=== PATIENT | female | born 1965 | race African-American/Black ===

== ENCOUNTER 2017-02-02 13:38 | Inpatient (IN) | payer OTHER ==
[2017-02-02 13:43] VITALS: BMI 39.1
--- NOTE | 2017-02-02 14:03 | PDOC ---
History of Present Illness - General History Source: Patient <Ralf Berriosica - Last Filed: 02/02/17 14:02> - General History Source: Patient Exam Limitations: No Limitations <Christian Knox - Last Filed: 02/02/17 14:25> <Irasema Garza - Last Filed: 02/02/17 14:33> - General Chief Complaint: Pain Stated Complaint: ADMIT (PCP SENT) Time Seen by Provider: 02/02/17 14:02 Past History - Past Medical History COPD: No DVT: No Diabetes: Yes GI Disorders: Yes (GALLSTONES) - Suicide/Smoking/Psychosocial Hx Smoking History: Current some day smoker Number of Cigarettes Smoked Daily: 2 Information on smoking cessation initiated: Yes 'Breaking Loose' booklet given: 02/02/17 Hx Alcohol Use: Yes (SOCIAL) Drug/Substance Use Hx: No <YashKelle - Last Filed: 02/02/17 14:02> <Christian Knox - Last Filed: 02/02/17 14:25> <Irasema Garza - Last Filed: 02/02/17 14:33> - Past Medical History Allergies/Adverse Reactions: Allergies Allergy/AdvReac Type Severity Reaction Status Date / Time No Known Allergies Allergy Verified 02/02/17 13:43 Home Medications: Ambulatory Orders Metformin HCl [Glucophage -] 500 mg PO TID 02/14/16 *Physical Exam - Vital Signs Last Vital Signs Temp Pulse Resp BP Pulse Ox 98.1 F 95 H 20 145/75 97 02/02/17 13:39 02/02/17 13:39 02/02/17 13:39 02/02/17 13:39 02/02/17 13:39 <Kelle Berrios - Last Filed: 02/02/17 14:02> - Vital Signs Last Vital Signs Temp Pulse Resp BP Pulse Ox 98.1 F 95 H 20 145/75 97 02/02/17 13:39 02/02/17 13:39 02/02/17 13:39 02/02/17 13:39 02/02/17 13:39 <Christian Knox - Last Filed: 02/02/17 14:25> - Vital Signs Last Vital Signs Temp Pulse Resp BP Pulse Ox 98.1 F 95 H 20 145/75 97 02/02/17 13:39 02/02/17 13:39 02/02/17 13:39 02/02/17 13:39 02/02/17 13:39 <Irasema Garza - Last Filed: 02/02/17 14:33> Medical Decision Making - Medical Decision Making 02/02/17 14:26 A portion of this note was documented by scribe services under my direction. I have reviewed the details of the note, within reason, and agree with the documentation with the following case summary and management plan written by me. Patient treated in the ED. Nursing notes are reviewed and incorporated into the medical decision-making. Vital signs reviewed. Peripheral IV access obtained by the nurse, laboratory studies are drawn and sent, reviewed and interpreted by myself. Vital Signs Temp Pulse Resp BP Pulse Ox 98.1 F 95 H 20 145/75 97 02/02/17 13:39 02/02/17 13:39 02/02/17 13:39 02/02/17 13:39 02/02/17 13:39 51-year-old female with past medical history of appendectomy, diabetes, hyperlipidemia returns back the ED for persistent right upper quadrant pain. Patient reports feeling nauseous and reported severe pain when eating. Continues a right upper quadrant pain. Patient called her primary care physician within sent the patient back to the ED for admission. I discussed the case with Dr. Elizabet Linton, which is the patient to medical surgical admission and request surgeon Dr. Jenaro Mccurdy. Ultrasound from several hours ago demonstrated cholelithiasis with diarrhea, bile duct. Patient will likely need MRCP for further evaluation. This is concerning for choledocholithiasis. Case discussed in detail with admitting physician including history, physical exam and ancillary studies. Admitting physician has assumed care for the patient, will follow all pending diagnostics and will complete the evaluation and treatment. <Christian nKox - Last Filed: 02/02/17 14:25> - Medical Decision Making 02/02/17 14:15 Dr. Elizabet Linton was paged and notified via phone service. <Irasema Garza - Last Filed: 02/02/17 14:33> *DC/Admit/Observation/Transfer <Kelle Berrios - Last Filed: 02/02/17 14:02> - Discharge Dispostion Admit: Yes <Christian Knox - Last Filed: 02/02/17 14:25> <Irasema Garza - Last Filed: 02/02/17 14:33> Diagnosis at time of Disposition: Biliary colic symptom - Discharge Dispostion Condition at time of disposition: Stable - Referrals Referrals: Elizabet Linton [Primary Care Provider] - - Patient Instructions - Post Discharge Activity
[2017-02-02] MEDS ORDERED: morphine CARPU-JECT 4 MG/1 ML DISP.SYRIN IVPUSH ONE (14:23)
[2017-02-02] MEDS ORDERED: ONDANSETRON 4 MG/2 ML VIAL IVPB ONE (14:23)
--- NOTE | 2017-02-02 14:34 | PDOC ---
History of Present Illness - General History Source: Patient Exam Limitations: No Limitations - History of Present Illness Initial Comments: 02/02/17 16:28 The patient is a 51-year-old female, with significant past medical history of appendectomy, diabetes, hyperlipidemia, who presents to theED for persistent right upper quadrant pain. On exam, pt states that she is experiencing nausea and pain when eating. Patient called her PCP regarding her persistent pain and she was advised to come into the ED for admission. The patient denies any fever, chills, vomiting, or diarrhea. She denies having any other symptoms. PCP: Dr. Elizabet Linton <Irasema Garza - Last Filed: 02/02/17 16:28> - General History Source: Patient Exam Limitations: No Limitations <Christian Knox - Last Filed: 02/04/17 16:05> - General Chief Complaint: Pain Stated Complaint: ADMIT (PCP SENT) Time Seen by Provider: 02/02/17 14:02 Past History <Irasema Garza - Last Filed: 02/02/17 16:28> - Past Medical History COPD: No DVT: No Diabetes: Yes GI Disorders: Yes (GALLSTONES) - Suicide/Smoking/Psychosocial Hx Smoking History: Current some day smoker Number of Cigarettes Smoked Daily: 2 Information on smoking cessation initiated: Yes 'Breaking Loose' booklet given: 02/02/17 Hx Alcohol Use: Yes (SOCIAL) Drug/Substance Use Hx: No <Christian Knox - Last Filed: 02/04/17 16:05> - Past Medical History Allergies/Adverse Reactions: Allergies Allergy/AdvReac Type Severity Reaction Status Date / Time No Known Allergies Allergy Verified 02/02/17 13:43 Home Medications: Ambulatory Orders Metformin HCl [Glucophage -] 500 mg PO BID 02/14/16 Review of Systems - Review of Systems Able to Perform ROS?: Yes Comments:: 02/02/17 16:31 GENERAL/CONSTITUTIONAL: No fever or chills. No weakness. HEAD, EYES, EARS, NOSE AND THROAT: No change in vision. No ear pain or discharge. No sore throat. CARDIOVASCULAR: No chest pain or shortness of breath. RESPIRATORY: No cough, wheezing, or hemoptysis. GASTROINTESTINAL: (+)abdominal pain, nausea. No vomiting, diarrhea or constipation. GENITOURINARY: No dysuria, frequency, or change in urination. MUSCULOSKELETAL: No joint or muscle swelling or pain. No neck or back pain. SKIN: No rash NEUROLOGIC: No headache, vertigo, loss of consciousness, or change in strength/ sensation. ENDOCRINE: No increased thirst. No abnormal weight change. HEMATOLOGIC/LYMPHATIC: No anemia, easy bleeding, or history of blood clots. ALLERGIC/IMMUNOLOGIC: No hives or skin allergy. <GregIrasema - Last Filed: 02/02/17 16:28> *Physical Exam - Vital Signs Last Vital Signs Temp Pulse Resp BP Pulse Ox 98.1 F 95 H 20 145/75 97 02/02/17 13:39 02/02/17 13:39 02/02/17 13:39 02/02/17 13:39 02/02/17 13:39 - Physical Exam Comments: 02/02/17 16:32 GENERAL: Awake, alert, and fully oriented. (+)Uncomfortable appearing. HEAD: No signs of trauma EYES: PERRLA, EOMI, sclera anicteric, conjunctiva clear ENT: Auricles normal inspection, hearing grossly normal, nares patent, oropharynx clear without exudates. Moist mucosa NECK: Normal ROM, supple, no lymphadenopathy, JVD, or masses LUNGS: Breath sounds equal, clear to auscultation bilaterally. No wheezes, and no crackles HEART: Regular rate and rhythm, normal S1 and S2, no murmurs, rubs or gallops ABDOMEN: (+)Right upper quadrant tenderness, Gomez's sign positive. Soft, normoactive bowel sounds. No guarding, no rebound. No masses EXTREMITIES: Normal range of motion, no edema. No clubbing or cyanosis. No cords, erythema, or tenderness. NEUROLOGICAL: Cranial nerves II through XII grossly intact. Normal speech, normal gait SKIN: Warm, Dry, normal turgor, no rashes or lesions noted <GregIrasema - Last Filed: 02/02/17 16:28> - Vital Signs Last Vital Signs Temp Pulse Resp BP Pulse Ox 98.1 F 95 H 20 145/75 97 02/02/17 13:39 02/02/17 13:39 02/02/17 13:39 02/02/17 13:39 02/02/17 13:39 <Christian Knox - Last Filed: 02/04/17 16:05> Heart Score/ECG Review #1 ECG reviewed & interpreted by me at: 16:00 02/02/17 16:06 NSR 64, no std/bernard, QTC 435 msec, normal axis, normal intervals, TWI III, T wave flat V4, QTC 435 msec <Christian Knox - Last Filed: 02/04/17 16:05> ED Treatment Course - LABORATORY CBC & Chemistry Diagram: 02/02/17 14:44 02/02/17 14:44 <Irasema Garza - Last Filed: 02/02/17 16:28> - LABORATORY CBC & Chemistry Diagram: 02/02/17 14:44 02/02/17 14:44 <Christian Knox - Last Filed: 02/04/17 16:05> Medical Decision Making - Medical Decision Making 02/02/17 14:[address] Jenaro Mccurdy and he will be admitting the patient. <Irasema Garza - Last Filed: 02/02/17 16:28> - Medical Decision Making 02/02/17 14:34 A portion of this note was documented by scribe services under my direction. I have reviewed the details of the note, within reason, and agree with the documentation with the following case summary and management plan written by me. Patient treated in the ED. Nursing notes are reviewed and incorporated into the medical decision-making. Vital signs reviewed. Peripheral IV access obtained by the nurse, laboratory studies are drawn and sent, reviewed and interpreted by myself. Vital Signs Temp Pulse Resp BP Pulse Ox 98.1 F 95 H 20 145/75 97 02/02/17 13:39 02/02/17 13:39 02/02/17 13:39 02/02/17 13:39 02/02/17 13:39 51-year-old female with past medical history of appendectomy, diabetes, hyperlipidemia returns back the ED for persistent right upper quadrant pain. Patient reports feeling nauseous and reported severe pain when eating. Continues a right upper quadrant pain. Patient called her primary care physician within sent the patient back to the ED for admission. I discussed the case with Dr. Elizabet Linton, which is the patient to medical surgical admission and request surgeon Dr. Jenaro Mccurdy. Ultrasound from several hours ago demonstrated cholelithiasis with diarrhea, bile duct. Patient will likely need MRCP for further evaluation. This is concerning for choledocholithiasis. Case discussed in detail with admitting physician including history, physical exam and ancillary studies. Admitting physician has assumed care for the patient, will follow all pending diagnostics and will complete the evaluation and treatment. 02/04/17 16:04 CORRECTION: Case was discussed with DR. Hampton, not with DR. Jenaro Mccurdy (as Dr. Hampton was control operator flow coat) <Christian Konx - Last Filed: 02/04/17 16:05> *DC/Admit/Observation/Transfer - Attestations Scribe Attestion: 02/02/17 16:36 Documentation prepared by Irasema Garza, acting as medical technologist for Christian Konx MD. <Irasema Garza - Last Filed: 02/02/17 16:28> - Discharge Dispostion Admit: Yes Decision to Admit order Date/Time: Decision to Admit Order Category Date Time Status Decision to Admit to Hospital Routine Admission 02/02/17 14:32 Ordered <Christian Knox - Last Filed: 02/04/17 16:05> Diagnosis at time of Disposition: Biliary colic symptom - Discharge Dispostion Condition at time of disposition: Stable
[2017-02-02] MEDS ORDERED: morphine SULFATE 4 MG/ML VIAL ONE (14:37)
[2017-02-02] MEDS: SODIUM CHLORIDE 1,000 ML IV SCH (14:48)
[2017-02-02 15:10] LABS: BASOPHIL 0.7 % (0-2.0); EOSINOPHIL 3.7 % (0-4.5); MCH 27.6 pg (25.7-33.7); MCHC 32.9 g/dl (32.0-36.0); MEAN CELL VOLUME 83.8 fl (80-96); NEUTROPHILS 52.4 % (42.8-82.8); PLATELET COUNT 186 K/MM3 (134-434); RDW 14.3 % (11.6-15.6); WHITE BLOOD COUNT 5.8 K/mm3 (4.0-10.0)
[2017-02-02 15:30] LABS: ALBUMIN 3.3 g/dl (3.4-5.0); ANION GAP 8 (8-16); BILIRUBIN,TOTAL 0.2 mg/dL (0.2-1.0); CO2 25 mmol/L (21-32); CREATININE 0.7 mg/dL (0.55-1.02); GLUCOSE,RANDOM 176 mg/dL (74-106); SGOT/AST 12 U/L (15-37); SGPT/ALT 24 U/L (12-78); TOT PROT 6.5 g/dl (6.4-8.2)
[2017-02-02 15:31] LABS: ALK PHOS 92 U/L (45-117)
[2017-02-02 15:58] LABS: INR 0.96 (0.82-1.09); PROTHROMBIN TIME (PATIENT) 10.8 SEC (9.98-11.88)
[2017-02-02 16:01] LABS: ACTIVATED PTT 31.2 SECONDS (26.9-34.4)
[2017-02-02 16:27] LABS: URINE APPEARANCE CLOUDY; URINE BILIRUBIN NEGATIVE (NEGATIVE); URINE BLOOD NEGATIVE (NEGATIVE); URINE COLOR DK YELLOW; URINE GLUCOSE (UA) 2+ (NEGATIVE); URINE KETONE NEGATIVE (NEGATIVE); URINE NITRITE POSITIVE (NEGATIVE); URINE PROTEIN NEGATIVE (NEGATIVE); URINE UROBILINOGEN NEGATIVE mg/dL (0.2-1.0)
[2017-02-02 16:30] LABS: URINE BACTERIA RARE /hpf (NONE SEEN); URINE HYALINE CAST 38 /lpf; URINE MUCUS MANY; URINE RBC 5; URINE WBC 4
[2017-02-02 20:14] LABS: URINE LEUK ESTERASE Negative (NEGATIVE)
[2017-02-02] MEDS: HEPARIN NA (PORCINE) 5,000 UNITS/ML 1ML VIAL SQ SCH (22:00)
[2017-02-03] MEDS ORDERED: ACETAMINOPHEN 325 MG TABLET (FP) PO PRN (01:49)
[2017-02-03] MEDS: SODIUM CHLORIDE 1,000 ML IV SCH ×2 (03:17→07:46)
[2017-02-03] MEDS: metFORMIN HCL 500 MG TABLET (FP) PO SCH ×2 (06:38→16:47)
--- NOTE | 2017-02-03 07:02 | HP ---
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 On exam, pt states that she is experiencing nausea and pain when eating. Patient called me this am regarding her persistent pain and I advised her to come into the ED for admission. No CP/ SOB/NEFF. Pt was in ER last night but was sent home by ER with f/u in office then pt returned today and more abdominal pain with eating. The patient denies any fever, chills, vomiting, or diarrhea. Has chronic intermittent back pain. She denies having any other symptoms. History Source: Patient Limitations to Obtaining History: No Limitations - Past Medical History Musculoskeletal: Yes: Osteoarthritis Endocrine: Yes: Diabetes Mellitus - Smoking History Smoking history: Current every day smoker Aproximately how many cigarettes per day: 8 - Alcohol/Substance Use Hx Alcohol Use: Yes (SOCIAL) History of Substance Use: reports: None - Social History Usual Living Arrangement: Yes: Alone ADL: Independent History of Recent Travel: No Home Medications - Allergies Allergies/Adverse Reactions: Allergies Allergy/AdvReac Type Severity Reaction Status Date / Time No Known Allergies Allergy Verified 02/02/17 13:43 - Home Medications Home Medications: Ambulatory Orders Metformin HCl [Glucophage -] 500 mg PO BID 02/14/16 Family Disease History - Family Disease History Family History: Unremarkable Review of Systems - Review of Systems Constitutional: reports: Loss of Appetite. denies: Chills, Fever Eyes: denies: Blind Spots, Blurred Vision, Double Vision HENT: denies: Difficult Swallowing, Ear Pain Neck: denies: Stiffness, Tenderness Cardiovascular: denies: Chest Pain, Palpitations, Shortness of Breath Respiratory: denies: Cough, Orthopnea, SOB, SOB on Exertion Gastrointestinal: reports: Abdominal Pain, Bloating, Nausea. denies: Constipation, Diarrhea, Dysphagia, Melena, Rectal Bleeding, Vomiting, Vomiting Blood Genitourinary: denies: Dysuria, Flank Pain Musculoskeletal: reports: Back Pain. denies: Joint Swelling Integumentary: denies: Eczema, Rash, Wound Neurological: denies: Change in LOC, Change in Speech, Confusion, Dizziness, Seizure, Syncope, Unsteady Gait Hematology/Lymphatic: denies: Easily Bruised, Excessive Bleeding Psychiatric: denies: Altered Sleep Pattern, Anxiety, Depression, Suicidal Physical Examination Vital Signs: Vital Signs Temperature 98.3 F 02/03/17 06:42 Pulse Rate 80 02/03/17 06:42 Respiratory Rate 16 02/03/17 06:42 Blood Pressure 125/70 02/03/17 06:42 O2 Sat by Pulse Oximetry (%) 98 02/02/17 21:00 Constitutional: Yes: No Distress, Calm Eyes: Yes: Conjunctiva Clear HENT: Yes: Atraumatic Neck: Yes: Supple Cardiovascular: Yes: Regular Rate and Rhythm Respiratory: Yes: CTA Bilaterally Gastrointestinal: Yes: Soft, Tenderness (RUQ). No: Distention Renal/: No: CVA Tenderness - Left, CVA Tenderness - Right Musculoskeletal: No: Joint Stiffness, Joint Swelling Extremities: No: Cold, Cool, Cyanosis Integumentary: No: Rash, Venous Stasis Changes Neurological: Yes: WNL, Alert, Oriented ...Motor Strength: WNL Psychiatric: Yes: WNL, Alert, Oriented. No: Agitated, Suicidal Ideation Labs: CBC, BMP 02/02/17 14:44 02/02/17 14:44 Imaging - Results Chest X-ray: Report Reviewed Other: Report Reviewed Assessment/Plan The patient is a 51-year-old female, with significant past medical history of appendectomy, diabetes, hyperlipidemia, who presents to theED for persistent right upper quadrant pain. US c/w large gallstones and dilated CBD; labs NL LFT admit clear fluids, IVF pain meds ands zofran prn GI and surgery eval also will ask NS eval dfor chronic LBP see spine MRI; and CR[facility]HE[facility] HAND for ovarian mass eval d/w pt and staff pt agreed with plan
--- NOTE | 2017-02-03 07:09 | CON.OBG ---
Consult Consult Specialty:: gynecology Reason for Consultation:: ovarian mass - History of Present Illness History of Present Illness: 51 yo female with known history of L ovarian mass admitted for RUQ pain, colelithiasis, suspect choledocholithasis. Patient reports hx/o hysterectomy 2013 for menorrhagia and fibroid uterus. She underwent an ultrasound 12/31/16 which showed bilateral complex adnexal masses suspcicous for hemorrhagic ovarian cysts, R side measuring 3.5 x 2.9 x 2.7 cm, L side measuring 4.5 x 3.9 x 4.3 cm. She reports planned evaluation as an outpatient by her tumbling barrel painter, Dr. Kelly at [facility]. She reports occasional mild pelvic pressure. Denies any severe lower pelvic pain. Endorses RUQ pain, diarrhea, pain worsening with eating. POBHx: CD x 4 x 1 eTOP x 1 PGYNHx: last pap [address] Kelly, hx/o fibroids, menorrhagia as above. Denies hx/o STI - History Source Limitations to Obtaining History: No Limitations - Past Medical History Hepatobiliary: Yes: Cholelithiasis Endocrine: Yes: Diabetes Mellitus - Past Surgical History Additional Surgical History: CD x 4. Appendectomy - Alcohol/Substance Use Hx Alcohol Use: Yes (SOCIAL) - Smoking History Smoking history: Current every day smoker Aproximately how many cigarettes per day: 8 Home Medications - Allergies Allergies/Adverse Reactions: Allergies Allergy/AdvReac Type Severity Reaction Status Date / Time No Known Allergies Allergy Verified 02/02/17 13:43 - Home Medications Home Medications: Ambulatory Orders Metformin HCl [Glucophage -] 500 mg PO BID 02/14/16 Review of Systems - Review of Systems Constitutional: reports: No Symptoms Cardiovascular: reports: No Symptoms Respiratory: reports: No Symptoms Gastrointestinal: reports: Abdominal Pain, Diarrhea Genitourinary: reports: No Symptoms Neurological: reports: No Symptoms Endocrine: reports: No Symptoms Psychiatric: reports: No Symptoms 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 Vital Signs: Vital Signs Temperature 98.3 F 02/03/17 06:42 Pulse Rate 80 02/03/17 06:42 Respiratory Rate 16 02/03/17 06:42 Blood Pressure 125/70 02/03/17 06:42 O2 Sat by Pulse Oximetry (%) 98 02/02/17 21:00 Constitutional: Yes: Well Nourished, No Distress, Calm Neck: Yes: WNL Cardiovascular: Yes: WNL Respiratory: Yes: WNL Gastrointestinal: Yes: Soft, Tenderness (RUQ pain, no lower pelvic pain) Musculoskeletal: Yes: WNL Extremities: Yes: WNL Integumentary: Yes: WNL ...Motor Strength: WNL Psychiatric: Yes: Alert, Oriented Labs: CBC, BMP 02/02/17 14:44 02/02/17 14:44 Assessment/Plan 50 yo known hx/o bilateral ovarian cysts, abdominal pain. Abdominal pain at this point in time is likely secondary to GI etiology. 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 Patient reports had tried to see Dr. Christensen in the past, however we do not take her insurance ([facility]) . Patient reports has follow up with outpatient tumbling barrel painter. Would recommend repeat ultrasound imaging to evaluate bilateral cysts as an outpatient. Patient expressed understanding and agrees with plan.
--- NOTE | 2017-02-03 08:19 | PN ---
Progress Note (short form) - Note Progress Note: NEUROSURGERY CONSULT DICTATED H/o DM, hyperlipidemia, appendectomy who presents to the ED for persistent right upper quadrant pain and mid back pain. C/o nausea and pain when eating for years but worse last few weeks; occ leg "pressure" last couple weeks. PE: AF, VSS General- R UQ tenderness to palpation Neuro- CN intact; Motor 5/5 b LE; Sensation- intact LT/vibration; DTR- hyporeflexia B WBC 5.8; Neeraj 0.2 UA- 4 WBC, 5 RBC; leuk esterase negative Abd US- dilated CBD CT chest (prelim and relevant to spine)- multilevel thoracic spondylosis CT abd (prelim and relevant to spine)- CBD enhancement vs calcification; L3-4 spondylosis; face arthrosis LS MRI ()- mild L3-4 spondylolisthesis, mild central and lateral recess stenosis, DDD, facet hypertrophy; no sign of infection Symptoms most consistent with GI sources given location of symptoms and CBD dilatation and other imaging findings If persistent symptoms despite GI/general surgical intervention, consider T spine MRI
--- NOTE | 2017-02-03 08:38 | PN ---
Progress Note (short form) - Note Progress Note: surgery pt seen and examined. full consult to follow. 51f with gallstones and dilated cbd. needs evaluation of cbd. cholecystectomy to follow.
[2017-02-03] MEDS: HEPARIN NA (PORCINE) 5,000 UNITS/ML 1ML VIAL SQ SCH ×2 (10:19→21:43)
[2017-02-03] MEDS: HYDROmorphone HCL CARPU-JECT 1 MG/1 ML DISP.SYRIN IVPB PRN ×2 (10:20→17:21)
--- NOTE | 2017-02-03 11:08 | CON.GI ---
Consult Consult Specialty:: Dr. Cartagena covering for Dr. Ibrahim who resumes coverage 02/04 Referred by:: Dr. Elizabet Linton Reason for Consultation:: Abdominal pain - History of Present Illness Chief Complaint: Abdominal pain History of Present Illness: 51F admitted to [facility] for evaluation of abdominal pain. Ms. Hu describes the pain as follows: Chronic in nature over the last 3 months, intermiitent, located in the epigastrium / RUQ and flank and feeling like "rocks being scraped against her". The pain became more severe and constant this past saturday prompting her ER visit. The pain seems to occur 30 mins to 1 hour after meals and she describes associated nausea as well without vomiting. She does have a history of diabetes and says that for the most part her blood glucose is around 150. She describes chronic constipation and having a bowel movement does not alleviate the pain. She believes that she had a colonoscopy 2-3 years ago at [place] and thinks that polyps may have been found. She does not recall ever having had an upper endoscopy. Work-up has included blood work revealing normal CBC, Normal liver chemistries, glucose 178. She had an abdominal US revealing cholelithiasis and a dilated CBD on 1cm. They described the CBD dilation being seen on previous imaging. She had a CT scan of the abdomen and pelvis on this current admission that has not been read as of yet. Her maternal aunt had colon cancer diagnosed at age 60. - History Source History Provided By: Patient, Medical Record Limitations to Obtaining History: No Limitations - Past Medical History Cardio/Vascular: Yes: Hyperlipdemia Hepatobiliary: Yes: Cholelithiasis Endocrine: Yes: Diabetes Mellitus (DM II) - Past Surgical History Past Surgical History: Yes: Appendectomy, Hernia Repair (umbilical), Hysterectomy (partial) Additional Surgical History: CD x 4. 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 Place of : [facility] History of Recent Travel: No Home Medications - Allergies Allergies/Adverse Reactions: Allergies Allergy/AdvReac Type Severity Reaction Status Date / Time No Known Allergies Allergy Verified 02/02/17 13:43 - Home Medications Home Medications: Ambulatory Orders Metformin HCl [Glucophage -] 500 mg PO BID 02/14/16 Family Disease History - Family Disease History Family Disease History: Other: Father (alive: 80: DM II), Mother (: 60: diabetes complications), Brother (2, 1 w/ DM II), Sister (1, healthy), Son (2, healthy) Other Family History: maternal aunt with colon cancer age 60 Review of Systems - Review of Systems Constitutional: denies: Chills Cardiovascular: denies: Chest Pain Respiratory: denies: Cough, SOB Gastrointestinal: reports: Abdominal Pain, Bloating, Constipation, Indigestion, Nausea. denies: Diarrhea, Dysphagia, Melena, Rectal Bleeding, Vomiting, Vomiting Blood Genitourinary: denies: Burning, Discharge Physical Exam-GI Vital Signs: Vital Signs Temperature 97.5 F L 02/03/17 10:00 Pulse Rate 77 02/03/17 10:00 Respiratory Rate 20 02/03/17 10:00 Blood Pressure 134/75 02/03/17 10:00 O2 Sat by Pulse Oximetry (%) 97 02/03/17 09:00 Constitutional: Yes: Calm Eyes: No: Sclera Icterus Cardiovascular: Yes: Regular Rate and Rhythm. No: Murmur Respiratory: Yes: CTA Bilaterally ...Auscultate: Yes: Normoactive Bowel Sounds ...Palpate: Yes: Tenderness (TTP RUQ > epigastrium. + brooks's). No: Hepatomegaly, Splenomegaly ...Percussion: No: Tympanitic ...Rectal Exam: Yes: Other (No external lesions, no masses, light brown formed stool in rectal vault guaiac negative) Edema: No (No LE edema) Neurological: Yes: Alert, Oriented Labs: CBC, BMP 02/02/17 14:44 02/02/17 14:44 INR, PTT INR 0.96 (0.82-1.09) 02/02/17 14:44 Hepatic Panel Total Bilirubin 0.2 mg/dL (0.2-1.0) D 02/02/17 14:44 AST 12 U/L (15-37) L 02/02/17 14:44 ALT 24 U/L (12-78) 02/02/17 14:44 Alkaline Phosphatase 92 U/L (45-117) 02/02/17 14:44 Albumin 3.3 g/dl (3.4-5.0) L 02/02/17 14:44 Problem List - Problems (1) Upper abdominal pain Assessment/Plan: With RUQ pain and dilated CBD noted on previousn imaging studies. Normal liver chemistries not suggestive of biliary obstruiction. + RUQ tenderness on exam along with brooks's sign ? biliary colic / cholecystitis ? alternate pathology Plan: Clear liquids Surgical evaluation IV Abx for now MRCP to be performed today Discussed possible upper endoscopy as well pending MRCP results and surgical eval. Discussed potential risks of the procedure like but not limited to bleeding, perforation infection, sedation medication effects all of which could be potentially life threatening. She has agreed to the procedure. Code(s): R10.10 - UPPER ABDOMINAL PAIN, UNSPECIFIED
[2017-02-03] MEDS ORDERED: LEVOFLOXACIN 500 MG IVPB 500 MG/100 ML BAG IVPB SCH (11:30)
[2017-02-03] MEDS: LEVOFLOXACIN 500 MG IVPB 500 MG/100 ML BAG IVPB SCH (16:47)
[2017-02-03] MEDS: ONDANSETRON 4 MG/2 ML VIAL IVPB PRN (21:43)
--- NOTE | 2017-02-03 23:33 | CONS ---
DATE OF CONSULTATION: 02/03/2017 CHIEF COMPLAINT: Right upper quadrant pain, right-sided back pain. HISTORY OF PRESENT ILLNESS: The patient is a 51-year-old right-handed female with a history of diabetes, hypercholesterolemia, and appendectomy when she was 16, who was sent to the emergency room for increasing right upper quadrant pain. She also complained of associated nausea, but no diarrhea. The symptoms have been going on for years, but have been worse in the last few weeks. The patient has recently complained of some right bilateral leg "pressure." That has not been too bothersome. Most significant complaint is the right-sided abdominal pain. Patient denies any fevers or chills. PAST MEDICAL HISTORY: Significant for obesity, hypercholesterolemia, diabetes. CURRENT MEDICATIONS: Include Zofran, Tylenol, subcutaneous heparin, Glucophage , and Dilaudid p.r.n. ALLERGIES: No known drug allergies. FAMILY HISTORY: Noncontributory. SOCIAL HISTORY: She does not smoke or drink. She lives at home. She does not work. REVIEW OF SYSTEMS: Otherwise negative for other major constitutional, head and neck, cardiovascular, pulmonary, gastrointestinal, genitourinary, endocrinologic, neurologic, or psychological problems, except for the above. PHYSICAL EXAMINATION: Vital signs: Temperature is 98.3, blood pressure is 125/70, pulse rate 80, O2 saturations are 98% on room air. HEENT: Examination shows head to be normocephalic, atraumatic, anicteric. Neck: Supple with no carotid bruits. Core: Regular rhythm. Lungs: Clear bilaterally. Abdomen: Benign. Extremities: Shows no signs of DVT. Distal pulses are 1+. Neurologic: She is awake, alert, and oriented x4. Cranial nerve examination is intact, II-XII. Motor examination shows 5/5 strength in the bilateral upper and lower extremities. Sensory examination is intact to light touch and vibratory sensation. Deep tendon reflexes are 1+ throughout. There is no pathological neurologic sign. Gait is not tested for safety reasons. Back: Examination of the back shows slight tenderness in the mid and upper lumbar spine on the right side. However, she is mostly tender in the abdominal region to palpation in the right upper quadrant. She has no rebound. LABORATORY EXAMINATION: White blood cell count of 5.8, hemoglobin 12.4, platelet count 186,000, INR is 0.96, PTT is 31.2. BUN is 13 and creatinine is 0.7. Total bilirubin is 0.2. LFTs are normal. Lipase is 96. CT scan of the chest and lumbar spine were reviewed relevant to the thoracic and lumbar spine. There appears to be extensive spondylosis of the thoracic spine with multilevel endplate signal changes, which is sclerotic and chronic in nature from up the midlumbar thoracic spine. There is also L3-L4 degenerative spondylolisthesis and spondylosis with facet hypertrophy. Of note is also the common bile duct appears to be enhancing, not calcified, and is dilated. IMPRESSION: 1. Choledocholithiasis with common bile duct dilatation. 2. Multilevel thoracic degenerative disc disease with endplate sclerosis and spondylosis. 3. L3-L4 degenerative spondylolisthesis with mild stenosis. 4. Obesity. 5. Diabetes. RECOMMENDATIONS: The patient presents with chronic abdominal pain, which has been worse over the past couple of weeks. She also has the complaint of nausea. Ultrasound demonstrated dilated common bile duct and choledocholithiasis. This is confirmed by the CT scan, the final reading of which is still pending. The CT scan of the abdomen did demonstrate degenerative spondylolisthesis at L3-L4 with facet hypertrophy and mild lateral recess stenosis and central stenosis. There is also thoracic spondylosis and degenerative disc disease with endplate sclerosis, which appears to be chronic and degenerative in nature. Her symptoms appear to be mostly from her GI system and not her spine at this time. If her symptoms persist despite resolution of the GI issues, thoracic spine MRI could be considered to better delineate the thoracic spine pathology, which could sometimes cause abdominal region pain because of the radicular pattern of pain. Her lumbar spine findings are relatively benign and she did have an MRI about 2 months ago, which showed only degenerative changes without marked stenosis. She does have occasional mild bilateral leg symptoms which could be related to the L3-4 pathology.(which is non- surgical given the mild and intermittent nature of symptoms) The above was discussed with the patient at bedside. All questions were answered. JR JOSEPH M.D. DAIANA/[id number] MTDD
[2017-02-04] MEDS: SODIUM CHLORIDE 1,000 ML IV SCH ×2 (03:12→14:59)
[2017-02-04] MEDS: metFORMIN HCL 500 MG TABLET (FP) PO SCH ×2 (06:12→17:18)
--- NOTE | 2017-02-04 07:12 | PN ---
Progress Note, Physician Chief Complaint: in bed with on/off RUQ pain and nausea consults and tests reviewed and d/w pt MRI pending - Current Medication List Current Medications: Active Medications Acetaminophen (Tylenol -) 650 mg PO Q6H PRN PRN Reason: FEVER OR PAIN Heparin Sodium (Porcine) (Heparin -) 5,000 unit SQ BID [facility] Last Admin: 02/03/17 21:43 Dose: 5,000 unit Hydromorphone HCl (Dilaudid Injection -) 1 mg IVPB Q6H PRN PRN Reason: PAIN Last Admin: 02/03/17 17:21 Dose: 1 mg Sodium Chloride (Normal Saline -) 1,000 mls @ 100 mls/hr IV ASDIR [facility] Last Admin: 02/04/17 03:12 Dose: 100 mls/hr Levofloxacin (Levaquin 500 Mg Premixed Ivpb -) 500 mg in 100 mls @ 100 mls/hr IVPB DAILY [facility] Last Admin: 02/03/17 16:47 Dose: 100 mls/hr Metformin HCl (Glucophage -) 500 mg PO BID@0700,1630 [facility] Last Admin: 02/04/17 06:12 Dose: 500 mg Ondansetron HCl (Zofran Injection) 8 mg IVPB Q8H PRN PRN Reason: NAUSEA Last Admin: 02/03/17 21:43 Dose: 8 mg - Objective Vital Signs: Vital Signs Temperature 97.8 F 02/04/17 06:00 Pulse Rate 63 02/04/17 06:00 Respiratory Rate 18 02/04/17 06:00 Blood Pressure 119/67 02/04/17 06:00 O2 Sat by Pulse Oximetry (%) 100 02/03/17 21:00 Constitutional: Yes: No Distress, Calm Eyes: Yes: Conjunctiva Clear HENT: Yes: Atraumatic Neck: Yes: Supple Cardiovascular: Yes: Regular Rate and Rhythm Respiratory: Yes: CTA Bilaterally Gastrointestinal: Yes: Soft. No: Distention Genitourinary: No: CVA Tenderness - Left, CVA Tenderness - Right, Hematuria Musculoskeletal: No: Joint Stiffness, Joint Swelling Extremities: No: Cold, Cool, Cyanosis Edema: No Integumentary: No: Rash, Venous Stasis Changes Neurological: Yes: WNL, Alert, Oriented ...Motor Strength: WNL Psychiatric: Yes: WNL, Alert, Oriented. No: Agitated, Suicidal Ideation Labs: CBC, BMP 02/02/17 14:44 02/02/17 14:44 INR, PTT INR 0.96 (0.82-1.09) 02/02/17 14:44 - ....Imaging Other: Report Reviewed Assessment/Plan The patient is a 51-year-old female, with significant past medical history of appendectomy, diabetes, hyperlipidemia, who presents to theED for persistent right upper quadrant pain. US c/w large gallstones and dilated CBD; labs NL LFT clear fluids, IVF pain meds ands zofran prn GI and surgery eval; MRCP; f/u with NS eval for chronic LBP see spine MRI; and MUD BOSS for ovarian mass eval d/w pt and staff pt agreed with plan
--- NOTE | 2017-02-04 08:29 | PN ---
Progress Note (short form) - Note Progress Note: NEUROSURGERY R UQ pain and nausea PE: AF, VSS General- R UQ tenderness to palpation Neuro- CN intact; Motor 5/5 b LE; Sensation- intact LT/vibration; DTR- hyporeflexia B WBC 5.8; Neeraj 0.2 UA- 4 WBC, 5 RBC; leuk esterase negative Abd US- dilated CBD CT chest (relevant to spine)- multilevel thoracic spondylosis CT abd (relevant to spine)- CBD enhancement vs calcification; L3-4 spondylosis; face arthrosis LS MRI ()- mild L3-4 spondylolisthesis, mild central and lateral recess stenosis, DDD, facet hypertrophy; no sign of infection Symptoms most consistent with GI sources given location of symptoms and CBD dilatation and other imaging findings MRCP pending per GI LE symptoms of leg "tightness" are mild though could be realted to the L3-4 degenerative spondylolisthesis/mild stenosis If persistent symptoms despite GI/general surgical intervention, consider T spine MRI to r/o thoracic radiculopathy Pt understands the above
[2017-02-04] MEDS: HYDROmorphone HCL CARPU-JECT 1 MG/1 ML DISP.SYRIN IVPB PRN ×2 (09:35→20:25)
[2017-02-04] MEDS: LEVOFLOXACIN 500 MG IVPB 500 MG/100 ML BAG IVPB SCH (09:35)
[2017-02-04] MEDS: HEPARIN NA (PORCINE) 5,000 UNITS/ML 1ML VIAL SQ SCH (09:36)
--- NOTE | 2017-02-04 09:54 | EKG ---
Test Reason : Blood Pressure : / mmHG Vent. Rate : 064 BPM Atrial Rate : 064 BPM P-R Int : 166 ms QRS Dur : 082 ms QT Int : 422 ms P-R-T Axes : 058 -12 004 degrees QTc Int : 435 ms NORMAL SINUS RHYTHM LOW VOLTAGE QRS BORDERLINE ECG NO PREVIOUS ECGS AVAILABLE Confirmed by SATHISH YU, AMAN ([id number]) on 02/04/2017 9:53:58 AM Referred By: Confirmed By:AMAN BOWER MD
[2017-02-04] MEDS ORDERED: LEVOFLOXACIN 500 MG IVPB 500 MG/100 ML BAG IVPB ONE (10:00)
--- NOTE | 2017-02-04 11:13 | CONS ---
DATE OF CONSULTATION: 02/03/2017 REASON FOR CONSULTATION: Acute cholecystitis, cholelithiasis, abnormal common bile duct. BRIEF HISTORY: This was an emergency room consultation. The patient was subsequently seen and examined inpatient. This is a 51-year-old female with presentation of right upper quadrant abdominal pain without nausea or vomiting. While in the emergency room, she was noted to have cholelithiasis, as well as a dilated, 1-cm, common bile duct. She was admitted to the hospital for a presumed acute cholecystitis and started on a clear liquid diet. She denies nausea, denies vomiting, denies blood in her stool, denies recent weight loss. Her past medical history is significant for diabetes and hyperlipidemia. Her past surgical history includes an appendectomy through an open incision. SOCIAL HISTORY: Positive for tobacco. She had been encouraged to quit. Her home medication includes metformin. She has no known drug allergies. On review of systems, for general, denies fatigue or malaise. For cardiac, denies chest pain or palpitations. For respiratory, denies shortness of breath or wheeze. For GI, as in HPI. Denies diarrhea. Denies blood in her stool. Denies recent weight loss. For , denies dysuria. MUSCULOSKELETAL: Denies joint pain, joint swelling. For psychiatric, denies anxiety, depression, or hearing voices. On physical exam, this is a morbidly obese, 51-year-old female in no distress. She is afebrile. Her vital signs are stable. Her head is normocephalic. Her sclerae are anicteric. Her neck is supple. Her chest clear. Her abdomen is soft. She has moderate right upper quadrant tenderness. She has a well-healed, Gaurang-Edwardo incision. She has no obvious hernias. Extremities have no edema. On review of her laboratory, her white blood cell count was 5.8 on February 02. Her chemistries were unremarkable on February 02. On review of her imaging, she has an ultrasound of her gallbladder from February 01 which shows a 1-cm common bile duct with numerous gallbladder stones seen. There was no ultrasound evidence of acute cholecystitis. There was a previous study mentioned on December 31, 2016, which it states is unchanged. She had a CAT scan of her abdomen and pelvis also on February 02 which mentions gallstones with a 1-cm common bile duct noted on CAT scan. Also, an ovarian cyst is noted. ASSESSMENT: This is a 51-year-old female who presents with right upper quadrant abdominal pain. Noted to have gallstones and a dilated common bile duct. At this point, the patient needs further evaluation of her common bile duct. The patient states that an MRI has been ordered. Agree with that, as well as GI evaluation. Once the common bile duct has shown to be unremarkable for pathology, would consider cholecystectomy. The patient is currently nontoxic. I will follow the patient with you and follow GI input. DO CONRAD LARA/[id number]
--- NOTE | 2017-02-04 12:33 | PN ---
GI Progress Note Subjective: GI NOte: RUQ pain persists. MRCP reveals no CBD stones. No repeat LFTs - Objective Vital Signs: Vital Signs Temperature 98.0 F 02/04/17 09:35 Pulse Rate 72 02/04/17 09:35 Respiratory Rate 18 02/04/17 09:35 Blood Pressure 136/67 02/04/17 09:35 O2 Sat by Pulse Oximetry (%) 100 02/03/17 21:00 Current Medications Generic Name Dose Route Start Last Admin Trade Name Freq PRN Reason Stop Dose Admin Acetaminophen 650 mg 02/03/17 01:49 Tylenol - PO Q6H PRN FEVER OR PAIN Heparin Sodium (Porcine) 5,000 unit 02/02/17 22:00 02/04/17 09:36 Heparin - SQ 5,000 unit BID ANDREAS Administration Hydromorphone HCl 1 mg 02/03/17 07:01 02/04/17 09:35 Dilaudid Injection - IVPB 1 mg Q6H PRN Administration PAIN Sodium Chloride 1,000 mls @ 100 mls/hr 02/03/17 07:00 02/04/17 03:12 Normal Saline - IV 100 mls/hr ASDIR ANDREAS Administration Levofloxacin 500 mg in 100 mls @ 100 mls/hr 02/03/17 16:45 02/04/17 09:35 Levaquin 500 Mg Premixed Ivpb - IVPB 100 mls/hr DAILY ANDREAS Administration Metformin HCl 500 mg 02/03/17 07:00 02/04/17 06:12 Glucophage - PO 500 mg BID@0700,1630 ANDREAS Administration Ondansetron HCl 8 mg 02/03/17 07:00 02/03/17 21:43 Zofran Injection IVPB 8 mg Q8H PRN Administration NAUSEA CBC,CMP WBC 5.8 K/mm3 (4.0-10.0) D 02/02/17 14:44 RBC 4.51 M/mm3 (3.60-5.2) 02/02/17 14:44 Hgb 12.4 GM/dL (10.7-15.3) 02/02/17 14:44 Hct 37.8 % (32.4-45.2) 02/02/17 14:44 MCV 83.8 fl (80-96) 02/02/17 14:44 MCH 27.6 pg (25.7-33.7) 02/02/17 14:44 MCHC 32.9 g/dl (32.0-36.0) 02/02/17 14:44 RDW 14.3 % (11.6-15.6) 02/02/17 14:44 Plt Count 186 K/MM3 (134-434) 02/02/17 14:44 MPV 9.0 fl (7.5-11.1) 02/02/17 14:44 Neutrophils % 52.4 % (42.8-82.8) 02/02/17 14:44 Lymphocytes % 36.7 % (8-40) 02/02/17 14:44 Monocytes % 6.5 % (3.8-10.2) 02/02/17 14:44 Eosinophils % 3.7 % (0-4.5) D 02/02/17 14:44 Basophils % 0.7 % (0-2.0) 02/02/17 14:44 Sodium 141 mmol/L (136-145) 02/02/17 14:44 Potassium 4.4 mmol/L (3.5-5.1) 02/02/17 14:44 Chloride 108 mmol/L (98-107) H 02/02/17 14:44 Carbon Dioxide 25 mmol/L (21-32) 02/02/17 14:44 Anion Gap 8 (8-16) 02/02/17 14:44 BUN 13 mg/dL (7-18) D 02/02/17 14:44 Creatinine 0.7 mg/dL (0.55-1.02) 02/02/17 14:44 Creat Clearance w eGFR > 60 (>60) 02/02/17 14:44 Random Glucose 176 mg/dL (74-106) H D 02/02/17 14:44 Calcium 8.0 mg/dL (8.5-10.1) L 02/02/17 14:44 Total Bilirubin 0.2 mg/dL (0.2-1.0) D 02/02/17 14:44 AST 12 U/L (15-37) L 02/02/17 14:44 ALT 24 U/L (12-78) 02/02/17 14:44 Alkaline Phosphatase 92 U/L (45-117) 02/02/17 14:44 Total Protein 6.5 g/dl (6.4-8.2) 02/02/17 14:44 Albumin 3.3 g/dl (3.4-5.0) L 02/02/17 14:44 Lipase 96 U/L (73-393) 02/02/17 14:44 Constitutional: No Distress ...Auscultate: Yes: Normoactive Bowel Sounds ...Palpate: Yes: Soft, Other (nontender) Labs: CBC, BMP 02/02/17 14:44 02/02/17 14:44 INR, PTT INR 0.96 (0.82-1.09) 02/02/17 14:44 Assessment/Plan Picture is consistent with biliary colic. The patient believes that she is having surgery tomorrow. No indications for ERCP at this point so agree with proceeding with jorge cross.
--- NOTE | 2017-02-04 16:03 | PN ---
Progress Note (short form) - Note Progress Note: surgery spoke with patient. she remains well. mrcp read as normal cbd. Gi has reviewed case and has no concern for choledocholithiasis or neoplasm of cbd and recommend cholecystectomy. surgery tentatively scheduled for tomorrow.
[2017-02-05] MEDS: SODIUM CHLORIDE 1,000 ML IV SCH ×2 (01:42→06:28)
[2017-02-05] MEDS: metFORMIN HCL 500 MG TABLET (FP) PO SCH ×2 (06:28→18:00)
[2017-02-05 07:24] LABS: BASOPHIL 0.8 % (0-2.0); MCH 27.6 pg (25.7-33.7); MCHC 32.7 g/dl (32.0-36.0); MEAN CELL VOLUME 84.5 fl (80-96); MEAN PLT VOLUME 8.9 fl (7.5-11.1); NEUTROPHILS 52.9 % (42.8-82.8); PLATELET COUNT 187 K/MM3 (134-434); RDW 14.4 % (11.6-15.6); WHITE BLOOD COUNT 5.9 K/mm3 (4.0-10.0)
[2017-02-05 07:43] LABS: ALBUMIN 2.8 g/dl (3.4-5.0); ALK PHOS 83 U/L (45-117); AMYLASE 28 U/L (25-115); ANION GAP 7 (8-16); BILIRUBIN,TOTAL 0.2 mg/dL (0.2-1.0); CALCIUM 8.1 mg/dL (8.5-10.1); CO2 25 mmol/L (21-32); CREATININE 0.7 mg/dL (0.55-1.02); GLUCOSE,RANDOM 106 mg/dL (74-106); SGOT/AST 15 U/L (15-37); SGPT/ALT 23 U/L (12-78); TOT PROT 5.9 g/dl (6.4-8.2)
--- NOTE | 2017-02-05 08:21 | PN ---
Progress Note (short form) - Note Progress Note: NEUROSURGERY R UQ pain and nausea PE: Tmax 98.2, AF, VSS General- R UQ tenderness to palpation Neuro- CN intact; Motor 5/5 b LE; Sensation- intact LT/vibration; DTR- hyporeflexia B MRCP reportedly did not show CBD stones Symptoms most consistent with GI sources given location of symptoms and CBD dilatation and other imaging findings Mld intermittent LE symptoms of leg "tightness" could be related to the L3-4 degenerative spondylolisthesis/mild stenosis but condition is not surgical at this time If persistent RUQ symptoms despite GI/general surgical intervention, consider T spine MRI to r/o thoracic radiculopathy For lap raymundo today by report
[2017-02-05 09:47] LABS: C-REACTIVE PROTEIN 0.6 MG/DL (0.00-0.3)
[2017-02-05] MEDS: HYDROmorphone HCL CARPU-JECT 1 MG/1 ML DISP.SYRIN IVPB PRN (10:34)
--- NOTE | 2017-02-05 10:53 | PN ---
Progress Note, Physician Chief Complaint: for cholecystectomy for gallbladder gallstone - Current Medication List Current Medications: Active Medications Acetaminophen (Tylenol -) 650 mg PO Q6H PRN PRN Reason: FEVER OR PAIN Heparin Sodium (Porcine) (Heparin -) 5,000 unit SQ BID [facility] Last Admin: 02/04/17 09:36 Dose: 5,000 unit Hydromorphone HCl (Dilaudid Injection -) 1 mg IVPB Q6H PRN PRN Reason: PAIN Last Admin: 02/05/17 10:34 Dose: 1 mg Sodium Chloride (Normal Saline -) 1,000 mls @ 100 mls/hr IV ASDIR [facility] Last Admin: 02/05/17 06:28 Dose: Not Given Levofloxacin (Levaquin 500 Mg Premixed Ivpb -) 500 mg in 100 mls @ 100 mls/hr IVPB DAILY [facility] Last Admin: 02/04/17 09:35 Dose: 100 mls/hr Metformin HCl (Glucophage -) 500 mg PO BID@0700,1630 [facility] Last Admin: 02/05/17 06:28 Dose: Not Given Ondansetron HCl (Zofran Injection) 8 mg IVPB Q8H PRN PRN Reason: NAUSEA Last Admin: 02/03/17 21:43 Dose: 8 mg - Objective Vital Signs: Vital Signs Temperature 98.5 F 02/05/17 10:00 Pulse Rate 58 L 02/05/17 10:00 Respiratory Rate 20 02/05/17 10:00 Blood Pressure 126/77 02/05/17 10:00 O2 Sat by Pulse Oximetry (%) 100 02/04/17 21:00 Constitutional: Yes: No Distress, Calm Eyes: Yes: Conjunctiva Clear HENT: Yes: Atraumatic Neck: Yes: Supple Cardiovascular: Yes: Regular Rate and Rhythm Respiratory: Yes: CTA Bilaterally Gastrointestinal: Yes: Soft. No: Distention, Tenderness Genitourinary: No: CVA Tenderness - Left, CVA Tenderness - Right, Hematuria Musculoskeletal: No: Joint Stiffness, Joint Swelling Extremities: No: Cold, Cool Edema: No Integumentary: No: Rash Neurological: Yes: WNL, Alert, Oriented ...Motor Strength: WNL Psychiatric: Yes: WNL, Alert, Oriented. No: Agitated, Suicidal Ideation Labs: CBC, BMP 02/05/17 06:30 02/05/17 06:30 INR, PTT INR 0.96 (0.82-1.09) 02/02/17 14:44 - ....Imaging Other: Report Reviewed Assessment/Plan The patient is a 51-year-old female, with significant past medical history of appendectomy, diabetes, hyperlipidemia, who presents to theED for persistent right upper quadrant pain. US c/w large gallstones and dilated CBD; labs NL LFT clear fluids, IVF pain meds ands zofran prn GI and surgery f/u for cholecyetsctomy, no absolute CI for the proposed surgery MRCP negative for CBD stones f/u with NS eval for chronic LBP see spine MRI; [employer] f/u ovarian mass eval d/w pt and staff pt agreed with plan
[2017-02-05] MEDS: ONDANSETRON 4 MG/2 ML VIAL IVPB PRN (11:28)
[2017-02-05] MEDS: LEVOFLOXACIN 500 MG IVPB 500 MG/100 ML BAG IVPB SCH (12:44)
[2017-02-05] MEDS ORDERED: MIDAZOLAM HCL 2 MG/2 ML SINGLE DOSE VIAL ONE (13:37)
[2017-02-05] MEDS ORDERED: fentaNYL CITRATE 250 MCG/5 ML VIAL ONE (13:38)
[2017-02-05] MEDS ORDERED: PROPOFOL 20 ML ONE ×2 (13:38→14:26)
[2017-02-05] MEDS ORDERED: ePHEDrine SULFATE 50 MG/1 ML AMPULE ONE (13:41)
[2017-02-05] MEDS ORDERED: ROCURONIUM BROMIDE 50 MG/5 ML VIAL ONE (13:41)
[2017-02-05] MEDS ORDERED: DESFLURANE GAS 240 ML BOTTLE IH ONE (13:44)
--- NOTE | 2017-02-05 13:48 | OP ---
Operative Note - Note: Operative Date: 02/05/17 Pre-Operative Diagnosis: acute cholecystitis, cholelithiasis Operation: laparoscopic cholecystectomy Findings: pale, edematous gb with large stone Surgeon: Gael Hampton Anesthesiologist/[employer]: Keshav Soto Anesthesia: General Specimens Removed: gb Estimated Blood Loss (mls): 10 Operative Report Dictated: Yes
[2017-02-05] MEDS ORDERED: morphine SULFATE 4 MG/ML VIAL IVPB PRN (13:52)
[2017-02-05] MEDS ORDERED: HYDROmorphone HCL/PF 1 MG/ML VIAL (FOR PYXIS CHARGING ONLY) ONE ×2 (14:27→14:37)
[2017-02-05] MEDS ORDERED: NEOSTIGMINE METHYLSULFATE 0.5 MG/ML - 10 ML MDV ONE (14:55)
[2017-02-05] MEDS ORDERED: HYDROmorphone HCL CARPU-JECT 2 MG/1 ML DISP.SYRIN ONE (15:57)
[2017-02-05] MEDS: HYDROmorphone HCL CARPU-JECT 1 MG/1 ML DISP.SYRIN IVPUSH PRN ×2 (16:00→16:30)
[2017-02-05] MEDS ORDERED: SODIUM CHLORIDE 1,000 ML IV SCH (16:57)
[2017-02-05] MEDS ORDERED: ONDANSETRON 4 MG/2 ML VIAL IVPB PRN (16:57)
[2017-02-05] MEDS ORDERED: ACETAMINOPHEN 325 MG TABLET (FP) PO PRN (16:57)
--- NOTE | 2017-02-05 17:14 | OP ---
DATE OF OPERATION: 02/05/2017 PREOPERATIVE DIAGNOSES: Acute cholecystitis, cholelithiasis. POSTOPERATIVE DIAGNOSES: Acute cholecystitis, cholelithiasis. PROCEDURE: Laparoscopic cholecystectomy and lavage. SURGEON: Gael Hampton DO TAILINGS MAN: None. ANESTHESIOLOGIST: Keshav Soto MD SPECIMEN: Gallbladder. BLOOD LOSS: Minimal. DRAINS: None. DISPOSITION: Recovery room in stable condition. BRIEF HISTORY: This is a 51-year-old female admitted to [facility] for acute cholecystitis. She also had an abnormal finding of a dilated common bile duct on ultrasound, but on MRCP, the bile duct was noted to be normal. I reviewed the films with Dr. Franklin Wiggins who felt the ultrasound was an error and the wrong portion of the common bile duct was being measured. At this point, GI felt the patient had no indication for further workup of her biliary tree, and she presents now for cholecystectomy for acute cholecystitis. She was already on Levaquin and Flagyl antibiotic. DESCRIPTION OF PROCEDURE: The patient was placed in supine position. After general anesthesia was initiated, the abdomen was prepped and draped in sterile fashion. A transverse incision was made supraumbilical in order to avoid a previous midline scar. Scalpel was used to go through skin and subcutaneous tissue. The fascia was then lifted with Lucero clamp. Veress needle was inserted. Pneumoperitoneum was created. The patient appeared to have a synthetic mesh just inferior to the point of entry. Next, an 11-mm trocar was placed, followed by insertion of a 10-mm 0- degree laparoscope. There were noted to be some omental adhesions in this area. An additional 11-mm trocar was placed subxiphoid and two 5-mm trocars were placed in the right upper quadrant. The camera was switched to the subxiphoid port and looked back. Some adhesions were taken down of omentum in order to better free the trocar, and there was no bowel involvement anywhere near where the trocar was inserted. At this point, the camera was switched back. The gallbladder was identified. It was pale and light blue in color with some edema. There was a large stone in the infundibulum. This was milked up. The fundus was lifted cephalad. The infundibulum retracted laterally. The peritoneal peel was dissected down. There was a small cystic duct. It was divided with an Endo KIM multi-fire vascular load stapler. The staple line was inspected. It was intact. There was no bleeding, no breaks. Next, attention was turned toward the cystic artery which was clipped and divided. The gallbladder was then liberated from the liver bed using electrocautery and hemostasis was maintained using electrocautery. The gallbladder was then placed in a specimen bag, removed through the infraumbilical trocar site. The fascia had to be significantly lengthened at the incision site in order to deliver such a large gallbladder with large stone. Next, a vigorous lavage was done, and all return was clear. Trocars were then removed under direct visualization. No bleeding was noted. Pneumoperitoneum was then released. Next, the fascia of the infraumbilical trocar site was then closed with multiple interrupted 0 Vicryl sutures. The four skin incisions were closed with Biosyn, and Dermabond dressing was placed. DO CONRAD LARA/[id number] MTDD
--- NOTE | 2017-02-06 06:36 | PN ---
Progress Note, Physician Chief Complaint: s/p cholecystectomy, c/o pain and nausea, did not sleep well on IVF and zofran, dilaudid prn - Current Medication List Current Medications: Active Medications Acetaminophen (Tylenol -) 650 mg PO Q6H PRN PRN Reason: FEVER OR PAIN Enoxaparin Sodium (Lovenox -) 40 mg SQ DAILY [facility] Hydromorphone HCl (Dilaudid Injection -) 0.5 mg IVPUSH [id number] PRN PRN Reason: PAIN Last Admin: 02/05/17 16:30 Dose: 0.5 mg Levofloxacin (Levaquin 500 Mg Premixed Ivpb -) 500 mg in 100 mls @ 100 mls/hr IVPB DAILY [facility] Sodium Chloride (Normal Saline -) 1,000 mls @ 100 mls/hr IV ASDIR ANDREAS Last Admin: 02/05/17 15:35 Dose: Not Given Metformin HCl (Glucophage -) 500 mg PO BID@0700,1630 [facility] Morphine Sulfate (Morphine Sulfate) 4 mg IVPB Q3H PRN PRN Reason: MODERATE PAIN Last Admin: 02/06/17 01:17 Dose: 4 mg Ondansetron HCl (Zofran Injection) 8 mg IVPB Q8H PRN PRN Reason: NAUSEA Last Admin: 02/05/17 20:06 Dose: 8 mg Oxycodone HCl (Roxicodone -) 7.5 mg PO Q4H PRN PRN Reason: PAIN Pantoprazole Sodium (Protonix Iv) 40 mg IVPUSH DAILY [facility] - Objective Vital Signs: Vital Signs Temperature 98.4 F 02/06/17 02:00 Pulse Rate 65 02/06/17 02:00 Respiratory Rate 17 02/06/17 02:00 Blood Pressure 135/75 02/06/17 02:00 O2 Sat by Pulse Oximetry (%) 98 02/05/17 21:00 Constitutional: Yes: No Distress, Calm Eyes: Yes: Conjunctiva Clear HENT: Yes: Atraumatic Neck: Yes: Supple Cardiovascular: Yes: Regular Rate and Rhythm Respiratory: Yes: CTA Bilaterally Gastrointestinal: Yes: Soft, Tenderness (surgical site) Genitourinary: No: CVA Tenderness - Left, CVA Tenderness - Right Musculoskeletal: No: Joint Stiffness, Joint Swelling Extremities: No: Cold, Cool, Cyanosis Edema: No Integumentary: No: Rash, Skin Tear, Venous Stasis Changes Neurological: Yes: WNL, Alert, Oriented ...Motor Strength: WNL Psychiatric: Yes: WNL, Alert, Oriented. No: Agitated, Suicidal Ideation Labs: CBC, BMP 02/05/17 06:30 02/05/17 06:30 INR, PTT INR 0.96 (0.82-1.09) 02/02/17 14:44 - ....Imaging Other: Report Reviewed Assessment/Plan The patient is a 51-year-old female, with significant past medical history of appendectomy, diabetes, hyperlipidemia, who presents to theED for persistent right upper quadrant pain. US c/w large gallstones and dilated CBD; labs NL LFT clear fluids, IVF pain meds ands zofran prn GI and surgery f/u s/p cholecyetsctomy, advance diet as tolerated DVT falls PFX d/w pt and staff
[2017-02-06] MEDS: metFORMIN HCL 500 MG TABLET (FP) PO SCH ×2 (06:49→17:48)
[2017-02-06 08:29] LABS: BASOPHIL 0.5 % (0-2.0); EOSINOPHIL 0.1 % (0-4.5); MCH 27.6 pg (25.7-33.7); MCHC 32.5 g/dl (32.0-36.0); MEAN PLT VOLUME 8.8 fl (7.5-11.1); NEUTROPHILS 72.6 % (42.8-82.8); PLATELET COUNT 200 K/MM3 (134-434); RDW 14.1 % (11.6-15.6); WHITE BLOOD COUNT 9.7 K/mm3 (4.0-10.0)
[2017-02-06 08:45] LABS: ALBUMIN 3.2 g/dl (3.4-5.0); ANION GAP 5 (8-16); CALCIUM 8.5 mg/dL (8.5-10.1); CO2 28 mmol/L (21-32); GLUCOSE,RANDOM 126 mg/dL (74-106); SGOT/AST 49 U/L (15-37)
[2017-02-06 08:47] LABS: ALK PHOS 92 U/L (45-117); BILIRUBIN,TOTAL 0.2 mg/dL (0.2-1.0); CREATININE 0.7 mg/dL (0.55-1.02); SGPT/ALT 53 U/L (12-78); TOT PROT 6.4 g/dl (6.4-8.2)
--- NOTE | 2017-02-06 08:57 | PN ---
Progress Note (short form) - Note Progress Note: NEUROSURGERY S/p Lap raymundo Some headaches Residual nausea PE: Tmax 98.6, AF, VSS General- discomfort/incisional pain Neuro- CN intact; Motor 5/5 B LE; Sensation- intact LT/vibration; DTR- hyporeflexia B OOB/mobilize General surgery post-op care F/u for T and LS spine PRN
[2017-02-06] MEDS: LEVOFLOXACIN 500 MG IVPB 500 MG/100 ML BAG IVPB SCH (11:03)
[2017-02-06] MEDS: ENOXAPARIN NA (PORCINE) 40 MG/0.4 ML DISP.SYRIN SQ SCH (11:03)
[2017-02-06] MEDS: PANTOPRAZOLE SODIUM 40 MG VIAL IVPUSH SCH (11:04)
[2017-02-06] MEDS: oxyCODONE HCL 5 MG TABLET PO PRN ×2 (11:10→20:30)
--- NOTE | 2017-02-06 12:03 | PN ---
Progress Note (short form) - Note Progress Note: surgery s/p cholecystectomy. surgery uneventful. surgically stable for d/c if tolerating liquids, ambulating and voiding. no need for abx or narcotics. f/u in about 2 weeks. ok to shower. no lifting. 2 weeks off work. [phone]
[2017-02-07] MEDS ORDERED: PT OWN MED DRAWER 7, Y5N ONE ×2 (00:45→10:52)
[2017-02-07] MEDS: oxyCODONE HCL 5 MG TABLET PO PRN ×3 (00:48→21:08)
[2017-02-07] MEDS: metFORMIN HCL 500 MG TABLET (FP) PO SCH ×2 (06:03→17:09)
[2017-02-07 07:24] LABS: ANION GAP 6 (8-16); CO2 29 mmol/L (21-32); CREATININE 0.8 mg/dL (0.55-1.02); GLUCOSE,RANDOM 116 mg/dL (74-106); SGOT/AST 42 U/L (15-37)
[2017-02-07 07:58] LABS: ALK PHOS 77 U/L (45-117); BILIRUBIN,TOTAL 0.3 mg/dL (0.2-1.0); SGPT/ALT 58 U/L (12-78); TOT PROT 5.9 g/dl (6.4-8.2)
[2017-02-07 08:12] LABS: BASOPHIL 1.7 % (0-2.0); EOSINOPHIL 1.6 % (0-4.5); MCH 28.1 pg (25.7-33.7); MCHC 33.1 g/dl (32.0-36.0); MEAN CELL VOLUME 84.9 fl (80-96); MEAN PLT VOLUME 9.3 fl (7.5-11.1); NEUTROPHILS 47.5 % (42.8-82.8); PLATELET COUNT 192 K/MM3 (134-434); RDW 14.5 % (11.6-15.6); WHITE BLOOD COUNT 6.5 K/mm3 (4.0-10.0)
--- NOTE | 2017-02-07 09:46 | PN ---
Progress Note (short form) - Note Progress Note: NEUROSURGERY S/p Lap raymundo Some headaches Incisional pain Residual nausea PE: Tmax 99.9, AF, VSS General- discomfort/incisional pain Neuro- CN intact; Motor 5/5 B LE; Sensation- intact LT/vibration; DTR- hyporeflexia B OOB/mobilize Bowel regimen General surgery post-op care F/u for T and LS spine outpatient PRN
--- NOTE | 2017-02-07 10:24 | PN ---
Progress Note, Physician Chief Complaint: in bed intermittent R sided abdominal pain, no BM but passed gas; occasional nausea but no vomiting; did not sleep well b/o pain last night said her family is away for Thanksgiving and no one can help her at home today said she did not eat much, poor apetite - Current Medication List Current Medications: Active Medications Acetaminophen (Tylenol -) 650 mg PO Q6H PRN PRN Reason: FEVER OR PAIN Enoxaparin Sodium (Lovenox -) 40 mg SQ DAILY [facility] Last Admin: 02/06/17 11:03 Dose: 40 mg Hydromorphone HCl (Dilaudid Injection -) 0.5 mg IVPUSH [id number] PRN PRN Reason: PAIN Last Admin: 02/05/17 16:30 Dose: 0.5 mg Levofloxacin (Levaquin 500 Mg Premixed Ivpb -) 500 mg in 100 mls @ 100 mls/hr IVPB DAILY [facility] Last Admin: 02/06/17 11:03 Dose: 100 mls/hr Metformin HCl (Glucophage -) 500 mg PO BID@0700,1630 [facility] Last Admin: 02/07/17 06:03 Dose: 500 mg Morphine Sulfate (Morphine Sulfate) 4 mg IVPB Q3H PRN PRN Reason: MODERATE PAIN Last Admin: 02/06/17 01:17 Dose: 4 mg Ondansetron HCl (Zofran Injection) 8 mg IVPB Q8H PRN PRN Reason: NAUSEA Last Admin: 02/05/17 20:06 Dose: 8 mg Oxycodone HCl (Roxicodone -) 7.5 mg PO Q4H PRN PRN Reason: PAIN Last Admin: 02/07/17 06:03 Dose: 7.5 mg Pantoprazole Sodium (Protonix Iv) 40 mg IVPUSH DAILY [facility] Last Admin: 02/06/17 11:04 Dose: 40 mg - Objective Vital Signs: Vital Signs Temperature 98.3 F 02/07/17 05:59 Pulse Rate 64 02/07/17 05:59 Respiratory Rate 18 02/07/17 05:59 Blood Pressure 127/68 02/07/17 05:59 O2 Sat by Pulse Oximetry (%) 97 02/06/17 21:00 Constitutional: Yes: No Distress, Calm Eyes: Yes: Conjunctiva Clear HENT: Yes: Atraumatic Neck: Yes: Supple Cardiovascular: Yes: Regular Rate and Rhythm Respiratory: Yes: CTA Bilaterally Gastrointestinal: Yes: Soft, Tenderness (mild R sided after pain). No: Distention Genitourinary: No: CVA Tenderness - Left, CVA Tenderness - Right Musculoskeletal: No: Joint Stiffness, Joint Swelling Extremities: No: Cold, Cool, Cyanosis Edema: No Integumentary: No: Rash, Venous Stasis Changes Neurological: Yes: WNL, Alert, Oriented ...Motor Strength: WNL Psychiatric: Yes: WNL, Alert, Oriented. No: Agitated, Suicidal Ideation Labs: CBC, BMP 02/07/17 06:10 02/07/17 06:10 INR, PTT INR 0.96 (0.82-1.09) 02/02/17 14:44 - ....Imaging Other: Report Reviewed Assessment/Plan 51-year-old female, with significant past medical history of appendectomy, diabetes, hyperlipidemia, admitted with biliary colic and large gallstones and dilated CBD; labs NL LFT; s/p cholecystectomy pain meds ands zofran prn GI and surgery f/u s/p cholecystectomy, advance diet as tolerated DVT falls PFX d/w pt and staff DC planning if tolerates regular food
[2017-02-07] MEDS: ENOXAPARIN NA (PORCINE) 40 MG/0.4 ML DISP.SYRIN SQ SCH (10:55)
[2017-02-07] MEDS: LEVOFLOXACIN 500 MG IVPB 500 MG/100 ML BAG IVPB SCH (10:55)
[2017-02-07] MEDS: PANTOPRAZOLE SODIUM 40 MG VIAL IVPUSH SCH (10:55)
[2017-02-08] MEDS: metFORMIN HCL 500 MG TABLET (FP) PO SCH (06:06)
--- NOTE | 2017-02-08 06:50 | DS ---
Physical Examination Vital Signs: Vital Signs Temperature 98.1 F 02/07/17 21:00 Pulse Rate 74 02/07/17 21:00 Respiratory Rate 18 02/07/17 21:00 Blood Pressure 100/74 02/07/17 21:00 O2 Sat by Pulse Oximetry (%) 98 02/07/17 20:23 Findings/Remarks: OOB to chair feels better ate well no N/V? less pain, passed gas no BM yet; will go home today advised f/u with surgery in 1-2 weeks, also to see PCP GI NS and SHIFT MGR within 1 month after DC, she said she will scripts done; CANDI checked; percocet prn max 3 tabs/day (1 q6-8h);l d/w pt possible risks and SE with opiates falls tolerance dependence constipation; to drink plenty of fluids and eat fibers d/w pt meds and f/u needed she understood and will follow instructions t time 40 min Constitutional: Yes: No Distress, Calm Eyes: Yes: Conjunctiva Clear HENT: Yes: Atraumatic Neck: Yes: Supple Cardiovascular: Yes: Regular Rate and Rhythm Respiratory: Yes: CTA Bilaterally Gastrointestinal: Yes: Soft, Other (s/p lap cholectomy wounds clean). No: Distention, Tenderness Renal/: No: CVA Tenderness - Left, CVA Tenderness - Right, Hematuria Musculoskeletal: No: Joint Stiffness, Joint Swelling Extremities: No: Cold, Cool, Cyanosis Edema: No Integumentary: No: Pressure Ulcer, Rash, Skin Tear, Venous Stasis Changes Neurological: Yes: WNL, Alert, Oriented ...Motor Strength: WNL Psychiatric: Yes: WNL, Alert, Oriented. No: Agitated, Suicidal Ideation Labs: CBC, BMP 02/07/17 06:10 02/07/17 06:10 Discharge Summary Reason For Visit: BILIARY COLIC Current Active Problems Biliary colic symptom (Acute) Upper abdominal pain (Acute) Procedures: Principal: admitted with RUQ pain biliary colic; large gallstones; Other Procedures: also has chronic LBP and OA DJD spinal stenosis, complex ovarian mass;. seen by NS; SHIFT MGR - advised f/u as outpt Hospital Course: seen by GI and surgery; had cholecystectomy; did well postop; DC home and f/u as advised; scripts as ordered. Condition: Stable - Instructions Diet, Activity, Other Instructions: f/u with surgery in 1-2 weeks f/u with PCP, GI, neurosurgery and SHIFT MGR in 2-4 weeks diet as tolerated RTER if recurrent or worse c/o Referrals: Elizabet Linton [Primary Care Provider] - Wali Ibrahim MD [Staff Physician] - Gael Hampton MD [Staff Physician] - José Miguel Callahan MD [Staff Physician] - Duglas Christensen MD [Staff Physician] - Disposition: VNS/HOME HEALTH CARE - Home Medications Comprehensive Discharge Medication List: Ambulatory Orders Metformin HCl [Glucophage -] 500 mg PO BID 02/14/16 Acetaminophen [Tylenol .Regular Strength -] 650 mg PO Q6H PRN tablet 02/08/17 Ondansetron [Zofran -] 8 mg PO TID PRN #21 tablet 02/08/17 Oxycodone HCl/Acetaminophen [Percocet 5-325 mg Tablet] 1 tab PO Q6H PRN #20 tablet MDD 3 02/08/17 Pantoprazole Sodium [Protonix -] 40 mg PO DAILY #30 tablet.ec 02/08/17
--- NOTE | 2017-02-08 09:29 | PN ---
Progress Note (short form) - Note Progress Note: NEUROSURGERY Minimal headaches Incisional pain Residual nausea PE: Tmax 98.8, AF, VSS General- non-focal Neuro- CN intact; Motor 5/5 B LE; Sensation- intact LT/vibration; DTR- hyporeflexia B OOB/mobilize Bowel regimen General surgery post-op care F/u with neurosurgery prn worsening spinal conditions
[2017-02-08] MEDS ORDERED: PT OWN MED DRAWER 7, Y5N ONE ×2 (09:42→11:00)
[2017-02-08] MEDS: ENOXAPARIN NA (PORCINE) 40 MG/0.4 ML DISP.SYRIN SQ SCH (11:03)
[2017-02-08] MEDS: LEVOFLOXACIN 500 MG IVPB 500 MG/100 ML BAG IVPB SCH (11:03)
[2017-02-08] MEDS: PANTOPRAZOLE SODIUM 40 MG VIAL IVPUSH SCH (11:04)
[2017-02-08 11:08] VITALS: PULSE 73
[2017-02-08 11:25] VITALS: BP 140/70; TEMP 98
--- NOTE | 2017-02-08 15:56 | PATH ---
Surgical Pathology Report Patient Name: ANITHA FLORES [facility]. Rec. #: [id number] /Age/Gender: 1965 (Age: 51) / F Account: [id number] Location: [address] [place] [address]/[facility] Taken: 02/05/2017 Received: 02/06/2017 Reported: 02/08/2017 Physicians: Gael Hampton M.D. Specimen(s) Received GALLBLADDER AND STONES Clinical History Biliary colic, acute cholecystitis Final Diagnosis GALLBLADDER, CHOLECYSTECTOMY: CHRONIC CHOLECYSTITIS AND CHOLELITHIASIS. Electronically Signed Roderick Oseguera M.D. Gross Description Received in formalin, labeled "gallbladder," is a 7.7 x 2.7 x 2.4 cm. gallbladder with a 0.2 cm. in length portion of cystic duct attached. The outer surface is hairston-pink and varies from smooth to shaggy. The lumen contains green-brown, tenacious bile as well as 2 brown, irregular choleliths averaging 2.5 cm in greatest dimension. The mucosa is brown and focally eroded. The wall of the gallbladder averages 0.1 cm. in thickness. Receiving Room Clerk sections are submitted in one cassette. /02/06/2017 saudi02/06/2017
== END 2017-02-08 13:03 | disposition home health service (06) | DRG 419 ==
LOC: JER 13:38 → JERBED 14:32 → J5S 16:50
PROVIDERS: ADMIT Internal Medicine; ATTEND Internal Medicine
PROC: 0DNU4ZZ Release Omentum, Percutaneous Endoscopic Approach (ICD-10-PCS; 2017-02-05)
PROC: 0FT44ZZ Resection of Gallbladder, Percutaneous Endoscopic Approach (ICD-10-PCS; principal; 2017-02-05 12:00)
DX: K80.12 Calculus of gallbladder with acute and chronic cholecystitis without obstruction (principal); E11.9 Type 2 diabetes mellitus without complications; E78.5 Hyperlipidemia, unspecified; F17.210 Nicotine dependence, cigarettes, uncomplicated; M48.061 Spinal stenosis, lumbar region without neurogenic claudication; N83.202 Unspecified ovarian cyst, left side; N83.201 Unspecified ovarian cyst, right side
CPT/HCPCS: 36415; 71250-TC; 74176-TC; 74181-TC; 80053; 81003; 81015; 82150; 83690; 85025; 85610; 85730; 86140; 88304-TC; 93005; 93010; 94760; 99284-25; J1644

== ENCOUNTER 2017-04-02 14:20 | Emergency (ER) | payer OTHER ==
--- NOTE | 2017-04-02 15:23 | PDOC ---
Rapid Medical Evaluation Chief Complaint: Pain, Acute Time Seen by Provider: 04/02/17 15:22 Medical Evaluation: Allergies Allergy/AdvReac Type Severity Reaction Status Date / Time No Known Allergies Allergy Verified 04/02/17 15:20 04/02/17 15:22 I have performed a brief in-person evaluation of this patient. The patient presents with a chief complaint of abdominal pain since Saturday with nausea. Denies vomiting constipation or diarrrhea. states recent cholecystectomy Pertinent physical exam findings: NAD lungs clear bilaterally heart s1s2 abdomen obese, + bowel sounds +tenderness in luq I have ordered the following: labs The patient will proceed to the Ed for further evaluation.
[2017-04-02 15:24] VITALS: BP 135/85; PULSE 75; TEMP 98.6; BMI 38.6
[2017-04-02 16:30] LABS: BASO % 0.5 % (0-2.0); EOS % 1.9 % (0-4.5); HEMATOCRIT 39.8 % (32.4-45.2); HEMOGLOBIN 13.1 GM/dL (10.7-15.3); LYMPH % 37.8 % (8-40); MCH 27.9 pg (25.7-33.7); MCHC 32.9 g/dl (32.0-36.0); MEAN CELL VOLUME 84.9 fl (80-96); MEAN PLT VOLUME 9.2 fl (7.5-11.1); MONO % 8.6 % (3.8-10.2); NEUT % 51.2 % (42.8-82.8); PLATELET COUNT 203 K/MM3 (134-434); RBC 4.69 M/mm3 (3.60-5.2); WHITE BLOOD COUNT 4.8 K/mm3 (4.0-10.0)
[2017-04-02 17:03] LABS: ALBUMIN 3.2 g/dl (3.4-5.0); ANION GAP 7 (8-16); BLOOD UREA NITROGEN 8 mg/dL (7-18); CALCIUM 7.8 mg/dL (8.5-10.1); CHLORIDE 107 mmol/L (98-107); CO2 26 mmol/L (21-32); CREATININE 0.6 mg/dL (0.55-1.02); GLUCOSE,RANDOM 123 mg/dL (74-106); LIPASE 87 U/L (73-393); SGPT/ALT 45 U/L (12-78); SODIUM 140 mmol/L (136-145)
[2017-04-02 17:08] LABS: ALK PHOS 114 U/L (45-117); BILIRUBIN,TOTAL 0.2 mg/dL (0.2-1.0); TOT PROT 6.8 g/dl (6.4-8.2)
[2017-04-02 18:24] LABS: POTASSIUM 4.4 mmol/L (3.5-5.1); SGOT/AST 39 U/L (15-37)
[2017-04-02] MEDS ORDERED: ONDANSETRON 4 MG/2 ML VIAL ONE ×2 (18:39→19:50)
[2017-04-02] MEDS ORDERED: PANTOPRAZOLE SODIUM 40 MG VIAL ONE (18:40)
[2017-04-02] MEDS ORDERED: ONDANSETRON 4 MG/2 ML VIAL IVPUSH ONE (19:13)
[2017-04-02] MEDS ORDERED: PANTOPRAZOLE SODIUM 40 MG VIAL IVPUSH ONE (19:14)
[2017-04-02] MEDS ORDERED: SODIUM CHLORIDE 0.9% 1000 ML INFUS.BAG IV ONE (19:14)
[2017-04-02] MEDS ORDERED: SODIUM CHLORIDE 1,000 ML IV STA (19:37)
--- NOTE | 2017-04-02 19:37 | PDOC ---
History of Present Illness - General History Source: Patient Exam Limitations: No Limitations - History of Present Illness Initial Comments: 04/02/17 20:36 The patient is a 51-year-old female, with significant past medical history of diabetes, hyperlipidemia, who presents to the ED for diffuse abdominal for 3 days. She reports her pain as colic-like in nature, diffuse but most prominent in her lower abdomen. She reports her abdominal pain is exacerbated with eating and drinking. She reports nausea, but denies vomiting. She denies use of OTC medication. She denies sick contacts or recent travels. She is reportedly compliant with daily medications. She reports her last normal BM was 2 days ago. She states she usually goes once a day, however, has experienced constipation in the past and feels her current symptoms are unlike the symptoms associated with her prior constipation. She denies chest pain, shortness of breath, headache and dizziness. She denies fever, chills, vomit, diarrhea and constipation. She denies dysuria, frequency, urgency and hematuria. Allergies: NKDA Past surgical history: cholecystectomy, appendectomy PCP: Dr. Elizabet Linton <Dedra Feliciano - Last Filed: 04/02/17 20:36> - General History Source: Patient <YaCal mathur - Last Filed: 04/02/17 21:35> - General Chief Complaint: Pain, Acute Stated Complaint: NAUSEAU Time Seen by Provider: 04/02/17 15:22 Past History <Dedra Feliciano - Last Filed: 04/02/17 20:36> - Past Medical History COPD: No DVT: No Diabetes: Yes GI Disorders: Yes (GALLSTONES) - Immunization History Immunization Up to Date: Yes - Suicide/Smoking/Psychosocial Hx Smoking History: Never smoked Number of Cigarettes Smoked Daily: 8 Information on smoking cessation initiated: No 'Breaking Loose' booklet given: 02/02/17 Hx Alcohol Use: No Drug/Substance Use Hx: No Substance Use Type: None Hx Substance Use Treatment: No <Cal Pendleton - Last Filed: 04/02/17 21:35> - Past Medical History Allergies/Adverse Reactions: Allergies Allergy/AdvReac Type Severity Reaction Status Date / Time No Known Allergies Allergy Verified 04/02/17 15:20 Home Medications: Ambulatory Orders Metformin HCl [Glucophage -] 500 mg PO BID 02/14/16 Levofloxacin [Levaquin -] 500 mg PO DAILY #7 tablet 04/02/17 Review of Systems - Review of Systems Able to Perform ROS?: Yes Comments:: 04/02/17 20:36 CONSTITUTIONAL: Absent: fever, chills, diaphoresis, generalized weakness, malaise, loss of appetite HEENT: Absent: rhinorrhea, nasal congestion, throat pain, throat swelling, difficulty swallowing, mouth swelling, ear pain, eye pain, visual Changes CARDIOVASCULAR: Absent: chest pain, syncope, palpitations, irregular heart rate, lightheadedness , peripheral edema RESPIRATORY: Absent: cough, shortness of breath, dyspnea with exertion, orthopnea, wheezing, stridor, hemoptysis GASTROINTESTINAL: (+) diffuse abdominal pain, nausea Absent: abdominal distension, vomiting, diarrhea, constipation, melena, hematochezia GENITOURINARY: Absent: dysuria, frequency, urgency, hesitancy, hematuria, flank pain, genital pain MUSCULOSKELETAL: Absent: myalgia, arthralgia, joint swelling SKIN: Absent: rash, itching, pallor HEMATOLOGIC/IMMUNOLOGIC: Absent: easy bleeding, easy bruising, lymphadenopathy, frequent infections ENDOCRINE: Absent: unexplained weight gain, unexplained weight loss, heat intolerance, cold intolerance NEUROLOGIC: Absent: headache, focal weakness or paresthesias, dizziness, unsteady gait, seizure, mental status changes, bladder or bowel incontinence PSYCHIATRIC: Absent: anxiety, depression, suicidal or homicidal ideation, hallucinations. <Dedra Feliciano - Last Filed: 04/02/17 20:36> *Physical Exam - Vital Signs Last Vital Signs Temp Pulse Resp BP Pulse Ox 98.6 F 75 16 135/85 99 04/02/17 15:20 04/02/17 15:20 04/02/17 15:20 04/02/17 15:20 04/02/17 15:20 - Physical Exam Comments: 04/02/17 20:38 GENERAL: Well developed, well nourished. Awake and alert. No acute distress. HEENT: Normocephalic, atraumatic. PERRLA, EOMI. No conjunctival pallor. Sclera are non- icteric. Moist mucous membranes. Oropharynx is clear. NECK: Supple. Full ROM. No JVD. Carotid pulses 2+ and symmetric, without bruits. No thyromegaly. No lymphadenopathy. CARDIOVASCULAR: Regular rate and rhythm. No murmurs, rubs, or gallops. Distal pulses are 2+ and symmetric. PULMONARY: No evidence of respiratory distress. Lungs clear to auscultation bilaterally. No wheezing, rales or rhonchi. ABDOMINAL: Soft. Non-tender. Non-distended. No rebound or guarding. No organomegaly. Normoactive bowel sounds. MUSCULOSKELETAL Normal range of motion at all joints. No bony deformities or tenderness. No CVA tenderness. EXTREMITIES: No cyanosis. No clubbing. No edema. No calf tenderness. SKIN: Warm and dry. Normal capillary refill. No rashes. No jaundice. NEUROLOGICAL: Alert, awake, appropriate. Cranial nerves 2-12 intact. Normoreflexic in the upper and lower extremities. Normal speech. Toes are down-going bilaterally. Gait is normal without ataxia. PSYCHIATRIC: Cooperative. Good eye contact. Appropriate mood and affect. <Dedra Feliciano - Last Filed: 04/02/17 20:36> - Vital Signs Last Vital Signs Temp Pulse Resp BP Pulse Ox 98.6 F 75 16 135/85 99 04/02/17 15:20 04/02/17 15:20 04/02/17 15:20 04/02/17 15:20 04/02/17 15:20 <Cal Pendleton - Last Filed: 04/02/17 21:35> ED Treatment Course - LABORATORY CBC & Chemistry Diagram: 04/02/17 16:02 04/02/17 16:02 - ADDITIONAL ORDERS Additional order review: Laboratory Results 04/02/17 16:02 Sodium 140 Potassium 4.4 Chloride 107 Carbon Dioxide 26 Anion Gap 7 L BUN 8 Creatinine 0.6 Creat Clearance w eGFR > 60 Random Glucose 123 H Calcium 7.8 L Total Bilirubin 0.2 D AST 39 H ALT 45 D Alkaline Phosphatase 114 Total Protein 6.8 Albumin 3.2 L Lipase 87 04/02/17 16:02 RBC 4.69 MCV 84.9 MCHC 32.9 RDW 15.0 MPV 9.2 Neutrophils % 51.2 Lymphocytes % 37.8 Monocytes % 8.6 Eosinophils % 1.9 Basophils % 0.5 - Medications Given in the ED: ED Medications Discontinued Medications Generic Name Dose Route Start Last Admin Trade Name Freq PRN Reason Stop Dose Admin Sodium Chloride 1,000 mls @ 1,000 mls/hr 04/02/17 19:37 04/02/17 20:09 Normal Saline - IV 04/02/17 20:36 1,000 mls/hr ASDIR STA Administration Famotidine/Sodium Chloride 20 50 mls @ 100 mls/hr 04/02/17 19:38 04/02/17 20: 10 mg/ Miscellaneous IVPB 04/02/17 20:07 Not Given ONCE ONE Ketorolac Tromethamine 30 mg 04/02/17 19:38 04/02/17 20:09 Toradol Injection - IVPUSH 04/02/17 19:39 30 mg ONCE ONE Administration Ondansetron HCl 4 mg 04/02/17 19:13 04/02/17 19:13 Zofran Injection IVPUSH 04/02/17 19:14 4 mg NOW ONE Administration Ondansetron HCl 4 mg 04/02/17 19:38 04/02/17 20:09 Zofran Injection IVPUSH 04/02/17 19:39 4 mg ONCE STA Administration Pantoprazole Sodium 40 mg 04/02/17 19:14 04/02/17 19:14 Protonix Iv IVPUSH 04/02/17 19:15 40 mg NOW ONE Administration Sodium Chloride 500 ml 04/02/17 19:14 04/02/17 19:14 Normal Saline - IV 04/02/17 19:15 500 ml NOW ONE Administration <Dedra Feliciano - Last Filed: 04/02/17 20:36> - LABORATORY CBC & Chemistry Diagram: 04/02/17 16:02 04/02/17 16:02 - ADDITIONAL ORDERS Additional order review: Laboratory Results 04/02/17 16:02 Sodium 140 Potassium 4.4 Chloride 107 Carbon Dioxide 26 Anion Gap 7 L BUN 8 Creatinine 0.6 Creat Clearance w eGFR > 60 Random Glucose 123 H Calcium 7.8 L Total Bilirubin 0.2 D AST 39 H ALT 45 D Alkaline Phosphatase 114 Total Protein 6.8 Albumin 3.2 L Lipase 87 04/02/17 16:02 RBC 4.69 MCV 84.9 MCHC 32.9 RDW 15.0 MPV 9.2 Neutrophils % 51.2 Lymphocytes % 37.8 Monocytes % 8.6 Eosinophils % 1.9 Basophils % 0.5 - Medications Given in the ED: ED Medications Discontinued Medications Generic Name Dose Route Start Last Admin Trade Name Julia PRN Reason Stop Dose Admin Ondansetron HCl 4 mg 04/02/17 19:13 04/02/17 19:13 Zofran Injection IVPUSH 04/02/17 19:14 4 mg NOW ONE Administration Pantoprazole Sodium 40 mg 04/02/17 19:14 04/02/17 19:14 Protonix Iv IVPUSH 04/02/17 19:15 40 mg NOW ONE Administration Sodium Chloride 500 ml 04/02/17 19:14 04/02/17 19:14 Normal Saline - IV 04/02/17 19:15 500 ml NOW ONE Administration <Cal Pendleton - Last Filed: 04/02/17 21:35> Medical Decision Making - Medical Decision Making 04/02/17 21:33 Dr. Pendleton: The scribe's documentation has been prepared under my direction and personally reviewed by me in its entirery. I confirm that the note above accurately reflects all work, treatment, procedures, and medical decision making performed by me. patient found to have a UTI. Pt advised to follow up with her pcp, for re- evaluation particularly if symptoms don't improve. Given Abx and prescription sent to pharmacy. <Cal Pendleton - Last Filed: 04/02/17 21:35> *DC/Admit/Observation/Transfer - Attestations Scribe Attestion: 04/02/17 20:38 Documentation prepared by Dedra Feliciano, acting as director medical surgical for Cal Pendleton DO <Dedra Feliciano - Last Filed: 04/02/17 20:36> - Discharge Dispostion Admit: No <Cal Pendleton - Last Filed: 04/02/17 21:35> Diagnosis at time of Disposition: UTI (urinary tract infection) Qualifiers: Urinary tract infection type: site unspecified Hematuria presence: without hematuria Qualified Code(s): N39.0 - Urinary tract infection, site not specified - Discharge Dispostion Disposition: HOME Condition at time of disposition: Stable - Prescriptions Prescriptions: Levofloxacin [Levaquin -] 500 mg PO DAILY #7 tablet - Referrals Referrals: Elizabet Linton [Primary Care Provider] - - Patient Instructions Printed Discharge Instructions: DI for Urinary Tract Infection (UTI) Additional Instructions: Please follow up with your doctor for re-evaluation. Take medication as directed. Drink plenty of fluids. Return if any problems. - Post Discharge Activity
[2017-04-02] MEDS ORDERED: FAMOTIDINE 20 MG/50 ML IVPB 20 MG in PREMIX 50 IVPB ONE (19:38)
[2017-04-02] MEDS ORDERED: ONDANSETRON 4 MG/2 ML VIAL IVPUSH STA (19:38)
[2017-04-02] MEDS ORDERED: KETOROLAC TROMETHAMINE 30 MG/1 ML VIAL IVPUSH ONE (19:38)
[2017-04-02] MEDS ORDERED: KETOROLAC TROMETHAMINE 30 MG/1 ML VIAL ONE (19:50)
[2017-04-02 20:46] LABS: URINE APPEARANCE CLOUDY; URINE BILIRUBIN NEGATIVE (NEGATIVE); URINE BLOOD NEGATIVE (NEGATIVE); URINE COLOR AMBER; URINE GLUCOSE (UA) NEGATIVE (NEGATIVE); URINE KETONE TRACE (NEGATIVE); URINE LEUK ESTERASE TRACE (NEGATIVE); URINE NITRITE POSITIVE (NEGATIVE); URINE UROBILINOGEN 4.0 E.U/dl mg/dL (0.2-1.0)
[2017-04-02 20:56] LABS: URINE PROTEIN 1+ (NEGATIVE)
[2017-04-02] MEDS ORDERED: LEVOFLOXACIN 500 MG TABLET (FP) PO ONE (21:30)
[2017-04-02] MEDS ORDERED: LEVOFLOXACIN 500 MG TABLET (FP) ONE (21:39)
[2017-04-02 21:44] LABS: EPI CELLS MANY /HPF (FEW); URINE BACTERIA RARE /hpf (NONE SEEN); URINE MUCUS MODERATE
== END 2017-04-02 21:46 | disposition home or self-care (01) ==
LOC: JER 14:20
PROC: 3E0333Z Introduction of Anti-inflammatory into Peripheral Vein, Percutaneous Approach (ICD-10-PCS; principal; 2017-04-02)
PROC: 3E033GC Introduction of Other Therapeutic Substance into Peripheral Vein, Percutaneous Approach (ICD-10-PCS; 2017-04-02)
PROC: 3E0337Z Introduction of Electrolytic and Water Balance Substance into Peripheral Vein, Percutaneous Approach (ICD-10-PCS; 2017-04-02)
DX: N39.0 Urinary tract infection, site not specified (principal); E11.9 Type 2 diabetes mellitus without complications; E78.5 Hyperlipidemia, unspecified; Z87.891 Personal history of nicotine dependence
CPT/HCPCS: 36415; 80053; 81003; 81015; 83690; 85025; 96361; 96374; 96375; 96376; 99281-25

== ENCOUNTER 2018-01-19 17:17 | Emergency (ER) | payer OTHER ==
[2018-01-19 17:23] VITALS: BP 140/73; PULSE 80; TEMP 98.2; BMI 35.2
[2018-01-19] MEDS ORDERED: KETOROLAC TROMETHAMINE 60 MG/2 ML VIAL IM ONE (17:43)
[2018-01-19] MEDS ORDERED: traMADol HCL 50 MG TABLET PO ONE (17:44)
[2018-01-19] MEDS ORDERED: KETOROLAC TROMETHAMINE 60 MG/2 ML VIAL ONE (17:45)
[2018-01-19] MEDS ORDERED: traMADol HCL 50 MG TABLET ONE (17:45)
--- NOTE | 2018-01-19 17:49 | PDOC ---
History of Present Illness - General Chief Complaint: Pain Stated Complaint: LT ARM PAIN Time Seen by Provider: 01/19/18 17:25 History Source: Patient - History of Present Illness Occurred: reports: last week Upper Extremity Pain Location: left: shoulder Past History - Past Medical History Allergies/Adverse Reactions: Allergies Allergy/AdvReac Type Severity Reaction Status Date / Time No Known Allergies Allergy Verified 01/19/18 17:23 Home Medications: Ambulatory Orders metFORMIN HCL [Glucophage -] 500 mg PO BID 02/14/16 Budesonide/Formeterol Fumarate [SYMBICORT 80/4.5mcg -] 1 inh PO DAILY 10/14/17 Meloxicam [Mobic] 7.5 mg PO DAILY 10/14/17 Pantoprazole Sodium [Protonix -] 20 mg PO DAILY 10/14/17 Multivitamin with Iron [Multivitamins with Iron] 1 tab PO DAILY 10/22/17 Ibuprofen [Motrin -] 800 mg PO Q6H #30 tablet 01/19/18 Tramadol HCl 50 mg PO Q6H #15 tablet MDD 200 mg 01/19/18 COPD: No DVT: No Diabetes: Yes GI Disorders: Yes (GALLSTONES) Hypercholesterolemia: Yes Other medical history: spinal arthritis recieves epidurals - Surgical History Appendectomy: Yes Cholecystectomy: Yes Orthopedic Surgery: Yes (ROTATOR CUFF REPAIR) - Immunization History Immunization Up to Date: Yes - Suicide/Smoking/Psychosocial Hx Smoking History: Never smoked Have you smoked in the past 12 months: Yes Number of Cigarettes Smoked Daily: 8 Information on smoking cessation initiated: No 'Breaking Loose' booklet given: 02/02/17 Hx Alcohol Use: No Drug/Substance Use Hx: No Substance Use Type: None Hx Substance Use Treatment: No Review of Systems - Review of Systems Constitutional: No: Chills, Fever Musculoskeletal: Yes: Joint Pain. No: Joint Swelling Neurological: No: Numbness, Tingling, Weakness *Physical Exam - Vital Signs Last Vital Signs Temp Pulse Resp BP Pulse Ox 98.2 F 80 18 140/73 99 01/19/18 17:20 01/19/18 17:20 01/19/18 17:20 01/19/18 17:20 01/19/18 17:20 - Physical Exam General Appearance: Yes: Appropriately Dressed, Severe Distress HEENT: positive: Normal Voice Neck: positive: Supple. negative: Tender Respiratory/Chest: positive: Lungs Clear, Normal Breath Sounds. negative: Respiratory Distress Cardiovascular: positive: Regular Rate, S1, S2 Musculoskeletal: positive: Normal Inspection Extremity: positive: Normal Inspection, Tender (to L scapula and GH joint diffusely, LROM 2/2 pain, LUE strength 3/5 compared to RUE). 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 Tc located mostly over her left scapula and radiates to her left elbow. States she has not been able to sleep for 1 week because of pain. Has been seen by her orthopedic doctor and prescribed muscle relaxant with no relief per patient. No acute sensory changes or upper extremity weakness See exam Acute on chronic L shoulder pain No recent injury S/p L shoulder rotator cuff surgery> 5 months ago Currently undergoing PT No new sensory changes but does have some weakness and LROM to LUE compared to RT, most likely due to pain -pain control/reassess 01/19/18 18:58 Patient reports some improvement in pain. Dc with pain control and orthopedic follow-up *DC/Admit/Observation/Transfer Diagnosis at time of Disposition: Shoulder pain Qualifiers: Chronicity: chronic Laterality: left Qualified Code(s): M25.512 - Pain in left shoulder - Discharge Dispostion Disposition: HOME Condition at time of disposition: Improved - Prescriptions Prescriptions: Ibuprofen [Motrin -] 800 mg PO Q6H #30 tablet Tramadol HCl 50 mg PO Q6H #15 tablet MDD 200 mg - Referrals - Patient Instructions Additional Instructions: Take medication as prescribed and call your orthopedic doctor in the a.m. to make an appointment to be seen this week - Post Discharge Activity
== END 2018-01-19 19:02 | disposition home or self-care (01) ==
LOC: JERFT 17:17
PROC: 3E0233Z Introduction of Anti-inflammatory into Muscle, Percutaneous Approach (ICD-10-PCS; principal; 2018-01-19)
DX: M25.512 Pain in left shoulder (principal); Z98.890 Other specified postprocedural states; I10 Essential (primary) hypertension; Z79.84 Long term (current) use of oral hypoglycemic drugs; M47.899 Other spondylosis, site unspecified
CPT/HCPCS: 96372; 99281-25

== ENCOUNTER 2018-01-20 00:19 | Emergency (ER) | payer OTHER ==
[2018-01-20 01:11] VITALS: BP 132/91; PULSE 94; TEMP 98.6; BMI 37.7
[2018-01-20] MEDS ORDERED: morphine CARPU-JECT 2 MG/1 ML DISP.SYRIN IM ONE (02:40)
[2018-01-20] MEDS ORDERED: diazePAM 5 MG TABLET PO ONE (02:40)
[2018-01-20] MEDS ORDERED: diazePAM 5 MG TABLET ONE (03:46)
[2018-01-20] MEDS ORDERED: morphine SULFATE 4 MG/ML VIAL ONE (03:46)
--- NOTE | 2018-01-20 03:59 | PDOC ---
History of Present Illness - General Chief Complaint: Pain, Acute Stated Complaint: PAIN Time Seen by Provider: 01/20/18 02:15 History Source: Patient Exam Limitations: No Limitations - History of Present Illness Initial Comments: 01/20/18 03:54 Patient is a 52-year-old female with history of, arthritis of the spine, pancreatic cyst, left shoulder rotator cuff repair, partial hysterectomy, cholecystectomy complaining of pain to the left extremity 1 week. Patient states the pain started in her left forearm and hand and radiated up to her axilla. Pain has worsened over the weekend by taking pain relievers. (+) left neck pain. She was seen in the emergency room earlier yesterday and was given treatment, however, she continued to be in pain and so returns to the emergency room. States that her pain is a 10 OF 10 sharp burning pain especially in the axilla with associated numbness to the second and third fingers. She took Aleve prior to presentation 2 hours ago without relief. Denies any fever, PMD: Dr. Linton PMHX: as above PSocHX: Negative drugs, occasional EtOH ALL: NKDA GENERAL/CONSTITUTIONAL: [No fever or chills. No weakness. No weight change.] HEAD, EYES, EARS, NOSE AND THROAT: [No change in vision. No ear pain or discharge. No sore throat.] CARDIOVASCULAR: [No chest pain or shortness of breath.] RESPIRATORY: [No cough, wheezing, or hemoptysis.] GASTROINTESTINAL: [No nausea, vomiting, diarrhea or constipation. No rectal bleeding.] GENITOURINARY: [No dysuria, frequency, or change in urination.] MUSCULOSKELETAL: [No joint or muscle swelling or pain. No neck or back pain.] SKIN AND BREASTS: [No rash or easy bruising.] NEUROLOGIC: [No headache, vertigo, loss of consciousness, or loss of sensation.] PSYCHIATRIC: [No depression or anxiety.] ENDOCRINE: [No increased thirst. No abnormal weight change.] HEMATOLOGIC/LYMPHATIC: [No anemia, easy bleeding, or history of blood clots.] ALLERGIC/IMMUNOLOGIC: [No hives or skin allergy. No latex allergy.] GENERAL: [The patient is awake, alert, and fully oriented, in no acute distress. ] HEAD: [Normal with no signs of trauma.] EYES: [Pupils equal, round and reactive to light, extraocular movements intact, sclera anicteric, conjunctiva clear.] ENT: [Ears normal, nares patent, oropharynx clear without exudates. Moist mucous membranes.] NECK: [Normal range of motion, supple without lymphadenopathy, JVD, or masses.] LUNGS: [Breath sounds equal, clear to auscultation bilaterally. No wheezes, and no crackles.] HEART: [Regular rate and rhythm, normal S1 and S2 without murmur, rub.] ABDOMEN: [Soft, nontender, normoactive bowel sounds. No guarding, no rebound. No masses.] EXTREMITIES: [Normal range of motion, no edema. No clubbing or cyanosis. No cords, erythema, or tenderness.] NEUROLOGICAL: [Cranial nerves II through XII grossly intact. Normal speech, normal gait.] PSYCH: [Normal mood, normal affect.] SKIN: [Warm, Dry, normal turgor, no rashes or lesions noted.] Past History - Past Medical History Allergies/Adverse Reactions: Allergies Allergy/AdvReac Type Severity Reaction Status Date / Time No Known Allergies Allergy Verified 01/19/18 17:23 Home Medications: Ambulatory Orders metFORMIN HCL [Glucophage -] 500 mg PO BID 02/14/16 Budesonide/Formeterol Fumarate [SYMBICORT 80/4.5mcg -] 1 inh PO DAILY 10/14/17 Meloxicam [Mobic] 7.5 mg PO DAILY 10/14/17 Pantoprazole Sodium [Protonix -] 20 mg PO DAILY 10/14/17 Multivitamin with Iron [Multivitamins with Iron] 1 tab PO DAILY 10/22/17 Ibuprofen [Motrin -] 800 mg PO Q6H #30 tablet 01/19/18 Tramadol HCl 50 mg PO Q6H #15 tablet MDD 200 mg 01/19/18 COPD: No DVT: No Diabetes: Yes GI Disorders: Yes (GALLSTONES) Hypercholesterolemia: Yes - Surgical History Appendectomy: Yes Cholecystectomy: Yes Orthopedic Surgery: Yes (ROTATOR CUFF REPAIR) - Immunization History Immunization Up to Date: Yes - Suicide/Smoking/Psychosocial Hx Smoking History: Never smoked Have you smoked in the past 12 months: No Number of Cigarettes Smoked Daily: 8 Information on smoking cessation initiated: No 'Breaking Loose' booklet given: 02/02/17 Hx Alcohol Use: No Drug/Substance Use Hx: No Substance Use Type: None Hx Substance Use Treatment: No *Physical Exam - Vital Signs Last Vital Signs Temp Pulse Resp BP Pulse Ox 98.6 F 94 H 20 132/91 100 01/20/18 00:37 01/20/18 00:37 01/20/18 00:37 01/20/18 00:37 01/20/18 00:37 ED Treatment Course - Medications Given in the ED: ED Medications Discontinued Medications Generic Name Dose Route Start Last Admin Trade Name Julia PRN Reason Stop Dose Admin Diazepam 5 mg 01/20/18 02:40 01/20/18 03:52 Valium - PO 01/20/18 02:41 5 mg ONCE ONE Administration Morphine Sulfate 4 mg 01/20/18 02:40 01/20/18 03:50 Morphine Injection - IM 01/20/18 02:41 4 mg ONCE ONE Administration Medical Decision Making - Medical Decision Making 01/20/18 03:54 Patient is a 52-year-old female with history of, arthritis of the spine, pancreatic cyst, left shoulder rotator cuff repair, partial hysterectomy, cholecystectomy complaining of pain to the left extremity 1 week. Consistent with cervical radiculopathy We'll give morphine 4 mg IM and Valium 5 mg by mouth. Reassess Patient in pain 09/24 will give gabbapentin 200mg po and Tylenol 975mg po 01/20/18 06:01 still uncomfortable will given prednisone 60mg po sling I discussed the physical exam findings, ancillary test results and final diagnoses with the patient. I answered all of the patient's questions. The patient was satisfied with the care received and felt comfortable with the discharge plan and treatment plan. The Patient agrees to follow up with the primary care physician within 24-72 hours. *DC/Admit/Observation/Transfer Diagnosis at time of Disposition: Cervical radicular pain - Discharge Dispostion Disposition: HOME Condition at time of disposition: Stable - Referrals Referrals: Elizabet Linton [Primary Care Provider] - - Patient Instructions Printed Discharge Instructions: DI for Cervical Radiculopathy Additional Instructions: Your Discharge Instructions: You must call primary care physician within 24 hours to arrange follow-up. Return to the Emergency Department with any new, persistent or worsening symptoms, for fever, chills, SOB, dizziness or any other concerning changes that may occur. - Post Discharge Activity Forms/Work/School Notes: Back to Work
[2018-01-20] MEDS ORDERED: GABAPENTIN 100 MG CAPSULE (FP) PO ONE (05:02)
[2018-01-20] MEDS ORDERED: ACETAMINOPHEN 500 MG TABLET (FP) PO ONE (05:03)
[2018-01-20] MEDS ORDERED: ACETAMINOPHEN 325 MG TABLET (FP) ONE (05:19)
[2018-01-20] MEDS ORDERED: GABAPENTIN 100 MG CAPSULE (FP) ONE (05:19)
[2018-01-20] MEDS ORDERED: predniSONE 20 MG TABLET (UD) PO ONE (06:03)
[2018-01-20] MEDS ORDERED: predniSONE 20 MG TABLET (UD) ONE (06:50)
--- NOTE | 2018-01-20 11:57 | EKG ---
Test Reason : Blood Pressure : / mmHG Vent. Rate : 064 BPM Atrial Rate : 064 BPM P-R Int : 162 ms QRS Dur : 090 ms QT Int : 412 ms P-R-T Axes : 062 -09 017 degrees QTc Int : 425 ms NORMAL SINUS RHYTHM NORMAL ECG WHEN COMPARED WITH ECG OF 02-SEP-2017 12:04, NO SIGNIFICANT CHANGE WAS FOUND Confirmed by ANNETTE FISH MD ([id number]) on 01/20/2018 11:57:26 AM Referred By: Confirmed By:ANNETTE FISH MD
== END 2018-01-20 09:52 | disposition home or self-care (01) ==
LOC: JER 00:19
DX: M54.12 Radiculopathy, cervical region (principal); E11.9 Type 2 diabetes mellitus without complications; Z79.84 Long term (current) use of oral hypoglycemic drugs; E78.00 Pure hypercholesterolemia, unspecified
CPT/HCPCS: 93005; 93010; 99281-25

== ENCOUNTER 2018-01-23 15:00 | Inpatient (IN) | payer OTHER ==
--- NOTE | 2018-01-23 15:34 | PDOC ---
Rapid Medical Evaluation Chief Complaint: Chest Pain Time Seen by Provider: 01/23/18 15:24 Medical Evaluation: Allergies Allergy/AdvReac Type Severity Reaction Status Date / Time No Known Allergies Allergy Verified 01/19/18 17:23 01/23/18 15:25 I have performed a brief in-person evaluation of this patient. The patient presents with a chief complaint of: sent from [facility] office for eval of left arm pain, CP, multiple complaints, states had dizziness a week ago , worse with walking. ALSO- c/o vaginal bleeding/ clots- had partial hysterectomy 5 years. Pertinent physical exam findings: Has multiple complaints; no obvious distress I have ordered the following: EKG, The patient will proceed to the ED for further evaluation. 01/23/18 15:28 Discharge Disposition - Referrals Referrals: Elizabet Linton [Primary Care Provider] - - Patient Instructions - Post Discharge Activity
--- NOTE | 2018-01-23 15:57 | PDOC ---
History of Present Illness - General Chief Complaint: Chest Pain Stated Complaint: CHEST PAIN ABD PAIN Time Seen by Provider: 01/23/18 15:24 History Source: Patient Exam Limitations: No Limitations (poor historian, gives very vague answers to questions, multiple complaints) - History of Present Illness Initial Comments: Pt is a 52 yo F, with PMH of NIDDM (on metformin), HLD, arthritis (rotator cuff surgery of L shoulder), who is presenting with complaints of L-sided "shooting" chest pain x1.5 week, which is intermittent and lasts for a few seconds, with numbness in her L arm. She has also been experiencing some nausea, but no vomiting. The pain is not associated with exertion, and there are no exacerbating or alleviating factors. Pt also admits to vaginal spotting x3 days , which she states has been happening "every month or so" over the past year, though she has not had a "real period" x4 years since her partial hysterectomy. She saw her PCP (Dr. Elizabet Linton) today, who sent her to the ER for further evaluation of chest pain. Pt denies any fevers/chills, headache, vision changes , SOB, nausea/vomiting, abdominal pain, diarrhea/constipation, back pain, or leg swelling. Pt states she has not been "taking her cholesterol medication for some time". Pt denies any cigarette, alcohol, or drug use. Pt denies any recent travel or sick contacts. 01/23/18 16:46 Past History - Travel Traveled outside of the country in the last 30 days: No Close contact w/someone who was outside of country & ill: No - Past Medical History Allergies/Adverse Reactions: Allergies Allergy/AdvReac Type Severity Reaction Status Date / Time No Known Allergies Allergy Verified 01/23/18 15:27 Home Medications: Ambulatory Orders metFORMIN HCL [Glucophage -] 500 mg PO BID 02/14/16 Budesonide/Formeterol Fumarate [SYMBICORT 80/4.5mcg -] 1 inh PO DAILY 10/14/17 Meloxicam [Mobic] 7.5 mg PO DAILY 10/14/17 Pantoprazole Sodium [Protonix -] 20 mg PO DAILY 10/14/17 Multivitamin with Iron [Multivitamins with Iron] 1 tab PO DAILY 10/22/17 Ibuprofen [Motrin -] 800 mg PO Q6H #30 tablet 01/19/18 Ibuprofen [Motrin -] 600 mg PO QID #28 tablet 01/20/18 Tramadol HCl [Ultram] 50 mg PO QID #20 tablet MDD 6 01/20/18 predniSONE [Deltasone -] 40 mg PO DAILY #14 tablet 01/20/18 COPD: No DVT: No Diabetes: Yes GI Disorders: Yes (GALLSTONES) Hypercholesterolemia: Yes - Surgical History Appendectomy: Yes Cholecystectomy: Yes Orthopedic Surgery: Yes (ROTATOR CUFF REPAIR) - Immunization History Immunization Up to Date: Yes - Suicide/Smoking/Psychosocial Hx Smoking History: Never smoked Have you smoked in the past 12 months: Yes Number of Cigarettes Smoked Daily: 8 'Breaking Loose' booklet given: 02/02/17 Hx Alcohol Use: No Drug/Substance Use Hx: No Substance Use Type: None Hx Substance Use Treatment: No Review of Systems - Review of Systems Able to Perform ROS?: Yes Is the patient limited Malawian proficient: No Constitutional: Yes: Weight Stable. No: Chills, Diaphoresis, Fever, Loss of Appetite, Weakness HEENTM: No: Blurred Vision, Recent change in vision, Nose Congestion, Throat Pain, Difficulty Swallowing Respiratory: No: Cough, Orthopnea, Shortness of Breath, Wheezing, Productive cough, Hemoptysis Cardiac (ROS): Yes: Chest Pain, Chest Tightness. No: Edema, Irregular Heart Rate, Lightheadedness, Palpitations, Syncope ABD/GI: Yes: Nausea. No: Abdominal Distended, Blood Streaked Bowels, Constipated, Diarrhea, Poor Appetite, Poor Fluid Intake, Vomiting, Abdominal cramping : Yes: Other (vaginal spotting x3 days). No: Burning, Dysuria, Frequency, Incontinence, Pain Musculoskeletal: Yes: Muscle Weakness (weakness/numbness in L hand). No: Back Pain, Joint Pain, Joint Swelling, Neck Pain Integumentary: No: Bruising, Rash Neurological: Yes: Numbness (numbness in L hand), Pre-Existing Deficit (chart review shows pt has had weakness/numbness complaints since rotator cuff surgery x1 year ago), Weakness (weakness of L hand). No: Headache, Tingling, Tremors, Unsteady Gait, Ataxia, Dizziness Psychiatric: No: Sleep Pattern Change, Change in Appetite Endocrine: No: Increased Urine, Change in Weight Hematologic/Lymphatic: No: Anemia, Blood Clots, Easy Bleeding, Easy Bruising All Other Systems: Reviewed and Negative *Physical Exam - Vital Signs Last Vital Signs Temp Pulse Resp BP Pulse Ox 99.1 F 72 18 151/57 L 99 01/23/18 15:23 01/23/18 15:23 01/23/18 15:23 01/23/18 15:23 01/23/18 15:23 - Physical Exam General Appearance: Yes: Nourished, Appropriately Dressed, Obese. No: Apparent Distress HEENT: positive: EOMI, MARICRUZ, Normal ENT Inspection, Normal Voice, Symmetrical, Pharynx Normal, Hearing Grossly Normal. negative: Scleral Icterus (R), Scleral Icterus (L), Pharyngeal Erythema, Tonsillar Exudate, Tonsillar Erythema, Nasal Congestion, Rhinorrhea Neck: positive: Trachea midline, Normal Thyroid, Supple. negative: Tender, Rigid, Lymphadenopathy (R), Lymphadenopathy (L), Tender lateral, Tender midline Respiratory/Chest: positive: Lungs Clear, Normal Breath Sounds. negative: Chest Tender (no focal chest wall tenderness palpated), Respiratory Distress, Accessory Muscle Use, Decreased Breath Sounds, Crackles, Wheezing, Other (no vesicular lesions or rash on chest wall.) Cardiovascular: positive: Regular Rhythm, Regular Rate, S1, S2. negative: Edema , JVD, Murmur Vascular Pulses: Carotid (R): 4+, Carotid (L): 4+ Female Pelvic Exam: positive: normal external exam (no active bleeding, no vesicular lesions). negative: discharge, lesions, vaginal bleeding Gastrointestinal/Abdominal: positive: Normal Bowel Sounds, Soft, Protuberent. negative: Tender, Flat, Organomegaly, Pulsatile Mass, Distended, Guarding, Rebound Rectal Exam: positive: deferred Lymphatic: negative: Adenopathy, Tenderness Musculoskeletal: positive: Normal Inspection. negative: CVA Tenderness Extremity: positive: Normal Capillary Refill, Normal Inspection, Normal Range of Motion, Pelvis Stable. negative: Tender, Cyanosis, Pedal Edema Integumentary: positive: Normal Color, Dry, Warm. negative: Jaundice, Clammy, Diaphoresis, Rash Neurologic: positive: news videographer II-XII NML intact, Fully Oriented, Alert, Normal Mood/ Affect, Normal Response, Numbness (numbness over L axillary region and L ulnar region of LUE). negative: Motor Strength 5/5 (decreased strength b/l UE, full ROM of RUE and LUE.), EOM Palsy, Facial Droop, Finger to Nose, Confused, Disoriented ED Treatment Course - LABORATORY CBC & Chemistry Diagram: 01/23/18 17:09 01/23/18 17:09 Medical Decision Making - Medical Decision Making Pt was seen at bedside, also will be seen by attending Dr. Cadena. Pt presenting with complaints of L-sided "shooting" chest pain x1.5 week, which is intermittent and lasts for a few seconds, with numbness in her L arm. She has also been experiencing some nausea, but no vomiting. The pain is not associated with exertion, and there are no exacerbating or alleviating factors. Pt also admits to vaginal spotting x3 days, which she states has been happening "every month or so" over the past year, though she has not had a "real period" x4 years since her partial hysterectomy. She saw her PCP (Dr. Elizabet Linton) today, who sent her to the ER for further evaluation of chest pain. Pt denies any fevers/chills, headache, vision changes, SOB, nausea/vomiting, abdominal pain, diarrhea/constipation, back pain, or leg swelling. PE showed HTN (151/57), afebrile, O2 99%. Pt appears in NAD. Heart and lung sounds clear, no focal chest tenderness, no lesions on chest wall. Neuro exam showed no facial droop, RUE and LUE showed symmetric decreased strength, decreased sensation over L arm axillary and ulnar region. No other focal deficits noted. External vaginal exam showed no active bleeding, no lesions. Considering ACS versus atypical chest pain versus herpes zoster. Low suspicion of stroke, and symptoms have been occurring x1.5 weeks. Vaginal spotting likely pre/menopausal, as pt states this is starting to happen every month or so. Ordered work-up including CBC, CMP, cardiac profile, coags, UA, beta-hcg, urine culture, chest x-ray PA/lateral. Provided 975 mg PO tylenol for improvement of chest pain. Will continue to reassess pt and monitor for symptomatic improvement. 01/23/18 16:12 ECG showed NSR, HR 68, intervals WNL. No ST segment changes. 01/23/18 16:38 Bloodwork sent to lab, pending results. UA showed 3+ glucose, trace ketones, negative for blood. 01/23/18 17:18 CBC WNL. Pending CMP, coags, and cardiac profile. 01/23/18 17:49 Spoke with PCP, Dr. Linton, who stated she noticed more weakness in pt LUE compared to RUE, which is new since her last exam in November 2017. Will send pt for CT head non-contrast and CT C-spine to r/o bleed, stroke, or compression. Pt has no other neuro deficits (no facial droop, EOM palsy). 01/23/18 17:58 Called lab again for lab results, as results pending for 2 hours. CMP showed glucose 230, otherwise WNL. Trop <.02. Coags WNL Pt placed in transport book for CT scans. Pt comfortable, able to ambulate, no current complaints. 01/23/18 18:32 Pt waiting to go for CT scan, transporter aware. 01/23/18 19:24 Providing home dose of metformin (500 mg PO) for glucose control before pt eats. Awaiting CT scan. 01/23/18 19:42 Transport team taking pt to CT scan. 01/23/18 20:18 [id number] CT/HEAD CT WITHOUT CONTRAST Cranial CT without contrast Clinical information: left hand weakness No intracranial hemorrhage is seen. There is no discrete infarct within the limitations of CT. No extra-axial fluid collection is noted. There is no obvious mass lesion on noncontrast imaging. The ventricles and cisterns appear unremarkable. No definite abnormal attenuation is seen. The calvarium appears in intact. Impression: No CT evidence of acute intracranial pathology. 01/23/18 21:01 [id number] CT/CERVICAL SPINE CT W/O CONTR Cervical spine CT without contrast Clinical information: left hand weakness, evaluate for compression Multiplanar imaging was performed. No intrathecal or intravenous contrast was administered. No prior imaging studies are available at this facility for direct comparison. There is straightening of the cervical lordosis which could be positional in nature. Marked C5- C6 and mild C6-C7 degenerative disc space narrowing is noted. Vertebral endplate sclerosis is seen at the C5-C6 level with associated spondylosis. There is minimal to mild multilevel right-sided degenerative facet hypertrophy. No gross disc herniation is identified within the limitations of noncontrast CT. No definite central canal stenosis is visualized. Mild multilevel bilateral foraminal narrowing is noted secondary to uncovertebral joint hypertrophy. No fracture or subluxation is seen. The perivertebral soft tissues demonstrate no obvious abnormality. Impression: Degenerative disc changes are seen as discussed above. No gross disc herniation is visualized within the limitations of noncontrast CT. If there is ongoing symptomatology MRI evaluation is suggested, nonemergent unless otherwise clinically indicated. 01/23/18 21:[address] Linton's team to determine need for admission, considering benign work-up. Pt is stable, denying any pain medication at this time. Pt provided her metformin dose and provided food. 01/23/18 21:23 Wood Cutter sent second page to Dr. Linton's team. 01/23/18 21:[address] Linton who would like to admit pt to observation so that she and Neurology consult can see the pt in the AM. Will place admission and consult order. Pt resting comfortably and eating dinner. 01/23/18 21:48 *DC/Admit/Observation/Transfer Diagnosis at time of Disposition: Left arm weakness Chest pain Qualifiers: Chest pain type: unspecified Qualified Code(s): R07.9 - Chest pain, unspecified - Discharge Dispostion Condition at time of disposition: Stable Decision to Admit order: Yes - Referrals Referrals: Elizabet Linton [Primary Care Provider] - - Patient Instructions - Post Discharge Activity
--- NOTE | 2018-01-23 16:17 | PDOC ---
Attending Attestation - Resident Resident Name: Fe Pinedo - ED Attending Attestation I have performed the following: I have examined & evaluated the patient, The case was reviewed & discussed with the resident, I agree w/resident's findings & plan, Exceptions are as noted - HPI HPI: 01/23/18 16:50 52y F hx dm (metformin) HL, arhtritis, presents with L sided chest pain and L sided arm pain for the past week. She was snt by dr. Linton for evaluation. Patient states the pain started in the evening one week ago and has been persistent. The pain is sharp/cramping/pressure like in nature, non radiating. The patient endorses feeling some shortness of breath, and associated with nausea. Th epain does not seem to worsen with exertion. No associated back pain , nubmness/tingling/weakness, abdominal pain, diarrhea, dysuria. Mother had cardiac disease in 40s pt denoe recreational drug use GENERAL: The patient is awake, alert, and fully oriented, Nontoxic - in no acute distress. HEAD: Normocephalic, atraumatic. EYES: extraocular movements intact, sclera anicteric, conjunctiva clear. ENT: Normal voice, Moist mucous membranes. NECK: Normal range of motion, supple LUNGS: Breath sounds equal, clear to auscultation bilaterally. No wheezes, no rhonchi, no rales. HEART: Regular rate and rhythm, normal S1 and S2 without murmur, rub or gallop. ABDOMEN: Soft, nontender, normoactive bowel sounds. No guarding, no rebound. . No CVA tenderness EXTREMITIES: Normal range of motion, no edema. No clubbing or cyanosis. No cords, erythema, or tenderness. NEUROLOGICAL: No facial assymetry, Normal speech, PSYCH: Normal mood, normal affect. SKIN: Warm, Dry, normal turgor, no rashes appreciated on her torso Differential for the patient's symptoms includes possible muscular secondary to chronic shoulder problems, consider possible ACS. The patient's symptoms are not reproducible to palpation will send trops ekg unremarkable - Physicial Exam PE: 01/24/18 01:41 see above - Medical Decision Making 01/24/18 01:41 see above Heart Score/ECG Review - ECG Impressions Comment:: 01/23/18 17:10 Twelve-lead EKG was performed and reviewed by me. There is normal sinus rhythm with a normal rate. Rate of 65 The axis is normal. The intervals are normal. There is normal R wave progression There are no ST or T wave abnormalities. Impression: Normal twelve-lead EKG
[2018-01-23] MEDS ORDERED: ACETAMINOPHEN 1000 MG/100 ML VIAL (NON FORMULARY) IVPB ONE (16:18)
[2018-01-23 17:03] LABS: URINE APPEARANCE CLEAR; URINE BILIRUBIN NEGATIVE (<2.0 mg/dL); URINE COLOR LTYELLOW; URINE GLUCOSE (UA) 3+ (NEGATIVE); URINE KETONE TRACE (NEGATIVE); URINE LEUK ESTERASE TRACE (NEGATIVE); URINE NITRITE NEGATIVE (NEGATIVE); URINE PROTEIN NEGATIVE (NEGATIVE); URINE UROBILINOGEN NEGATIVE mg/dL (0.2-1.0)
[2018-01-23 17:14] LABS: EPI CELLS RARE /HPF (FEW); URINE BACTERIA RARE /hpf (NONE SEEN); URINE HYALINE CAST 3 /lpf; URINE MUCUS RARE
[2018-01-23] MEDS ORDERED: ACETAMINOPHEN 325 MG TABLET (FP) PO ONE (17:18)
[2018-01-23 17:37] LABS: BASO % 0.6 % (0-2.0); EOS % 0.1 % (0-4.5); HEMATOCRIT 36.8 % (32.4-45.2); HEMOGLOBIN 12.1 GM/dL (10.7-15.3); LYMPH % 20.1 % (8-40); MCH 28.3 pg (25.7-33.7); MCHC 32.8 g/dl (32.0-36.0); MEAN CELL VOLUME 86.3 fl (80-96); MEAN PLT VOLUME 8.7 fl (7.5-11.1); MONO % 4.2 % (3.8-10.2); PLATELET COUNT 280 K/MM3 (134-434); RBC 4.27 M/mm3 (3.60-5.2); RDW 14.9 % (11.6-15.6); WHITE BLOOD COUNT 9.2 K/mm3 (4.0-10.0)
[2018-01-23] MEDS ORDERED: ACETAMINOPHEN 325 MG TABLET (FP) ONE (17:41)
[2018-01-23 18:09] LABS: INR 0.91 (0.83-1.09); PROTHROMBIN TIME (PATIENT) 10.7 SEC (9.7-13.0)
[2018-01-23 18:11] LABS: ACTIVATED PTT 27.6 SECONDS (25.2-36.5)
[2018-01-23 18:24] LABS: ALBUMIN 3.4 g/dl (3.4-5.0); ALK PHOS 96 U/L (45-117); ANION GAP 10 MMOL/L (8-16); BILIRUBIN,TOTAL < 0.1 mg/dL (0.2-1); BLOOD UREA NITROGEN 13 mg/dL (7-18); CALCIUM 8.7 mg/dL (8.5-10.1); CHLORIDE 104 mmol/L (98-107); CO2 24 mmol/L (21-32); CREATININE 0.7 mg/dL (0.55-1.3); GLUCOSE,RANDOM 230 mg/dL (74-106); LIPASE 97 U/L (73-393); POTASSIUM 4.5 mmol/L (3.5-5.1); SGOT/AST 14 U/L (15-37); SGPT/ALT 39 U/L (13-61); SODIUM 139 mmol/L (136-145)
[2018-01-23 18:25] LABS: HCG,QUALITATIVE URINE NEGATIVE
[2018-01-23] MEDS ORDERED: metFORMIN HCL 500 MG TABLET (FP) PO ONE (19:42)
[2018-01-23] MEDS ORDERED: metFORMIN HCL 500 MG TABLET (FP) ONE (21:23)
[2018-01-23] MEDS ORDERED: IBUPROFEN 400 MG TABLET (FP) PO ONE (21:57)
--- NOTE | 2018-01-23 22:17 | HP ---
Admitting History and Physical - Primary Care Physician PCP: Elizabet Linton S - Admission Chief Complaint: CP, intractable neck and LUE, L shoulder pain History of Present Illness: Pt is a 52 yo F, with PMH of NIDDM (on metformin), HLD, arthritis (rotator cuff surgery of L shoulder), who is presenting with complaints of L-sided "shooting" chest pain x 2 weeks, also L shoulder, LUE and neck pain unable to sleep; which is intermittent and lasts for a few seconds, with numbness in her L arm. She has also been experiencing some nausea, but no vomiting. The pain is not associated with exertion, and there are no exacerbating or alleviating factors. Pt is s/p L shoulder rotator cuff surgery in August 2017 but saw ortho and was told OK, and she felt good until about 2 weeks ago when her neck LUE and L CP started to hurt without any obvious reason, no falls or trauma no cough no fever /chills no SOB. Pt also admits to vaginal spotting x3 days, which she states has been happening "every month or so" over the past year, though she has not had a "real period" x4 years since her partial hysterectomy. She saw me in office today, and I sent her to the ER for further evaluation of chest pain and intractable LUE pain. Pt denies any fevers/chills, headache, vision changes, SOB, nausea/vomiting, abdominal pain, diarrhea/constipation, back pain, or leg swelling. History Source: Patient, Medical Record Limitations to Obtaining History: No Limitations - Past Medical History Cardiovascular: Yes: Hyperlipdemia Hepatobiliary: Yes: Cholelithiasis Heme/Onc: Yes: Anemia Musculoskeletal: Yes: Osteoarthritis Endocrine: Yes: Diabetes Mellitus - Past Surgical History Past Surgical History: Yes: Appendectomy, Hernia Repair (umbilical), Hysterectomy (partial) - Smoking History Smoking history: Never smoked Have you smoked in the past 12 months: Yes Aproximately how many cigarettes per day: 8 - Alcohol/Substance Use Hx Alcohol Use: No History of Substance Use: reports: None - Social History Usual Living Arrangement: Yes: Alone ADL: Independent 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 History of Recent Travel: No Home Medications - Allergies Allergies/Adverse Reactions: Allergies Allergy/AdvReac Type Severity Reaction Status Date / Time No Known Allergies Allergy Verified 01/23/18 15:27 - Home Medications Home Medications: Ambulatory Orders metFORMIN HCL [Glucophage -] 500 mg PO BID 02/14/16 Budesonide/Formeterol Fumarate [SYMBICORT 80/4.5mcg -] 1 inh PO DAILY 10/14/17 Meloxicam [Mobic] 7.5 mg PO DAILY 10/14/17 Pantoprazole Sodium [Protonix -] 20 mg PO DAILY PRN 10/14/17 Multivitamin with Iron [Multivitamins with Iron] 1 tab PO DAILY 10/22/17 Tramadol HCl [Ultram] 50 mg PO QID #20 tablet MDD 6 01/20/18 Aspirin [ASA -] 81 mg PO DAILY 01/24/18 Family Disease History - Family Disease History Family Disease History: Other: Father (alive: 80: DM II), Mother (: 60: diabetes complications), Brother (2, 1 w/ DM II), Sister (1, healthy), Son (2, healthy) Review of Systems - Review of Systems Constitutional: denies: Chills, Fever Eyes: denies: Blind Spots, Double Vision HENT: denies: Ear Pain, Epistaxis Neck: reports: Tenderness (neck lower part). denies: Stiffness, Swollen Glands Cardiovascular: reports: Chest Pain. denies: Edema, Palpitations, Shortness of Breath Respiratory: denies: Cough, Exercise Intolerance, Hemoptysis, SOB, SOB on Exertion, Wheezing Gastrointestinal: denies: Abdominal Pain, Constipation, Diarrhea, Melena, Rectal Bleeding, Vomiting Genitourinary: reports: Vaginal Bleeding (occasional; s/p hysterectomy; advised FISH GRADER and GI eval as outpt). denies: Dysuria, Flank Pain Musculoskeletal: reports: Back Pain (occasional lopwer back), Extremity Pain ( LUE), Joint Pain (L shoulder) Integumentary: denies: Rash, Wound Neurological: denies: Change in LOC, Change in Speech, Confusion, Dizziness, Headache, Pre-Existing Deficit, Seizure, Syncope, Tremors, Unsteady Gait Endocrine: denies: Excessive Sweating, Increased Thirst, Intolerance to Cold, Intolerance to Heat Hematology/Lymphatic: denies: Easily Bruised, Excessive Bleeding Psychiatric: denies: Altered Sleep Pattern, Anxiety, Depression, Suicidal Physical Examination Vital Signs: Vital Signs Temperature 99.1 F 01/23/18 15:23 Pulse Rate 72 01/23/18 15:23 Respiratory Rate 18 01/23/18 15:23 Blood Pressure 151/57 L 01/23/18 15:23 O2 Sat by Pulse Oximetry (%) 99 01/23/18 15:23 Constitutional: Yes: Anxious, Mild Distress (b/o pain) Eyes: Yes: Conjunctiva Clear HENT: Yes: Atraumatic Neck: Yes: Supple Cardiovascular: Yes: Regular Rate and Rhythm Respiratory: Yes: CTA Bilaterally Gastrointestinal: Yes: Soft. No: Distention Renal/: No: CVA Tenderness - Left, CVA Tenderness - Right, Hematuria Musculoskeletal: No: Joint Stiffness, Joint Swelling Extremities: Yes: Other (unable to lift LUE above shoulder level b/o shoulder and neck pain; unable to lye flat b/o pain) Edema: No Integumentary: No: Rash, Skin Tear, Venous Stasis Changes Neurological: Yes: WNL, Alert, Oriented. No: Seizure, Tremors, Unsteady Gait, Weakness ...Motor Strength: WNL Psychiatric: Yes: WNL, Alert, Oriented. No: Agitated, Suicidal Ideation Labs: CBC, BMP 01/23/18 17:09 01/23/18 17:09 Imaging - Results Chest X-ray: Report Reviewed Other: Report Reviewed Assessment/Plan Pt is a 52 yo F, with PMH of NIDDM (on metformin), HLD, arthritis (rotator cuff surgery of L shoulder), who is presenting with complaints of L-sided "shooting" chest pain lower neck and LUE L shoulder pain place in OBS, pain meds prn cardiology ortho and neurology eval CE, EKG, CXR; neck and chest CT; might need MRI also vaginal spotting occasional abdominal discomfort - will need FISH GRADER and GI eval as outpt if abdomen and pelvic US here unremarkable d./w pt and staff; pt agreed with plan
[2018-01-24] MEDS ORDERED: traMADol HCL 50 MG TABLET PO ONE (00:04)
[2018-01-24] MEDS ORDERED: traMADol HCL 50 MG TABLET ONE (00:12)
[2018-01-24] MEDS ORDERED: IBUPROFEN 400 MG TABLET (FP) PO ONE (00:13)
[2018-01-24 04:34] VITALS: BMI 37.2
[2018-01-24] MEDS: ACETAMINOPHEN 325 MG TABLET (FP) PO PRN (05:37)
[2018-01-24] MEDS: metFORMIN HCL 500 MG TABLET (FP) PO SCH ×2 (06:14→17:12)
[2018-01-24] MEDS: traMADol HCL 50 MG TABLET PO PRN ×2 (07:00→15:36)
[2018-01-24] MEDS ORDERED: NITROGLYCERIN SUBLINGUAL 1/150 0.4 MG TAB SL ONE (07:00)
--- NOTE | 2018-01-24 07:43 | EKG ---
Test Reason : Blood Pressure : / mmHG Vent. Rate : 065 BPM Atrial Rate : 065 BPM P-R Int : 152 ms QRS Dur : 088 ms QT Int : 394 ms P-R-T Axes : 065 -13 022 degrees QTc Int : 409 ms NORMAL SINUS RHYTHM NONSPECIFIC T WAVE ABNORMALITY WHEN COMPARED WITH ECG OF 20-JAN-2018 01:56, NO SIGNIFICANT CHANGE WAS FOUND Confirmed by AUGUST GARCIA MD ([id number]) on 01/24/2018 7:43:16 AM Referred By: Confirmed By:AUGUST GARCIA MD
--- NOTE | 2018-01-24 09:29 | PN ---
Progress Note, Physician Chief Complaint: still in a lot of pain; on tylenol motrin and ultram CT neck c/w C5-6 ds; needs MRI seen by neurology and cardio - Current Medication List Current Medications: Active Medications Acetaminophen (Tylenol -) 650 mg PO Q6H PRN PRN Reason: PAIN Last Admin: 01/24/18 05:37 Dose: 650 mg Budesonide/Formoterol Fumarate (Symbicort 80/4.5mcg -) 1 puff IH DAILY ANDREAS Ibuprofen (Motrin -) 400 mg PO Q6H PRN PRN Reason: FEVER Metformin HCl (Glucophage -) 500 mg PO BIDAC ANDREAS Last Admin: 01/24/18 06:14 Dose: 500 mg Multivitamins/Minerals/Vitamin C (Tab-A-Vit -) 1 tab PO DAILY ANDREAS Pantoprazole Sodium (Protonix -) 20 mg PO DAILY ANDREAS Tramadol HCl (Ultram -) 50 mg PO Q12H PRN PRN Reason: PAIN LEVEL 6-10 Last Admin: 01/24/18 07:00 Dose: 50 mg - Objective Vital Signs: Vital Signs Temperature 97.8 F 01/24/18 04:28 Pulse Rate 62 01/24/18 04:58 Respiratory Rate 20 01/24/18 04:58 Blood Pressure 139/66 01/24/18 04:58 O2 Sat by Pulse Oximetry (%) 99 01/24/18 04:58 Constitutional: Yes: No Distress, Calm Eyes: Yes: Conjunctiva Clear HENT: Yes: Atraumatic Neck: Yes: Supple Cardiovascular: Yes: Regular Rate and Rhythm Respiratory: Yes: CTA Bilaterally Gastrointestinal: Yes: Soft. No: Distention Genitourinary: No: CVA Tenderness - Left, CVA Tenderness - Right Musculoskeletal: No: Joint Stiffness, Joint Swelling Extremities: Yes: Other (L shoulder pain and lower neck pain with moving). No: Calf Tenderness, Cold, Cool, Cyanosis Edema: No Integumentary: No: Rash, Venous Stasis Changes Neurological: Yes: WNL, Alert, Oriented ...Motor Strength: WNL Psychiatric: Yes: WNL, Alert, Oriented. No: Agitated, Suicidal Ideation Labs: CBC, BMP 01/23/18 17:09 01/23/18 17:09 INR, PTT INR 0.91 (0.83-1.09) 01/23/18 17:09 - ....Imaging Other: Report Reviewed Assessment/Plan Pt is a 52 yo F, with PMH of NIDDM (on metformin), HLD, arthritis (rotator cuff surgery of L shoulder), who is presenting with complaints of L-sided "shooting" chest pain lower neck and LUE L shoulder pain place in OBS, pain meds prn cardiology ortho and neurology f/u CE, EKG, CXR; neck and chest CT noted Cspine MRI ordered; premedicate per neuro also vaginal spotting occasional abdominal discomfort - will need SEAL [employer]INNER and GI eval as outpt; abdomen and pelvic US here unremarkable d./w pt and staff; pt agreed with plan
--- NOTE | 2018-01-24 09:44 | CON.NEURO ---
Consult - History of Present Illness History of Present Illness: 52 yo F, with PMH of NIDDM (on metformin), HLD, arthritis (rotator cuff surgery of L shoulder), who is presenting with complaints of L-sided "shooting" chest pain x1.5 week, which is intermittent and lasts for a few seconds, with numbness in her L arm. She has also been experiencing some nausea, but no vomiting. The pain is not associated with exertion, and there are no exacerbating or alleviating factors. Pt also admits to vaginal spotting x3 days , which she states has been happening "every month or so" over the past year, though she has not had a "real period" x4 years since her partial hysterectomy. She saw her PCP (Dr. Elizabet Linton) today, who sent her to the ER for further evaluation of chest pain. Pt denies any fevers/chills, headache, vision changes , SOB, nausea/vomiting, abdominal pain, diarrhea/constipation, back pain, or leg swelling. Pt states she has not been "taking her cholesterol medication for some time". sig neck pain and left numbness of hand D2-D4. worse over the last week. pain radiates to chest . - Past Medical History Cardio/Vascular: Yes: Hyperlipdemia Hepatobiliary: Yes: Cholelithiasis ...: No Musculoskeletal: Yes: Osteoarthritis Endocrine: Yes: Diabetes Mellitus - Past Surgical History Past Surgical History: Yes: Appendectomy, Hernia Repair (umbilical), Hysterectomy (partial) - Alcohol/Substance Use Hx Alcohol Use: Yes (socially) History of Substance Use: reports: None - Smoking History Smoking history: Former smoker Have you smoked in the past 12 months: Yes Aproximately how many cigarettes per day: 8 - Social History Usual Living Arrangement: Alone (single never ) ADL: Independent 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 History of Recent Travel: No Home Medications - Allergies Allergies/Adverse Reactions: Allergies Allergy/AdvReac Type Severity Reaction Status Date / Time No Known Allergies Allergy Verified 01/23/18 15:27 - Home Medications Home Medications: Ambulatory Orders metFORMIN HCL [Glucophage -] 500 mg PO BID 02/14/16 Budesonide/Formeterol Fumarate [SYMBICORT 80/4.5mcg -] 1 inh PO DAILY 10/14/17 Meloxicam [Mobic] 7.5 mg PO DAILY 10/14/17 Pantoprazole Sodium [Protonix -] 20 mg PO DAILY PRN 10/14/17 Multivitamin with Iron [Multivitamins with Iron] 1 tab PO DAILY 10/22/17 Tramadol HCl [Ultram] 50 mg PO QID #20 tablet MDD 6 01/20/18 Aspirin [ASA -] 81 mg PO DAILY 01/24/18 Family Disease History - Family Disease History Family Disease History: Other: Father (alive: 80: DM II), Mother (: 60: diabetes complications), Brother (2, 1 w/ DM II), Sister (1, healthy), Son (2, healthy) Physical Exam-Neuro Vital Signs: Vital Signs Temperature 97.8 F 01/24/18 04:28 Pulse Rate 62 01/24/18 04:58 Respiratory Rate 20 01/24/18 04:58 Blood Pressure 139/66 01/24/18 04:58 O2 Sat by Pulse Oximetry (%) 99 01/24/18 04:58 Labs: CBC, BMP 01/23/18 17:09 01/23/18 17:09 INR, PTT INR 0.91 (0.83-1.09) 01/23/18 17:09 - Neuro Exam Level Of Consciousness: Yes: Alert (awake, alert, ? mild left facial , left sided UE weakness limited by pain-gives limited efforty , ? weakness delotid and BI , TR with best effort 5/5, interossei poor effort , reflexes 2+ TR , BI and BR 1+, plantars down ) Problem List - Problems (1) Chest pain Code(s): R07.9 - CHEST PAIN, UNSPECIFIED Qualifiers: Chest pain type: unspecified Qualified Code(s): R07.9 - Chest pain, unspecified (2) Left arm weakness Code(s): R29.898 - OTH SYMPTOMS AND SIGNS INVOLVING THE MUSCULOSKELETAL SYSTEM (3) Cervical radicular pain Code(s): M54.12 - RADICULOPATHY, CERVICAL REGION Assessment/Plan 52 yo F, with PMH of NIDDM (on metformin), HLD, arthritis (rotator cuff surgery of L shoulder), who is presenting with complaints of L-sided "shooting" chest pain x1.5 week, which is intermittent and lasts for a few seconds, with numbness in her L arm. She has also been experiencing some nausea, but no vomiting. The pain is not associated with exertion, and there are no exacerbating or alleviating factors. Pt also admits to vaginal spotting x3 days , which she states has been happening "every month or so" over the past year, though she has not had a "real period" x4 years since her partial hysterectomy. She saw her PCP (Dr. Elizabet Linton) today, who sent her to the ER for further evaluation of chest pain. Pt denies any fevers/chills, headache, vision changes , SOB, nausea/vomiting, abdominal pain, diarrhea/constipation, back pain, or leg swelling. Pt states she has not been "taking her cholesterol medication for some time". sig neck pain and left numbness of hand D2-D4. worse over the last week. pain radiates to chest . AP : r/o cardiac pathology +/- cervical radiculopathy component CARDIAC SOUSA check MRI C SPINE can use tramadol for pain start PT DR GUTIERREZ
[2018-01-24] MEDS: MULTIVITAMINS (DAILY MVI) TABLET (FP) PO SCH (10:39)
[2018-01-24] MEDS: PANTOPRAZOLE 20 MG TABLET (FP) PO SCH (10:39)
--- NOTE | 2018-01-24 14:11 | CONSULT ---
Consult - text type - Consultation Consultation Note: FULL CONSULT DICTATED IMP: CERVICAL RADICULITIS PLAN: MRI CERVICAL SPINE, NSAIDS IF MEDICALLY OK, CONSULT SPINE SURGEON
--- NOTE | 2018-01-24 14:22 | CON.CARD ---
Consult Consult Specialty:: Cardiology Referred by:: Elizabet Linton MD Reason for Consultation:: Left chest pain - History of Present Illness Chief Complaint: Left chest pain History of Present Illness: 52 yo F, with PMH of NIDDM (on metformin), HLD, arthritis (rotator cuff surgery of L shoulder), presented with complaints of posterior neck and non-exertional left-sided radiating "shooting" chest pain x1.5 week, which is intermittent and lasts for a few seconds, with numbness, tingling and weakness in her L arm. - History Source History Provided By: Patient Limitations to Obtaining History: No Limitations - Past Medical History Cardio/Vascular: Yes: Hyperlipdemia Hepatobiliary: Yes: Cholelithiasis ...: No Musculoskeletal: Yes: Osteoarthritis Endocrine: Yes: Diabetes Mellitus - Past Surgical History Past Surgical History: Yes: Appendectomy, Hernia Repair (umbilical), Hysterectomy (partial) - Alcohol/Substance Use Hx Alcohol Use: Yes (socially) History of Substance Use: reports: None - Smoking History Smoking history: Former smoker Have you smoked in the past 12 months: Yes Aproximately how many cigarettes per day: 8 - Social History Usual Living Arrangement: Alone (single never ) ADL: Independent 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 History of Recent Travel: No Home Medications - Allergies Allergies/Adverse Reactions: Allergies Allergy/AdvReac Type Severity Reaction Status Date / Time No Known Allergies Allergy Verified 01/23/18 15:27 - Home Medications Home Medications: Ambulatory Orders metFORMIN HCL [Glucophage -] 500 mg PO BID 02/14/16 Budesonide/Formeterol Fumarate [SYMBICORT 80/4.5mcg -] 1 inh PO DAILY 10/14/17 Meloxicam [Mobic] 7.5 mg PO DAILY 10/14/17 Pantoprazole Sodium [Protonix -] 20 mg PO DAILY PRN 10/14/17 Multivitamin with Iron [Multivitamins with Iron] 1 tab PO DAILY 10/22/17 Tramadol HCl [Ultram] 50 mg PO QID #20 tablet MDD 6 01/20/18 Aspirin [ASA -] 81 mg PO DAILY 01/24/18 Family Disease History - Family Disease History Family Disease History: Other: Father (alive: 80: DM II), Mother (: 60: diabetes complications), Brother (2, 1 w/ DM II), Sister (1, healthy), Son (2, healthy) Review of Systems - Review of Systems Cardiovascular: reports: Chest Pain Neurological: reports: Numbness, Parasthesia, Weakness Vital Signs: Vital Signs Temperature 98.2 F 01/24/18 08:00 Pulse Rate 68 01/24/18 08:00 Respiratory Rate 18 01/24/18 08:00 Blood Pressure 138/74 01/24/18 08:00 O2 Sat by Pulse Oximetry (%) 99 01/24/18 04:58 Constitutional: Yes: Anxious, Mild Distress Neck: Yes: Supple Respiratory: Yes: Regular, CTA Bilaterally Gastrointestinal: Yes: Normal Bowel Sounds, Soft, Abdomen, Obese Cardiovascular: Yes: Regular Rate and Rhythm JVD: No Carotid Bruit: No Heart Sounds: Yes: S1, S2 Edema: No Neurological: Yes: Numbness, Paresthesia, Weakness - Other Data Labs, Other Data: CBC, BMP 01/23/18 17:09 01/23/18 17:09 INR, PTT INR 0.91 (0.83-1.09) 01/23/18 17:09 Troponin, BNP 01/23/18 01/24/18 17:09 06:30 Troponin I < 0.02 < 0.02 Troponin, BNP 01/23/18 01/24/18 17:09 06:30 Troponin I < 0.02 < 0.02 Imaging - Results Chest X-ray: Report Reviewed (NAD) Cat Scan: Report Reviewed (c-spine arthopathy) Ultrasound: Report Reviewed (s/p cholecystectomy) Problem List - Problems (1) Type 2 diabetes mellitus Code(s): E11.9 - TYPE 2 DIABETES MELLITUS WITHOUT COMPLICATIONS Qualifiers: Diabetes mellitus termite inspector insulin use: without nursing home use (2) Hyperlipidemia Code(s): E78.5 - HYPERLIPIDEMIA, UNSPECIFIED Qualifiers: Hyperlipidemia type: pure hypercholesterolemia Qualified Code(s): E78.00 - Pure hypercholesterolemia, unspecified; E78.0 - Pure hypercholesterolemia (3) Cervical radicular pain Code(s): M54.12 - RADICULOPATHY, CERVICAL REGION Assessment/Plan 1. Atypical chest pain, neck pain and left numbness/parastheias of hand D2-D4 radiating from posterior neck and left shoulder c/w cervical radiculopathy 2. Type 2 DM P:1. F/u c-spine MRI, analgesia as needed, PT as tolerated 2. Ruled out for GA, no specific cardiac therapy waranted 3. Thank you for consultative opportunity
--- NOTE | 2018-01-24 14:48 | CONS ---
DATE OF CONSULTATION: 01/24/2018 ORTHOPEDIC CONSULTATION/[facility] Patient is a 52-year-old female complaining of 3-day history of increasing left-sided neck and arm pain, also some chest pain. Patient was admitted through the ER for a cardiac evaluation, and once in the hospital, evaluation of her neck and arm by orthopedist was indicated as well. Patient is in the process of having a cardiology workup as well. Neurology came to assess the patient and found that the patient has some significant weakness and radiating pain down the arm consistent with cervical radiculitis/radiculopathy. Patient denies any recent fall or trauma. No bowel or bladder complaints. No fever or chills. No radiating pain down the legs. PHYSICAL EXAMINATION: She has a poor effort for range of motion of her cervical spine, with pain in all planes. Some paraspinal tenderness, especially on the left-hand side down into the trapezius. Cranial nerves II through XII are grossly intact. She has full active range of motion of shoulder, elbow, wrists, and fingers. Does have very poor effort to wrist extension. Elbow flexion and extension are intact. Thumb extension, pinch, and finger adduction are intact with good generation technologist strength. Sensation appears to be intact, as do reflexes as well. X-rays show significant C5-C6 degenerative disk disease. IMPRESSION: Significant cervical and upper extremity pain as well as chest pain. PLAN: First and foremost, cardiology workup to ensure that there is no cardiac component to this condition. Second, my impression is that this is all cervical radiculitis. Patient should be treated with antiinflammatories, warm soaks, MRI of the cervical spine to further evaluate, especially at the C5-C6 level, analgesics, and then post MRI, refer to a cervical spine or orthopedist/neurosurgeon for further evaluation. PAULETTE SOLIS M.D. [id number]
[2018-01-24] MEDS: LORazepam 2 MG/ML SDV VIAL IVPUSH SCH ×2 (14:56→18:20)
[2018-01-24] MEDS: BUDESONIDE/FORMETEROL FUMARATE 80/4.5 mcg INHALER IH SCH (15:15)
[2018-01-24] MEDS ORDERED: PT OWN MED DRAWER 7, Y5N ONE (15:19)
[2018-01-24] MEDS: IBUPROFEN 400 MG TABLET (FP) PO PRN (15:37)
[2018-01-25] MEDS: traMADol HCL 50 MG TABLET PO PRN ×3 (04:45→20:21)
[2018-01-25] MEDS: metFORMIN HCL 500 MG TABLET (FP) PO SCH ×2 (07:44→16:14)
[2018-01-25] MEDS ORDERED: PT OWN MED DRAWER 7, Y5N ONE (08:54)
[2018-01-25] MEDS: PANTOPRAZOLE 20 MG TABLET (FP) PO SCH (09:09)
[2018-01-25] MEDS: BUDESONIDE/FORMETEROL FUMARATE 80/4.5 mcg INHALER IH SCH (09:10)
[2018-01-25] MEDS: MULTIVITAMINS (DAILY MVI) TABLET (FP) PO SCH (09:10)
--- NOTE | 2018-01-25 09:40 | PN ---
Progress Note, Physician Chief Complaint: Events noted Weakness History of Present Illness: Patient was seen and examined. Awake and alert. Chart was reviewed Denies chest pain, SOB or palpitations - Current Medication List Current Medications: Active Medications Acetaminophen (Tylenol -) 650 mg PO Q6H PRN PRN Reason: PAIN Last Admin: 01/24/18 05:37 Dose: 650 mg Budesonide/Formoterol Fumarate (Symbicort 80/4.5mcg -) 1 puff IH DAILY [facility] Last Admin: 01/25/18 09:10 Dose: 2 inh Ibuprofen (Motrin -) 400 mg PO Q6H PRN PRN Reason: FEVER Last Admin: 01/24/18 15:37 Dose: 400 mg Metformin HCl (Glucophage -) 500 mg PO BIDAC [facility] Last Admin: 01/25/18 07:44 Dose: 500 mg Multivitamins/Minerals/Vitamin C (Tab-A-Vit -) 1 tab PO DAILY [facility] Last Admin: 01/25/18 09:10 Dose: 1 tab Pantoprazole Sodium (Protonix -) 20 mg PO DAILY [facility] Last Admin: 01/25/18 09:09 Dose: 20 mg Tramadol HCl (Ultram -) 50 mg PO Q6H PRN PRN Reason: PAIN LEVEL 6-10 Last Admin: 01/25/18 04:45 Dose: 50 mg - Objective Vital Signs: Vital Signs Temperature 97.9 F 01/25/18 06:00 Pulse Rate 67 01/25/18 06:00 Respiratory Rate 18 01/25/18 07:00 Blood Pressure 154/89 01/25/18 06:00 O2 Sat by Pulse Oximetry (%) 98 01/25/18 07:00 Eyes: Yes: PERRL HENT: Yes: Atraumatic Neck: Yes: Supple Cardiovascular: Yes: Regular Rate and Rhythm, S1, S2 Respiratory: Yes: CTA Bilaterally Gastrointestinal: Yes: Normal Bowel Sounds, Soft. No: Tenderness Edema: No Labs: Problem List - Problems (1) Chest pain Code(s): R07.9 - CHEST PAIN, UNSPECIFIED Qualifiers: Chest pain type: unspecified Qualified Code(s): R07.9 - Chest pain, unspecified (2) Hyperlipidemia Code(s): E78.5 - HYPERLIPIDEMIA, UNSPECIFIED Qualifiers: Hyperlipidemia type: pure hypercholesterolemia Qualified Code(s): E78.00 - Pure hypercholesterolemia, unspecified; E78.0 - Pure hypercholesterolemia (3) Left arm weakness Code(s): R29.898 - OTH SYMPTOMS AND SIGNS INVOLVING THE MUSCULOSKELETAL SYSTEM (4) Type 2 diabetes mellitus Code(s): E11.9 - TYPE 2 DIABETES MELLITUS WITHOUT COMPLICATIONS Qualifiers: Diabetes mellitus assisted insulin use: without terminal gauger supervisor use (5) Cervical radicular pain Code(s): M54.12 - RADICULOPATHY, CERVICAL REGION Assessment/Plan 1. Atypical chest pain, neck pain and left numbness/parasthesia of hand D2-D4 radiating from posterior neck and left shoulder c/w cervical radiculopathy 2. Type 2 DM PLAN: 1. No further cardiac therapy warranted at this time 2. Neuro follow up 3. PT Juan Escudero MD
[2018-01-25] MEDS: IBUPROFEN 400 MG TABLET (FP) PO PRN (11:38)
--- NOTE | 2018-01-25 13:35 | PN ---
Progress Note, Physician Chief Complaint: went down for MRI but could not lye down to finish it b/o pain; had ativan premedication, will give iv morphine before MRI and try again today start also neurontin tid - Current Medication List Current Medications: Active Medications Acetaminophen (Tylenol -) 650 mg PO Q6H PRN PRN Reason: PAIN Last Admin: 01/24/18 05:37 Dose: 650 mg Aspirin (Asa -) 81 mg PO DAILY [facility] Budesonide/Formoterol Fumarate (Symbicort 80/4.5mcg -) 1 puff IH DAILY [facility] Last Admin: 01/25/18 09:10 Dose: 2 inh Ibuprofen (Motrin -) 400 mg PO Q6H PRN PRN Reason: FEVER Last Admin: 01/25/18 11:38 Dose: 400 mg Metformin HCl (Glucophage -) 500 mg PO BIDAC [facility] Last Admin: 01/25/18 07:44 Dose: 500 mg Multivitamins/Minerals/Vitamin C (Tab-A-Vit -) 1 tab PO DAILY [facility] Last Admin: 01/25/18 09:10 Dose: 1 tab Pantoprazole Sodium (Protonix -) 20 mg PO DAILY [facility] Last Admin: 01/25/18 09:09 Dose: 20 mg Tramadol HCl (Ultram -) 50 mg PO Q6H PRN PRN Reason: PAIN LEVEL 6-10 Last Admin: 01/25/18 11:37 Dose: 50 mg - Objective Vital Signs: Vital Signs Temperature 98 F 01/25/18 10:00 Pulse Rate 68 01/25/18 10:00 Respiratory Rate 18 01/25/18 10:00 Blood Pressure 138/76 01/25/18 10:00 O2 Sat by Pulse Oximetry (%) 98 01/25/18 07:00 Constitutional: Yes: No Distress, Anxious Eyes: Yes: Conjunctiva Clear HENT: Yes: Atraumatic Neck: Yes: Supple Cardiovascular: Yes: Regular Rate and Rhythm Respiratory: Yes: CTA Bilaterally Gastrointestinal: Yes: Soft. No: Distention Genitourinary: No: CVA Tenderness - Left, CVA Tenderness - Right Musculoskeletal: No: Joint Swelling Extremities: Yes: Other (unable to lift LUE above head b/o pain). No: Cold, Cool, Cyanosis Edema: No Integumentary: No: Rash, Venous Stasis Changes Neurological: Yes: WNL, Alert, Oriented ...Motor Strength: WNL Psychiatric: Yes: WNL, Alert, Oriented. No: Agitated, Suicidal Ideation Labs: CBC, BMP 01/23/18 17:09 01/23/18 17:09 INR, PTT INR 0.91 (0.83-1.09) 01/23/18 17:09 Assessment/Plan Pt is a 52 yo F, with PMH of NIDDM (on metformin), HLD, arthritis (rotator cuff surgery of L shoulder), who is presenting with complaints of L-sided "shooting" chest pain lower neck and LUE L shoulder pain in OBS, pain meds prn cardiology ortho and neurology f/u Cspine MRI ordered; premedicate with morphine before MRI d/w pt and staff; d/w pt's son at bedside
[2018-01-25] MEDS ORDERED: morphine CARPU-JECT 2 MG/1 ML DISP.SYRIN IVPUSH ONE (15:06)
[2018-01-25] MEDS: GABAPENTIN 300 MG CAPSULE (FP) PO SCH ×2 (16:14→22:02)
[2018-01-25] MEDS ORDERED: MORPHINE SULFATE 2 MG/ML VIAL IVPUSH ONE (17:00)
--- NOTE | 2018-01-25 19:56 | PN ---
Progress Note (short form) - Note Progress Note: PATIENTS CONDITION UNCHANGED UNABLE TO DO MRI PATIENT WAS TO UNCOMFORTABLE TO GO INTO SCANNER PLAN: REPEAT ATTEMPT FOR MRI. PREMEDICATE THE PATIENT SO STUDY CAN BE DONE. CONSIDER STEROIDS
[2018-01-26] MEDS: IBUPROFEN 400 MG TABLET (FP) PO PRN ×3 (00:17→21:45)
[2018-01-26] MEDS: traMADol HCL 50 MG TABLET PO PRN (04:54)
[2018-01-26] MEDS: metFORMIN HCL 500 MG TABLET (FP) PO SCH ×2 (06:27→17:24)
[2018-01-26] MEDS: GABAPENTIN 300 MG CAPSULE (FP) PO SCH ×3 (06:27→21:45)
[2018-01-26 07:09] LABS: BASO % 0.5 % (0-2.0); EOS % 1.9 % (0-4.5); HEMATOCRIT 35.7 % (32.4-45.2); HEMOGLOBIN 11.5 GM/dL (10.7-15.3); LYMPH % 41.7 % (8-40); MCH 27.8 pg (25.7-33.7); MCHC 32.2 g/dl (32.0-36.0); MEAN CELL VOLUME 86.3 fl (80-96); MEAN PLT VOLUME 8.3 fl (7.5-11.1); MONO % 5.9 % (3.8-10.2); PLATELET COUNT 229 K/MM3 (134-434); RBC 4.14 M/mm3 (3.60-5.2); WHITE BLOOD COUNT 6.5 K/mm3 (4.0-10.0)
[2018-01-26 07:56] LABS: ALBUMIN 2.9 g/dl (3.4-5.0); ALK PHOS 79 U/L (45-117); ANION GAP 8 MMOL/L (8-16); BILIRUBIN,TOTAL 0.2 mg/dL (0.2-1); BLOOD UREA NITROGEN 13 mg/dL (7-18); CHLORIDE 106 mmol/L (98-107); CO2 25 mmol/L (21-32); CREATININE 0.6 mg/dL (0.55-1.3); GLUCOSE,RANDOM 121 mg/dL (74-106); POTASSIUM 3.8 mmol/L (3.5-5.1); SGOT/AST 16 U/L (15-37); SGPT/ALT 29 U/L (13-61); SODIUM 139 mmol/L (136-145); TOT PROT 5.9 g/dl (6.4-8.2)
--- NOTE | 2018-01-26 08:53 | PN ---
Progress Note, Physician Chief Complaint: still unable to do MRI after IV morphine, however she was able to do CT neck initially - pain and anxiety? d/w neuro will order dilaudid x1 before MRI will also order chest CT will change from OBS to INPT - Current Medication List Current Medications: Active Medications Acetaminophen (Tylenol -) 650 mg PO Q6H PRN PRN Reason: PAIN Last Admin: 01/24/18 05:37 Dose: 650 mg Aspirin (Asa -) 81 mg PO DAILY [facility] Budesonide/Formoterol Fumarate (Symbicort 80/4.5mcg -) 1 puff IH DAILY [facility] Last Admin: 01/25/18 09:10 Dose: 2 inh Gabapentin (Neurontin -) 300 mg PO TID [facility] Last Admin: 01/26/18 06:27 Dose: 300 mg Ibuprofen (Motrin -) 400 mg PO Q6H PRN PRN Reason: FEVER Last Admin: 01/26/18 06:30 Dose: 400 mg Metformin HCl (Glucophage -) 500 mg PO BIDAC [facility] Last Admin: 01/26/18 06:27 Dose: 500 mg Multivitamins/Minerals/Vitamin C (Tab-A-Vit -) 1 tab PO DAILY [facility] Last Admin: 01/25/18 09:10 Dose: 1 tab Pantoprazole Sodium (Protonix -) 20 mg PO DAILY [facility] Last Admin: 01/25/18 09:09 Dose: 20 mg Tramadol HCl (Ultram -) 50 mg PO Q6H PRN PRN Reason: PAIN LEVEL 6-10 Last Admin: 01/26/18 04:54 Dose: 50 mg - Objective Vital Signs: Vital Signs Temperature 97.6 F 01/26/18 07:18 Pulse Rate 74 01/26/18 07:18 Respiratory Rate 20 01/26/18 07:18 Blood Pressure 159/95 01/26/18 07:18 O2 Sat by Pulse Oximetry (%) 97 01/25/18 20:32 Constitutional: Yes: No Distress, Anxious Eyes: Yes: Conjunctiva Clear HENT: Yes: Atraumatic Neck: Yes: Supple Cardiovascular: Yes: Regular Rate and Rhythm Respiratory: Yes: CTA Bilaterally Gastrointestinal: Yes: Soft. No: Distention Genitourinary: No: CVA Tenderness - Left, CVA Tenderness - Right, Hematuria Musculoskeletal: No: Joint Stiffness, Joint Swelling Extremities: Yes: Other (LUE ROM limited). No: Cold, Cool, Cyanosis Edema: No Integumentary: No: Rash, Venous Stasis Changes Neurological: Yes: WNL, Alert, Oriented ...Motor Strength: WNL Psychiatric: Yes: WNL, Alert, Oriented. No: Agitated, Suicidal Ideation Labs: CBC, BMP 01/26/18 06:00 01/26/18 06:00 INR, PTT INR 0.91 (0.83-1.09) 01/23/18 17:09 - ....Imaging Other: Report Reviewed Assessment/Plan Pt is a 52 yo F, with PMH of NIDDM (on metformin), HLD, arthritis (rotator cuff surgery of L shoulder), who is presenting with complaints of L-sided "shooting" chest pain lower neck and LUE L shoulder pain pain meds prn cardiology ortho and neurology f/u Cspine MRI ordered; premedicate with dilaudid before MRI chest CT no ivc d/w pt and staff;
[2018-01-26 09:39] LABS: ERYTHROCYTE SEDIMENTATION RATE 10 mm/hr (0-30)
[2018-01-26] MEDS ORDERED: HYDROmorphone HCl 2 MG/ML VIAL IVPUSH PRN (09:45)
--- NOTE | 2018-01-26 09:49 | PN ---
Progress Note (short form) - Note Progress Note: 52 yo F, with PMH of NIDDM (on metformin), HLD, arthritis (rotator cuff surgery of L shoulder), who is presenting with complaints of L-sided "shooting" chest pain x1.5 week, which is intermittent and lasts for a few seconds, with numbness in her L arm. She has also been experiencing some nausea, but no vomiting. The pain is not associated with exertion, and there are no exacerbating or alleviating factors. Pt also admits to vaginal spotting x3 days , which she states has been happening "every month or so" over the past year, though she has not had a "real period" x4 years since her partial hysterectomy. She saw her PCP (Dr. Elizabet Linton) today, who sent her to the ER for further evaluation of chest pain. Pt denies any fevers/chills, headache, vision changes , SOB, nausea/vomiting, abdominal pain, diarrhea/constipation, back pain, or leg swelling. Pt states she has not been "taking her cholesterol medication for some time". sig neck pain and left numbness of hand D2-D4. worse over the last week. pain radiates to chest . FU : pain continues attempted MRI x 2 -though she was unable bc of pain - Past Medical History Cardio/Vascular: Yes: Hyperlipdemia Hepatobiliary: Yes: Cholelithiasis ...: No Musculoskeletal: Yes: Osteoarthritis Endocrine: Yes: Diabetes Mellitus - Past Surgical History Past Surgical History: Yes: Appendectomy, Hernia Repair (umbilical), Hysterectomy (partial) - Alcohol/Substance Use Hx Alcohol Use: Yes (socially) History of Substance Use: reports: None - Smoking History Smoking history: Former smoker Have you smoked in the past 12 months: Yes Aproximately how many cigarettes per day: 8 - Social History Usual Living Arrangement: Alone (single never ) ADL: Independent 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 History of Recent Travel: No Home Medications - Allergies Allergies/Adverse Reactions: Allergies Allergy/AdvReac Type Severity Reaction Status Date / Time No Known Allergies Allergy Verified 01/23/18 15:27 - Home Medications Home Medications: Ambulatory Orders metFORMIN HCL [Glucophage -] 500 mg PO BID 02/14/16 Budesonide/Formeterol Fumarate [SYMBICORT 80/4.5mcg -] 1 inh PO DAILY 10/14/17 Meloxicam [Mobic] 7.5 mg PO DAILY 10/14/17 Pantoprazole Sodium [Protonix -] 20 mg PO DAILY PRN 10/14/17 Multivitamin with Iron [Multivitamins with Iron] 1 tab PO DAILY 10/22/17 Tramadol HCl [Ultram] 50 mg PO QID #20 tablet MDD 6 01/20/18 Aspirin [ASA -] 81 mg PO DAILY 01/24/18 Family Disease History - Family Disease History Family Disease History: Other: Father (alive: 80: DM II), Mother (: 60: diabetes complications), Brother (2, 1 w/ DM II), Sister (1, healthy), Son (2, healthy) Physical Exam-Neuro Vital Signs: Vital Signs Temperature 97.6 F 01/26/18 07:18 Pulse Rate 74 01/26/18 07:18 Respiratory Rate 20 01/26/18 07:18 Blood Pressure 159/95 01/26/18 07:18 O2 Sat by Pulse Oximetry (%) 97 01/25/18 20:32 Labs: CBC, BMP 01/23/18 17:09 01/23/18 17:09 INR, PTT INR 0.91 (0.83-1.09) 01/23/18 17:09 - Neuro Exam Level Of Consciousness: Yes: Alert (awake, alert, ? mild left facial , left sided UE weakness limited by pain-gives limited efforty , ? weakness delotid and BI , TR with best effort 5/5, interossei poor effort , reflexes 2+ TR , BI and BR 1+, plantars down ) Problem List - Problems (1) Chest pain Code(s): R07.9 - CHEST PAIN, UNSPECIFIED Qualifiers: Chest pain type: unspecified Qualified Code(s): R07.9 - Chest pain, unspecified (2) Left arm weakness Code(s): R29.898 - OTH SYMPTOMS AND SIGNS INVOLVING THE MUSCULOSKELETAL SYSTEM (3) Cervical radicular pain Code(s): M54.12 - RADICULOPATHY, CERVICAL REGION Assessment/Plan 52 yo F, with PMH of NIDDM (on metformin), HLD, arthritis (rotator cuff surgery of L shoulder), who is presenting with complaints of L-sided "shooting" chest pain x1.5 week, which is intermittent and lasts for a few seconds, with numbness in her L arm. She has also been experiencing some nausea, but no vomiting. The pain is not associated with exertion, and there are no exacerbating or alleviating factors. Pt also admits to vaginal spotting x3 days , which she states has been happening "every month or so" over the past year, though she has not had a "real period" x4 years since her partial hysterectomy. She saw her PCP (Dr. Elizabet Linton) today, who sent her to the ER for further evaluation of chest pain. Pt denies any fevers/chills, headache, vision changes , SOB, nausea/vomiting, abdominal pain, diarrhea/constipation, back pain, or leg swelling. Pt states she has not been "taking her cholesterol medication for some time". sig neck pain and left numbness of hand D2-D4. worse over the last week. pain radiates to chest . AP : cervical radiculopathy acute - C5/C6/C7 CARDIAC SOUSA (-) will try for MRI C SPINE one more time, premedicate with dilaudid add o percocet PRN may consider PM -epidural at C6 empirically as well may require formal NS eval- though await MRI first DR GUTIERREZ Problem List - Problems (1) Chest pain Code(s): R07.9 - CHEST PAIN, UNSPECIFIED Qualifiers: Chest pain type: unspecified Qualified Code(s): R07.9 - Chest pain, unspecified (2) Left arm weakness Code(s): R29.898 - OTH SYMPTOMS AND SIGNS INVOLVING THE MUSCULOSKELETAL SYSTEM (3) Cervical radicular pain Code(s): M54.12 - RADICULOPATHY, CERVICAL REGION
[2018-01-26] MEDS: ASPIRIN 81 MG CHEWABLE TABLETS PO SCH (10:21)
[2018-01-26] MEDS: PANTOPRAZOLE 20 MG TABLET (FP) PO SCH (10:22)
[2018-01-26] MEDS: MULTIVITAMINS (DAILY MVI) TABLET (FP) PO SCH (10:22)
[2018-01-26] MEDS ORDERED: PT OWN MED DRAWER 7, Y5N ONE (10:33)
[2018-01-26] MEDS: BUDESONIDE/FORMETEROL FUMARATE 80/4.5 mcg INHALER IH SCH (10:43)
[2018-01-26] MEDS: oxyCODONE HCL 5 MG TABLET PO PRN ×2 (13:40→22:28)
[2018-01-26] MEDS: ACETAMINOPHEN 325 MG TABLET (FP) PO PRN (13:41)
[2018-01-27] MEDS: traMADol HCL 50 MG TABLET PO PRN (01:03)
[2018-01-27] MEDS: IBUPROFEN 400 MG TABLET (FP) PO PRN (05:48)
[2018-01-27] MEDS: GABAPENTIN 300 MG CAPSULE (FP) PO SCH ×3 (05:48→22:09)
[2018-01-27] MEDS: metFORMIN HCL 500 MG TABLET (FP) PO SCH ×2 (05:59→17:32)
[2018-01-27] MEDS ORDERED: PT OWN MED DRAWER 7, Y5N ONE (09:10)
[2018-01-27] MEDS: MULTIVITAMINS (DAILY MVI) TABLET (FP) PO SCH (09:22)
[2018-01-27] MEDS: BUDESONIDE/FORMETEROL FUMARATE 80/4.5 mcg INHALER IH SCH (09:22)
[2018-01-27] MEDS: ASPIRIN 81 MG CHEWABLE TABLETS PO SCH (09:22)
[2018-01-27] MEDS: PANTOPRAZOLE 20 MG TABLET (FP) PO SCH (09:22)
--- NOTE | 2018-01-27 09:59 | PN ---
Progress Note, Physician Chief Complaint: still with left arm pain, neck pain, some numbness L 3 fingers L hand; mild wekaness L hand? pt said she can not squeeze too hard b/o pain tried twice to do MRI but could not tolerate b/o pain in her L upper extremity when lying down; will give dilaudid and xanax before MRI and try for 3rd time to do MRI of CSpine also asked NS to see pt - Current Medication List Current Medications: Active Medications Acetaminophen (Tylenol -) 650 mg PO Q6H PRN PRN Reason: PAIN Last Admin: 01/24/18 05:37 Dose: 650 mg Acetaminophen (Tylenol -) 325 mg PO TID PRN PRN Reason: PAIN LEVEL 4 - 6 Last Admin: 01/26/18 13:41 Dose: 325 mg Aspirin (Asa -) 81 mg PO DAILY [facility] Last Admin: 01/27/18 09:22 Dose: 81 mg Budesonide/Formoterol Fumarate (Symbicort 80/4.5mcg -) 1 puff IH DAILY [facility] Last Admin: 01/27/18 09:22 Dose: 1 inh Gabapentin (Neurontin -) 300 mg PO TID [facility] Last Admin: 01/27/18 05:48 Dose: 300 mg Hydromorphone HCl (Dilaudid Vial -) 2 mg IVPB ONCE PRN PRN Reason: PAIN LEVEL 4 - 6 Ibuprofen (Motrin -) 400 mg PO Q6H PRN PRN Reason: FEVER Last Admin: 01/27/18 05:48 Dose: 400 mg Metformin HCl (Glucophage -) 500 mg PO BIDAC [facility] Last Admin: 01/27/18 05:59 Dose: 500 mg Multivitamins/Minerals/Vitamin C (Tab-A-Vit -) 1 tab PO DAILY [facility] Last Admin: 01/27/18 09:22 Dose: 1 tab Oxycodone HCl (Roxicodone -) 5 mg PO TID PRN PRN Reason: PAIN LEVEL 4 - 6 Last Admin: 01/26/18 22:28 Dose: 5 mg Pantoprazole Sodium (Protonix -) 20 mg PO DAILY [facility] Last Admin: 01/27/18 09:22 Dose: 20 mg - Objective Vital Signs: Vital Signs Temperature 98.1 F 01/27/18 05:57 Pulse Rate 75 01/27/18 05:57 Respiratory Rate 18 01/27/18 05:57 Blood Pressure 133/80 01/27/18 05:57 O2 Sat by Pulse Oximetry (%) 96 01/27/18 00:53 Constitutional: Yes: Anxious, Mild Distress (L shoulder neck LUE pain) Eyes: Yes: Conjunctiva Clear HENT: Yes: Atraumatic Neck: Yes: Supple Cardiovascular: Yes: Regular Rate and Rhythm Respiratory: Yes: CTA Bilaterally Gastrointestinal: Yes: Soft. No: Tenderness Genitourinary: No: CVA Tenderness - Left, CVA Tenderness - Right Musculoskeletal: No: Joint Stiffness, Joint Swelling Extremities: Yes: Other (L sgoulder pain unabvle to lift above head level b/o pain) Edema: No Neurological: Yes: WNL, Alert, Oriented ...Motor Strength: WNL Psychiatric: Yes: WNL, Alert, Oriented. No: Agitated Labs: CBC, BMP 01/26/18 06:00 01/26/18 06:00 INR, PTT INR 0.91 (0.83-1.09) 01/23/18 17:09 - ....Imaging Other: Report Reviewed Assessment/Plan Pt is a 52 yo F, with PMH of NIDDM (on metformin), HLD, arthritis (rotator cuff surgery of L shoulder), who is presenting with complaints of L-sided "shooting" chest pain lower neck and LUE L shoulder pain pain meds prn cardiology ortho and neurology f/u Cspine MRI ordered for 3rd time; premedicate with dilaudid and xanax before MRI d/w pt and staff HOLLY Callahan chest CT no ivc r/o intra-chest pathology d/w pt and staff; pt agreed with plan.
[2018-01-27] MEDS ORDERED: ALPRAZolam 0.25 MG TABLET PO ONE (10:00)
--- NOTE | 2018-01-27 11:09 | PN ---
Progress Note, Physician History of Present Illness: Posterior neck and non-exertional left-sided radiating "shooting" chest pain with numbness, tingling and weakness in her L arm persists, was not able to undergo c-spine MRI. - Current Medication List Current Medications: Active Medications Acetaminophen (Tylenol -) 650 mg PO Q6H PRN PRN Reason: PAIN Last Admin: 01/24/18 05:37 Dose: 650 mg Acetaminophen (Tylenol -) 325 mg PO TID PRN PRN Reason: PAIN LEVEL 4 - 6 Last Admin: 01/26/18 13:41 Dose: 325 mg Aspirin (Asa -) 81 mg PO DAILY [facility] Last Admin: 01/27/18 09:22 Dose: 81 mg Budesonide/Formoterol Fumarate (Symbicort 80/4.5mcg -) 1 puff IH DAILY [facility] Last Admin: 01/27/18 09:22 Dose: 1 inh Gabapentin (Neurontin -) 300 mg PO TID [facility] Last Admin: 01/27/18 05:48 Dose: 300 mg Hydromorphone HCl (Dilaudid Vial -) 2 mg IVPB ONCE PRN PRN Reason: PAIN LEVEL 4 - 6 Ibuprofen (Motrin -) 400 mg PO Q6H PRN PRN Reason: FEVER Last Admin: 01/27/18 05:48 Dose: 400 mg Metformin HCl (Glucophage -) 500 mg PO BIDAC [facility] Last Admin: 01/27/18 05:59 Dose: 500 mg Multivitamins/Minerals/Vitamin C (Tab-A-Vit -) 1 tab PO DAILY [facility] Last Admin: 01/27/18 09:22 Dose: 1 tab Oxycodone HCl (Roxicodone -) 5 mg PO TID PRN PRN Reason: PAIN LEVEL 4 - 6 Last Admin: 01/26/18 22:28 Dose: 5 mg Pantoprazole Sodium (Protonix -) 20 mg PO DAILY [facility] Last Admin: 01/27/18 09:22 Dose: 20 mg - Objective Vital Signs: Vital Signs Temperature 98.1 F 01/27/18 05:57 Pulse Rate 75 01/27/18 05:57 Respiratory Rate 18 01/27/18 05:57 Blood Pressure 133/80 01/27/18 05:57 O2 Sat by Pulse Oximetry (%) 96 01/27/18 00:53 Constitutional: Yes: No Distress, Calm Neck: Yes: Supple Cardiovascular: Yes: Regular Rate and Rhythm Respiratory: Yes: Regular, CTA Bilaterally Gastrointestinal: Yes: Normal Bowel Sounds, Soft Edema: No Labs: CBC, BMP 01/26/18 06:00 01/26/18 06:00 INR, PTT INR 0.91 (0.83-1.09) 01/23/18 17:09 Problem List - Problems (1) Type 2 diabetes mellitus Code(s): E11.9 - TYPE 2 DIABETES MELLITUS WITHOUT COMPLICATIONS Qualifiers: Diabetes mellitus termite inspector insulin use: without termite inspector use (2) Hyperlipidemia Code(s): E78.5 - HYPERLIPIDEMIA, UNSPECIFIED Qualifiers: Hyperlipidemia type: pure hypercholesterolemia Qualified Code(s): E78.00 - Pure hypercholesterolemia, unspecified; E78.0 - Pure hypercholesterolemia (3) Cervical radicular pain Code(s): M54.12 - RADICULOPATHY, CERVICAL REGION Assessment/Plan 1. Atypical chest pain, neck pain and left numbness/parastheias of hand D2-D4 radiating from posterior neck and left shoulder c/w acute cervical radiculopathy C5/C6/C7 2. Type 2 DM P:1. F/u c-spine MRI with sedation, analgesia as needed, PT as tolerated, consider epidural steroid injection 2. Ruled out for AK, no specific cardiac therapy warranted
[2018-01-27] MEDS: oxyCODONE HCL 5 MG TABLET PO PRN ×2 (12:00→19:53)
[2018-01-27] MEDS: ACETAMINOPHEN 325 MG TABLET (FP) PO PRN ×2 (12:00→19:54)
[2018-01-27] MEDS ORDERED: HYDROmorphone HCl 2 MG/ML VIAL IVPB PRN (13:30)
--- NOTE | 2018-01-27 14:01 | PN ---
Progress Note (short form) - Note Progress Note: 52 yo F, with PMH of NIDDM (on metformin), HLD, arthritis (rotator cuff surgery of L shoulder), who is presenting with complaints of L-sided "shooting" chest pain x1.5 week, which is intermittent and lasts for a few seconds, with numbness in her L arm. She has also been experiencing some nausea, but no vomiting. The pain is not associated with exertion, and there are no exacerbating or alleviating factors. Pt also admits to vaginal spotting x3 days , which she states has been happening "every month or so" over the past year, though she has not had a "real period" x4 years since her partial hysterectomy. She saw her PCP (Dr. Elizabet Linton) today, who sent her to the ER for further evaluation of chest pain. Pt denies any fevers/chills, headache, vision changes , SOB, nausea/vomiting, abdominal pain, diarrhea/constipation, back pain, or leg swelling. Pt states she has not been "taking her cholesterol medication for some time". sig neck pain and left numbness of hand D2-D4. worse over the last week. pain radiates to chest . FU : pain continues attempted MRI x 2 -though she was unable bc of pain Given dose of hydomorphone a short time ago and is now waiting to go to MRI. She is eager to try to get it done. - Past Medical History Cardio/Vascular: Yes: Hyperlipdemia Hepatobiliary: Yes: Cholelithiasis ...: No Musculoskeletal: Yes: Osteoarthritis Endocrine: Yes: Diabetes Mellitus - Past Surgical History Past Surgical History: Yes: Appendectomy, Hernia Repair (umbilical), Hysterectomy (partial) - Alcohol/Substance Use Hx Alcohol Use: Yes (socially) History of Substance Use: reports: None - Smoking History Smoking history: Former smoker Have you smoked in the past 12 months: Yes Aproximately how many cigarettes per day: 8 - Social History Usual Living Arrangement: Alone (single never ) ADL: Independent 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 History of Recent Travel: No Home Medications - Allergies Allergies/Adverse Reactions: Allergies Allergy/AdvReac Type Severity Reaction Status Date / Time No Known Allergies Allergy Verified 01/23/18 15:27 - Home Medications Home Medications: Ambulatory Orders metFORMIN HCL [Glucophage -] 500 mg PO BID 02/14/16 Budesonide/Formeterol Fumarate [SYMBICORT 80/4.5mcg -] 1 inh PO DAILY 10/14/17 Meloxicam [Mobic] 7.5 mg PO DAILY 10/14/17 Pantoprazole Sodium [Protonix -] 20 mg PO DAILY PRN 10/14/17 Multivitamin with Iron [Multivitamins with Iron] 1 tab PO DAILY 10/22/17 Tramadol HCl [Ultram] 50 mg PO QID #20 tablet MDD 6 01/20/18 Aspirin [ASA -] 81 mg PO DAILY 01/24/18 Family Disease History - Family Disease History Family Disease History: Other: Father (alive: 80: DM II), Mother (: 60: diabetes complications), Brother (2, 1 w/ DM II), Sister (1, healthy), Son (2, healthy) Physical Exam-Neuro Vital Signs: Vital Signs Labs: CBC, BMP 01/23/18 17:09 01/23/18 17:09 INR, PTT INR 0.91 (0.83-1.09) 01/23/18 17:09 - Neuro Exam Level Of Consciousness: Yes: Alert (awake, alert, ? mild left facial , remainder of exam deferred to avoid increase of pain that might preclude MRI success Problem List - Problems (1) Chest pain Code(s): R07.9 - CHEST PAIN, UNSPECIFIED Qualifiers: Chest pain type: unspecified Qualified Code(s): R07.9 - Chest pain, unspecified (2) Left arm weakness Code(s): R29.898 - OTH SYMPTOMS AND SIGNS INVOLVING THE MUSCULOSKELETAL SYSTEM (3) Cervical radicular pain Code(s): M54.12 - RADICULOPATHY, CERVICAL REGION Assessment/Plan 52 yo F, with PMH of NIDDM (on metformin), HLD, arthritis (rotator cuff surgery of L shoulder), who is presenting with complaints of L-sided "shooting" chest pain x1.5 week, which is intermittent and lasts for a few seconds, with numbness in her L arm. She has also been experiencing some nausea, but no vomiting. The pain is not associated with exertion, and there are no exacerbating or alleviating factors. Pt also admits to vaginal spotting x3 days , which she states has been happening "every month or so" over the past year, though she has not had a "real period" x4 years since her partial hysterectomy. She saw her PCP (Dr. Elizabet Linton) today, who sent her to the ER for further evaluation of chest pain. Pt denies any fevers/chills, headache, vision changes , SOB, nausea/vomiting, abdominal pain, diarrhea/constipation, back pain, or leg swelling. Pt states she has not been "taking her cholesterol medication for some time". sig neck pain and left numbness of hand D2-D4. worse over the last week. pain radiates to chest . AP : cervical radiculopathy acute - C5/C6/C7 CARDIAC SOUSA (-) will try for MRI C SPINE one more time, premedicate with dilaudid add o percocet PRN may consider PM -epidural at C6 empirically as well may require formal NS eval- though await MRI first Problem List - Problems (1) Chest pain Code(s): R07.9 - CHEST PAIN, UNSPECIFIED Qualifiers: Chest pain type: unspecified Qualified Code(s): R07.9 - Chest pain, unspecified (2) Left arm weakness Code(s): R29.898 - OTH SYMPTOMS AND SIGNS INVOLVING THE MUSCULOSKELETAL SYSTEM (3) Cervical radicular pain Code(s): M54.12 - RADICULOPATHY, CERVICAL REGION
--- NOTE | 2018-01-27 14:53 | PN ---
Progress Note (short form) - Note Progress Note: NEUROSURGERY CONSULT DICTATED H/o NIDDM, HLD, OA c/o L-sided "shooting" chest pain x 2 weeks. Cardiology w/u negative. Pain to L scapula, L shoulder, L UE down to elbow. + numbness in her L arm and L hand D1-3. Denies falls or trauma. No Lhermitte's sign. Denies any fevers/chills, headache, vision changes, SOB, nausea/vomiting, B/B incontinence. PE: AF, VSS HEENT- NC/AT; Neck-L sided paraspinal muscle spasm; Cor- RR; Lungs- CTA B; Abd- benign, obese; Ext- no sign of DVT CN- intact; Motor- 5/5 except L triceps 4- and BR/WE 4/5; pain limited; Sensation- intact LT, decreased PP L C7; DTR- hyporeflexic B, no long tract sign ; Gait- stable CT Head- negative for bleed, fx CT C spine- bridging osteophytes C2-3, C5-6, C6-7; DDD C5-6 and C6-7; broad based disc bulge/osteophytes C5-6; L C6-7 paracentral disc protrusion with uncovertebral hypertrophy and foramenal stenosis Cervical DDD/spondylosis with L C7 radiculopathy On Neurontin Unfortunately need MRI to better define C5-6 and C6-7 anatomy Consider pain management for radicular pain Surgery could be considered if MRI is available to better define anatomy and medical treatments do not control her symptoms adequately D/w RN and pt
[2018-01-28] MEDS: IBUPROFEN 400 MG TABLET (FP) PO PRN ×2 (01:00→17:02)
[2018-01-28] MEDS: GABAPENTIN 300 MG CAPSULE (FP) PO SCH ×3 (05:47→21:23)
[2018-01-28] MEDS: oxyCODONE HCL 5 MG TABLET PO PRN ×3 (06:14→21:27)
[2018-01-28] MEDS: ACETAMINOPHEN 325 MG TABLET (FP) PO PRN ×3 (06:15→21:23)
--- NOTE | 2018-01-28 06:20 | CONS ---
DATE OF CONSULTATION: 01/27/2018 CHIEF COMPLAINT: Left sided neck pain, left C7 radiculopathy. HISTORY OF PRESENT ILLNESS: The patient is a 52-year-old right-handed female with a history of type 2 diabetes, obesity, osteoarthritis, left shoulder surgery, and hypercholesterolemia, who complains of left-sided chest area shooting pain for 2 week duration. She also has pain radiating down to the left scapula, shoulder, and forearm down to about the elbow. There is associated left arm and hand numbness. There is numbness especially involving the first 3 digits of the left hand. She denies any recent trauma or fall. She denies any fever or chill, and has no other recent infections. She has no bowel, bladder incontinence and denies Lhermitte sign. PAST MEDICAL HISTORY: Significant for diabetes, hypercholesterolemia, osteoarthritis, left shoulder surgery. MEDICATION: Currently includes Neurontin, Symbicort, Glucophage, multivitamin, baby aspirin, ibuprofen, Dilaudid, oxycodone, and Protonix. ALLERGIES: There are no known drug allergies. FAMILY HISTORY: Noncontributory. SOCIAL HISTORY: She does not smoke and only drinks alcohol socially. She lives at home. She does not use recreational drugs. REVIEW OF SYSTEMS: Otherwise negative for other major constitutional, head/neck, cardiovascular, pulmonary, gastrointestinal, genitourinary, endocrinologic, neurologic, or psychological problems except for the above. PHYSICAL EXAMINATION: Vital signs: Temperature 98, blood pressure 120/72. HEENT: Normocephalic, atraumatic, anicteric. Neck: Left-sided paraspinal muscle spasm. Range of motion is decreased especially upon left sided rotation and extension. Coronary: Regular rhythm. Lungs: Clear bilaterally. Abdomen: Benign, somewhat obese. Extremities: No signs of DVT. Neurologic: She is awake, alert, oriented x4. Cranial nerves examination intact 2-12. Motor examination shows left triceps to be 4-, brachioradialis and wrist extension are 4/5 and somewhat pain-limited. Sensory examination showed diminished pinprick sensation in left C7 distribution, greater than C6. Deep tendon reflexes are hyporeflexive throughout. There is no pathological long tract sign. Cerebellar examination demonstrated intact coordination. Her gait is stable. LABORATORY EXAMINATION: Shows white blood cell count of 6.5, ESR of 10, INR is 0.91, and PTT is 27.6. Serum sodium is 139, potassium 3.8, BUN and creatinine are 13 and 0.6, respectively. Last finger stick was 119. Calcium 8.0. Troponin less than 0.02. 250CT scan of cervical spine demonstrated some slight reversal of normal cervical lordosis. There are anterior bridging osteophytes at C2-3, C5-6, and C6-7. There is moderate to marked degenerative disk space narrowing at C5-6 and C6-7. There is broad-based disk bulging with associated osteophyte at C5-6 with no severe stenosis. There is proximal foraminal narrowing bilaterally, right greater than left. There is also left-sided C6-7 chronic paracentral disk protrusion with associated osteophyte and uncovertebral joint hypertrophy which results in moderate left C6-7 foraminal stenosis. IMPRESSION: 1. C5-6 and C6-7 degenerative disk disease with clinical left C7 radiculopathy. 2. Obesity. 3. Type 2 diabetes. 4. Hypercholesterolemia. 5. Osteoarthritis. RECOMMENDATION: The patient presents with 2+ week history of left-sided neck pain radiating down to left upper extremity. She is ruled out for cardiac disease on this admission. She still has some left upper extremity numbness but denies any weakness. Examination demonstrates slight weakness to the left brachioradialis, wrist extensor, as well as to a greater extent left triceps. There is slight numbness of left C7 distribution as well. CT scan demonstrated degenerative disk disease and spondylosis at C5-6 and C6-7. This is a possible cause of her current symptomatology. Unfortunately, patient was not able to tolerate MRI on a couple different attempts. Without the MRI, it is difficult to better delineate anatomy and pathology at C6-7 and C5-6 level on the left side. The patient is on Neurontin which is appropriate to try for her radicular pain. She could also consider pain management injection for her cervical radicular pain as well. If she remains with intractable pain despite conservative treatment, she could be a candidate for surgical decompression and fusion, but that would certainly require preoperative MRI imaging prior to making that recommendation. I did discuss the above in detail with the patient in detail at bedside. All questions are answered. The pros and cons of treatment approaches were all discussed. JR JOSEPH M.D. DAIANA/[id number]
[2018-01-28] MEDS: metFORMIN HCL 500 MG TABLET (FP) PO SCH ×2 (06:22→16:40)
--- NOTE | 2018-01-28 08:42 | PN ---
Progress Note, Physician Chief Complaint: still in a lot of pain LUE; pt could not do the CSpine MRI for the 3rd time b/o pain in the L upper extremity and around L shoulder I spoke with neurology dr Bhatti and pt; alternatives are to DC pt home and do MRI outpt stand up MRI (but will delay diagnoses and treatment), do MRI with anesthesia "conscious sedation" (and I called anesthesia application development team lead d/w who said [facility] does not have equipment compatible with MRI settings for MRI anesthesia), then 3rd option is to transfer pt to tertiary center for further management - d/w pt she agreed with transfer d/w dr Bhatti he also agreed with transfer and he called dr Kidd chief neuro at [facility] who accepted the pt I called [facility] and gave all info and faxed all info requested, awaiting for a bed currently meanwhile will medicate pt with percocet, neurontin and solu-medrol for possible plexus neuropathy vs CSpine / C6-7 neuropathy. d/w pt and staff t time 45 min - Current Medication List Current Medications: Active Medications Acetaminophen (Tylenol -) 650 mg PO Q6H PRN PRN Reason: PAIN Last Admin: 01/24/18 05:37 Dose: 650 mg Acetaminophen (Tylenol -) 325 mg PO TID PRN PRN Reason: PAIN LEVEL 4 - 6 Last Admin: 01/28/18 06:15 Dose: 325 mg Aspirin (Asa -) 81 mg PO DAILY [facility] Last Admin: 01/27/18 09:22 Dose: 81 mg Budesonide/Formoterol Fumarate (Symbicort 80/4.5mcg -) 1 puff IH DAILY [facility] Last Admin: 01/27/18 09:22 Dose: 1 inh Gabapentin (Neurontin -) 300 mg PO TID [facility] Last Admin: 01/28/18 05:47 Dose: 300 mg Hydromorphone HCl (Dilaudid Vial -) 2 mg IVPB ONCE PRN PRN Reason: RECREATION ENGINEER TO MRI Last Admin: 01/27/18 13:23 Dose: 2 mg Ibuprofen (Motrin -) 400 mg PO Q6H PRN PRN Reason: FEVER Last Admin: 01/28/18 01:00 Dose: 400 mg Metformin HCl (Glucophage -) 500 mg PO BIDAC [facility] Last Admin: 01/28/18 06:22 Dose: 500 mg Multivitamins/Minerals/Vitamin C (Tab-A-Vit -) 1 tab PO DAILY [facility] Last Admin: 01/27/18 09:22 Dose: 1 tab Oxycodone HCl (Roxicodone -) 5 mg PO TID PRN PRN Reason: PAIN LEVEL 4 - 6 Last Admin: 01/28/18 06:14 Dose: 5 mg Pantoprazole Sodium (Protonix -) 20 mg PO DAILY [facility] Last Admin: 01/27/18 09:22 Dose: 20 mg - Objective Vital Signs: Vital Signs Temperature 98 F 01/28/18 06:14 Pulse Rate 86 01/28/18 06:14 Respiratory Rate 18 01/28/18 06:14 Blood Pressure 151/79 01/28/18 06:14 O2 Sat by Pulse Oximetry (%) 100 01/27/18 21:00 Constitutional: Yes: Mild Distress Eyes: Yes: Conjunctiva Clear HENT: Yes: Atraumatic Neck: Yes: Supple Cardiovascular: Yes: Regular Rate and Rhythm Respiratory: Yes: CTA Bilaterally Gastrointestinal: Yes: Soft. No: Tenderness Genitourinary: No: CVA Tenderness - Left, CVA Tenderness - Right Musculoskeletal: Yes: Muscle Pain (L shoulder), Other (L upper arm pain with lifting). No: Joint Stiffness, Joint Swelling Extremities: No: Cold, Cool, Cyanosis, Deformity, Erythema Edema: No Integumentary: No: Rash, Skin Tear Neurological: Yes: WNL, Alert, Oriented ...Motor Strength: WNL Psychiatric: Yes: WNL, Alert, Oriented. No: Agitated, Suicidal Ideation Labs: CBC, BMP 01/26/18 06:00 01/26/18 06:00 INR, PTT INR 0.91 (0.83-1.09) 01/23/18 17:09 - ....Imaging Other: Report Reviewed Assessment/Plan Pt is a 52 yo F, with PMH of NIDDM (on metformin), HLD, arthritis (rotator cuff surgery of L shoulder), who is presenting with complaints of L-sided "shooting" chest pain lower neck and LUE L shoulder pain pain meds percocet, neurontin, add solumedrol cardiology, NS, ortho and neurology f/u chest CT no ivc no acute pathology transfer pt to [facility] see above; called [phone] d/w Transfer Center; awaiting for bed d/w pt and staff; pt agreed with plan.
[2018-01-28] MEDS: ASPIRIN 81 MG CHEWABLE TABLETS PO SCH (09:30)
[2018-01-28] MEDS: PANTOPRAZOLE 20 MG TABLET (FP) PO SCH (09:30)
[2018-01-28] MEDS: MULTIVITAMINS (DAILY MVI) TABLET (FP) PO SCH (09:31)
[2018-01-28] MEDS: BUDESONIDE/FORMETEROL FUMARATE 80/4.5 mcg INHALER IH SCH (09:38)
--- NOTE | 2018-01-28 11:43 | PN ---
Progress Note (short form) - Note Progress Note: 52 yo F, with PMH of NIDDM (on metformin), HLD, arthritis (rotator cuff surgery of L shoulder), who is presenting with complaints of L-sided "shooting" chest pain x1.5 week, which is intermittent and lasts for a few seconds, with numbness in her L arm. She has also been experiencing some nausea, but no vomiting. The pain is not associated with exertion, and there are no exacerbating or alleviating factors. Pt also admits to vaginal spotting x3 days , which she states has been happening "every month or so" over the past year, though she has not had a "real period" x4 years since her partial hysterectomy. She saw her PCP (Dr. Elizabet Linton) today, who sent her to the ER for further evaluation of chest pain. Pt denies any fevers/chills, headache, vision changes , SOB, nausea/vomiting, abdominal pain, diarrhea/constipation, back pain, or leg swelling. Pt states she has not been "taking her cholesterol medication for some time". sig neck pain and left numbness of hand D2-D4. worse over the last week. pain radiates to chest . Had URI about a month ago. Also flu vaccine 3-4 weeks ago. FU : pain continues attempted MRI x 3 -though she was unable bc of pain Given dose of hydomorphone/ alprazolam and still not ablet to tolerate due to pain. - Past Medical History Cardio/Vascular: Yes: Hyperlipdemia Hepatobiliary: Yes: Cholelithiasis ...: No Musculoskeletal: Yes: Osteoarthritis Endocrine: Yes: Diabetes Mellitus - Past Surgical History Past Surgical History: Yes: Appendectomy, Hernia Repair (umbilical), Hysterectomy (partial) - Alcohol/Substance Use Hx Alcohol Use: Yes (socially) History of Substance Use: reports: None - Smoking History Smoking history: Former smoker Have you smoked in the past 12 months: Yes Aproximately how many cigarettes per day: 8 - Social History Usual Living Arrangement: Alone (single never ) ADL: Independent 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 History of Recent Travel: No Home Medications - Allergies Allergies/Adverse Reactions: Allergies Allergy/AdvReac Type Severity Reaction Status Date / Time No Known Allergies Allergy Verified 01/23/18 15:27 - Home Medications Home Medications: Ambulatory Orders metFORMIN HCL [Glucophage -] 500 mg PO BID 02/14/16 Budesonide/Formeterol Fumarate [SYMBICORT 80/4.5mcg -] 1 inh PO DAILY 10/14/17 Meloxicam [Mobic] 7.5 mg PO DAILY 10/14/17 Pantoprazole Sodium [Protonix -] 20 mg PO DAILY PRN 10/14/17 Multivitamin with Iron [Multivitamins with Iron] 1 tab PO DAILY 10/22/17 Tramadol HCl [Ultram] 50 mg PO QID #20 tablet MDD 6 01/20/18 Aspirin [ASA -] 81 mg PO DAILY 01/24/18 Family Disease History - Family Disease History Family Disease History: Other: Father (alive: 80: DM II), Mother (: 60: diabetes complications), Brother (2, 1 w/ DM II), Sister (1, healthy), Son (2, healthy) Physical Exam-Neuro Vital Signs: Vital Signs Labs: CBC, BMP 01/23/18 17:09 01/23/18 17:09 INR, PTT INR 0.91 (0.83-1.09) 01/23/18 17:09 - Neuro Exam Level Of Consciousness: Yes: Alert (awake, alert, ? mild left facial , remainder of exam deferred to avoid increase of pain that might preclude MRI success Problem List - Problems (1) Chest pain Code(s): R07.9 - CHEST PAIN, UNSPECIFIED Qualifiers: Chest pain type: unspecified Qualified Code(s): R07.9 - Chest pain, unspecified (2) Left arm weakness Code(s): R29.898 - OTH SYMPTOMS AND SIGNS INVOLVING THE MUSCULOSKELETAL SYSTEM (3) Cervical radicular pain Code(s): M54.12 - RADICULOPATHY, CERVICAL REGION Assessment/Plan 52 yo F, with PMH of NIDDM (on metformin), HLD, arthritis (rotator cuff surgery of L shoulder), who is presenting with complaints of L-sided "shooting" chest pain x1.5 week, which is intermittent and lasts for a few seconds, with numbness in her L arm. She has also been experiencing some nausea, but no vomiting. The pain is not associated with exertion, and there are no exacerbating or alleviating factors. Pt also admits to vaginal spotting x3 days , which she states has been happening "every month or so" over the past year, though she has not had a "real period" x4 years since her partial hysterectomy. She saw her PCP (Dr. Elizabet Linton) today, who sent her to the ER for further evaluation of chest pain. Pt denies any fevers/chills, headache, vision changes , SOB, nausea/vomiting, abdominal pain, diarrhea/constipation, back pain, or leg swelling. Pt states she has not been "taking her cholesterol medication for some time". sig neck pain and left numbness of hand D2-D4. worse over the last week. pain radiates to chest . AP : cervical radiculopathy acute - C5/C6/C7 vs brachial plexi CARDIAC SOUSA (-) will try for MRI C SPINE one more time, premedicate with dilaudid add o percocet PRN may consider PM -epidural at C6 empirically as well may require formal NS eval- though await MRI first Problem List - Problems (1) Chest pain Code(s): R07.9 - CHEST PAIN, UNSPECIFIED Qualifiers: Chest pain type: unspecified Qualified Code(s): R07.9 - Chest pain, unspecified (2) Left arm weakness Code(s): R29.898 - OTH SYMPTOMS AND SIGNS INVOLVING THE MUSCULOSKELETAL SYSTEM (3) Cervical radicular pain Code(s): M54.12 - RADICULOPATHY, CERVICAL REGION vs. Brachial Neuritis
[2018-01-28] MEDS ORDERED: methylPREDNISolone NA SUCC 40 MG/1 ML VIAL IVPUSH ONE (12:02)
[2018-01-28] MEDS ORDERED: methylPREDNISolone NA SUCC 125 MG/2 ML VIAL ONE (12:03)
[2018-01-28] MEDS: INSULIN (NOVOLOG) ASPART 100 UNITS/ML 10ML VIAL SQ SCH ×2 (16:43→21:27)
[2018-01-28] MEDS: methylPREDNISolone NA SUCC 40 MG/1 ML VIAL IVPUSH SCH (17:37)
[2018-01-29] MEDS: methylPREDNISolone NA SUCC 40 MG/1 ML VIAL IVPUSH SCH ×3 (01:54→21:03)
[2018-01-29] MEDS: GABAPENTIN 300 MG CAPSULE (FP) PO SCH ×3 (05:57→21:01)
[2018-01-29] MEDS: ACETAMINOPHEN 325 MG TABLET (FP) PO PRN ×2 (05:57→17:51)
[2018-01-29] MEDS: oxyCODONE HCL 5 MG TABLET PO PRN (05:57)
[2018-01-29] MEDS: INSULIN (NOVOLOG) ASPART 100 UNITS/ML 10ML VIAL SQ SCH ×4 (06:38→21:02)
[2018-01-29] MEDS: metFORMIN HCL 500 MG TABLET (FP) PO SCH ×2 (06:39→17:48)
--- NOTE | 2018-01-29 07:34 | DS ---
Physical Examination Vital Signs: Vital Signs Temperature 98.2 F 01/29/18 07:06 Pulse Rate 96 H 01/29/18 07:06 Respiratory Rate 20 01/29/18 07:06 Blood Pressure 145/95 01/29/18 07:06 O2 Sat by Pulse Oximetry (%) 100 01/27/18 21:00 Labs: CBC, BMP 01/26/18 06:00 01/26/18 06:00 Discharge Summary Reason For Visit: WEAKNESS OF LEFT UPPER EXTREMITY Current Active Problems Chest pain (Acute) Hyperlipidemia (Acute) Left arm weakness (Acute) Type 2 diabetes mellitus (Acute) Condition: Stable - Instructions Referrals: Elizabet Linton [Primary Care Provider] - - Home Medications Comprehensive Discharge Medication List: Ambulatory Orders metFORMIN HCL [Glucophage -] 500 mg PO BID 02/14/16 Budesonide/Formeterol Fumarate [SYMBICORT 80/4.5mcg -] 1 inh PO DAILY 10/14/17 Pantoprazole Sodium [Protonix -] 20 mg PO DAILY PRN 10/14/17 Multivitamin with Iron [Multivitamins with Iron] 1 tab PO DAILY 10/22/17 Aspirin [ASA -] 81 mg PO DAILY 01/24/18 Acetaminophen [Tylenol .Regular Strength -] 650 mg PO Q6H PRN tablet 01/29/18 Gabapentin [Neurontin -] 300 mg PO TID capsule 01/29/18 Ibuprofen [Motrin -] 400 mg PO Q6H PRN tablet 01/29/18 Insulin (Novolog) [Novolog -] 0 units SQ ACHS units 01/29/18 Methylprednisolone Na Succ [Solu-Medrol -] 40 mg IVPUSH Q8H-IV vial 01/29/18 oxyCODONE HCL [Roxicodone -] 5 mg PO QID PRN tablet MDD 20 01/29/18
--- NOTE | 2018-01-29 08:33 | PN ---
Progress Note (short form) - Note Progress Note: NEUROSURGERY Neck pin to L scapula, L shoulder, L UE down to elbow. + numbness L arm and L hand D1-3. Unable to tolerate MRI after multiple attempts with meds PE: AF, VSS HEENT- NC/AT; Neck-L sided paraspinal muscle spasm; Cor- RR; Lungs- CTA B; Abd- benign, obese; Ext- no sign of DVT CN- intact; Motor- 5/5 except L triceps 4- and BR/WE 4/5; pain limited; Sensation- intact LT, decreased PP L C7; DTR- hyporeflexic B CT Head- negative for bleed, fx CT C spine- bridging osteophytes C2-3, C5-6, C6-7; DDD C5-6 and C6-7; broad based disc bulge/osteophytes C5-6; L C6-7 paracentral disc protrusion with uncovertebral joint hypertrophy and foramenal stenosis Cervical DDD/spondylosis with L C7 radiculopathy On Neurontin/steroid Unfortunately need MRI to better define C5-6 and C6-7 anatomy prior to more definitive tx Consider pain management (EPSI) for radicular pain Surgery could be considered if MRI is available to better define anatomy and medical treatments do not control her symptoms adequately D/w pt RN reported pt transfer to [facility] for MRI under anesthesia
[2018-01-29] MEDS ORDERED: PT OWN MED DRAWER 7, Y5N ONE (09:29)
[2018-01-29] MEDS: HEPARIN NA (PORCINE) 5,000 UNITS/ML 1ML VIAL SQ SCH ×2 (09:34→21:01)
[2018-01-29] MEDS: PANTOPRAZOLE 20 MG TABLET (FP) PO SCH (09:34)
[2018-01-29] MEDS: ASPIRIN 81 MG CHEWABLE TABLETS PO SCH (09:34)
[2018-01-29] MEDS: BUDESONIDE/FORMETEROL FUMARATE 80/4.5 mcg INHALER IH SCH (09:34)
[2018-01-29] MEDS: MULTIVITAMINS (DAILY MVI) TABLET (FP) PO SCH (09:34)
--- NOTE | 2018-01-29 12:17 | PN ---
Progress Note, Physician Chief Complaint: started on IV steroids; feels better slept better less neck and less arm pain, said she thinks she might be able to do MRI at this point; will try again, to get dilaudid 30 minutes before MRI (hold percocet 6-8 h before MRI) no other c/o - Current Medication List Current Medications: Active Medications Acetaminophen (Tylenol -) 650 mg PO Q6H PRN PRN Reason: PAIN Last Admin: 01/29/18 05:57 Dose: 650 mg Acetaminophen (Tylenol -) 325 mg PO TID PRN PRN Reason: PAIN LEVEL 4 - 6 Last Admin: 01/28/18 21:23 Dose: 325 mg Aspirin (Asa -) 81 mg PO DAILY [facility] Last Admin: 01/29/18 09:34 Dose: 81 mg Budesonide/Formoterol Fumarate (Symbicort 80/4.5mcg -) 1 puff IH DAILY [facility] Last Admin: 01/29/18 09:34 Dose: 1 inh Gabapentin (Neurontin -) 300 mg PO TID [facility] Last Admin: 01/29/18 05:57 Dose: 300 mg Heparin Sodium (Porcine) (Heparin -) 5,000 unit SQ BID [facility] Last Admin: 01/29/18 09:34 Dose: 5,000 unit Hydromorphone HCl (Dilaudid Injection -) 2 mg IVPB ONCE ONE Stop: 01/29/18 12:14 Ibuprofen (Motrin -) 400 mg PO Q6H PRN PRN Reason: FEVER Last Admin: 01/28/18 17:02 Dose: 400 mg Insulin Aspart (Novolog Vial) 0 units SQ ACHS [facility]; Protocol Last Admin: 01/29/18 06:38 Dose: 4 units Metformin HCl (Glucophage -) 500 mg PO BIDAC [facility] Last Admin: 01/29/18 06:39 Dose: 500 mg Methylprednisolone Sodium Succinate (Solu-Medrol -) 40 mg IVPUSH BID [facility] Last Admin: 01/29/18 09:34 Dose: 40 mg Multivitamins/Minerals/Vitamin C (Tab-A-Vit -) 1 tab PO DAILY [facility] Last Admin: 01/29/18 09:34 Dose: 1 tab Oxycodone HCl (Roxicodone -) 5 mg PO TID PRN PRN Reason: PAIN LEVEL 4 - 6 Last Admin: 01/29/18 05:57 Dose: 5 mg Pantoprazole Sodium (Protonix -) 20 mg PO DAILY [facility] Last Admin: 01/29/18 09:34 Dose: 20 mg - Objective Vital Signs: Vital Signs Temperature 98.0 F 01/29/18 10:00 Pulse Rate 108 H 01/29/18 10:00 Respiratory Rate 20 01/29/18 10:00 Blood Pressure 152/78 01/29/18 10:00 O2 Sat by Pulse Oximetry (%) 96 01/29/18 09:00 Constitutional: Yes: No Distress, Calm Eyes: Yes: Conjunctiva Clear HENT: Yes: Atraumatic Neck: Yes: Supple Cardiovascular: Yes: Regular Rate and Rhythm Respiratory: Yes: CTA Bilaterally Gastrointestinal: Yes: Soft. No: Distention Genitourinary: No: CVA Tenderness - Left, CVA Tenderness - Right, Hematuria Musculoskeletal: No: Joint Stiffness, Joint Swelling Extremities: No: Cold, Cool, Cyanosis Edema: No Integumentary: No: Rash, Venous Stasis Changes Neurological: Yes: WNL, Alert, Oriented ...Motor Strength: WNL Psychiatric: Yes: WNL, Alert, Oriented. No: Agitated Labs: CBC, BMP 01/26/18 06:00 01/26/18 06:00 INR, PTT INR 0.91 (0.83-1.09) 01/23/18 17:09 - ....Imaging Other: Report Reviewed Assessment/Plan Pt is a 52 yo F, with PMH of NIDDM (on metformin), HLD, arthritis (rotator cuff surgery of L shoulder), who is presenting with complaints of L-sided "shooting" chest pain lower neck and LUE L shoulder pain pain meds percocet, neurontin, added solumedrol - better, will try to do again CSpine MRI cardiology, NS, ortho and neurology f/u transfer pt to [facility] if not able to do MRI here d/w pt and staff; pt agreed with plan.
[2018-01-29] MEDS ORDERED: HYDROmorphone HCl 2 MG/ML VIAL IVPB ONE ×2 (13:00→19:45)
[2018-01-29] MEDS: RANITIDINE HCL 150 MG TABLET (FP) PO SCH (15:21)
[2018-01-29] MEDS ORDERED: KETOROLAC TROMETHAMINE 30 MG/1 ML VIAL IVPUSH ONE (17:52)
--- NOTE | 2018-01-29 21:33 | PN ---
Progress Note (short form) - Note Progress Note: Just returned from MRI, only Cspine, not brachial plexus study documented in chart. Shetells me pain in neck began 1.5 weeks ago, preceeded by mild URI, radiates in left C5/6/7 distribution, she has decreased ROM in this arm and left biceps/brachioradialis/triceps reflexes are trace present only as compared to 2+ on right side. + decreased touch/pin left C6, 7 distribution. Pt. has radicular pain and lower motor neuron LUE exam neurologically- differential remains acute C6, 7 radicular dysfx. brachial neuritis, less likely cervicalo epid. abscess. Await MRI report, will attempt to obtain reading tonight. she will need a brachial plex. study if Cspine scan does not explain cause of pain.
[2018-01-30] MEDS: oxyCODONE HCL 5 MG TABLET PO PRN ×3 (05:01→21:35)
[2018-01-30] MEDS: GABAPENTIN 300 MG CAPSULE (FP) PO SCH ×3 (05:02→21:35)
[2018-01-30] MEDS: metFORMIN HCL 500 MG TABLET (FP) PO SCH (06:00)
[2018-01-30] MEDS: INSULIN (NOVOLOG) ASPART 100 UNITS/ML 10ML VIAL SQ SCH ×4 (06:00→21:43)
--- NOTE | 2018-01-30 07:23 | PN ---
Progress Note (short form) - Note Progress Note: NEUROSURGERY Neck pain has been ongoing for some time with L UE involvement Pain worse over past 3 weeks PE: AF, VSS HEENT- NC/AT; Neck-L sided paraspinal muscle spasm; Cor- RR; Lungs- CTA B; Abd- benign, obese; Ext- no sign of DVT CN- intact; Motor- 5/5 except L triceps 4- and BR/WE 4/5; pain limited; Sensation- intact LT, decreased PP L C7; DTR- hyporeflexic B CT Head- negative for bleed, fx CT C spine- bridging osteophytes C2-3, C5-6, C6-7; DDD C5-6 and C6-7; broad based disc bulge/osteophytes C5-6; L C6-7 paracentral disc protrusion with uncovertebral joint hypertrophy and foramenal stenosis MRI (preliminary)- C5-6, C6-7 DDD, spondylosis, L C6-7 lateral/foramenal disc edema with mild foramenal encroachment, no marked canal compromise Cervical DDD/spondylosis with L C7 radiculopathy On Neurontin/steroid Pt had EMG done over the summer and will have results faxed to [facility], if concordant could consider C spine intervention; if inconclusive could repeat EMG /NCS here to distinguish between brachial plexitis vs cervical radiculopathy Consider pain management (EPSI) for radicular pain Surgery could be considered given medical treatments do not control her symptoms adequately d/w Dr Linton and pt
[2018-01-30] MEDS ORDERED: PT OWN MED DRAWER 7, Y5N ONE ×2 (09:23→11:21)
[2018-01-30] MEDS: BUDESONIDE/FORMETEROL FUMARATE 80/4.5 mcg INHALER IH SCH ×3 (09:30→21:39)
--- NOTE | 2018-01-30 09:30 | PN ---
Progress Note, Physician Chief Complaint: Cspine MRI done results pending d/w neuro and NS will check results and further management to be determined; has less neck and LUE pain currently and is better spirits said she had EMG last summer in [place] - to get results - Current Medication List Current Medications: Active Medications Acetaminophen (Tylenol -) 650 mg PO Q6H PRN PRN Reason: PAIN Last Admin: 01/29/18 17:51 Dose: 650 mg Acetaminophen (Tylenol -) 325 mg PO TID PRN PRN Reason: PAIN LEVEL 4 - 6 Last Admin: 01/28/18 21:23 Dose: 325 mg Aspirin (Asa -) 81 mg PO DAILY [facility] Last Admin: 01/29/18 09:34 Dose: 81 mg Budesonide/Formoterol Fumarate (Symbicort 80/4.5mcg -) 1 puff IH DAILY [facility] Last Admin: 01/29/18 09:34 Dose: 1 inh Gabapentin (Neurontin -) 300 mg PO TID [facility] Last Admin: 01/30/18 05:02 Dose: 300 mg Heparin Sodium (Porcine) (Heparin -) 5,000 unit SQ BID [facility] Last Admin: 01/29/18 21:01 Dose: 5,000 unit Insulin Aspart (Novolog Vial) 0 units SQ ACHS [facility]; Protocol Last Admin: 01/30/18 06:00 Dose: 4 units Metformin HCl (Glucophage -) 500 mg PO BIDAC [facility] Last Admin: 01/30/18 06:00 Dose: 500 mg Methylprednisolone Sodium Succinate (Solu-Medrol -) 40 mg IVPUSH BID [facility] Last Admin: 01/29/18 21:03 Dose: 40 mg Multivitamins/Minerals/Vitamin C (Tab-A-Vit -) 1 tab PO DAILY [facility] Last Admin: 01/29/18 09:34 Dose: 1 tab Oxycodone HCl (Roxicodone -) 5 mg PO TID PRN PRN Reason: PAIN LEVEL 4 - 6 Last Admin: 01/30/18 05:01 Dose: 5 mg Pantoprazole Sodium (Protonix -) 20 mg PO DAILY [facility] Last Admin: 01/29/18 09:34 Dose: 20 mg Ranitidine HCl (Zantac -) 150 mg PO DAILY [facility] Last Admin: 01/29/18 15:21 Dose: 150 mg - Objective Vital Signs: Vital Signs Temperature 97.9 F 01/30/18 06:56 Pulse Rate 74 01/30/18 06:56 Respiratory Rate 20 01/30/18 06:56 Blood Pressure 142/79 01/30/18 06:56 O2 Sat by Pulse Oximetry (%) 96 01/29/18 20:31 Constitutional: Yes: No Distress, Calm Eyes: Yes: Conjunctiva Clear HENT: Yes: Atraumatic Neck: Yes: Supple Cardiovascular: Yes: Regular Rate and Rhythm Respiratory: Yes: CTA Bilaterally Gastrointestinal: Yes: Soft. No: Distention Genitourinary: No: Hematuria Musculoskeletal: No: Joint Stiffness, Joint Swelling Extremities: No: Cold, Cool, Cyanosis Edema: No Integumentary: No: Rash, Venous Stasis Changes Neurological: Yes: WNL, Alert, Oriented ...Motor Strength: LUE (mild weakness) Psychiatric: Yes: WNL, Alert, Oriented. No: Agitated, Suicidal Ideation Labs: CBC, BMP 01/26/18 06:00 01/26/18 06:00 INR, PTT INR 0.91 (0.83-1.09) 01/23/18 17:09 - ....Imaging Other: Report Reviewed Assessment/Plan Pt is a 52 yo F, with PMH of NIDDM (on metformin), HLD, arthritis (rotator cuff surgery of L shoulder), who is presenting with complaints of L-sided "shooting" chest pain lower neck and LUE L shoulder pain pain meds percocet, neurontin, added solumedrol and flexeril check EMG and Cspine MRI cardiology, NS, ortho and neurology f/u d/w pt and staff; pt agreed with plan.
[2018-01-30] MEDS: PANTOPRAZOLE 20 MG TABLET (FP) PO SCH (09:31)
[2018-01-30] MEDS: MULTIVITAMINS (DAILY MVI) TABLET (FP) PO SCH (09:31)
[2018-01-30] MEDS: RANITIDINE HCL 150 MG TABLET (FP) PO SCH (09:31)
[2018-01-30] MEDS: HEPARIN NA (PORCINE) 5,000 UNITS/ML 1ML VIAL SQ SCH ×2 (09:32→21:35)
[2018-01-30] MEDS: ASPIRIN 81 MG CHEWABLE TABLETS PO SCH (09:32)
[2018-01-30] MEDS: methylPREDNISolone NA SUCC 40 MG/1 ML VIAL IVPUSH SCH (09:32)
[2018-01-30 10:06] LABS: EOS % 0.1 % (0-4.5); HEMATOCRIT 39.5 % (32.4-45.2); HEMOGLOBIN 12.6 GM/dL (10.7-15.3); LYMPH % 18.3 % (8-40); MCH 27.5 pg (25.7-33.7); MEAN CELL VOLUME 86.1 fl (80-96); MEAN PLT VOLUME 8.4 fl (7.5-11.1); MONO % 5.6 % (3.8-10.2); PLATELET COUNT 238 K/MM3 (134-434); RBC 4.59 M/mm3 (3.60-5.2); WHITE BLOOD COUNT 16.8 K/mm3 (4.0-10.0)
[2018-01-30 11:17] LABS: ALBUMIN 3.6 g/dl (3.4-5.0); ALK PHOS 91 U/L (45-117); ANION GAP 11 MMOL/L (8-16); BILIRUBIN,TOTAL 0.2 mg/dL (0.2-1); BLOOD UREA NITROGEN 19 mg/dL (7-18); CALCIUM 8.9 mg/dL (8.5-10.1); CHLORIDE 104 mmol/L (98-107); CO2 24 mmol/L (21-32); CREATININE 0.7 mg/dL (0.55-1.3); GLUCOSE,RANDOM 178 mg/dL (74-106); POTASSIUM 4.3 mmol/L (3.5-5.1); SGOT/AST 13 U/L (15-37); SGPT/ALT 31 U/L (13-61); SODIUM 139 mmol/L (136-145); TOT PROT 7.2 g/dl (6.4-8.2)
--- NOTE | 2018-01-30 15:42 | CON.PULM ---
Consult Consult Specialty:: PULMONARY Referred by:: Dr. Linton Reason for Consultation:: r/o PE - History of Present Illness Chief Complaint: neck pain History of Present Illness: 52yo female with h/o DM, hyperlipideima who was admitted on 01/23 with left neck , arm and chest pain. Found to have cervical posterior disc osteophyte protrusion. Pulmonary consulted to r/o pulmonary embolism as etiology of her neck/arm/chest pain. Pain is described as shooting pain originating from her neck. She denies shortness of breath or palpitations. No personal or family history of clots. No recent prolonged sedentary periods, has been ambulating even while she is admitted. No history of leg trauma and she denies leg pain or swelling. She is not on any hormone therapy and she is a former smoker. - History Source History Provided By: Patient, Medical Record Limitations to Obtaining History: No Limitations - Past Medical History Cardio/Vascular: Yes: Hyperlipdemia Hepatobiliary: Yes: Cholelithiasis ...: No Musculoskeletal: Yes: Osteoarthritis Endocrine: Yes: Diabetes Mellitus - Past Surgical History Past Surgical History: Yes: Appendectomy, Hernia Repair (umbilical), Hysterectomy (partial) - Alcohol/Substance Use Hx Alcohol Use: No History of Substance Use: reports: None - Smoking History Smoking history: Never smoked Have you smoked in the past 12 months: Yes Aproximately how many cigarettes per day: 8 - Social History Usual Living Arrangement: Alone (single never ) ADL: Independent 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 History of Recent Travel: No Home Medications - Allergies Allergies/Adverse Reactions: Allergies Allergy/AdvReac Type Severity Reaction Status Date / Time No Known Allergies Allergy Verified 01/23/18 15:27 - Home Medications Home Medications: Ambulatory Orders metFORMIN HCL [Glucophage -] 500 mg PO BID 02/14/16 Budesonide/Formeterol Fumarate [SYMBICORT 80/4.5mcg -] 1 inh PO DAILY 10/14/17 Pantoprazole Sodium [Protonix -] 20 mg PO DAILY PRN 10/14/17 Multivitamin with Iron [Multivitamins with Iron] 1 tab PO DAILY 10/22/17 Aspirin [ASA -] 81 mg PO DAILY 01/24/18 Acetaminophen [Tylenol .Regular Strength -] 650 mg PO Q6H PRN tablet 01/29/18 Gabapentin [Neurontin -] 300 mg PO TID capsule 01/29/18 Ibuprofen [Motrin -] 400 mg PO Q6H PRN tablet 01/29/18 Insulin (Novolog) [Novolog -] 0 units SQ ACHS units 01/29/18 Methylprednisolone Na Succ [Solu-Medrol -] 40 mg IVPUSH Q8H-IV vial 01/29/18 oxyCODONE HCL [Roxicodone -] 5 mg PO QID PRN tablet MDD 20 01/29/18 Family Disease History - Family Disease History Family Disease History: Other: Father (alive: 80: DM II), Mother (: 60: diabetes complications), Brother (2, 1 w/ DM II), Sister (1, healthy), Son (2, healthy) Review of Systems - Review of Systems Constitutional: denies: Chills, Fever Eyes: denies: Recent Change in Vision HENT: denies: Nasal Congestion, Throat Pain Neck: reports: Pain on Movement. denies: Stiffness Cardiovascular: reports: Chest Pain. denies: Edema, Palpitations, Shortness of Breath Respiratory: denies: Cough, Hemoptysis, SOB, SOB on Exertion, Wheezing Gastrointestinal: denies: Abdominal Pain, Nausea, Vomiting Genitourinary: denies: Dysuria, Hematuria Musculoskeletal: reports: Extremity Pain (left arm) Neurological: denies: Dizziness, Headache Endocrine: denies: Unexplained Weight Gain, Unexplained Weight Loss Physical Exam Vital Sings: Vital Signs Temperature 97.8 F 01/30/18 10:00 Pulse Rate 81 01/30/18 10:00 Respiratory Rate 20 01/30/18 10:00 Blood Pressure 162/91 01/30/18 10:00 O2 Sat by Pulse Oximetry (%) 97 01/30/18 09:00 Constitutional: Yes: Calm Eyes: Yes: Conjunctiva Clear, EOM Intact HENT: Yes: Atraumatic, Normocephalic Neck: Yes: Supple, Trachea Midline Cardiovascular: Yes: Regular Rate and Rhythm Respiratory: Yes: Regular, CTA Bilaterally ...Clubbing: No Gastrointestinal: Yes: Normal Bowel Sounds, Soft. No: Tenderness Edema: No Peripheral Pulses WNL: Yes Neurological: Yes: Alert, Oriented Labs: CBC, BMP 01/30/18 10:00 01/30/18 10:00 Imaging - Results Cat Scan: Report Reviewed, Image Reviewed (mild basilar atelectasis) Problem List - Problems (1) Cervical radicular pain Code(s): M54.12 - RADICULOPATHY, CERVICAL REGION (2) Chest pain Code(s): R07.9 - CHEST PAIN, UNSPECIFIED Qualifiers: Chest pain type: unspecified Qualified Code(s): R07.9 - Chest pain, unspecified (3) Type 2 diabetes mellitus Code(s): E11.9 - TYPE 2 DIABETES MELLITUS WITHOUT COMPLICATIONS Qualifiers: Diabetes mellitus mcc insulin use: without mcc use (4) Hyperlipidemia Code(s): E78.5 - HYPERLIPIDEMIA, UNSPECIFIED Qualifiers: Hyperlipidemia type: pure hypercholesterolemia Qualified Code(s): E78.00 - Pure hypercholesterolemia, unspecified; E78.0 - Pure hypercholesterolemia Assessment/Plan Cervical neck pain DM Hyperlipidemia Less likely PE - pt without shortness of breath, palpitations, not tachycardic, saturating 97 % on room air and no significant risk factors - current pain unlikely to be from VTE, can defer V/Q scan at this time - continue DVT prophylaxis Thank you for this consult Roderick Thomas Md
[2018-01-30] MEDS: ACETAMINOPHEN 325 MG TABLET (FP) PO PRN ×2 (15:56→20:10)
--- NOTE | 2018-01-30 16:20 | PN ---
Progress Note (short form) - Note Progress Note: 52 yo F, with PMH of NIDDM (on metformin), HLD, arthritis (rotator cuff surgery of L shoulder), who is presenting with complaints of L-sided "shooting" chest pain x1.5 week, which is intermittent and lasts for a few seconds, with numbness in her L arm. She has also been experiencing some nausea, but no vomiting. The pain is not associated with exertion, and there are no exacerbating or alleviating factors. Pt also admits to vaginal spotting x3 days , which she states has been happening "every month or so" over the past year, though she has not had a "real period" x4 years since her partial hysterectomy. She saw her PCP (Dr. Elizabet Linton) today, who sent her to the ER for further evaluation of chest pain. Pt denies any fevers/chills, headache, vision changes , SOB, nausea/vomiting, abdominal pain, diarrhea/constipation, back pain, or leg swelling. Pt states she has not been "taking her cholesterol medication for some time". sig neck pain and left numbness of hand D2-D4. worse over the last week. pain radiates to chest . Had URI about a month ago. Also flu vaccine 3-4 weeks ago. FU : pain continues attempted MRI x 3 -though she was unable bc of pain Given dose of hydomorphone/ alprazolam and still not ablet to tolerate due to pain. Finally MRI done, and shows significant c spine disease. Turns out that she's had this before though she says this pain is different both qualitatively and quantitatively than before, but I'm not sure how indicative that is as she tends to try to emphasize the severity in any way that she can. - Past Medical History Cardio/Vascular: Yes: Hyperlipdemia Hepatobiliary: Yes: Cholelithiasis ...: No Musculoskeletal: Yes: Osteoarthritis Endocrine: Yes: Diabetes Mellitus - Past Surgical History Past Surgical History: Yes: Appendectomy, Hernia Repair (umbilical), Hysterectomy (partial) - Alcohol/Substance Use Hx Alcohol Use: Yes (socially) History of Substance Use: reports: None - Smoking History Smoking history: Former smoker Have you smoked in the past 12 months: Yes Aproximately how many cigarettes per day: 8 - Social History Usual Living Arrangement: Alone (single never ) ADL: Independent 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 History of Recent Travel: No Home Medications - Allergies Allergies/Adverse Reactions: Allergies Allergy/AdvReac Type Severity Reaction Status Date / Time No Known Allergies Allergy Verified 01/23/18 15:27 - Home Medications Home Medications: Ambulatory Orders metFORMIN HCL [Glucophage -] 500 mg PO BID 02/14/16 Budesonide/Formeterol Fumarate [SYMBICORT 80/4.5mcg -] 1 inh PO DAILY 10/14/17 Meloxicam [Mobic] 7.5 mg PO DAILY 10/14/17 Pantoprazole Sodium [Protonix -] 20 mg PO DAILY PRN 10/14/17 Multivitamin with Iron [Multivitamins with Iron] 1 tab PO DAILY 10/22/17 Tramadol HCl [Ultram] 50 mg PO QID #20 tablet MDD 6 01/20/18 Aspirin [ASA -] 81 mg PO DAILY 01/24/18 Family Disease History - Family Disease History Family Disease History: Other: Father (alive: 80: DM II), Mother (: 60: diabetes complications), Brother (2, 1 w/ DM II), Sister (1, healthy), Son (2, healthy) Physical Exam-Neuro Vital Signs: Vital Signs Labs: CBC, BMP 01/23/18 17:09 01/23/18 17:09 INR, PTT INR 0.91 (0.83-1.09) 01/23/18 17:09 - Neuro Exam Level Of Consciousness: Yes: Alert (awake, alert, ? mild left facial , remainder of exam deferred to avoid increase of pain that might preclude MRI success Problem List - Problems (1) Chest pain Code(s): R07.9 - CHEST PAIN, UNSPECIFIED Qualifiers: Chest pain type: unspecified Qualified Code(s): R07.9 - Chest pain, unspecified (2) Left arm weakness Code(s): R29.898 - OTH SYMPTOMS AND SIGNS INVOLVING THE MUSCULOSKELETAL SYSTEM (3) Cervical radicular pain Code(s): M54.12 - RADICULOPATHY, CERVICAL REGION Assessment/Plan 52 yo F, with PMH of NIDDM (on metformin), HLD, arthritis (rotator cuff surgery of L shoulder), who is presenting with complaints of L-sided "shooting" chest pain x1.5 week, which is intermittent and lasts for a few seconds, with numbness in her L arm. She has also been experiencing some nausea, but no vomiting. The pain is not associated with exertion, and there are no exacerbating or alleviating factors. Pt also admits to vaginal spotting x3 days , which she states has been happening "every month or so" over the past year, though she has not had a "real period" x4 years since her partial hysterectomy. She saw her PCP (Dr. Elizabet Linton) today, who sent her to the ER for further evaluation of chest pain. Pt denies any fevers/chills, headache, vision changes , SOB, nausea/vomiting, abdominal pain, diarrhea/constipation, back pain, or leg swelling. Pt states she has not been "taking her cholesterol medication for some time". sig neck pain and left numbness of hand D2-D4. worse over the last week. pain radiates to chest . AP : cervical radiculopathy acute - C5/C6/C7 vs brachial plexus CARDIAC SOUSA (-) Dr. Callahan's note appreciated. Will also try to get EMG to see if brachial plexus component. Problem List - Problems (1) Chest pain Code(s): R07.9 - CHEST PAIN, UNSPECIFIED Qualifiers: Chest pain type: unspecified Qualified Code(s): R07.9 - Chest pain, unspecified (2) Left arm weakness Code(s): R29.898 - OTH SYMPTOMS AND SIGNS INVOLVING THE MUSCULOSKELETAL SYSTEM (3) Cervical radicular pain Code(s): M54.12 - RADICULOPATHY, CERVICAL REGION vs. Brachial Neuritis
--- NOTE | 2018-01-30 16:39 | CONS ---
DATE OF CONSULTATION: 01/30/2018 PHYSICAL MEDICAINE REHABILITATION CONSULTATION REFERRING PHYSICIAN: Elizabet Linton M.D. HISTORY OF PRESENT ILLNESS: The patient is a 52-year-old woman with past medical history of noninsulin dependent diabetes, hyperlipidemia, osteoarthritis, rotator cuff surgery on the left side, who presented to the emergency room with neck pain radiating into the left axilla, as well as down the left upper extremity with numbness, tingling. Patient evidently had similar symptoms recently and was followed by a Dr. Lee in [place]. She underwent an EMG which was reviewed and demonstrated a left C7 radiculopathy as well as carpal tunnel syndrome. Her symptoms were not to the degree until recently over the last 2-3 weeks when she developed pain as described above. Patient has undergone workup, including MRI of the cervical spine which showed multiple findings which included posterior disk osteophyte complex at multiple levels as well as a left C6-7 paracentral disk protrusion and foraminal stenosis. There is multilevel degenerative disk disease but no marked spinal canal compromise. Patient was placed on steroids and gabapentin but continues to have severe pain radiating all the way down to her middle digit to the left upper extremity. She underwent a chest CT on January 26 which showed normal size heart, no COPD changes, mild atelectasis without gross infiltrates. Most recent blood work showed elevated WBCs of 16.8 on steroids, hemoglobin 12.6, platelet count 238. Chemistry showed albumin 3.6, sodium 139, potassium 4.3, chloride 104, elevated BUN 19 and creatinine 0.7. Patient was seen by physical therapy including today. Able to ambulate 100 feet without assistive device at a supervision level, complaining of neck and left upper extremity pain with reduced cervical range particularly to the left side. Patient was seen for consideration of electrodiagnostic studies. Per Dr. Callahan's note, if prior study demonstrated C7 radiculopathy would not get further EMG. Again, prior EMG was obtained and reviewed and did show a left C7 radiculopathy. Review of past medical and surgical history as above. Noninsulin dependent diabetes. Hyperlipidemia. Rotator cuff surgery. Osteoarthritis. SOCIAL HISTORY: Premorbidly independent. Ambulatory without assistive device. Current function as above. Patient is nontobacco user. 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 ALLERGIES: No known drug allergies. REVIEW OF SYSTEMS: No lightheadedness or dizziness. No blurry vision, double vision. No nausea, vomiting, difficulty swallowing, difficulty chewing. No chest pain or shortness of breath. No fever or chills. No abdominal discomfort. No bowel/bladder complaints. No radicular symptoms into the right upper extremity. She complains of numbness, weakness of the left upper extremity including the middle digits which are numb. Weakness of the left arm. No lower extremity weakness, numbness, or tingling. No bowel/bladder incontinence. PHYSICAL EXAMINATION: GENERAL: Patient is seen both lying supine as well as sitting up in bed. She is in obvious discomfort and keeps her neck rotated to the right side, avoiding movement to the left. HEENT: Normocephalic and atraumatic. Extraocular muscles appear intact. NECK: Tenderness throughout the left cervical paraspinal musculature with paraspinal palpable spasm. Also tenderness in the upper trapezius and scapular muscles on the left, none on the right side. EXTREMITIES: She has good range of motion strength in the right upper extremity with normal sensation. In the left upper extremity she has diminished strength in her elbow extensors which are 3+/5 as well as wrist extensors 4/5, better intrinsic strength than the hands, diminished sensation left C7. Dermatome to pinprick. Good standing balance, steady gait with good strength and range throughout the lower extremities and normal sensation. OVERALL IMPRESSION: 1. Left C7 radiculopathy which correlates MRI with prior electromyography, which was reviewed. 2. Numbness along C7 dermatome. 3. Weakness involving C7 enervated muscles. 4. History of noninsulin dependent diabetes. 5. Elevated white blood cells, probably due to steroids. 6. Elevated risks for deep venous thrombosis due to immobility. 7. Other past medical history as noted above. PLAN AND SUGGESTION: 1. Continue ambulation with physical therapy. 2. Continue subcutaneous heparin. 3. Follow up with Dr. Callahan regarding surgical options. 4. Continue gabapentin. 5. Wean steroids. 6. Bowel regimen, monitor for constipation. 7. We will be available for EMG if necessary. Above was discussed with Dr. Linton and nursing. Thank you for this referral. MICHAEL ISABEL M.D. [id number] [facility]
[2018-01-30] MEDS ORDERED: INSULIN (NOVOLOG) ASPART 100 UNITS/ML 10ML VIAL ONE ×2 (17:14→21:42)
[2018-01-30] MEDS ORDERED: CYCLOBENZAPRINE HCL 10 MG TABLET (FP) PO ONE (17:30)
[2018-01-30] MEDS: CYCLOBENZAPRINE HCL 10 MG TABLET (FP) PO SCH (21:35)
[2018-01-31] MEDS: oxyCODONE HCL 5 MG TABLET PO PRN ×3 (04:26→22:27)
[2018-01-31] MEDS: ACETAMINOPHEN 325 MG TABLET (FP) PO PRN ×2 (04:26→12:46)
[2018-01-31] MEDS ORDERED: INSULIN (NOVOLOG) ASPART 100 UNITS/ML 10ML VIAL ONE ×2 (05:51→12:22)
[2018-01-31] MEDS: INSULIN (NOVOLOG) ASPART 100 UNITS/ML 10ML VIAL SQ SCH ×4 (06:26→21:10)
[2018-01-31] MEDS: CYCLOBENZAPRINE HCL 10 MG TABLET (FP) PO SCH ×3 (06:27→21:03)
[2018-01-31] MEDS: GABAPENTIN 300 MG CAPSULE (FP) PO SCH ×3 (06:27→21:03)
--- NOTE | 2018-01-31 07:20 | PN ---
Progress Note, Physician Chief Complaint: MRI and EMG c/w CSpine ds and neuropathy d/w NS advised CSpine surgery - to be done on saturday asked for preop CTA or VQ scan stopped ASA, Metformin for now (off nsaids already) - Current Medication List Current Medications: Active Medications Acetaminophen (Tylenol -) 650 mg PO Q6H PRN PRN Reason: PAIN Last Admin: 01/30/18 20:10 Dose: 650 mg Acetaminophen (Tylenol -) 325 mg PO TID PRN PRN Reason: PAIN LEVEL 4 - 6 Last Admin: 01/31/18 04:26 Dose: 325 mg Budesonide/Formoterol Fumarate (Symbicort 80/4.5mcg -) 1 puff IH BID [facility] Last Admin: 01/30/18 21:39 Dose: 1 puff Cyclobenzaprine HCl (Flexeril -) 10 mg PO TID [facility] Last Admin: 01/31/18 06:27 Dose: 10 mg Gabapentin (Neurontin -) 300 mg PO TID [facility] Last Admin: 01/31/18 06:27 Dose: 300 mg Heparin Sodium (Porcine) (Heparin -) 5,000 unit SQ BID [facility] Last Admin: 01/30/18 21:35 Dose: 5,000 unit Insulin Aspart (Novolog Vial) 0 units SQ ACHS [facility]; Protocol Last Admin: 01/31/18 06:26 Dose: Not Given Multivitamins/Minerals/Vitamin C (Tab-A-Vit -) 1 tab PO DAILY [facility] Last Admin: 01/30/18 09:31 Dose: 1 tab Oxycodone HCl (Roxicodone -) 5 mg PO TID PRN PRN Reason: PAIN LEVEL 4 - 6 Last Admin: 01/31/18 04:26 Dose: 5 mg Pantoprazole Sodium (Protonix -) 20 mg PO DAILY [facility] Last Admin: 01/30/18 09:31 Dose: 20 mg Ranitidine HCl (Zantac -) 150 mg PO DAILY [facility] Last Admin: 01/30/18 09:31 Dose: 150 mg - Objective Vital Signs: Vital Signs Temperature 98.2 F 01/31/18 07:05 Pulse Rate 68 01/31/18 07:05 Respiratory Rate 20 01/31/18 07:05 Blood Pressure 122/97 01/31/18 07:05 O2 Sat by Pulse Oximetry (%) 97 01/30/18 21:00 Constitutional: Yes: No Distress, Calm Eyes: Yes: Conjunctiva Clear HENT: Yes: Atraumatic Neck: Yes: Supple Cardiovascular: Yes: Regular Rate and Rhythm Respiratory: Yes: CTA Bilaterally Gastrointestinal: Yes: Soft. No: Distention Genitourinary: No: Hematuria Musculoskeletal: No: Joint Stiffness, Joint Swelling Extremities: No: Cold, Cool Edema: No Integumentary: No: Rash, Venous Stasis Changes Neurological: Yes: Alert, Oriented, Other (mild LUE weakness pain? neuropathy?) Psychiatric: Yes: WNL, Alert, Oriented. No: Agitated, Suicidal Ideation Labs: CBC, BMP 01/30/18 10:00 01/30/18 10:00 INR, PTT INR 0.91 (0.83-1.09) 01/23/18 17:09 - ....Imaging Other: Report Reviewed Assessment/Plan Pt is a 52 yo F, with PMH of NIDDM (on metformin), HLD, arthritis (rotator cuff surgery of L shoulder), who is presenting with complaints of L-sided "shooting" chest pain lower neck and LUE L shoulder pain pain meds percocet, neurontin, added solumedrol and flexeril EMG and Cspine MRI c/w CSpine ds and neuropathy check V/Q scan or chest CTA preop h/o smiking and COPD; pulm consult cardiology, NS, ortho and neurology f/u d/w pt and staff; pt agreed with plan.
--- NOTE | 2018-01-31 08:45 | PN ---
Progress Note (short form) - Note Progress Note: NEUROSURGERY Neck pain PE: AF, VSS HEENT- NC/AT; Neck-L sided paraspinal muscle spasm; Cor- RR; Lungs- CTA B; Abd- benign, obese; Ext- no sign of DVT CN- intact; Motor- 5/5 except L triceps 4- and BR/WE 4/5; pain limited; Sensation- intact LT, decreased PP L C7; DTR- hyporeflexic B CT Head- negative for bleed, fx CT C spine- bridging osteophytes C2-3, C5-6, C6-7; DDD C5-6 and C6-7; broad based disc bulge/osteophytes C5-6; L C6-7 paracentral disc protrusion with uncovertebral joint hypertrophy and foramenal stenosis MRI - C5-6, C6-7 DDD, spondylosis, B C5-6 foramenal narrowing; L C6-7 lateral/ foramenal disc edema with mild foramenal encroachment, no marked canal compromise Outside EMG- L C7 radiculopathy per Dr Linton Cervical DDD/spondylosis with L C7 radiculopathy On Neurontin; steroids d/c'd given elevated glucose Chest imaging preop per medical/pulmonary team Surgery (C5-7 ACDF) could be considered given medical treatments do not control her symptoms adequately; OR noon Saturday tentatively Indications for procedure, procedure in detail, risks, benefits, alternatives discussed; pt wishes to proceed with surgery Risks: bleeding, infection, CSF leak, neurological injury, hoarseness, swallowing difficulty, paralysis, general anesthesia All questions answered Hold SQ heparin Saturday d/w Dr Linton and pt
[2018-01-31] MEDS: BUDESONIDE/FORMETEROL FUMARATE 80/4.5 mcg INHALER IH SCH ×2 (09:38→21:08)
[2018-01-31] MEDS: MULTIVITAMINS (DAILY MVI) TABLET (FP) PO SCH (09:38)
[2018-01-31] MEDS: HEPARIN NA (PORCINE) 5,000 UNITS/ML 1ML VIAL SQ SCH ×2 (09:38→21:03)
[2018-01-31] MEDS: RANITIDINE HCL 150 MG TABLET (FP) PO SCH (09:38)
[2018-01-31] MEDS: PANTOPRAZOLE 20 MG TABLET (FP) PO SCH (09:38)
--- NOTE | 2018-01-31 11:48 | PN ---
Progress Note, Physician History of Present Illness: Posterior neck and non-exertional left-sided radiating "shooting" chest pain with numbness, tingling and weakness in her L arm persists, c-spine MRI confirms C7 radiculopathy planned for intervention. - Current Medication List Current Medications: Active Medications Acetaminophen (Tylenol -) 650 mg PO Q6H PRN PRN Reason: PAIN Last Admin: 01/30/18 20:10 Dose: 650 mg Acetaminophen (Tylenol -) 325 mg PO TID PRN PRN Reason: PAIN LEVEL 4 - 6 Last Admin: 01/31/18 04:26 Dose: 325 mg Budesonide/Formoterol Fumarate (Symbicort 80/4.5mcg -) 1 puff IH BID [facility] Last Admin: 01/31/18 09:38 Dose: 1 puff Cyclobenzaprine HCl (Flexeril -) 10 mg PO TID [facility] Last Admin: 01/31/18 06:27 Dose: 10 mg Gabapentin (Neurontin -) 300 mg PO TID [facility] Last Admin: 01/31/18 06:27 Dose: 300 mg Heparin Sodium (Porcine) (Heparin -) 5,000 unit SQ BID [facility] Last Admin: 01/31/18 09:38 Dose: 5,000 unit Insulin Aspart (Novolog Vial) 0 units SQ ACHS [facility]; Protocol Last Admin: 01/31/18 06:26 Dose: Not Given Multivitamins/Minerals/Vitamin C (Tab-A-Vit -) 1 tab PO DAILY [facility] Last Admin: 01/31/18 09:38 Dose: 1 tab Oxycodone HCl (Roxicodone -) 5 mg PO TID PRN PRN Reason: PAIN LEVEL 4 - 6 Last Admin: 01/31/18 04:26 Dose: 5 mg Pantoprazole Sodium (Protonix -) 20 mg PO DAILY [facility] Last Admin: 01/31/18 09:38 Dose: 20 mg Ranitidine HCl (Zantac -) 150 mg PO DAILY [facility] Last Admin: 01/31/18 09:38 Dose: 150 mg - Objective Vital Signs: Vital Signs Temperature 98.2 F 01/31/18 07:05 Pulse Rate 68 01/31/18 07:05 Respiratory Rate 20 01/31/18 07:05 Blood Pressure 122/97 01/31/18 07:05 O2 Sat by Pulse Oximetry (%) 97 01/30/18 21:00 Constitutional: Yes: Anxious, Mild Distress Neck: Yes: Supple Cardiovascular: Yes: Regular Rate and Rhythm Respiratory: Yes: Regular, CTA Bilaterally Gastrointestinal: Yes: Normal Bowel Sounds, Soft Edema: No Labs: CBC, BMP 01/30/18 10:00 01/30/18 10:00 INR, PTT INR 0.91 (0.83-1.09) 01/23/18 17:09 Problem List - Problems (1) Type 2 diabetes mellitus Code(s): E11.9 - TYPE 2 DIABETES MELLITUS WITHOUT COMPLICATIONS Qualifiers: 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 Atypical chest pain, neck pain and left numbness/parastheias of hand D2-D4 radiating from posterior neck and left shoulder c/w acute cervical radiculopathy C7 2. Type 2 DM P:1. Planned for C5-7 cervical discectomy and fusion given inadequate response to medical therapy, no contraindications from CV-standpoint against proceeding 2. Ruled out for DE, no specific cardiac therapy warranted
[2018-01-31] MEDS ORDERED: PT OWN MED DRAWER 7, Y5N ONE (14:33)
[2018-01-31] MEDS ORDERED: SODIUM CHLORIDE 1,000 ML IV SCH (14:45)
[2018-02-01] MEDS: ACETAMINOPHEN 325 MG TABLET (FP) PO PRN ×3 (00:16→18:34)
[2018-02-01] MEDS: GABAPENTIN 300 MG CAPSULE (FP) PO SCH ×3 (05:55→21:28)
[2018-02-01] MEDS: CYCLOBENZAPRINE HCL 10 MG TABLET (FP) PO SCH ×3 (05:55→21:29)
[2018-02-01] MEDS: INSULIN (NOVOLOG) ASPART 100 UNITS/ML 10ML VIAL SQ SCH ×4 (06:28→21:29)
--- NOTE | 2018-02-01 06:49 | PN ---
Progress Note, Physician Chief Complaint: d/w pt tests and consults she spoke with consultants also and she agreed with CSpine surgery for saturday - Current Medication List Current Medications: Active Medications Acetaminophen (Tylenol -) 650 mg PO Q6H PRN PRN Reason: PAIN Last Admin: 02/01/18 00:16 Dose: 650 mg Acetaminophen (Tylenol -) 325 mg PO TID PRN PRN Reason: PAIN LEVEL 4 - 6 Last Admin: 01/31/18 12:46 Dose: 325 mg Budesonide/Formoterol Fumarate (Symbicort 80/4.5mcg -) 1 puff IH BID [facility] Last Admin: 01/31/18 21:08 Dose: 1 puff Cyclobenzaprine HCl (Flexeril -) 10 mg PO TID [facility] Last Admin: 02/01/18 05:55 Dose: 10 mg Gabapentin (Neurontin -) 300 mg PO TID [facility] Last Admin: 02/01/18 05:55 Dose: 300 mg Heparin Sodium (Porcine) (Heparin -) 5,000 unit SQ BID [facility] Last Admin: 01/31/18 21:03 Dose: 5,000 unit Sodium Chloride (Normal Saline -) 1,000 mls @ 50 mls/hr IV ASDIR [facility] Stop: 02/01/18 14:35 Last Admin: 01/31/18 16:42 Dose: 50 mls/hr Insulin Aspart (Novolog Vial) 0 units SQ ACHS [facility]; Protocol Last Admin: 02/01/18 06:28 Dose: 2 units Losartan Potassium (Cozaar -) 25 mg PO DAILY [facility] Multivitamins/Minerals/Vitamin C (Tab-A-Vit -) 1 tab PO DAILY [facility] Last Admin: 01/31/18 09:38 Dose: 1 tab Oxycodone HCl (Roxicodone -) 5 mg PO TID PRN PRN Reason: PAIN LEVEL 4 - 6 Last Admin: 01/31/18 22:27 Dose: 5 mg Pantoprazole Sodium (Protonix -) 20 mg PO DAILY [facility] Last Admin: 01/31/18 09:38 Dose: 20 mg Ranitidine HCl (Zantac -) 150 mg PO DAILY [facility] Last Admin: 01/31/18 09:38 Dose: 150 mg - Objective Vital Signs: Vital Signs Temperature 97.6 F 02/01/18 06:00 Pulse Rate 80 02/01/18 06:00 Respiratory Rate 02/01/18 06:00 Blood Pressure 127/70 02/01/18 06:00 O2 Sat by Pulse Oximetry (%) 97 01/31/18 21:00 Constitutional: Yes: No Distress, Calm Eyes: Yes: Conjunctiva Clear HENT: Yes: Atraumatic Neck: Yes: Supple Cardiovascular: Yes: Regular Rate and Rhythm Respiratory: Yes: CTA Bilaterally Gastrointestinal: Yes: Soft. No: Distention Genitourinary: No: CVA Tenderness - Left, CVA Tenderness - Right Musculoskeletal: No: Joint Stiffness, Joint Swelling Extremities: No: Cold, Cool, Cyanosis Edema: No Integumentary: No: Rash, Venous Stasis Changes Neurological: Yes: WNL, Alert, Oriented ...Motor Strength: WNL Psychiatric: Yes: WNL, Alert, Oriented. No: Agitated, Suicidal Ideation Labs: CBC, BMP 01/30/18 10:00 01/30/18 10:00 INR, PTT INR 0.91 (0.83-1.09) 01/23/18 17:09 - ....Imaging Other: Report Reviewed Assessment/Plan Pt is a 52 yo F, with PMH of NIDDM (on metformin), HLD, arthritis (rotator cuff surgery of L shoulder), who is presenting with complaints of L-sided "shooting" chest pain lower neck and LUE L shoulder pain pain meds percocet, neurontin, taper; solumedrol; on flexeril EMG and Cspine MRI c/w CSpine ds and neuropathy chest CTA preop unremarkable; pulm consult noted d/w cardio dr Tobar pt cleared for surgery cardiology, NS, ortho and neurology f/u d/w pt and staff; pt agreed with plan.
[2018-02-01 07:49] LABS: BASO % 1.2 % (0-2.0); EOS % 1.2 % (0-4.5); HEMATOCRIT 37.8 % (32.4-45.2); LYMPH % 35.3 % (8-40); MCH 27.5 pg (25.7-33.7); MCHC 31.8 g/dl (32.0-36.0); MEAN CELL VOLUME 86.5 fl (80-96); MEAN PLT VOLUME 8.9 fl (7.5-11.1); MONO % 7.4 % (3.8-10.2); NEUT % 54.9 % (42.8-82.8); PLATELET COUNT 206 K/MM3 (134-434); RBC 4.37 M/mm3 (3.60-5.2); RDW 14.7 % (11.6-15.6); WHITE BLOOD COUNT 9.5 K/mm3 (4.0-10.0)
[2018-02-01 08:17] LABS: ALBUMIN 3.1 g/dl (3.4-5.0); ALK PHOS 87 U/L (45-117); ANION GAP 8 MMOL/L (8-16); BILIRUBIN,TOTAL 0.2 mg/dL (0.2-1); BLOOD UREA NITROGEN 17 mg/dL (7-18); CALCIUM 8.5 mg/dL (8.5-10.1); CHLORIDE 102 mmol/L (98-107); CO2 28 mmol/L (21-32); CREATININE 0.6 mg/dL (0.55-1.3); GLUCOSE,RANDOM 139 mg/dL (74-106); POTASSIUM 3.8 mmol/L (3.5-5.1); SGOT/AST 14 U/L (15-37); SGPT/ALT 26 U/L (13-61); SODIUM 138 mmol/L (136-145); TOT PROT 6.2 g/dl (6.4-8.2)
[2018-02-01] MEDS: oxyCODONE HCL 5 MG TABLET PO PRN ×2 (09:38→18:34)
[2018-02-01] MEDS: LOSARTAN POTASSIUM 25 MG TABLET PO SCH (09:44)
[2018-02-01] MEDS: PANTOPRAZOLE 20 MG TABLET (FP) PO SCH (09:44)
[2018-02-01] MEDS: MULTIVITAMINS (DAILY MVI) TABLET (FP) PO SCH (09:44)
[2018-02-01] MEDS: RANITIDINE HCL 150 MG TABLET (FP) PO SCH (09:44)
[2018-02-01] MEDS: BUDESONIDE/FORMETEROL FUMARATE 80/4.5 mcg INHALER IH SCH ×2 (09:47→21:32)
[2018-02-01] MEDS: HEPARIN NA (PORCINE) 5,000 UNITS/ML 1ML VIAL SQ SCH ×2 (10:25→21:28)
--- NOTE | 2018-02-01 10:41 | PN ---
Progress Note, Physician History of Present Illness: Posterior neck and non-exertional left-sided radiating "shooting" chest pain with numbness, tingling and weakness in her L arm persists, c-spine MRI confirms C7 radiculopathy planned for intervention. Chest CTA neg for central PE. - Current Medication List Current Medications: Active Medications Acetaminophen (Tylenol -) 650 mg PO Q6H PRN PRN Reason: PAIN Last Admin: 02/01/18 00:16 Dose: 650 mg Acetaminophen (Tylenol -) 325 mg PO TID PRN PRN Reason: PAIN LEVEL 4 - 6 Last Admin: 02/01/18 09:46 Dose: 325 mg Budesonide/Formoterol Fumarate (Symbicort 80/4.5mcg -) 1 puff IH BID [facility] Last Admin: 02/01/18 09:47 Dose: 1 puff Cyclobenzaprine HCl (Flexeril -) 10 mg PO TID [facility] Last Admin: 02/01/18 05:55 Dose: 10 mg Gabapentin (Neurontin -) 300 mg PO TID [facility] Last Admin: 02/01/18 05:55 Dose: 300 mg Heparin Sodium (Porcine) (Heparin -) 5,000 unit SQ BID [facility] Last Admin: 02/01/18 10:25 Dose: 5,000 unit Sodium Chloride (Normal Saline -) 1,000 mls @ 50 mls/hr IV ASDIR [facility] Stop: 02/01/18 14:35 Last Admin: 01/31/18 16:42 Dose: 50 mls/hr Insulin Aspart (Novolog Vial) 0 units SQ ACHS [facility]; Protocol Last Admin: 02/01/18 06:28 Dose: 2 units Losartan Potassium (Cozaar -) 25 mg PO DAILY [facility] Last Admin: 02/01/18 09:44 Dose: 25 mg Multivitamins/Minerals/Vitamin C (Tab-A-Vit -) 1 tab PO DAILY [facility] Last Admin: 02/01/18 09:44 Dose: 1 tab Oxycodone HCl (Roxicodone -) 5 mg PO TID PRN PRN Reason: PAIN LEVEL 4 - 6 Last Admin: 02/01/18 09:38 Dose: 5 mg Pantoprazole Sodium (Protonix -) 20 mg PO DAILY [facility] Last Admin: 02/01/18 09:44 Dose: 20 mg Ranitidine HCl (Zantac -) 150 mg PO DAILY [facility] Last Admin: 02/01/18 09:44 Dose: 150 mg - Objective Vital Signs: Vital Signs Temperature 98.3 F 02/01/18 09:39 Pulse Rate 98 H 02/01/18 09:39 Respiratory Rate 18 02/01/18 09:39 Blood Pressure 143/83 02/01/18 09:39 O2 Sat by Pulse Oximetry (%) 97 01/31/18 21:00 Constitutional: Yes: Anxious, Mild Distress Neck: Yes: Supple Cardiovascular: Yes: Regular Rate and Rhythm Respiratory: Yes: Regular, CTA Bilaterally Gastrointestinal: Yes: Normal Bowel Sounds, Soft Edema: No Labs: CBC, BMP 02/01/18 06:30 02/01/18 06:30 INR, PTT INR 0.91 (0.83-1.09) 01/23/18 17:09 Problem List - Problems (1) Type 2 diabetes mellitus Code(s): E11.9 - TYPE 2 DIABETES MELLITUS WITHOUT COMPLICATIONS Qualifiers: Diabetes mellitus exterminator termite insulin use: without exterminator termite use (2) Hyperlipidemia Code(s): E78.5 - HYPERLIPIDEMIA, UNSPECIFIED Qualifiers: Hyperlipidemia type: pure hypercholesterolemia Qualified Code(s): E78.00 - Pure hypercholesterolemia, unspecified; E78.0 - Pure hypercholesterolemia (3) Cervical radicular pain Code(s): M54.12 - RADICULOPATHY, CERVICAL REGION Assessment/Plan 1. Atypical chest pain, neck pain and left numbness/parastheias of hand D2-D4 radiating from posterior neck and left shoulder c/w acute cervical radiculopathy C7 2. Type 2 DM P:1. Planned for C5-7 cervical discectomy and fusion given inadequate response to medical therapy, no contraindications from CV-standpoint against proceeding 2. Ruled out for IN, chest CTA showed no PE, no specific cardiac therapy warranted
[2018-02-01] MEDS ORDERED: INSULIN (NOVOLOG) ASPART 100 UNITS/ML 10ML VIAL ONE (21:04)
[2018-02-02] MEDS: CYCLOBENZAPRINE HCL 10 MG TABLET (FP) PO SCH ×3 (05:39→22:08)
[2018-02-02] MEDS: GABAPENTIN 300 MG CAPSULE (FP) PO SCH ×3 (05:39→22:09)
[2018-02-02] MEDS: oxyCODONE HCL 5 MG TABLET PO PRN ×3 (05:40→22:15)
[2018-02-02] MEDS: ACETAMINOPHEN 325 MG TABLET (FP) PO PRN ×3 (05:40→23:56)
[2018-02-02] MEDS: INSULIN (NOVOLOG) ASPART 100 UNITS/ML 10ML VIAL SQ SCH ×4 (06:36→22:08)
--- NOTE | 2018-02-02 08:51 | PN ---
Progress Note, Physician Chief Complaint: in bed has again pain in her neck and LUE L shoulder extremity worse with moving and lying down; did not sleep well; NPO after midnight and hold sq heparin preop d/w pt and staff - Current Medication List Current Medications: Active Medications Acetaminophen (Tylenol -) 650 mg PO Q6H PRN PRN Reason: PAIN Last Admin: 02/01/18 00:16 Dose: 650 mg Acetaminophen (Tylenol -) 325 mg PO TID PRN PRN Reason: PAIN LEVEL 4 - 6 Last Admin: 02/02/18 05:40 Dose: 325 mg Budesonide/Formoterol Fumarate (Symbicort 80/4.5mcg -) 1 puff IH BID [facility] Last Admin: 02/01/18 21:32 Dose: 1 puff Cyclobenzaprine HCl (Flexeril -) 10 mg PO TID [facility] Last Admin: 02/02/18 05:39 Dose: 10 mg Gabapentin (Neurontin -) 300 mg PO TID [facility] Last Admin: 02/02/18 05:39 Dose: 300 mg Heparin Sodium (Porcine) (Heparin -) 5,000 unit SQ BID [facility] Last Admin: 02/01/18 21:28 Dose: 5,000 unit Insulin Aspart (Novolog Vial) 0 units SQ ACHS [facility]; Protocol Last Admin: 02/02/18 06:36 Dose: 4 units Losartan Potassium (Cozaar -) 25 mg PO DAILY [facility] Last Admin: 02/01/18 09:44 Dose: 25 mg Multivitamins/Minerals/Vitamin C (Tab-A-Vit -) 1 tab PO DAILY [facility] Last Admin: 02/01/18 09:44 Dose: 1 tab Oxycodone HCl (Roxicodone -) 5 mg PO TID PRN PRN Reason: PAIN LEVEL 4 - 6 Last Admin: 02/02/18 05:40 Dose: 5 mg Pantoprazole Sodium (Protonix -) 20 mg PO DAILY [facility] Last Admin: 02/01/18 09:44 Dose: 20 mg Ranitidine HCl (Zantac -) 150 mg PO DAILY [facility] Last Admin: 02/01/18 09:44 Dose: 150 mg - Objective Vital Signs: Vital Signs Temperature 98.3 F 02/02/18 06:00 Pulse Rate 99 H 02/02/18 06:00 Respiratory Rate 18 02/02/18 06:00 Blood Pressure 124/57 L 02/02/18 06:00 O2 Sat by Pulse Oximetry (%) 98 02/01/18 21:00 Constitutional: Yes: No Distress, Calm Eyes: Yes: Conjunctiva Clear HENT: Yes: Atraumatic Neck: Yes: Supple Cardiovascular: Yes: Regular Rate and Rhythm Respiratory: Yes: CTA Bilaterally Gastrointestinal: Yes: Soft. No: Distention Genitourinary: No: CVA Tenderness - Left, CVA Tenderness - Right, Hematuria Musculoskeletal: No: Joint Stiffness, Joint Swelling Extremities: No: Cold, Cool, Cyanosis Edema: No Integumentary: No: Rash, Venous Stasis Changes Neurological: Yes: Alert, Oriented ...Motor Strength: LUE (mild weakness pt said b/o pain but she also has neuropathy) Psychiatric: Yes: Alert, Oriented. No: Agitated, Suicidal Ideation Labs: CBC, BMP 02/01/18 06:30 02/01/18 06:30 INR, PTT INR 0.91 (0.83-1.09) 01/23/18 17:09 Assessment/Plan Pt is a 52 yo F, with PMH of NIDDM (on metformin), HLD, arthritis (rotator cuff surgery of L shoulder), who is presenting with complaints of L-sided "shooting" chest pain lower neck and LUE L shoulder pain pain meds percocet, neurontin, taper solumedrol; on flexeril EMG and Cspine MRI c/w CSpine ds and neuropathy chest CTA preop unremarkable; pulm consult noted d/w cardio dr Tobar pt cleared for surgery cardiology, NS, ortho and neurology f/u NO ABSOLUTE CI FOR CSPINE SURGERY NPO in am; hold sq heparin d/w pt and staff; pt agreed with plan.
[2018-02-02] MEDS: BUDESONIDE/FORMETEROL FUMARATE 80/4.5 mcg INHALER IH SCH ×2 (10:58→22:09)
[2018-02-02] MEDS: LOSARTAN POTASSIUM 25 MG TABLET PO SCH (10:59)
[2018-02-02] MEDS: PANTOPRAZOLE 20 MG TABLET (FP) PO SCH (10:59)
[2018-02-02] MEDS: MULTIVITAMINS (DAILY MVI) TABLET (FP) PO SCH (10:59)
[2018-02-02] MEDS: RANITIDINE HCL 150 MG TABLET (FP) PO SCH (11:00)
--- NOTE | 2018-02-02 15:49 | PN ---
Progress Note (short form) - Note Progress Note: NEUROSURGERY Neck pain stable PE: AF, VSS HEENT- NC/AT; Neck-L sided paraspinal muscle spasm; Cor- RR; Lungs- CTA B; Abd- benign, obese; Ext- no sign of DVT CN- intact; Motor- 5/5 except L triceps 4- and BR/WE 4/5; pain limited; Sensation- intact LT, decreased PP L C7; DTR- hyporeflexic B CT C spine- bridging osteophytes C2-3, C5-6, C6-7; DDD C5-6 and C6-7; broad based disc bulge/osteophytes C5-6; L C6-7 paracentral disc protrusion with uncovertebral joint hypertrophy and foramenal stenosis MRI - C5-6, C6-7 DDD, spondylosis, B C5-6 foramenal narrowing; L C6-7 lateral/ foramenal disc edema with mild foramenal encroachment, no marked canal compromise CTA chest- negative for central PE; + atelectasis Outside EMG reviewed - L C7 radiculopathy Cervical DDD/spondylosis with L C7 radiculopathy On Neurontin Surgery (C5-7 ACDF) given medical treatments do not control her symptoms adequately; OR noon Saturday at noon tentatively Indications for procedure, procedure in detail, risks, benefits, alternatives discussed; pt wishes to proceed with surgery Risks: bleeding, infection, CSF leak, neurological injury, hoarseness, swallowing difficulty, paralysis, general anesthesia, DVT/PE All questions answered Spoke to daughter Criss @ [phone] with pt verbal authorization Hold SQ heparin today NPO after MN
[2018-02-02] MEDS ORDERED: INSULIN (NOVOLOG) ASPART 100 UNITS/ML 10ML VIAL ONE (21:22)
[2018-02-02] MEDS: D5-1/2NS+20 MEQ KCL - 20 MEQ/1,000 ML INFUS.BAG IV SCH (23:57)
[2018-02-03] MEDS ORDERED: HYDROmorphone HCl 2 MG/ML VIAL IVPB PRN (02:38)
[2018-02-03] MEDS: GABAPENTIN 300 MG CAPSULE (FP) PO SCH ×3 (05:37→21:31)
[2018-02-03] MEDS: CYCLOBENZAPRINE HCL 10 MG TABLET (FP) PO SCH ×3 (05:37→21:31)
--- NOTE | 2018-02-03 07:03 | PN ---
Progress Note, Physician Chief Complaint: OOB to chair recevived dilaudid iv last night and helped had a lot of neck, l shoulder and LUE pain and numbness last night no other c/o; NPO for surgery dw pt she spoke with dr Callahan and she agreed for surgery - for today - Current Medication List Current Medications: Active Medications Acetaminophen (Tylenol -) 650 mg PO Q6H PRN PRN Reason: PAIN Last Admin: 02/02/18 23:56 Dose: 650 mg Acetaminophen (Tylenol -) 325 mg PO TID PRN PRN Reason: PAIN LEVEL 4 - 6 Last Admin: 02/02/18 16:56 Dose: 325 mg Budesonide/Formoterol Fumarate (Symbicort 80/4.5mcg -) 1 puff IH BID [facility] Last Admin: 02/02/18 22:09 Dose: 1 puff Cyclobenzaprine HCl (Flexeril -) 10 mg PO TID [facility] Last Admin: 02/03/18 05:37 Dose: Not Given Gabapentin (Neurontin -) 300 mg PO TID [facility] Last Admin: 02/03/18 05:37 Dose: Not Given Hydromorphone HCl (Dilaudid Vial -) 2 mg IVPB Q6H PRN PRN Reason: PAIN LEVEL 7-10 Last Admin: 02/03/18 02:51 Dose: 2 mg Potassium Chloride/Dextrose/Sod Cl (D5-1/2ns+20 Meq Kcl -) 20 meq in 1,000 mls @ 100 mls/hr IV ASDIR [facility] Last Admin: 02/02/18 23:57 Dose: 100 mls/hr Insulin Aspart (Novolog Vial) 0 units SQ ACHS [facility]; Protocol Last Admin: 02/02/18 22:08 Dose: 6 units Losartan Potassium (Cozaar -) 25 mg PO DAILY [facility] Last Admin: 02/02/18 10:59 Dose: 25 mg Multivitamins/Minerals/Vitamin C (Tab-A-Vit -) 1 tab PO DAILY [facility] Last Admin: 02/02/18 10:59 Dose: 1 tab Oxycodone HCl (Roxicodone -) 5 mg PO TID PRN PRN Reason: PAIN LEVEL 4 - 6 Last Admin: 02/02/18 22:15 Dose: 5 mg Pantoprazole Sodium (Protonix -) 20 mg PO DAILY [facility] Last Admin: 02/02/18 10:59 Dose: 20 mg Ranitidine HCl (Zantac -) 150 mg PO DAILY [facility] Last Admin: 02/02/18 11:00 Dose: 150 mg - Objective Vital Signs: Vital Signs Temperature 98 F 02/02/18 22:00 Pulse Rate 101 H 02/02/18 22:00 Respiratory Rate 18 02/02/18 22:00 Blood Pressure 122/83 02/02/18 22:00 O2 Sat by Pulse Oximetry (%) 96 02/02/18 21:00 Constitutional: Yes: No Distress, Calm Eyes: Yes: Conjunctiva Clear HENT: Yes: Atraumatic Neck: Yes: Supple Cardiovascular: Yes: Regular Rate and Rhythm Respiratory: Yes: CTA Bilaterally Gastrointestinal: Yes: Soft. No: Distention, Tenderness Genitourinary: No: CVA Tenderness - Left, CVA Tenderness - Right Musculoskeletal: No: Joint Stiffness, Joint Swelling Extremities: No: Cold, Cool, Cyanosis Edema: No Integumentary: No: Rash, Venous Stasis Changes Neurological: Yes: Alert, Oriented, Numbness (LUE) ...Motor Strength: LUE (mild weakness) Psychiatric: Yes: WNL, Alert, Oriented. No: Agitated Labs: CBC, BMP 02/01/18 06:30 02/01/18 06:30 INR, PTT INR 0.91 (0.83-1.09) 01/23/18 17:09 Assessment/Plan Pt is a 52 yo F, with PMH of NIDDM (on metformin), HLD, arthritis (rotator cuff surgery of L shoulder), who is presenting with complaints of L-sided "shooting" chest pain lower neck and LUE L shoulder pain pain meds percocet, neurontin, taper solumedrol; on flexeril EMG and Cspine MRI c/w CSpine ds and C7 neuropathy chest CTA preop unremarkable; pulm consult noted d/w cardio pt cleared for surgery cardiology, NS, ortho and neurology f/u NO ABSOLUTE CI FOR CSPINE SURGERY NPO today; held sq heparin d/w pt and staff; pt agreed with plan.
[2018-02-03] MEDS: INSULIN (NOVOLOG) ASPART 100 UNITS/ML 10ML VIAL SQ SCH ×4 (08:29→21:40)
[2018-02-03] MEDS: PANTOPRAZOLE 20 MG TABLET (FP) PO SCH (09:40)
[2018-02-03] MEDS: RANITIDINE HCL 150 MG TABLET (FP) PO SCH (09:40)
[2018-02-03] MEDS: MULTIVITAMINS (DAILY MVI) TABLET (FP) PO SCH (09:40)
[2018-02-03] MEDS: LOSARTAN POTASSIUM 25 MG TABLET PO SCH (09:43)
[2018-02-03] MEDS ORDERED: fentaNYL CITRATE 250 MCG/5 ML VIAL ONE ×3 (11:30→12:56)
[2018-02-03] MEDS ORDERED: PROPOFOL 20 ML ONE ×17 (11:30→15:14)
[2018-02-03] MEDS ORDERED: ROCURONIUM BROMIDE 50 MG/5 ML VIAL ONE (11:30)
[2018-02-03] MEDS ORDERED: MIDAZOLAM HCL 2 MG/2 ML SINGLE DOSE VIAL ONE (11:30)
[2018-02-03] MEDS ORDERED: KETOROLAC TROMETHAMINE 30 MG/1 ML VIAL ONE (11:40)
[2018-02-03] MEDS ORDERED: DEXAMETHASONE SOD PHOSPHATE 4 MG/1 ML VIAL ONE ×2 (11:40→13:52)
[2018-02-03] MEDS ORDERED: ceFAZolin SODIUM 1 GM VIAL ONE ×2 (11:40→21:17)
[2018-02-03] MEDS ORDERED: LIDOCAINE HCL/PF 2% SDV 5ML VIAL ONE (11:40)
[2018-02-03] MEDS: BUDESONIDE/FORMETEROL FUMARATE 80/4.5 mcg INHALER IH SCH ×2 (11:44→21:41)
[2018-02-03] MEDS ORDERED: THROMBIN (BOVINE) 5,000 UNIT VIAL TP ONE ×2 (11:56→13:44)
[2018-02-03] MEDS ORDERED: BACITRACIN 15 GM TUBE TOPICAL OINTMENT ONE (12:19)
[2018-02-03] MEDS ORDERED: KETAMINE HCL 200 MG/20 ML VIAL ONE (12:38)
[2018-02-03] MEDS ORDERED: ceFAZolin SODIUM 1 GM VIAL IVPB ONE (12:45)
[2018-02-03] MEDS ORDERED: GELATIN SPONGE,ABSORBABLE 1 GM PACKET TP ONE (13:44)
[2018-02-03] MEDS ORDERED: BACITRACIN 15 GM TUBE TOPICAL OINTMENT TP ONE (13:45)
[2018-02-03] MEDS ORDERED: BACITRACIN 50,000 UNITS VIAL NR ONE (13:46)
[2018-02-03] MEDS ORDERED: hydrALAZINE HCL 20 MG/ML VIAL ONE (15:17)
[2018-02-03] MEDS ORDERED: ONDANSETRON 4 MG/2 ML VIAL IVPUSH PRN (16:03)
--- NOTE | 2018-02-03 16:03 | OP ---
Operative Note - Note: Operative Date: 02/03/18 Pre-Operative Diagnosis: Severe C5-6 and mild C6-7 DDD, foramenal stenosis, L C7 > C6 radiculopathy Operation: Cristóbal jonas; Partial corpectomies C5 and C6, anterior discectomies C5-6 and C6-7; anterior interbody fusion C5-6, C6-7; interbody 7 mm lordotic implants C5-6 and C6-7; anterior instrumentation C5-6-7; microdissection Findings: complete collapse of C5-6 disc space with extensive osteophytes; sensitive B C6 and C7 roots; attenuated baseline L UE SSEP and MEP signals Implants: [employer] 7 mm lordotic implants; [employer] Select 40 mm titanium plate and 14 mm screws (variable angle C5,6 and fixed angle C7 B) Surgeon: José Miguel Callahan Anesthesiologist/FREIGHT BRAKEMAN: Keshav Soto Anesthesia: General Specimens Removed: C5-6, C6-7 DDD Estimated Blood Loss (mls): 25 Operative Report Dictated: Yes
[2018-02-03] MEDS ORDERED: D5-1/2NS+20 MEQ KCL - 1,000 ML IV SCH (16:15)
--- NOTE | 2018-02-03 16:15 | SURG ---
Surgery Bottom Cager Note Bottom Cager: Monica Solis PA-C (Suzy) Date of Service: 02/03/18 Diagnosis: Severe C5-6 and mild C6-7 DDD, foramenal stenosis, L C7 > C6 radiculopathy Procedure: Partial corpectomies C5 and C6, anterior discectomies C5-6 and C6-7; anterior interbody fusion C5-6, C6-7; interbody 7 mm lordotic implants C5-6 and C6-7; anterior instrumentation C5-6-7; microdissection I was present for the entirety of the operative procedure. For further detail, please refer to operative report. Visit type - Case Type Case Type: Scheduled - Emergency Emergency Visit: No - New patient This patient is new to me today: Yes Date on this admission: 02/03/18 - Critical Care Critical Care patient: No
--- NOTE | 2018-02-03 16:39 | PN ---
Progress Note (short form) - Note Progress Note: NEUROSURGERY In PACU Some sore throat and scalp pain Minimal to no L UE pain PE: AF, VSS, O2 sat 98% HEENT- NC/AT; Neck-L sided incision intact; Cor- RR; Lungs- CTA B; Abd- benign, obese; Ext- no sign of DVT CN- intact; Motor- 4-/5 at least B UE/LE; Sensation- intact LT, decreased PP L C7; DTR- hyporeflexic B S/P C5-7 ACDF for cervical DDD/spondylosis with L C7 radiculopathy On Neurontin Spoke to son in waiting area re: findings and pt condition C spine x-rays in AM PT in AM Restart SQ heparin in am if stable neurologically
[2018-02-03] MEDS ORDERED: HYDROmorphone *PCA* 10MG/50ML DISP.SYRIN PCA ONE (17:05)
[2018-02-03] MEDS: HYDROmorphone *PCA* 10MG/50ML DISP.SYRIN PCA SCH ×2 (17:20→19:32)
[2018-02-03] MEDS: D5-1/2NS+20 MEQ KCL - 20 MEQ/1,000 ML INFUS.BAG IV SCH (17:20)
[2018-02-03] MEDS: diazePAM 5 MG TABLET PO SCH ×2 (19:32→21:31)
[2018-02-03] MEDS: LACTATED RINGERS SOLUTION 1,000 ML IV SCH (19:33)
[2018-02-03] MEDS ORDERED: DEXTROSE 5%-WATER - 50 ML IVPB ONE (21:17)
[2018-02-03] MEDS: CEFAZOLIN 1 GM in DEXTROSE 5%-WATER - 50 ML IVPB SCH (21:29)
[2018-02-03] MEDS: DOCUSATE SODIUM 100 MG CAPSULE (FP) PO SCH (21:31)
[2018-02-04] MEDS ORDERED: DEXTROSE 5%-WATER - 50 ML IVPB ONE (02:49)
[2018-02-04] MEDS ORDERED: ceFAZolin SODIUM 1 GM VIAL ONE (02:49)
[2018-02-04] MEDS: CEFAZOLIN 1 GM in DEXTROSE 5%-WATER - 50 ML IVPB SCH (02:55)
[2018-02-04] MEDS: D5-1/2NS+20 MEQ KCL - 20 MEQ/1,000 ML INFUS.BAG IV SCH (02:56)
[2018-02-04] MEDS: CYCLOBENZAPRINE HCL 10 MG TABLET (FP) PO SCH ×3 (06:50→21:30)
[2018-02-04] MEDS: GABAPENTIN 300 MG CAPSULE (FP) PO SCH ×3 (06:50→21:30)
[2018-02-04] MEDS: DOCUSATE SODIUM 100 MG CAPSULE (FP) PO SCH ×3 (06:50→21:30)
[2018-02-04] MEDS: INSULIN (NOVOLOG) ASPART 100 UNITS/ML 10ML VIAL SQ SCH ×4 (06:50→21:30)
[2018-02-04] MEDS: diazePAM 5 MG TABLET PO SCH ×3 (06:50→21:30)
--- NOTE | 2018-02-04 07:17 | PN ---
Progress Note, Physician Chief Complaint: s/p CSpine surgery awake alert has some pain LUE but better - Current Medication List Current Medications: Active Medications Acetaminophen (Tylenol -) 650 mg PO Q6H PRN PRN Reason: PAIN Last Admin: 02/02/18 23:56 Dose: 650 mg Acetaminophen (Tylenol -) 325 mg PO TID PRN PRN Reason: PAIN LEVEL 4 - 6 Last Admin: 02/02/18 16:56 Dose: 325 mg Budesonide/Formoterol Fumarate (Symbicort 80/4.5mcg -) 1 puff IH BID [facility]S [facility] Last Admin: 02/03/18 21:41 Dose: 1 puff Cyclobenzaprine HCl (Flexeril -) 10 mg PO TID [facility] Last Admin: 02/04/18 06:50 Dose: 10 mg Diazepam (Valium -) 5 mg PO TID [facility]S [facility] Last Admin: 02/04/18 06:50 Dose: 5 mg Docusate Sodium (Colace -) 100 mg PO TID [facility] Last Admin: 02/04/18 06:50 Dose: 100 mg Gabapentin (Neurontin -) 300 mg PO TID [facility] Last Admin: 02/04/18 06:50 Dose: 300 mg Hydromorphone HCl (Dilaudid Vial -) 2 mg IVPB Q6H PRN PRN Reason: PAIN LEVEL 7-10 Last Admin: 02/03/18 02:51 Dose: 2 mg Hydromorphone HCl (Dilaudid Cardiology Associate -) 10 mg NOCTURNIST NOCTURNIST COUNTS INCLUDE 234 BEDS AT [facility]; Protocol Stop: 02/06/18 16:25 Last Admin: 02/03/18 19:32 Dose: Not Given Potassium Chloride/Dextrose/Sod Cl (D5-1/2ns+20 Meq Kcl -) 20 meq in 1,000 mls @ 100 mls/hr IV ASDIR [facility] 234 B[facility]S [facility] Last Admin: 02/04/18 02:56 Dose: 100 mls/hr Lactated Ringer's (Lactated Ringers Solution) 1,000 mls @ 125 mls/hr IV ASDIR [facility]CLUDE 234 BEDS AT [facility] Last Admin: 02/03/18 19:33 Dose: Not Given Insulin Aspart (Novolog Vial) 0 units SQ ACHS [facility] 234 [facility]S [facility]; Protocol Last Admin: 02/04/18 06:50 Dose: 4 units Losartan Potassium (Cozaar -) 25 mg PO DAILY [facility]S [facility] Last Admin: 11/19/18 09:43 Dose: 25 mg Multivitamins/Minerals/Vitamin C (Tab-A-Vit -) 1 tab PO DAILY [facility] Last Admin: 02/03/18 09:40 Dose: Not Given Ondansetron HCl (Zofran Injection) 4 mg IVPUSH Q6H PRN PRN Reason: NAUSEA AND/OR VOMITING Oxycodone HCl (Roxicodone -) 5 mg PO TID PRN PRN Reason: PAIN LEVEL 4 - 6 Last Admin: 02/02/18 22:15 Dose: 5 mg Pantoprazole Sodium (Protonix -) 20 mg PO DAILY [facility] Last Admin: 02/03/18 09:40 Dose: Not Given Ranitidine HCl (Zantac -) 150 mg PO DAILY [facility] Last Admin: 02/03/18 09:40 Dose: Not Given - Objective Vital Signs: Vital Signs Temperature 98.4 F 02/04/18 03:01 Pulse Rate 94 H 02/04/18 03:01 Respiratory Rate 20 02/04/18 03:01 Blood Pressure 120/68 02/04/18 03:01 O2 Sat by Pulse Oximetry (%) 98 02/03/18 20:39 Constitutional: Yes: No Distress, Calm Eyes: Yes: Conjunctiva Clear HENT: Yes: Atraumatic Neck: Yes: Supple Cardiovascular: Yes: Regular Rate and Rhythm Respiratory: Yes: CTA Bilaterally Gastrointestinal: Yes: Soft. No: Tenderness Genitourinary: No: CVA Tenderness - Left, CVA Tenderness - Right Musculoskeletal: No: Joint Stiffness, Joint Swelling Extremities: No: Cold, Cool, Cyanosis Edema: No Integumentary: No: Rash, Venous Stasis Changes Neurological: Yes: WNL, Alert, Oriented ...Motor Strength: LUE (4/5 lifting) Psychiatric: Yes: WNL, Alert, Oriented. No: Agitated Labs: CBC, BMP 02/01/18 06:30 02/01/18 06:30 INR, PTT INR 0.91 (0.83-1.09) 01/23/18 17:09 Assessment/Plan Pt is a 52 yo F, with PMH of NIDDM (on metformin), HLD, arthritis (rotator cuff surgery of L shoulder), who is presenting with complaints of L-sided "shooting" chest pain lower neck and LUE L shoulder pain s/p C6 surgery pain meds per surgery/ anesthesia cardiology, NS, ortho and neurology f/u restart sq heparin when OK with surgery d/w pt and staff
--- NOTE | 2018-02-04 08:27 | PN ---
Progress Note (short form) - Note Progress Note: POD 1, C5-C6, C6-C7 ACDF Pt seen and examined. States she is doing "okay" this AM. Pain is controlled via MACHINE DEBURRER. Reports she slept a bit overnight. Has not been oob yet. Tolerating clears, + voiding. Denies cp/sob, n/v/d, calf pain/edema, difficulty breathing. Vital Signs Temp 98 F 02/04/18 07:44 Pulse 89 02/04/18 07:44 Resp 20 02/04/18 07:44 BP 143/79 02/04/18 07:44 Pulse Ox 98 02/03/18 20:39 Intake & Output 02/03/18 02/03/18 02/04/18 11:59 23:59 11:59 Intake Total 750 2450 Output Total 2250 Balance 750 200 Intake: IV 700 2200 D5-1/2NS+20 MEQ KCL - 20 700 450 meq In 1,000 ml @ 100 mls /hr IV ASDIR [facility] Rx#: [id number] IVPB 50 Oral 250 Output: Urine 2200 Void 600 Estimated Blood Loss 50 Other: Voiding Method Toilet Bedpan # Unmeasured Voids Void 1 CBC, BMP 02/01/18 06:30 02/01/18 06:30 Gen: Lethargic, a&ox3, responds appropriately Neck: dressing c/d/i, no surrounding hematoma appreciated Resp: unlabored, cta b/l CV: rrr, s1s2 Neuro: Able to lift both arms antigravity (R to 90 degrees, L to 45 degrees), R biceps/triceps 5/5, L biceps triceps 3+/5, SILT b/l UEs A/P: 52 y/o F w/ PMHx NIDDM, HLD, arthritis admitted 01/23 for L arm pain/ weakness, found to have severe C5-6 and mild C6-7 DDD, foramenal stenosis, L C7 > C6 radiculopathy, now POD 1, s/p C5-C6, C6-C7 ACDF. Doing well this morning. Pain controlled on MACHINE DEBURRER. Exam stable. Afebrile, VSS. C spine xray this AM Clears, advance diet as tolerated Pain control as ordered Bowel regimen VS and neurovascular checks per routine Incentive spirometry OOB ad bruno, no collar needed PT DVT prophylaxis with b/l scds, restart SQ heparin in am if stable neurologically
--- NOTE | 2018-02-04 08:32 | PN ---
Progress Note (short form) - Note Progress Note: NEUROSURGERY POD #1 Some sore throat and scalp pain No neck pain Some L arm pain and spasm but better PE: Tmax 98.4, AF, VSS, [place] normalizing HEENT- NC/AT; Neck-L sided incision intact; Cor- RR; Lungs- CTA B; Abd- benign, obese; Ext- no sign of DVT Dressing C/D/I- changed CN- intact; Motor- 4/5 B UE/LE except L triceps 4-; Sensation- intact LT, decreased PP L C7; DTR- hyporeflexic B S/P C5-7 ACDF for cervical DDD/spondylosis & L C7 radiculopathy Spoke to pt re: findings and pt condition C spine x-rays today new baseline Adv diet PT/OT in AM Restart SQ heparin in am if stable neurologically
--- NOTE | 2018-02-04 08:46 | PN ---
Progress Note (short form) - Note Progress Note: Anesthesia POD#1 S/P Ant Cervical Discectomy under GA and FORM BUILDER HELPER VSS,no N/V,pain is moderately under control No complications to anesthesia seen. A/P Continue the FORM BUILDER HELPER for today. Yolanda Lacy MD.
[2018-02-04] MEDS: LOSARTAN POTASSIUM 25 MG TABLET PO SCH (10:00)
[2018-02-04] MEDS: BUDESONIDE/FORMETEROL FUMARATE 80/4.5 mcg INHALER IH SCH ×2 (10:00→21:31)
[2018-02-04] MEDS: PANTOPRAZOLE 20 MG TABLET (FP) PO SCH (10:00)
[2018-02-04] MEDS: RANITIDINE HCL 150 MG TABLET (FP) PO SCH (10:00)
[2018-02-04] MEDS: MULTIVITAMINS (DAILY MVI) TABLET (FP) PO SCH (10:00)
--- NOTE | 2018-02-04 12:45 | OP ---
DATE OF OPERATION: 02/03/2018 PREOPERATIVE DIAGNOSES: 1. Marked degenerative disk disease, C5-6 and mild degenerative disease, C6-7. 2. Foraminal stenosis with intractable left C7 greater than C6 radiculopathy. 3. Obesity. 4. Diabetes. POSTOPERATIVE DIAGNOSES: 1. Marked degenerative disk disease, C5-6 and mild degenerative disease, C6-7. 2. Foraminal stenosis with intractable left C7 greater than C6 radiculopathy. 3. Obesity. 4. Diabetes. ATTENDING SURGEON: José Miguel Callahan MD PROCEDURE: 1. Preoperative placement and postoperative removal of cranial traction tongs for intraoperative retraction ([id number]). 2. Anterior cervical diskectomy and fusion at C5-6 and C6-7 ([id number], [id number]). 3. Anterior cervical interbody implant placement at C5-6 and C6-7 ([id number], [id number]). 4. Anterior cervical instrumentation, C5 to C7 with Donna Spine [employer] Select titanium system (42-mm titanium plate and 14-mm titanium screws at C5-6 and C6-7). 5. Intraoperative use of the operating microscope for microsurgical dissection ([id number]). ANESTHESIA: General endotracheal. ANESTHESIOLOGIST: Keshav Soto MD ESTIMATED BLOOD LOSS: 25 mL FINDINGS: 1. Marked degenerative disk space narrowing, C5-6 greater than C6-7. 2. Foraminal stenosis bilaterally at C5-6 and C6-7 with extensive cervical nerve roots. INDICATION: The patient is a 52-year-old female with history of diabetes and obesity, who complains of chronic neck pain and cervical radiculopathy. Her symptoms worsened significantly 3 weeks ago when she experienced marked worsening of her left upper extremity neurological function including weakness and numbness. She also had intractable pain. Because of her intractable symptoms and failure of conservative treatment, she is now consented for anterior cervical decompression and fusion with instrumentation. The risks of the procedure include, but are not limited to, bleeding, infection, dural tear with CSF leak, neurological injury, increased thromboembolic risks, and other risks of general anesthesia. The patient understands the indications for the procedure, procedure in detail, the risks and benefits and alternative treatment of her cervical spine condition and wishes to proceed. No guarantees given for a favorable outcome. PROCEDURE IN DETAIL: After the patient was taken into the operating room, she was placed in supine position. After general anesthesia was induced and appropriate lines were placed, the head was secured in a Sheldon horseshoe in a neutral position. Shoulders and chest were taped down. This was to afford better exposure with lateral cervical spine radiograph during the surgery. Localizing x-ray obtained at this point with spinal needle in place after the patient was cleaned with alcohol. After the x-ray was taken, showing the exposure to be at about C6 to C7. At this point, the incision was planned in anterior cervical region on the left side which was previously marked with a spinal needle. The cranial retraction tongs were placed preoperatively after anesthesia was induced. Cranial retraction tongs were placed with bacitracin ointment, and no traction weight was placed until baseline SSEP, EMG, and MEP signals were obtained. Recurrent laryngeal nerve EMG was also monitored. At this point, skin incision was opened with a number 10 blade. Skin was undermined with Metzenbaum scissors. A self-retaining retractor was inserted. Platysma muscle was split longitudinally with Metzenbaum scissors. Dissection then proceeded medially to the carotid sheath and lateral toward the trachea and esophagus. The omohyoid muscle was retracted medially. The prevertebral fascia was skeletonized, and large bridging osteophytes were noted at C5-6 greater than C6-7. Spinal needle was inserted in the C5-6 and C6-7 disk space, and a localizing x-ray was obtained. After positions were verified, the large anterior bridging osteophytes at C5-6 were resected with Leksell rongeur. The disk space was very collapsed; entry was not even possible with even a curette. The longus colli muscle was reflected laterally, and then, a self-retaining retractor was inserted. Partial corpectomy at the bottom of vertebral body of C5 as well as the top of vertebral body 6 was carried out. The dissection proceeded to the posterior cortex. This needed to be done with high-speed pneumatic drill, almost the entire way throughout. The posterior longitudinal ligament was dissected free with angled curette and resected with Kerrison rongeur. Bilateral foraminotomy was carried out with angled curette and Kerrison rongeur. The nerve roots were quite sensitive at this level and foramina were tight. Foraminotomy was carried out using angled curette and Kerrison rongeur. The nerve roots were quite sensitive to any mechanical or electrical stimulation with bipolar electrocautery nearby. After thorough decompression was completed at C5-6, attention turned to the C6-7 level where a disk annulus was incised with number 15 blade, and after the anterior osteophytes were removed with Leksell rongeur. The disk material was removed with straight and angled curettes as well as pituitary and then Kerrison rongeurs. The posterior longitudinal ligament was similarly removed with angled curette and resected with Kerrison rongeur. Bilateral foraminotomy was carried out with angled curette and Kerrison rongeur. The decompression was focused mostly on the left side because the patient was only symptomatic on the left side. At this point, the AP diameter of the vertebral body was measured to be approximately 16 mm. The intervertebral height was measured to be 7 mm at both spaces. A 7-mm lordotic cortical cancellous device from [employer] was inserted and countersunk by about 2 mm at C6-7 and 1 mm at C5-6. This was done under traction weight of approximately 10 pounds. At this point, the intervertebral plate was secured with fixation pins. It was a 40-mm titanium plate. A 14-mm variable angle screw was used at C5 and C6 bilaterally and six 14-mm fixed-angle screws were used at C7 bilaterally. After the screws were inserted, the locking mechanism was engaged. The interbody implants were placed slightly more toward the left side to afford better left-sided decompression. At this point, the wound was irrigated with antibiotic-containing irrigation. Final lateral cervical spine x-ray was obtained, demonstrating satisfactory position with the implants. A piece of Surgicel was laid on top of the plating system as well as the dissection tract. SSEP, EMG, and MEP signals remained stable throughout the procedure. The patient does have attenuated baseline SSEP and MEP signal of the left upper extremity. That remained stable and unchanged. At this point, after the wound was once again irrigated, the platysma muscle was closed with 3-0 Vicryl suture as well as the subcutaneous fascia. Skin was closed with 4-0 Vicryl running subcuticular suture. Steri-Strips and sterile occlusive dressing were applied. The patient tolerated the procedure well and was extubated in the operating room. She was moving bilateral upper and lower extremities well in the recovery room. All needle and lap counts were correct. The patient received 1 dose of 1 g of Ancef and 10 mg Decadron prior to incision. The OR timeout procedure was followed. The patient's family was updated as to the intraoperative findings as well as the patient's postoperative neurological condition. The patient did not complain of any significant pain in the left upper extremity in the recovery room. Jj [id number]
[2018-02-04] MEDS: LACTATED RINGERS SOLUTION 1,000 ML IV SCH (17:16)
[2018-02-04] MEDS: HYDROmorphone *PCA* 10MG/50ML DISP.SYRIN PCA SCH (17:28)
[2018-02-05] MEDS: diazePAM 5 MG TABLET PO SCH ×4 (05:32→21:40)
[2018-02-05] MEDS: GABAPENTIN 300 MG CAPSULE (FP) PO SCH ×3 (05:36→21:39)
[2018-02-05] MEDS: CYCLOBENZAPRINE HCL 10 MG TABLET (FP) PO SCH ×3 (05:36→21:39)
[2018-02-05] MEDS: DOCUSATE SODIUM 100 MG CAPSULE (FP) PO SCH ×3 (05:36→21:39)
[2018-02-05] MEDS: D5-1/2NS+20 MEQ KCL - 20 MEQ/1,000 ML INFUS.BAG IV SCH (05:57)
[2018-02-05] MEDS: INSULIN (NOVOLOG) ASPART 100 UNITS/ML 10ML VIAL SQ SCH ×4 (06:00→21:46)
[2018-02-05 07:32] LABS: BASO % 0.7 % (0-2.0); HEMOGLOBIN 10.9 GM/dL (10.7-15.3); LYMPH % 28.6 % (8-40); MCH 27.6 pg (25.7-33.7); MEAN CELL VOLUME 86.3 fl (80-96); MEAN PLT VOLUME 8.6 fl (7.5-11.1); MONO % 9.3 % (3.8-10.2); NEUT % 60.4 % (42.8-82.8); PLATELET COUNT 183 K/MM3 (134-434); RBC 3.94 M/mm3 (3.60-5.2); RDW 14.6 % (11.6-15.6); WHITE BLOOD COUNT 9.1 K/mm3 (4.0-10.0)
--- NOTE | 2018-02-05 07:34 | PN ---
Progress Note, Physician Chief Complaint: in bed awake alert NAD VSS afevrile no new co; still with some burning in LUE overnight, no neck pain - Current Medication List Current Medications: Active Medications Acetaminophen (Tylenol -) 650 mg PO Q6H PRN PRN Reason: PAIN Last Admin: 02/02/18 23:56 Dose: 650 mg Acetaminophen (Tylenol -) 325 mg PO TID PRN PRN Reason: PAIN LEVEL 4 - 6 Last Admin: 02/02/18 16:56 Dose: 325 mg Budesonide/Formoterol Fumarate (Symbicort 80/4.5mcg -) 1 puff IH BID [facility] Last Admin: 02/04/18 21:31 Dose: 1 puff Cyclobenzaprine HCl (Flexeril -) 10 mg PO TID [facility] Last Admin: 02/05/18 05:36 Dose: 10 mg Diazepam (Valium -) 5 mg PO TID [facility] Last Admin: 02/05/18 05:32 Dose: Not Given Docusate Sodium (Colace -) 100 mg PO TID [facility] Last Admin: 02/05/18 05:36 Dose: 100 mg Gabapentin (Neurontin -) 300 mg PO TID [facility] Last Admin: 02/05/18 05:36 Dose: 300 mg Hydromorphone HCl (Dilaudid Ecdis N Navigation Operator -) 10 mg TRAFFIC POLICE OFFICER TRAFFIC POLICE OFFICER [facility]; Protocol Stop: 02/06/18 16:25 Last Admin: 02/04/18 17:28 Dose: Not Given Potassium Chloride/Dextrose/Sod Cl (D5-1/2ns+20 Meq Kcl -) 20 meq in 1,000 mls @ 100 mls/hr IV ASDIR [facility] Last Admin: 02/05/18 05:57 Dose: Not Given Lactated Ringer's (Lactated Ringers Solution) 1,000 mls @ 125 mls/hr IV ASDIR [facility] Last Admin: 02/04/18 17:16 Dose: Not Given Insulin Aspart (Novolog Vial) 0 units SQ ACHS [facility]; Protocol Last Admin: 02/05/18 06:00 Dose: 2 units Losartan Potassium (Cozaar -) 25 mg PO DAILY [facility] Last Admin: 02/04/18 10:00 Dose: 25 mg Multivitamins/Minerals/Vitamin C (Tab-A-Vit -) 1 tab PO DAILY [facility] Last Admin: 02/04/18 10:00 Dose: 1 tab Ondansetron HCl (Zofran Injection) 4 mg IVPUSH Q6H PRN PRN Reason: NAUSEA AND/OR VOMITING Pantoprazole Sodium (Protonix -) 20 mg PO DAILY [facility] Last Admin: 02/04/18 10:00 Dose: 20 mg Ranitidine HCl (Zantac -) 150 mg PO DAILY [facility] Last Admin: 02/04/18 10:00 Dose: 150 mg - Objective Vital Signs: Vital Signs Temperature 98.5 F 02/05/18 06:00 Pulse Rate 98 H 02/05/18 06:00 Respiratory Rate 18 02/05/18 06:00 Blood Pressure 129/79 02/05/18 06:00 O2 Sat by Pulse Oximetry (%) 96 02/04/18 21:00 Constitutional: Yes: No Distress, Calm Eyes: Yes: Conjunctiva Clear HENT: Yes: Atraumatic Neck: Yes: Supple Cardiovascular: Yes: Regular Rate and Rhythm Respiratory: Yes: CTA Bilaterally Gastrointestinal: Yes: Soft. No: Distention Genitourinary: No: CVA Tenderness - Left, CVA Tenderness - Right Musculoskeletal: No: Joint Stiffness, Joint Swelling Extremities: No: Cold, Cool, Cyanosis Edema: No Integumentary: No: Rash, Skin Tear, Venous Stasis Changes Neurological: Yes: WNL, Alert, Oriented ...Motor Strength: LUE (some weakness L hand not worse) Psychiatric: Yes: WNL, Alert, Oriented. No: Agitated, Suicidal Ideation Labs: INR, PTT INR 0.91 (0.83-1.09) 01/23/18 17:09 - ....Imaging Other: Report Reviewed Assessment/Plan Pt is a 52 yo F, with PMH of NIDDM (on metformin), HLD, arthritis (rotator cuff surgery of L shoulder), who is presenting with complaints of L-sided "shooting" chest pain lower neck and LUE L shoulder pain s/p C6 surgery pain meds per neurosurgery, increase neurontin cardiology, NS, ortho and neurology f/u restart sq heparin when OK with surgery d/w pt and staff
[2018-02-05 08:14] LABS: ALBUMIN 2.9 g/dl (3.4-5.0); ALK PHOS 83 U/L (45-117); ANION GAP 8 MMOL/L (8-16); BILIRUBIN,TOTAL 0.2 mg/dL (0.2-1); BLOOD UREA NITROGEN 10 mg/dL (7-18); CALCIUM 8.2 mg/dL (8.5-10.1); CHLORIDE 101 mmol/L (98-107); CO2 28 mmol/L (21-32); CREATININE 0.5 mg/dL (0.55-1.3); GLUCOSE,RANDOM 186 mg/dL (74-106); SGOT/AST 14 U/L (15-37); SGPT/ALT 31 U/L (13-61); SODIUM 138 mmol/L (136-145); TOT PROT 5.9 g/dl (6.4-8.2)
--- NOTE | 2018-02-05 08:45 | PN ---
Progress Note (short form) - Note Progress Note: NEUROSURGERY POD #2 Tolerating regular diet No neck pain Some L arm burning pain and spasm but better PE: Tmax 98.5, AF, VSS, [place] normalizing HEENT- NC/AT; Neck-L sided incision intact; Cor- RR; Lungs- CTA B; Abd- benign, obese; Ext- no sign of DVT Dressing C/D/I CN- intact; Motor- 4/5 B UE/LE except L triceps 4-; Sensation- intact LT, decreased PP L C7; DTR- hyporeflexic B S/P C5-7 ACDF for cervical DDD/spondylosis & L C7 radiculopathy Spoke to pt re: findings and pt condition C spine x-rays today for new baseline Increase Neurontin 600 mg tid Adv diet PT
[2018-02-05] MEDS ORDERED: PT OWN MED DRAWER 7, Y5N ONE (09:11)
[2018-02-05] MEDS: LOSARTAN POTASSIUM 25 MG TABLET PO SCH (09:48)
[2018-02-05] MEDS: MULTIVITAMINS (DAILY MVI) TABLET (FP) PO SCH (09:49)
[2018-02-05] MEDS: HEPARIN NA (PORCINE) 5,000 UNITS/ML 1ML VIAL SQ SCH ×2 (09:49→21:40)
[2018-02-05] MEDS: RANITIDINE HCL 150 MG TABLET (FP) PO SCH (09:49)
[2018-02-05] MEDS: PANTOPRAZOLE 20 MG TABLET (FP) PO SCH (09:49)
[2018-02-05] MEDS: BUDESONIDE/FORMETEROL FUMARATE 80/4.5 mcg INHALER IH SCH ×2 (09:50→21:40)
[2018-02-05] MEDS ORDERED: INSULIN (NOVOLOG) ASPART 100 UNITS/ML 10ML VIAL ONE ×2 (11:54→18:24)
--- NOTE | 2018-02-05 13:59 | PN ---
Progress Note, Physician History of Present Illness: LUE parasthesias improving. - Current Medication List Current Medications: Active Medications Acetaminophen (Tylenol -) 650 mg PO Q6H PRN PRN Reason: PAIN Last Admin: 02/02/18 23:56 Dose: 650 mg Acetaminophen (Tylenol -) 325 mg PO TID PRN PRN Reason: PAIN LEVEL 4 - 6 Last Admin: 02/02/18 16:56 Dose: 325 mg Budesonide/Formoterol Fumarate (Symbicort 80/4.5mcg -) 1 puff IH BID [facility] Last Admin: 02/05/18 09:50 Dose: 1 puff Cyclobenzaprine HCl (Flexeril -) 10 mg PO TID [facility] Last Admin: 02/05/18 05:36 Dose: 10 mg Diazepam (Valium -) 5 mg PO HS [facility] Docusate Sodium (Colace -) 100 mg PO TID [facility] Last Admin: 02/05/18 05:36 Dose: 100 mg Gabapentin (Neurontin -) 600 mg PO TID [facility] Heparin Sodium (Porcine) (Heparin -) 5,000 unit SQ BID [facility] Last Admin: 02/05/18 09:49 Dose: 5,000 unit Hydromorphone HCl (Dilaudid Key Account Representative -) 10 mg POPPED CORN OVEN ATTENDANT POPPED CORN OVEN ATTENDANT [facility]; Protocol Stop: 02/06/18 16:25 Last Admin: 02/04/18 17:28 Dose: Not Given Potassium Chloride/Dextrose/Sod Cl (D5-1/2ns+20 Meq Kcl -) 20 meq in 1,000 mls @ 100 mls/hr IV ASDIR [facility] Last Admin: 02/05/18 05:57 Dose: Not Given Lactated Ringer's (Lactated Ringers Solution) 1,000 mls @ 125 mls/hr IV ASDIR [facility] Last Admin: 02/04/18 17:16 Dose: Not Given Insulin Aspart (Novolog Vial) 0 units SQ ACHS [facility]; Protocol Last Admin: 02/05/18 11:56 Dose: 6 units Losartan Potassium (Cozaar -) 25 mg PO DAILY [facility] Last Admin: 02/05/18 09:48 Dose: 25 mg Multivitamins/Minerals/Vitamin C (Tab-A-Vit -) 1 tab PO DAILY [facility] Last Admin: 02/05/18 09:49 Dose: 1 tab Ondansetron HCl (Zofran Injection) 4 mg IVPUSH Q6H PRN PRN Reason: NAUSEA AND/OR VOMITING Pantoprazole Sodium (Protonix -) 20 mg PO DAILY [facility] Last Admin: 02/05/18 09:49 Dose: 20 mg Ranitidine HCl (Zantac -) 150 mg PO DAILY [facility] Last Admin: 02/05/18 09:49 Dose: 150 mg - Objective Vital Signs: Vital Signs Temperature 98.5 F 02/05/18 06:00 Pulse Rate 98 H 02/05/18 06:00 Respiratory Rate 18 02/05/18 06:00 Blood Pressure 129/79 02/05/18 06:00 O2 Sat by Pulse Oximetry (%) 96 02/04/18 21:00 Constitutional: Yes: No Distress, Calm Neck: Yes: Supple Cardiovascular: Yes: Regular Rate and Rhythm Respiratory: Yes: Regular, CTA Bilaterally Gastrointestinal: Yes: Normal Bowel Sounds, Soft Edema: No Labs: CBC, BMP 02/05/18 06:30 02/05/18 06:30 INR, PTT INR 0.91 (0.83-1.09) 01/23/18 17:09 Problem List - Problems (1) Type 2 diabetes mellitus Code(s): E11.9 - TYPE 2 DIABETES MELLITUS WITHOUT COMPLICATIONS Qualifiers: Diabetes mellitus termite control representative insulin use: without termite control representative use (2) Cervical radicular pain Code(s): M54.12 - RADICULOPATHY, CERVICAL REGION (3) Hypertension Code(s): I10 - ESSENTIAL (PRIMARY) HYPERTENSION Qualifiers: Hypertension type: essential hypertension Qualified Code(s): I10 - Essential (primary) hypertension Assessment/Plan 1. POD#2 S/P C5-7 ACDF for cervical DDD/spondylosis & L C7 radiculopathy 2. Type 2 DM 3. HTN P:1. Analgesia as needed, PT as tolerated, advancing diet, rehab 2. Continue losartan 25 qd
--- NOTE | 2018-02-05 15:59 | PN ---
Progress Note (short form) - Note Progress Note: ANESTHESIOLOGY POST-OP CHECK 52F s/p ACDF POd #2. Pain 8/10 to 7/10 with pain meds. 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 Denies N /V Vital Signs Temperature 98.6 F 02/05/18 15:33 Pulse Rate 115 H 02/05/18 15:33 Respiratory Rate 18 02/05/18 15:33 Blood Pressure 106/65 02/05/18 15:33 O2 Sat by Pulse Oximetry (%) 96 02/04/18 21:00 Active Medications Acetaminophen (Tylenol -) 650 mg PO Q6H PRN PRN Reason: PAIN Last Admin: 02/02/18 23:56 Dose: 650 mg Acetaminophen (Tylenol -) 325 mg PO TID PRN PRN Reason: PAIN LEVEL 4 - 6 Last Admin: 02/02/18 16:56 Dose: 325 mg Budesonide/Formoterol Fumarate (Symbicort 80/4.5mcg -) 1 puff IH BID [facility] Last Admin: 02/05/18 09:50 Dose: 1 puff Cyclobenzaprine HCl (Flexeril -) 10 mg PO TID [facility] Last Admin: 02/05/18 14:08 Dose: 10 mg Diazepam (Valium -) 5 mg PO [facility] Docusate Sodium (Colace -) 100 mg PO TID [facility] Last Admin: 02/05/18 14:08 Dose: 100 mg Gabapentin (Neurontin -) 600 mg PO TID [facility] Last Admin: 02/05/18 14:08 Dose: 600 mg Heparin Sodium (Porcine) (Heparin -) 5,000 unit SQ BID [facility] Last Admin: 02/05/18 09:49 Dose: 5,000 unit Hydromorphone HCl (Dilaudid Fibreglass Gun Hand -) 10 mg NEW CAR MAKE READY WORKER NEW CAR MAKE READY WORKER [facility]; Protocol Stop: 02/06/18 16:25 Last Admin: 02/04/18 17:28 Dose: Not Given Potassium Chloride/Dextrose/Sod Cl (D5-1/2ns+20 Meq Kcl -) 20 meq in 1,000 mls @ 100 mls/hr IV ASDIR [facility] Last Admin: 02/05/18 05:57 Dose: Not Given Lactated Ringer's (Lactated Ringers Solution) 1,000 mls @ 125 mls/hr IV ASDIR [facility] Last Admin: 02/04/18 17:16 Dose: Not Given Insulin Aspart (Novolog Vial) 0 units SQ ACHS [facility]; Protocol Last Admin: 02/05/18 11:56 Dose: 6 units Losartan Potassium (Cozaar -) 25 mg PO DAILY [facility] Last Admin: 02/05/18 09:48 Dose: 25 mg Multivitamins/Minerals/Vitamin C (Tab-A-Vit -) 1 tab PO DAILY [facility] Last Admin: 02/05/18 09:49 Dose: 1 tab Ondansetron HCl (Zofran Injection) 4 mg IVPUSH Q6H PRN PRN Reason: NAUSEA AND/OR VOMITING Pantoprazole Sodium (Protonix -) 20 mg PO DAILY [facility] Last Admin: 02/05/18 09:49 Dose: 20 mg Ranitidine HCl (Zantac -) 150 mg PO DAILY [facility] Last Admin: 02/05/18 09:49 Dose: 150 mg Gen: Awake, alert, NAD Continue NEW CAR MAKE READY WORKER. Continue management as per primary team
[2018-02-05] MEDS: HYDROmorphone *PCA* 10MG/50ML DISP.SYRIN PCA SCH (17:49)
[2018-02-05] MEDS: LACTATED RINGERS SOLUTION 1,000 ML IV SCH (18:07)
--- NOTE | 2018-02-05 18:16 | PATH ---
Surgical Pathology Report Patient Name: ANITHA FLORES Med. Rec. #: [id number] /Age/Gender: 1965 (Age: 52) / F Account: [id number] Location: [facility] MED/SURG Taken: 02/03/2018 Received: 02/04/2018 Reported: 02/05/2018 Physicians: Jj Espinal M.D. Specimen(s) Received C5-C6-C7 DISC Clinical History Radiculopathy C5-C7 left Final Diagnosis C5, C6, C7, DISCECTOMY; BONE AND CARTILAGINOUS TISSUE WITH DEGENERATIVE CHANGE. Electronically Signed Nolberto Reddy M.D. Gross Description Received in formalin labeled "C5-C6-C7 disc," is a 3.5 x 2.6 x 0.3 cm aggregate of hairston fragments of fibrocartilaginous tissue. A investment representative portion is submitted in one cassette. /02/04/2018 saudi02/04/2018
[2018-02-06] MEDS: D5-1/2NS+20 MEQ KCL - 20 MEQ/1,000 ML INFUS.BAG IV SCH (06:09)
[2018-02-06] MEDS: GABAPENTIN 300 MG CAPSULE (FP) PO SCH ×3 (06:10→22:20)
[2018-02-06] MEDS: DOCUSATE SODIUM 100 MG CAPSULE (FP) PO SCH ×3 (06:10→22:20)
[2018-02-06] MEDS: CYCLOBENZAPRINE HCL 10 MG TABLET (FP) PO SCH ×3 (06:10→22:20)
[2018-02-06] MEDS: INSULIN (NOVOLOG) ASPART 100 UNITS/ML 10ML VIAL SQ SCH ×4 (06:14→22:21)
--- NOTE | 2018-02-06 06:48 | PN ---
Progress Note, Physician Chief Complaint: feels better eating breakfast, less pain, still some LUE numbness (d/w pt will last for awhile, will need neurontin and outpt PT); slept better tachycardia noted last night and this am; will check EKG and cardio f/u; no CP/ SOB no dizziness or palpitations - Current Medication List Current Medications: Active Medications Acetaminophen (Tylenol -) 650 mg PO Q6H PRN PRN Reason: PAIN Last Admin: 02/02/18 23:56 Dose: 650 mg Acetaminophen (Tylenol -) 325 mg PO TID PRN PRN Reason: PAIN LEVEL 4 - 6 Last Admin: 02/02/18 16:56 Dose: 325 mg Budesonide/Formoterol Fumarate (Symbicort 80/4.5mcg -) 1 puff [facility]H BID [facility] Last Admin: 02/05/18 21:40 Dose: 1 puff Cyclobenzaprine HCl (Flexeril -) 10 mg PO TID [facility] Last Admin: 02/06/18 06:10 Dose: 10 mg Diazepam (Valium -) 5 mg PO HS [facility] Last Admin: 02/05/18 21:40 Dose: 5 mg Docusate Sodium (Colace -) 100 mg PO TID [facility] Last Admin: 02/06/18 06:10 Dose: 100 mg Gabapentin (Neurontin -) 600 mg PO TID [facility] Last Admin: 02/06/18 06:10 Dose: 600 mg Heparin Sodium (Porcine) (Heparin -) 5,000 unit SQ BID [facility] Last Admin: 02/05/18 21:40 Dose: 5,000 unit Hydromorphone HCl (Dilaudid Anthropology And Archeology Instructor -) 10 mg [facility]; Protocol Stop: 02/06/18 16:25 Last Admin: 02/05/18 17:49 Dose: Not Given Potassium Chloride/Dextrose/Sod Cl (D5-1/2ns+20 Meq Kcl -) 20 meq in 1,000 mls @ 100 mls/hr IV ASDIR [facility] Last Admin: 02/06/18 06:09 Dose: Not Given Lactated Ringer's (Lactated Ringers Solution) 1,000 mls @ 125 mls/hr IV ASDIR [facility] Last Admin: 02/05/18 18:07 Dose: Not Given Insulin Aspart (Novolog Vial) 0 units SQ ACHS [facility]; Protocol Last Admin: 02/06/18 06:14 Dose: 4 units Losartan Potassium (Cozaar -) 25 mg PO DAILY [facility] Last Admin: 02/05/18 09:48 Dose: 25 mg Multivitamins/Minerals/Vitamin C (Tab-A-Vit -) 1 tab PO DAILY [facility] Last Admin: 02/05/18 09:49 Dose: 1 tab Ondansetron HCl (Zofran Injection) 4 mg IVPUSH Q6H PRN PRN Reason: NAUSEA AND/OR VOMITING Pantoprazole Sodium (Protonix -) 20 mg PO DAILY [facility] Last Admin: 02/05/18 09:49 Dose: 20 mg Ranitidine HCl (Zantac -) 150 mg PO DAILY [facility] Last Admin: 02/05/18 09:49 Dose: 150 mg - Objective Vital Signs: Vital Signs Temperature 98.3 F 02/05/18 21:00 Pulse Rate 112 H 02/05/18 21:00 Respiratory Rate 20 02/05/18 21:00 Blood Pressure 123/59 L 02/05/18 21:00 O2 Sat by Pulse Oximetry (%) 96 02/05/18 21:00 Constitutional: Yes: No Distress, Calm Eyes: Yes: Conjunctiva Clear HENT: Yes: Atraumatic Neck: Yes: Supple Cardiovascular: Yes: Regular Rate and Rhythm Respiratory: Yes: CTA Bilaterally Gastrointestinal: Yes: Soft. No: Tenderness Genitourinary: No: CVA Tenderness - Left, CVA Tenderness - Right, Hematuria Musculoskeletal: No: Joint Stiffness, Joint Swelling Extremities: No: Cold, Cool, Cyanosis Edema: No Integumentary: No: Rash, Venous Stasis Changes Neurological: Yes: WNL, Alert, Oriented ...Motor Strength: LUE (some mild L hand weakness but seems better, pt able to open boxes for breakfast on her own) Psychiatric: Yes: WNL, Alert, Oriented. No: Agitated, Suicidal Ideation Labs: CBC, BMP 02/05/18 06:30 02/05/18 06:30 INR, PTT INR 0.91 (0.83-1.09) 01/23/18 17:09 - ....Imaging Other: Report Reviewed Assessment/Plan Pt is a 52 yo F, with PMH of NIDDM (on metformin), HLD, arthritis (rotator cuff surgery of L shoulder), who is presenting with complaints of L-sided "shooting" chest pain lower neck and LUE L shoulder pain s/p C6 surgery pain meds per neurosurgery, increased neurontin helped with numbness c/o cardiology f/u for tachycardia; check EKG NS, ortho and neurology f/u restart sq heparin when OK with surgery d/w pt and staff
[2018-02-06] MEDS: RANITIDINE HCL 150 MG TABLET (FP) PO SCH (09:09)
[2018-02-06] MEDS: PANTOPRAZOLE 20 MG TABLET (FP) PO SCH (09:09)
[2018-02-06] MEDS: HEPARIN NA (PORCINE) 5,000 UNITS/ML 1ML VIAL SQ SCH ×2 (09:09→22:20)
[2018-02-06] MEDS: MULTIVITAMINS (DAILY MVI) TABLET (FP) PO SCH (09:09)
[2018-02-06] MEDS: LOSARTAN POTASSIUM 25 MG TABLET PO SCH (09:09)
[2018-02-06] MEDS: BUDESONIDE/FORMETEROL FUMARATE 80/4.5 mcg INHALER IH SCH ×2 (09:09→22:21)
--- NOTE | 2018-02-06 09:52 | PN ---
Progress Note (short form) - Note Progress Note: NEUROSURGERY POD #3 Tolerating regular diet No neck pain Some L arm burning pain and spasm but better PE: Tmax 98.8, AF, VSS, [place] normalizing HEENT- NC/AT; Neck-L sided incision intact; Cor- RR; Lungs- CTA B; Abd- benign, obese; Ext- no sign of DVT Dressing C/D/I CN- intact; Motor- 4/5 B UE/LE except L triceps 4-; Sensation- intact LT, decreased PP L C7; DTR- hyporeflexic B C spine x-rays- good alignment C5-6-7; implants in satisfactory position S/P C5-7 ACDF for cervical DDD/spondylosis & L C7 radiculopathy Spoke to pt re: findings and pt condition On Neurontin 600 mg tid On SQ heparin for DVT prophylaxis Adv diet PT Consider transitioning from CLINICAL EDUCATOR to oral regimen
--- NOTE | 2018-02-06 10:01 | PN ---
Progress Note (short form) - Note Progress Note: Anesthesia/Pain Pt seen and examined S:Alert and awake O: Vital Signs Temperature 98 F 02/06/18 07:00 Pulse Rate 97 H 02/06/18 07:00 Respiratory Rate 20 02/05/18 21:00 Blood Pressure 139/78 02/06/18 07:00 O2 Sat by Pulse Oximetry (%) 96 02/05/18 21:00 CBC, BMP 02/05/18 06:30 02/05/18 06:30 a/p: Current Active Problems Chest pain (Acute) Hyperlipidemia (Acute) Hypertension (Acute) Left arm weakness (Acute) Type 2 diabetes mellitus (Acute) s/p ACDF doing well post op Continue current care Gael Sommers MD
[2018-02-06] MEDS ORDERED: INSULIN (NOVOLOG) ASPART 100 UNITS/ML 10ML VIAL ONE (11:29)
--- NOTE | 2018-02-06 14:27 | PN ---
Progress Note (short form) - Note Progress Note: Chief Complaint: Events noted, notes reviewed, denies any chest pain or dyspnea , denies any palpitations History of Present Illness: Seen and examined. Events noted, notes reviewed, denies any chest pain or dyspnea, denies any palpitations Was called earlier for tachycardia, EKG revealed sinus tachycardia with ST segment changes Medications: Current Medications Acetaminophen (Tylenol -) 650 mg PO Q6H PRN PRN Reason: PAIN Last Admin: 02/02/18 23:56 Dose: 650 mg Acetaminophen (Tylenol -) 325 mg PO TID PRN PRN Reason: PAIN LEVEL 4 - 6 Last Admin: 02/02/18 16:56 Dose: 325 mg Budesonide/Formoterol Fumarate (Symbicort 80/4.5mcg -) 1 puff IH BID [facility] Last Admin: 02/06/18 09:09 Dose: 1 puff Cyclobenzaprine HCl (Flexeril -) 10 mg PO TID [facility] Last Admin: 02/06/18 13:03 Dose: 10 mg Diazepam (Valium -) 5 mg PO HS [facility] Last Admin: 02/05/18 21:40 Dose: 5 mg Docusate Sodium (Colace -) 100 mg PO TID [facility] Last Admin: 02/06/18 13:03 Dose: 100 mg Gabapentin (Neurontin -) 600 mg PO TID [facility] Last Admin: 02/06/18 13:03 Dose: 600 mg Heparin Sodium (Porcine) (Heparin -) 5,000 unit SQ BID [facility] Last Admin: 02/06/18 09:09 Dose: 5,000 unit Hydromorphone HCl (Dilaudid Ui Developer -) 10 mg PRECINCT CAPTAIN PRECINCT CAPTAIN [facility]; Protocol Stop: 02/06/18 16:25 Last Admin: 02/05/18 17:49 Dose: Not Given Potassium Chloride/Dextrose/Sod Cl (D5-1/2ns+20 Meq Kcl -) 20 meq in 1,000 mls @ 100 mls/hr IV ASDIR [facility] Last Admin: 02/06/18 06:09 Dose: Not Given Lactated Ringer's (Lactated Ringers Solution) 1,000 mls @ 125 mls/hr IV ASDIR [facility] Last Admin: 02/05/18 18:07 Dose: Not Given Insulin Aspart (Novolog Vial) 0 units SQ ACHS [facility]; Protocol Last Admin: 02/06/18 11:31 Dose: 4 units Losartan Potassium (Cozaar -) 25 mg PO DAILY [facility] Last Admin: 02/06/18 09:09 Dose: 25 mg Multivitamins/Minerals/Vitamin C (Tab-A-Vit -) 1 tab PO DAILY [facility] Last Admin: 02/06/18 09:09 Dose: 1 tab Ondansetron HCl (Zofran Injection) 4 mg IVPUSH Q6H PRN PRN Reason: NAUSEA AND/OR VOMITING Pantoprazole Sodium (Protonix -) 20 mg PO DAILY [facility] Last Admin: 02/06/18 09:09 Dose: 20 mg Ranitidine HCl (Zantac -) 150 mg PO DAILY [facility] Last Admin: 02/06/18 09:09 Dose: 150 mg Vital Signs: Last Vital Signs Temp Pulse Resp BP Pulse Ox 98 F 97 H 20 139/78 96 02/06/18 07:00 02/06/18 07:00 02/05/18 21:00 02/06/18 07:00 02/05/18 21:00 Intake & Output 02/03/18 02/04/18 02/05/18 02/06/18 23:59 23:59 23:59 23:59 Intake Total 3200 1500 1234 380 Output Total 2250 Balance 950 1500 1234 380 Neck: Supple Negative JVD No Bruit Respiratory: Clear to A&P Bilaterally Cardiovascular: S1 S2 Regularly Rate and Rhythm Tachycardia Gastrointestinal: Soft Benign Normal Bowel Sounds Ext: Negative Edema Labs: CBC, BMP 02/05/18 06:30 02/05/18 06:30 Assessment/Plan ASSESSMENT: 1. POD #3 post Cristóbal jonas; Partial corpectomies C5 and C6, anterior discectomies C5-6 and C6-7; anterior interbody fusion C5-6, C6-7; interbody 7 mm lordotic implants C5-6 and C6-7; anterior instrumentation C5-6-7; microdissection 2. Sinus tachycardia, reactionary 3. HTN 4. DM PLAN: 1. Pain management as per the primary team 2. Continue Cozaar 3. If sinus tachycardia persists without any clear etiology (afebrile, adequet pain management) may add B-Blockers Magnolia Song M.D.
[2018-02-06] MEDS: diazePAM 5 MG TABLET PO SCH (22:21)
[2018-02-07] MEDS: DOCUSATE SODIUM 100 MG CAPSULE (FP) PO SCH ×3 (06:36→21:49)
[2018-02-07] MEDS: D5-1/2NS+20 MEQ KCL - 20 MEQ/1,000 ML INFUS.BAG IV SCH (06:37)
[2018-02-07] MEDS: GABAPENTIN 300 MG CAPSULE (FP) PO SCH ×3 (06:37→21:49)
[2018-02-07] MEDS: CYCLOBENZAPRINE HCL 10 MG TABLET (FP) PO SCH ×3 (06:37→21:49)
[2018-02-07] MEDS: INSULIN (NOVOLOG) ASPART 100 UNITS/ML 10ML VIAL SQ SCH ×4 (06:41→21:49)
[2018-02-07 07:52] LABS: BASO % 0.9 % (0-2.0); EOS % 1.6 % (0-4.5); HEMATOCRIT 36.9 % (32.4-45.2); HEMOGLOBIN 11.8 GM/dL (10.7-15.3); LYMPH % 29.2 % (8-40); MCH 27.7 pg (25.7-33.7); MCHC 32.1 g/dl (32.0-36.0); MEAN CELL VOLUME 86.4 fl (80-96); MEAN PLT VOLUME 8.6 fl (7.5-11.1); MONO % 8.3 % (3.8-10.2); PLATELET COUNT 207 K/MM3 (134-434); RBC 4.27 M/mm3 (3.60-5.2); WHITE BLOOD COUNT 8.5 K/mm3 (4.0-10.0)
[2018-02-07 08:20] LABS: ALBUMIN 2.9 g/dl (3.4-5.0); ALK PHOS 98 U/L (45-117); ANION GAP 6 MMOL/L (8-16); BILIRUBIN,TOTAL 0.4 mg/dL (0.2-1); BLOOD UREA NITROGEN 9 mg/dL (7-18); CALCIUM 8.3 mg/dL (8.5-10.1); CHLORIDE 100 mmol/L (98-107); CO2 28 mmol/L (21-32); CREATININE 0.5 mg/dL (0.55-1.3); GLUCOSE,RANDOM 191 mg/dL (74-106); SGOT/AST 9 U/L (15-37); SGPT/ALT 25 U/L (13-61); SODIUM 135 mmol/L (136-145); TOT PROT 6.3 g/dl (6.4-8.2)
--- NOTE | 2018-02-07 08:35 | PN ---
Progress Note (short form) - Note Progress Note: NEUROSURGERY POD #4 Tolerating regular diet No neck pain L arm stiffness but less burning pain and spasm Some mdiline chest discomfort earlier Has slight cough PE: AF, VSS, HEENT- NC/AT; Neck-L sided incision intact; Cor- RR; Lungs- CTA B; Abd- benign, obese; Ext- no sign of DVT Dressing C/D/I CN- intact; Motor- 4/5 B UE/LE except L triceps 4-; Sensation- intact LT, decreased PP L C7; DTR- hyporeflexic B C spine x-rays- good alignment C5-6-7; implants in satisfactory position S/P C5-7 ACDF for cervical DDD/spondylosis & L C7 radiculopathy On Neurontin 600 mg tid On SQ heparin for DVT prophylaxis Adv diet PT Cardiology f/u
--- NOTE | 2018-02-07 08:37 | PN ---
Progress Note, Physician Chief Complaint: feels better has some pain in LUE and numbness but overall less consult appreciated - Current Medication List Current Medications: Active Medications Acetaminophen (Tylenol -) 650 mg PO Q6H PRN PRN Reason: PAIN Last Admin: 02/02/18 23:56 Dose: 650 mg Acetaminophen (Tylenol -) 325 mg PO TID PRN PRN Reason: PAIN LEVEL 4 - 6 Last Admin: 02/02/18 16:56 Dose: 325 mg Budesonide/Formoterol Fumarate (Symbicort 80/4.5mcg -) 1 puff IH BID [facility] Last Admin: 02/06/18 22:21 Dose: 1 puff Cyclobenzaprine HCl (Flexeril -) 10 mg PO TID [facility] Last Admin: 02/07/18 06:37 Dose: 10 mg Diazepam (Valium -) 5 mg PO HS [facility] Last Admin: 02/06/18 22:21 Dose: 5 mg Docusate Sodium (Colace -) 100 mg PO TID [facility] Last Admin: 02/07/18 06:36 Dose: 100 mg Gabapentin (Neurontin -) 600 mg PO TID [facility] Last Admin: 02/07/18 06:37 Dose: 600 mg Heparin Sodium (Porcine) (Heparin -) 5,000 unit SQ BID [facility] Last Admin: 02/06/18 22:20 Dose: 5,000 unit Potassium Chloride/Dextrose/Sod Cl (D5-1/2ns+20 Meq Kcl -) 20 meq in 1,000 mls @ 100 mls/hr IV ASDIR [facility] Last Admin: 02/07/18 06:37 Dose: 100 mls/hr Lactated Ringer's (Lactated Ringers Solution) 1,000 mls @ 125 mls/hr IV ASDIR [facility] Last Admin: 02/05/18 18:07 Dose: Not Given Insulin Aspart (Novolog Vial) 0 units SQ ACHS [facility]; Protocol Last Admin: 02/07/18 06:41 Dose: 4 units Losartan Potassium (Cozaar -) 25 mg PO DAILY [facility] Last Admin: 02/06/18 09:09 Dose: 25 mg Multivitamins/Minerals/Vitamin C (Tab-A-Vit -) 1 tab PO DAILY [facility] Last Admin: 02/06/18 09:09 Dose: 1 tab Ondansetron HCl (Zofran Injection) 4 mg IVPUSH Q6H PRN PRN Reason: NAUSEA AND/OR VOMITING Pantoprazole Sodium (Protonix -) 20 mg PO DAILY [facility] Last Admin: 02/06/18 09:09 Dose: 20 mg Ranitidine HCl (Zantac -) 150 mg PO DAILY [facility] Last Admin: 02/06/18 09:09 Dose: 150 mg - Objective Vital Signs: Vital Signs Temperature 98.3 F 02/07/18 06:28 Pulse Rate 95 H 02/07/18 06:28 Respiratory Rate 20 02/07/18 06:28 Blood Pressure 150/66 02/07/18 06:28 O2 Sat by Pulse Oximetry (%) 98 02/06/18 21:00 Constitutional: Yes: No Distress, Calm Eyes: Yes: Conjunctiva Clear HENT: Yes: Atraumatic Neck: Yes: Supple Cardiovascular: Yes: Regular Rate and Rhythm Respiratory: Yes: CTA Bilaterally Gastrointestinal: Yes: Soft. No: Distention Genitourinary: No: CVA Tenderness - Left, CVA Tenderness - Right Musculoskeletal: No: Joint Stiffness, Joint Swelling Extremities: No: Cold, Cool, Cyanosis Edema: No Integumentary: No: Rash, Venous Stasis Changes Neurological: Yes: WNL, Alert, Oriented ...Motor Strength: LUE (LUE hand mild weakness) Psychiatric: Yes: WNL, Alert, Oriented. No: Agitated, Suicidal Ideation Labs: CBC, BMP 02/07/18 06:40 02/07/18 06:40 INR, PTT INR 0.91 (0.83-1.09) 01/23/18 17:09 - ....Imaging Other: Report Reviewed Assessment/Plan Pt is a 52 yo F, with PMH of NIDDM (on metformin), HLD, arthritis (rotator cuff surgery of L shoulder), who is presenting with complaints of L-sided "shooting" chest pain lower neck and LUE L shoulder pain s/p C6 surgery pain meds per neurosurgery, increased neurontin helped with numbness cardiology f/u for tachycardia; restarted sq heparin PT rehab d/w pt and staff
[2018-02-07] MEDS: LACTATED RINGERS SOLUTION 1,000 ML IV SCH ×2 (09:26→12:32)
[2018-02-07] MEDS: LOSARTAN POTASSIUM 25 MG TABLET PO SCH (09:26)
[2018-02-07] MEDS: HEPARIN NA (PORCINE) 5,000 UNITS/ML 1ML VIAL SQ SCH ×2 (09:26→21:49)
[2018-02-07] MEDS: RANITIDINE HCL 150 MG TABLET (FP) PO SCH (09:26)
[2018-02-07] MEDS: PANTOPRAZOLE 20 MG TABLET (FP) PO SCH (09:27)
[2018-02-07] MEDS: MULTIVITAMINS (DAILY MVI) TABLET (FP) PO SCH (09:27)
[2018-02-07] MEDS: BUDESONIDE/FORMETEROL FUMARATE 80/4.5 mcg INHALER IH SCH ×2 (09:28→21:50)
--- NOTE | 2018-02-07 10:06 | EKG ---
Test Reason : Blood Pressure : / mmHG Vent. Rate : 106 BPM Atrial Rate : 106 BPM P-R Int : 146 ms QRS Dur : 082 ms QT Int : 326 ms P-R-T Axes : 061 -08 008 degrees QTc Int : 433 ms SINUS TACHYCARDIA Confirmed by AUGUST GARCIA MD ([id number]) on 02/07/2018 10:06:35 AM Referred By: Soha WATSON Confirmed By:AUGUST GARCIA MD
[2018-02-07] MEDS ORDERED: ALBUTEROL SO4 8 GM HFA INHALER IH PRN (11:39)
--- NOTE | 2018-02-07 13:38 | PN ---
Progress Note (short form) - Note Progress Note: Chief Complaint: Events noted, notes reviewed, patient has been reporting recurrent episodes of vague retro-sternal chest discomfort that subsides spontaneously, denies any dyspnea, denies any palpitations History of Present Illness: Seen and examined. Events noted, notes reviewed, patient has been reporting recurrent episodes of vague retro-sternal chest discomfort that subsides spontaneously, denies any dyspnea, denies any palpitations Medications: Current Medications Acetaminophen (Tylenol -) 650 mg PO Q6H PRN PRN Reason: PAIN Last Admin: 02/02/18 23:56 Dose: 650 mg Acetaminophen (Tylenol -) 325 mg PO TID PRN PRN Reason: PAIN LEVEL 4 - 6 Last Admin: 02/02/18 16:56 Dose: 325 mg Albuterol Sulfate (Ventolin Hfa Inhaler -) 2 puff IH Q4H PRN PRN Reason: SHORT OF BREATH/WHEEZING Budesonide/Formoterol Fumarate (Symbicort 80/4.5mcg -) 1 puff IH BID [facility] Last Admin: 02/07/18 09:28 Dose: 1 puff Cyclobenzaprine HCl (Flexeril -) 10 mg PO TID [facility] Last Admin: 02/07/18 06:37 Dose: 10 mg Diazepam (Valium -) 5 mg PO HS [facility] Last Admin: 02/06/18 22:21 Dose: 5 mg Docusate Sodium (Colace -) 100 mg PO TID [facility] Last Admin: 02/07/18 06:36 Dose: 100 mg Gabapentin (Neurontin -) 600 mg PO TID [facility] Last Admin: 02/07/18 06:37 Dose: 600 mg Heparin Sodium (Porcine) (Heparin -) 5,000 unit SQ BID [facility] Last Admin: 02/07/18 09:26 Dose: 5,000 unit Lactated Ringer's (Lactated Ringers Solution) 1,000 mls @ 125 mls/hr IV ASDIR [facility] Last Admin: 02/07/18 09:26 Dose: 125 mls/hr Insulin Aspart (Novolog Vial) 0 units SQ ACHS [facility]; Protocol Last Admin: 02/07/18 12:32 Dose: 4 units Losartan Potassium (Cozaar -) 25 mg PO DAILY [facility] Last Admin: 02/07/18 09:26 Dose: 25 mg Multivitamins/Minerals/Vitamin C (Tab-A-Vit -) 1 tab PO DAILY [facility] Last Admin: 02/07/18 09:27 Dose: 1 tab Ondansetron HCl (Zofran Injection) 4 mg IVPUSH Q6H PRN PRN Reason: NAUSEA AND/OR VOMITING Pantoprazole Sodium (Protonix -) 20 mg PO DAILY [facility] Last Admin: 02/07/18 09:27 Dose: 20 mg Ranitidine HCl (Zantac -) 150 mg PO DAILY [facility] Last Admin: 02/07/18 09:26 Dose: 150 mg Vital Signs: Last Vital Signs Temp Pulse Resp BP Pulse Ox 98.3 F 95 H 20 150/66 98 02/07/18 06:28 02/07/18 06:28 02/07/18 06:28 02/07/18 06:28 02/06/18 21:00 Intake & Output 02/04/18 02/05/18 02/06/18 02/07/18 23:59 23:59 23:59 23:59 Intake Total 1500 1234 380 200 Balance 1500 1234 380 200 Neck: Supple Negative JVD No Bruit Respiratory: Clear to A&P Bilaterally Cardiovascular: S1 S2 Regularly Rate and Rhythm Gastrointestinal: Soft Benign Normal Bowel Sounds Ext: Negative Edema Labs: CBC, BMP 02/07/18 06:40 02/07/18 06:40 Assessment/Plan ASSESSMENT: 1. POD #4 post Cristóbal jonas; Partial corpectomies C5 and C6, anterior discectomies C5-6 and C6-7; anterior interbody fusion C5-6, C6-7; interbody 7 mm lordotic implants C5-6 and C6-7; anterior instrumentation C5-6-7; microdissection 2. Chest pain syndrome atypical for CAD angina peectoris 3. Sinus tachycardia, reactionary 4. HTN 5. DM PLAN: 1. Pain management as per the primary team 2. Add B-Blockers. Lopressor 3. Continue Latosha Song M.D.
[2018-02-07] MEDS: METOPROLOL TARTRATE 25 MG TABLET (FP) PO SCH ×2 (14:10→21:49)
[2018-02-07] MEDS: oxyCODONE HCL 5 MG TABLET PO PRN (17:32)
[2018-02-07] MEDS ORDERED: INSULIN (NOVOLOG) ASPART 100 UNITS/ML 10ML VIAL ONE (21:22)
[2018-02-07] MEDS ORDERED: PT OWN MED DRAWER 7, Y5N ONE (21:23)
[2018-02-07] MEDS: diazePAM 5 MG TABLET PO SCH (21:49)
[2018-02-08] MEDS: DOCUSATE SODIUM 100 MG CAPSULE (FP) PO SCH ×3 (06:13→21:34)
[2018-02-08] MEDS: CYCLOBENZAPRINE HCL 10 MG TABLET (FP) PO SCH (06:13)
[2018-02-08] MEDS: GABAPENTIN 300 MG CAPSULE (FP) PO SCH ×3 (06:13→21:34)
[2018-02-08] MEDS: INSULIN (NOVOLOG) ASPART 100 UNITS/ML 10ML VIAL SQ SCH ×4 (06:19→21:35)
[2018-02-08] MEDS ORDERED: INSULIN (NOVOLOG) ASPART 100 UNITS/ML 10ML VIAL ONE ×2 (06:39→18:25)
--- NOTE | 2018-02-08 07:10 | PN ---
Progress Note, Physician Chief Complaint: less pain but sleepy - arousable; said she feels tired will decrease flexeril from 10 mg tid to 5 mg tid consults appreciated - Current Medication List Current Medications: Active Medications Acetaminophen (Tylenol -) 650 mg PO Q6H PRN PRN Reason: PAIN 1-3 Last Admin: 02/02/18 23:56 Dose: 650 mg Acetaminophen (Tylenol -) 325 mg PO TID PRN PRN Reason: PAIN LEVEL 4 - 6 Last Admin: 02/02/18 16:56 Dose: 325 mg Albuterol Sulfate (Ventolin Hfa Inhaler -) 2 puff IH Q4H PRN PRN Reason: SHORT OF BREATH/WHEEZING Budesonide/Formoterol Fumarate (Symbicort 80/4.5mcg -) 1 puff IH BID [facility] Last Admin: 02/07/18 21:50 Dose: 1 puff Cyclobenzaprine HCl (Flexeril -) 10 mg PO TID [facility] Last Admin: 02/08/18 06:13 Dose: 10 mg Diazepam (Valium -) 5 mg PO [facility] Last Admin: 02/07/18 21:49 Dose: 5 mg Docusate Sodium (Colace -) 100 mg PO TID [facility] Last Admin: 02/08/18 06:13 Dose: 100 mg Gabapentin (Neurontin -) 600 mg PO TID [facility] Last Admin: 02/08/18 06:13 Dose: 600 mg Heparin Sodium (Porcine) (Heparin -) 5,000 unit SQ BID [facility] Last Admin: 02/07/18 21:49 Dose: 5,000 unit Lactated Ringer's (Lactated Ringers Solution) 1,000 mls @ 125 mls/hr IV ASDIR [facility] Last Admin: 02/07/18 09:26 Dose: 125 mls/hr Insulin Aspart (Novolog Vial) 0 units SQ ACHS [facility]; Protocol Last Admin: 02/08/18 06:19 Dose: 4 units Losartan Potassium (Cozaar -) 25 mg PO DAILY [facility] Last Admin: 02/07/18 09:26 Dose: 25 mg Metoprolol Tartrate (Lopressor -) 25 mg PO BID [facility] Last Admin: 02/07/18 21:49 Dose: 25 mg Multivitamins/Minerals/Vitamin C (Tab-A-Vit -) 1 tab PO DAILY [facility] Last Admin: 02/07/18 09:27 Dose: 1 tab Ondansetron HCl (Zofran Injection) 4 mg IVPUSH Q6H PRN PRN Reason: NAUSEA AND/OR VOMITING Oxycodone HCl (Roxicodone -) 5 mg PO Q6H PRN PRN Reason: PAIN 7-10 Last Admin: 02/07/18 17:32 Dose: 5 mg Pantoprazole Sodium (Protonix -) 20 mg PO DAILY [facility] Last Admin: 02/07/18 09:27 Dose: 20 mg Ranitidine HCl (Zantac -) 150 mg PO DAILY [facility] Last Admin: 02/07/18 09:26 Dose: 150 mg - Objective Vital Signs: Vital Signs Temperature 98.2 F 02/08/18 00:00 Pulse Rate 92 H 02/08/18 00:00 Respiratory Rate 20 02/08/18 00:00 Blood Pressure 138/78 02/08/18 00:00 O2 Sat by Pulse Oximetry (%) 97 02/07/18 09:00 Constitutional: Yes: No Distress, Calm Eyes: Yes: Conjunctiva Clear HENT: Yes: Atraumatic Neck: Yes: Supple Cardiovascular: Yes: Regular Rate and Rhythm Respiratory: Yes: CTA Bilaterally Gastrointestinal: Yes: Soft. No: Distention Genitourinary: No: CVA Tenderness - Left, CVA Tenderness - Right Musculoskeletal: No: Joint Stiffness, Joint Swelling Extremities: No: Cold, Cool, Cyanosis Edema: No Integumentary: No: Rash, Venous Stasis Changes Neurological: Yes: WNL, Alert, Oriented ...Motor Strength: LUE (4+/5 hand) Psychiatric: Yes: WNL, Alert, Oriented. No: Agitated, Suicidal Ideation Labs: CBC, BMP 02/07/18 06:40 02/07/18 06:40 INR, PTT INR 0.91 (0.83-1.09) 01/23/18 17:09 - ....Imaging Other: Report Reviewed Assessment/Plan Pt is a 52 yo F, with PMH of NIDDM (on metformin), HLD, arthritis (rotator cuff surgery of L shoulder), who is presenting with complaints of L-sided "shooting" chest pain lower neck and LUE L shoulder pain s/p C6 surgery pain meds per neurosurgery, increased neurontin helped with numbness decrease flexeril b/o sleepiness; d/w pt and staff do not get OOB alone ask for help falls pfx cardiology f/u restarted sq heparin PT rehab d/w pt and staff
--- NOTE | 2018-02-08 10:11 | PN ---
Progress Note (short form) - Note Progress Note: NEUROSURGERY POD #5 Tolerating regular diet No neck pain, mild incional discomfort Walking independently L arm much better Some midline chest discomfort earlier PE: AF, VSS, HEENT- NC/AT; Neck-L sided incision intact; Cor- RR; Lungs- CTA B; Abd- benign, obese; Ext- no sign of DVT Dressing C/D/I- changed CN- intact; Motor- 4+-5/5 B UE/LE except L triceps 4 (improved); Sensation- intact LT, decreased PP L C7; DTR- hyporeflexic B C spine x-rays- good alignment C5-6-7; implants in satisfactory position S/P C5-7 ACDF for cervical DDD/spondylosis with improved L C7 radiculopathy On Neurontin 600 mg tid On SQ heparin for DVT prophylaxis Adv diet PT Care d/w cardiology yesterday Discharge planning per PMD
[2018-02-08] MEDS: PANTOPRAZOLE 20 MG TABLET (FP) PO SCH (10:19)
[2018-02-08] MEDS: RANITIDINE HCL 150 MG TABLET (FP) PO SCH (10:19)
[2018-02-08] MEDS: HEPARIN NA (PORCINE) 5,000 UNITS/ML 1ML VIAL SQ SCH ×2 (10:19→21:34)
[2018-02-08] MEDS: LOSARTAN POTASSIUM 25 MG TABLET PO SCH (10:19)
[2018-02-08] MEDS: MULTIVITAMINS (DAILY MVI) TABLET (FP) PO SCH (10:19)
[2018-02-08] MEDS: METOPROLOL TARTRATE 25 MG TABLET (FP) PO SCH ×2 (10:19→21:35)
[2018-02-08] MEDS: BUDESONIDE/FORMETEROL FUMARATE 80/4.5 mcg INHALER IH SCH ×2 (10:23→21:36)
[2018-02-08] MEDS ORDERED: PT OWN MED DRAWER 7, Y5N ONE (13:13)
[2018-02-08] MEDS: CYCLOBENZAPRINE HCL 5 MG TABLET PO SCH ×2 (13:22→21:35)
--- NOTE | 2018-02-08 13:29 | PN ---
Progress Note, Physician History of Present Illness: doing well, denies nay major pain this AM, weakness L arm improved S/P C5-7 ACDF for cervical DDD/spondylosis with improved L C7 radiculopathy - Current Medication List Current Medications: Active Medications Acetaminophen (Tylenol -) 650 mg PO Q6H PRN PRN Reason: PAIN 1-3 Last Admin: 02/02/18 23:56 Dose: 650 mg Acetaminophen (Tylenol -) 325 mg PO TID PRN PRN Reason: PAIN LEVEL 4 - 6 Last Admin: 02/02/18 16:56 Dose: 325 mg Albuterol Sulfate (Ventolin Hfa Inhaler -) 2 puff IH Q4H PRN PRN Reason: SHORT OF BREATH/WHEEZING Budesonide/Formoterol Fumarate (Symbicort 80/4.5mcg -) 1 puff IH BID [facility] Last Admin: 02/08/18 10:23 Dose: 1 puff Cyclobenzaprine HCl (Cyclobenzaprine Hcl) 5 mg PO TID [facility] Last Admin: 02/08/18 13:22 Dose: 5 mg Diazepam (Valium -) 5 mg PO HS [facility] Last Admin: 02/07/18 21:49 Dose: 5 mg Docusate Sodium (Colace -) 100 mg PO TID [facility] Last Admin: 02/08/18 13:22 Dose: 100 mg Gabapentin (Neurontin -) 600 mg PO TID [facility] Last Admin: 02/08/18 13:23 Dose: 600 mg Heparin Sodium (Porcine) (Heparin -) 5,000 unit SQ BID [facility] Last Admin: 02/08/18 10:19 Dose: 5,000 unit Lactated Ringer's (Lactated Ringers Solution) 1,000 mls @ 125 mls/hr IV ASDIR [facility] Last Admin: 02/07/18 09:26 Dose: 125 mls/hr Insulin Aspart (Novolog Vial) 0 units SQ ACHS [facility]; Protocol Last Admin: 02/08/18 11:36 Dose: 4 units Losartan Potassium (Cozaar -) 25 mg PO DAILY [facility] Last Admin: 02/08/18 10:19 Dose: 25 mg Metoprolol Tartrate (Lopressor -) 25 mg PO BID [facility] Last Admin: 02/08/18 10:19 Dose: 25 mg Multivitamins/Minerals/Vitamin C (Tab-A-Vit -) 1 tab PO DAILY [facility] Last Admin: 02/08/18 10:19 Dose: 1 tab Ondansetron HCl (Zofran Injection) 4 mg IVPUSH Q6H PRN PRN Reason: NAUSEA AND/OR VOMITING Oxycodone HCl (Roxicodone -) 5 mg PO Q6H PRN PRN Reason: PAIN 7-10 Last Admin: 02/07/18 17:32 Dose: 5 mg Pantoprazole Sodium (Protonix -) 20 mg PO DAILY [facility] Last Admin: 02/08/18 10:19 Dose: 20 mg Ranitidine HCl (Zantac -) 150 mg PO DAILY [facility] Last Admin: 02/08/18 10:19 Dose: 150 mg - Objective Vital Signs: Vital Signs Temperature 98.3 F 02/08/18 11:00 Pulse Rate 99 H 02/08/18 11:00 Respiratory Rate 20 02/08/18 11:00 Blood Pressure 126/64 02/08/18 11:00 O2 Sat by Pulse Oximetry (%) 97 02/07/18 09:00 Labs: CBC, BMP 02/07/18 06:40 02/07/18 06:40 INR, PTT INR 0.91 (0.83-1.09) 01/23/18 17:09 Problem List - Problems (1) Chest pain Code(s): R07.9 - CHEST PAIN, UNSPECIFIED Qualifiers: Chest pain type: unspecified Qualified Code(s): R07.9 - Chest pain, unspecified (2) Left arm weakness Code(s): R29.898 - OTH SYMPTOMS AND SIGNS INVOLVING THE MUSCULOSKELETAL SYSTEM (3) Cervical radicular pain Code(s): M54.12 - RADICULOPATHY, CERVICAL REGION Assessment/Plan S/P C5-7 ACDF for cervical DDD/spondylosis with improved L C7 radiculopathy POD #5 neuro status stable and improving agree with Dc planning DR Crocker
--- NOTE | 2018-02-08 15:59 | PN ---
Progress Note (short form) - Note Progress Note: Chief Complaint: Events noted, notes reviewed, chest discomfort resolved, denies any dyspnea or palpitations History of Present Illness: Seen and examined. Events noted, notes reviewed, chest discomfort resolved, denies any dyspnea or palpitations Medications: Current Medications Acetaminophen (Tylenol -) 650 mg PO Q6H PRN PRN Reason: PAIN 1-3 Last Admin: 02/02/18 23:56 Dose: 650 mg Acetaminophen (Tylenol -) 325 mg PO TID PRN PRN Reason: PAIN LEVEL 4 - 6 Last Admin: 02/02/18 16:56 Dose: 325 mg Albuterol Sulfate (Ventolin Hfa Inhaler -) 2 puff IH Q4H PRN PRN Reason: SHORT OF BREATH/WHEEZING Budesonide/Formoterol Fumarate (Symbicort 80/4.5mcg -) 1 puff IH BID [facility] Last Admin: 02/08/18 10:23 Dose: 1 puff Cyclobenzaprine HCl (Cyclobenzaprine Hcl) 5 mg PO TID [facility] Last Admin: 02/08/18 13:22 Dose: 5 mg Diazepam (Valium -) 5 mg PO HS [facility] Last Admin: 02/07/18 21:49 Dose: 5 mg Docusate Sodium (Colace -) 100 mg PO TID [facility] Last Admin: 02/08/18 13:22 Dose: 100 mg Gabapentin (Neurontin -) 600 mg PO TID [facility] Last Admin: 02/08/18 13:23 Dose: 600 mg Heparin Sodium (Porcine) (Heparin -) 5,000 unit SQ BID [facility] Last Admin: 02/08/18 10:19 Dose: 5,000 unit Lactated Ringer's (Lactated Ringers Solution) 1,000 mls @ 125 mls/hr IV ASDIR [facility] Last Admin: 02/07/18 09:26 Dose: 125 mls/hr Insulin Aspart (Novolog Vial) 0 units SQ ACHS [facility]; Protocol Last Admin: 02/08/18 11:36 Dose: 4 units Losartan Potassium (Cozaar -) 25 mg PO DAILY [facility] Last Admin: 02/08/18 10:19 Dose: 25 mg Metoprolol Tartrate (Lopressor -) 25 mg PO BID [facility] Last Admin: 02/08/18 10:19 Dose: 25 mg Multivitamins/Minerals/Vitamin C (Tab-A-Vit -) 1 tab PO DAILY [facility] Last Admin: 02/08/18 10:19 Dose: 1 tab Ondansetron HCl (Zofran Injection) 4 mg IVPUSH Q6H PRN PRN Reason: NAUSEA AND/OR VOMITING Oxycodone HCl (Roxicodone -) 5 mg PO Q6H PRN PRN Reason: PAIN 7-10 Last Admin: 02/07/18 17:32 Dose: 5 mg Pantoprazole Sodium (Protonix -) 20 mg PO DAILY [facility] Last Admin: 02/08/18 10:19 Dose: 20 mg Ranitidine HCl (Zantac -) 150 mg PO DAILY [facility] Last Admin: 02/08/18 10:19 Dose: 150 mg Vital Signs: Last Vital Signs Temp Pulse Resp BP Pulse Ox 98.8 F 90 18 101/52 L 97 02/08/18 15:32 02/08/18 15:32 02/08/18 15:32 02/08/18 15:32 02/07/18 09:00 Intake & Output 02/05/18 02/06/18 02/07/18 02/08/18 23:59 23:59 23:59 23:59 Intake Total 1234 380 200 380 Balance 1234 380 200 380 Neck: Supple Negative JVD No Bruit Respiratory: Clear to A&P Bilaterally Cardiovascular: S1 S2 Regularly Rate and Rhythm Gastrointestinal: Soft Benign Normal Bowel Sounds Ext: Negative Edema Labs: CBC, BMP 02/07/18 06:40 02/07/18 06:40 Assessment/Plan ASSESSMENT: 1. POD #5 post Cristóbal jonas; Partial corpectomies C5 and C6, anterior discectomies C5-6 and C6-7; anterior interbody fusion C5-6, C6-7; interbody 7 mm lordotic implants C5-6 and C6-7; anterior instrumentation C5-6-7; microdissection 2. Chest pain syndrome atypical for CAD angina pectoris, resolved 3. Sinus tachycardia, resolved 4. HTN 5. DM PLAN: 1. Pain management as per the primary team 2. Continue Lopressor 3. Continue Cozaar 4. Additional cardiovascular evaluation can be performed as outpatient once fully recovered and ambulatory (advised outpatient F/U) Magnolia Song M.D.
[2018-02-08] MEDS: oxyCODONE HCL 5 MG TABLET PO PRN (16:25)
[2018-02-08] MEDS: LACTATED RINGERS SOLUTION 1,000 ML IV SCH (18:15)
[2018-02-08] MEDS: diazePAM 5 MG TABLET PO SCH (23:28)
[2018-02-09] MEDS: GABAPENTIN 300 MG CAPSULE (FP) PO SCH ×3 (05:19→21:45)
[2018-02-09] MEDS: DOCUSATE SODIUM 100 MG CAPSULE (FP) PO SCH ×3 (05:19→21:45)
[2018-02-09] MEDS: CYCLOBENZAPRINE HCL 5 MG TABLET PO SCH ×3 (05:20→21:46)
[2018-02-09] MEDS: ACETAMINOPHEN 325 MG TABLET (FP) PO PRN ×2 (05:50→21:45)
[2018-02-09] MEDS: INSULIN (NOVOLOG) ASPART 100 UNITS/ML 10ML VIAL SQ SCH ×4 (06:19→21:44)
--- NOTE | 2018-02-09 06:45 | DS ---
Physical Examination Vital Signs: Vital Signs Temperature 97.9 F 02/09/18 05:00 Pulse Rate 95 H 02/09/18 05:00 Respiratory Rate 20 02/09/18 05:00 Blood Pressure 130/69 02/09/18 05:00 O2 Sat by Pulse Oximetry (%) 95 02/08/18 23:52 Findings/Remarks: OOB to chair feels better less arm pain less numbness; OK for DC per neurosurgery pt on flexeril neurontin oxycodone and valium - d/w pt risks falls and sleepiness with all of them, and falls constipation, tolerance dependence with oxycodone and valium; to use sparingly and only for strong pain - she is aware DC home instructions d/w pt scripts done pt said her family works today not sure if anyone can pick her up; might leave in the morning; also wants to do PT in am; advised to have home VNS home PT - will arrainge for it in am d/w pt and staff Constitutional: Yes: No Distress, Calm Eyes: Yes: Conjunctiva Clear HENT: Yes: Atraumatic Neck: Yes: Supple Cardiovascular: Yes: Regular Rate and Rhythm Respiratory: Yes: CTA Bilaterally Gastrointestinal: Yes: Soft. No: Distention Renal/: No: CVA Tenderness - Left, CVA Tenderness - Right Musculoskeletal: No: Joint Stiffness, Joint Swelling Extremities: No: Cold, Cool, Cyanosis Edema: No Integumentary: No: Rash, Venous Stasis Changes Neurological: Yes: WNL, Alert, Oriented ...Motor Strength: LUE (L hand better) Psychiatric: Yes: WNL, Alert, Oriented. 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 Hospital Course: improved with surgery; also started on meds muscle relaxants; opiates, valium and neurontin which helped with her c/o. did PT rehab. DC home on meds, f/u as advised Condition: Improved - Instructions Diet, Activity, Other Instructions: f/u PCP and Neurosurgery in 1 week after DC home home VNS home PT f/u neurology, cardiology and ortho in 2-3 weeks after DC home f/u [employer] GI health maintenance as advised outpt [place] PFX RTER if fever, worse pain or arm weakness/numbness or if CP/SOB Referrals: Elizabet Linton [Primary Care Provider] - Tisha Boone MD [Staff Physician] - José Miguel Callahan MD [Staff Physician] - Natanael Soni MD [Staff Physician] - Min Tobar MD [Staff Physician] - Disposition: VNS/HOME HEALTH CARE - Home Medications Comprehensive Discharge Medication List: Ambulatory Orders metFORMIN HCL [Glucophage -] 500 mg PO BID 02/14/16 Budesonide/Formeterol Fumarate [SYMBICORT 80/4.5mcg -] 1 inh PO DAILY 10/14/17 Pantoprazole Sodium [Protonix -] 20 mg PO DAILY PRN 10/14/17 Multivitamin with Iron [Multivitamins with Iron] 1 tab PO DAILY 10/22/17 Aspirin [ASA -] 81 mg PO DAILY 01/24/18 Acetaminophen [Tylenol .Regular Strength -] 650 mg PO Q6H PRN tablet 01/29/18 Gabapentin [Neurontin -] 300 mg PO TID capsule 01/29/18 Ibuprofen [Motrin -] 400 mg PO Q6H PRN tablet 01/29/18 Insulin (Novolog) [Novolog -] 0 units SQ ACHS units 01/29/18 oxyCODONE HCL [Roxicodone -] 5 mg PO QID PRN tablet MDD 20 01/29/18 Cyclobenzaprine HCl [Flexeril -] 10 mg PO TID PRN #30 tablet 02/02/18 Losartan Potassium [Cozaar -] 25 mg PO DAILY #30 tablet 02/02/18 Ranitidine [Zantac -] 150 mg PO DAILY tablet 02/02/18
[2018-02-09] MEDS ORDERED: PT OWN MED DRAWER 7, Y5N ONE (09:20)
--- NOTE | 2018-02-09 10:47 | PN ---
Progress Note (short form) - Note Progress Note: NEUROSURGERY POD #6 Tolerating regular diet No neck pain, mild incisional discomfort Walking independently L arm much better c/w last week PE: AF, VSS, HEENT- NC/AT; Neck-L sided incision intact; Cor- RR; Lungs- CTA B; Abd- benign, obese; Ext- no sign of DVT CN- intact; Motor- 4+-5/5 B UE/LE except L triceps 4 (improved also); Sensation - intact LT, decreased PP L C7; DTR- hyporeflexic B C spine x-rays- good alignment C5-6-7; implants in satisfactory position S/P C5-7 ACDF for cervical DDD/spondylosis with improved L C7 radiculopathy On Neurontin 600 mg tid On SQ heparin for DVT prophylaxis Adv diet PT Discharge planning per PMD f/u plans discussed (pt to call for appt to be seen in about 8-10 days)
[2018-02-09] MEDS: HEPARIN NA (PORCINE) 5,000 UNITS/ML 1ML VIAL SQ SCH ×2 (11:12→21:44)
[2018-02-09] MEDS: MULTIVITAMINS (DAILY MVI) TABLET (FP) PO SCH (11:13)
[2018-02-09] MEDS: RANITIDINE HCL 150 MG TABLET (FP) PO SCH (11:13)
[2018-02-09] MEDS: METOPROLOL TARTRATE 25 MG TABLET (FP) PO SCH ×2 (11:13→21:48)
[2018-02-09] MEDS: LOSARTAN POTASSIUM 25 MG TABLET PO SCH (11:13)
[2018-02-09] MEDS: PANTOPRAZOLE 20 MG TABLET (FP) PO SCH (11:13)
[2018-02-09] MEDS: BUDESONIDE/FORMETEROL FUMARATE 80/4.5 mcg INHALER IH SCH ×2 (11:16→21:44)
--- NOTE | 2018-02-09 11:20 | PN ---
Progress Note (short form) - Note Progress Note: Chief Complaint: Events noted, notes reviewed, chest discomfort resolved, denies any dyspnea or palpitations, ambulating without any difficulty History of Present Illness: Seen and examined. Events noted, notes reviewed, chest discomfort resolved, denies any dyspnea or palpitations, ambulating without any difficulty Medications: Current Medications Acetaminophen (Tylenol -) 650 mg PO Q6H PRN PRN Reason: PAIN 1-3 Last Admin: 02/02/18 23:56 Dose: 650 mg Acetaminophen (Tylenol -) 325 mg PO TID PRN PRN Reason: PAIN LEVEL 4 - 6 Last Admin: 02/09/18 05:50 Dose: 325 mg Albuterol Sulfate (Ventolin Hfa Inhaler -) 2 puff IH Q4H PRN PRN Reason: SHORT OF BREATH/WHEEZING Budesonide/Formoterol Fumarate (Symbicort 80/4.5mcg -) 1 puff IH BID [facility] Last Admin: 02/09/18 11:16 Dose: 1 puff Cyclobenzaprine HCl (Cyclobenzaprine Hcl) 5 mg PO TID [facility] Last Admin: 02/09/18 05:20 Dose: 5 mg Diazepam (Valium -) 5 mg PO HS [facility] Last Admin: 02/08/18 23:28 Dose: 5 mg Docusate Sodium (Colace -) 100 mg PO TID [facility] Last Admin: 02/09/18 05:19 Dose: 100 mg Gabapentin (Neurontin -) 600 mg PO TID [facility] Last Admin: 02/09/18 05:19 Dose: 600 mg Heparin Sodium (Porcine) (Heparin -) 5,000 unit SQ BID [facility] Last Admin: 02/09/18 11:12 Dose: 5,000 unit Insulin Aspart (Novolog Vial) 0 units SQ [facility]; Protocol Last Admin: 02/09/18 06:19 Dose: 4 units Losartan Potassium (Cozaar -) 25 mg PO DAILY [facility] Last Admin: 02/09/18 11:13 Dose: 25 mg Metoprolol Tartrate (Lopressor -) 25 mg PO BID [facility] Last Admin: 02/09/18 11:13 Dose: 25 mg Multivitamins/Minerals/Vitamin C (Tab-A-Vit -) 1 tab PO DAILY [facility] Last Admin: 02/09/18 11:13 Dose: 1 tab Ondansetron HCl (Zofran Injection) 4 mg IVPUSH Q6H PRN PRN Reason: NAUSEA AND/OR VOMITING Oxycodone HCl (Roxicodone -) 5 mg PO Q6H PRN PRN Reason: PAIN 7-10 Last Admin: 02/08/18 16:25 Dose: 5 mg Pantoprazole Sodium (Protonix -) 20 mg PO DAILY [facility] Last Admin: 02/09/18 11:13 Dose: 20 mg Ranitidine HCl (Zantac -) 150 mg PO DAILY [facility] Last Admin: 02/09/18 11:13 Dose: 150 mg Vital Signs: Last Vital Signs Temp Pulse Resp BP Pulse Ox 97.9 F 88 18 115/63 95 02/09/18 05:00 02/09/18 10:01 02/09/18 10:01 02/09/18 10:01 02/08/18 23:52 Intake & Output 02/06/18 02/07/18 02/08/18 02/09/18 23:59 23:59 23:59 23:59 Intake Total 380 200 380 Balance 380 200 380 Neck: Supple Negative JVD No Bruit Respiratory: Clear to A&P Bilaterally Cardiovascular: S1 S2 Regularly Rate and Rhythm Gastrointestinal: Soft Benign Normal Bowel Sounds Ext: Negative Edema Labs: CBC, BMP 02/07/18 06:40 02/07/18 06:40 Assessment/Plan ASSESSMENT: 1. POD #6 post Cristóbal jonas; Partial corpectomies C5 and C6, anterior discectomies C5-6 and C6-7; anterior interbody fusion C5-6, C6-7; interbody 7 mm lordotic implants C5-6 and C6-7; anterior instrumentation C5-6-7; microdissection 2. Chest pain syndrome atypical for CAD angina pectoris, resolved 3. Sinus tachycardia, resolved 4. HTN, controlled 5. DM PLAN: 1. Pain management as per the primary team 2. Continue Lopressor 3. Continue Cozaar 4. Additional cardiovascular evaluation can be performed as outpatient once fully recovered and ambulatory (advised outpatient F/U), discussed in detail with the patient Magnolia Song M.D.
[2018-02-09] MEDS: oxyCODONE HCL 5 MG TABLET PO PRN (15:01)
[2018-02-09] MEDS ORDERED: INSULIN (NOVOLOG) ASPART 100 UNITS/ML 10ML VIAL ONE (21:34)
[2018-02-09] MEDS: diazePAM 5 MG TABLET PO SCH (21:45)
[2018-02-10] MEDS: GABAPENTIN 300 MG CAPSULE (FP) PO SCH (05:57)
[2018-02-10] MEDS: ACETAMINOPHEN 325 MG TABLET (FP) PO PRN (05:57)
[2018-02-10] MEDS: DOCUSATE SODIUM 100 MG CAPSULE (FP) PO SCH (05:57)
[2018-02-10] MEDS: CYCLOBENZAPRINE HCL 5 MG TABLET PO SCH (05:58)
--- NOTE | 2018-02-10 06:34 | PN ---
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 - Current Medication List Current Medications: Active Medications Acetaminophen (Tylenol -) 650 mg PO Q6H PRN PRN Reason: PAIN 1-3 Last Admin: 02/02/18 23:56 Dose: 650 mg Acetaminophen (Tylenol -) 325 mg PO TID PRN PRN Reason: PAIN LEVEL 4 - 6 Last Admin: 02/10/18 05:57 Dose: 325 mg Albuterol Sulfate (Ventolin Hfa Inhaler -) 2 puff IH Q4H PRN PRN Reason: SHORT OF BREATH/WHEEZING Budesonide/Formoterol Fumarate (Symbicort 80/4.5mcg -) 1 puff IH BID [facility] Last Admin: 02/09/18 21:44 Dose: 1 puff Cyclobenzaprine HCl (Cyclobenzaprine Hcl) 5 mg PO TID [facility] Last Admin: 02/10/18 05:58 Dose: Not Given Diazepam (Valium -) 5 mg PO [facility] Last Admin: 02/09/18 21:45 Dose: 5 mg Docusate Sodium (Colace -) 100 mg PO TID [facility] Last Admin: 02/10/18 05:57 Dose: 100 mg Gabapentin (Neurontin -) 600 mg PO TID [facility] Last Admin: 02/10/18 05:57 Dose: 600 mg Heparin Sodium (Porcine) (Heparin -) 5,000 unit SQ BID [facility] Last Admin: 02/09/18 21:44 Dose: 5,000 unit Insulin Aspart (Novolog Vial) 0 units SQ [facility]; Protocol Last Admin: 02/09/18 21:44 Dose: 8 units Losartan Potassium (Cozaar -) 25 mg PO DAILY [facility] Last Admin: 02/09/18 11:13 Dose: 25 mg Metoprolol Tartrate (Lopressor -) 25 mg PO BID [facility] Last Admin: 02/09/18 21:48 Dose: 25 mg Multivitamins/Minerals/Vitamin C (Tab-A-Vit -) 1 tab PO DAILY [facility] Last Admin: 02/09/18 11:13 Dose: 1 tab Ondansetron HCl (Zofran Injection) 4 mg IVPUSH Q6H PRN PRN Reason: NAUSEA AND/OR VOMITING Oxycodone HCl (Roxicodone -) 5 mg PO Q6H PRN PRN Reason: PAIN 7-10 Last Admin: 02/09/18 15:01 Dose: 5 mg Pantoprazole Sodium (Protonix -) 20 mg PO DAILY [facility] Last Admin: 02/09/18 11:13 Dose: 20 mg Ranitidine HCl (Zantac -) 150 mg PO DAILY [facility] Last Admin: 02/09/18 11:13 Dose: 150 mg - Objective Vital Signs: Vital Signs Temperature 98.4 F 02/10/18 03:00 Pulse Rate 98 H 02/10/18 03:00 Respiratory Rate 20 02/10/18 03:00 Blood Pressure 111/73 02/10/18 03:00 O2 Sat by Pulse Oximetry (%) 95 02/09/18 22:35 Constitutional: Yes: No Distress, Calm Eyes: Yes: Conjunctiva Clear HENT: Yes: Atraumatic Neck: Yes: Supple Cardiovascular: Yes: Regular Rate and Rhythm Respiratory: Yes: CTA Bilaterally Gastrointestinal: Yes: Soft. No: Distention Genitourinary: No: CVA Tenderness - Left, CVA Tenderness - Right, Hematuria Musculoskeletal: No: Joint Stiffness, Joint Swelling Extremities: No: Cold, Cool, Cyanosis Edema: No Integumentary: No: Rash, Venous Stasis Changes Neurological: Yes: WNL, Alert, Oriented ...Motor Strength: WNL Psychiatric: Yes: WNL, Alert, Oriented. No: Agitated, Suicidal Ideation Labs: CBC, BMP 02/07/18 06:40 02/07/18 06:40 INR, PTT INR 0.91 (0.83-1.09) 01/23/18 17:09 - ....Imaging Other: Report Reviewed Assessment/Plan Pt is a 52 yo F, with PMH of NIDDM (on metformin), HLD, arthritis (rotator cuff surgery of L shoulder), who is presenting with complaints of L-sided "shooting" chest pain lower neck and LUE L shoulder pain s/p C6 surgery pain meds per neurosurgery, neurontin and flexeril DC home with son ADA diet, restart metformin PT rehab outpt and f/u as advised d/w pt and staff
[2018-02-10] MEDS ORDERED: PT OWN MED DRAWER 7, Y5N ONE ×2 (06:42→10:52)
[2018-02-10] MEDS: INSULIN (NOVOLOG) ASPART 100 UNITS/ML 10ML VIAL SQ SCH ×2 (06:52→12:25)
[2018-02-10] MEDS: METOPROLOL TARTRATE 25 MG TABLET (FP) PO SCH (11:18)
[2018-02-10] MEDS: RANITIDINE HCL 150 MG TABLET (FP) PO SCH (11:19)
[2018-02-10] MEDS: LOSARTAN POTASSIUM 25 MG TABLET PO SCH (11:19)
[2018-02-10] MEDS: BUDESONIDE/FORMETEROL FUMARATE 80/4.5 mcg INHALER IH SCH (11:19)
[2018-02-10] MEDS: MULTIVITAMINS (DAILY MVI) TABLET (FP) PO SCH (11:19)
[2018-02-10] MEDS: HEPARIN NA (PORCINE) 5,000 UNITS/ML 1ML VIAL SQ SCH (11:19)
[2018-02-10] MEDS: PANTOPRAZOLE 20 MG TABLET (FP) PO SCH (11:19)
--- NOTE | 2018-02-10 12:41 | PN ---
Progress Note, Physician History of Present Illness: LUE parasthesias resolved, no further atypical chest pains. - Current Medication List Current Medications: Active Medications Acetaminophen (Tylenol -) 650 mg PO Q6H PRN PRN Reason: PAIN 1-3 Last Admin: 02/02/18 23:56 Dose: 650 mg Acetaminophen (Tylenol -) 325 mg PO TID PRN PRN Reason: PAIN LEVEL 4 - 6 Last Admin: 02/10/18 05:57 Dose: 325 mg Albuterol Sulfate (Ventolin Hfa Inhaler -) 2 puff IH Q4H PRN PRN Reason: SHORT OF BREATH/WHEEZING Budesonide/Formoterol Fumarate (Symbicort 80/4.5mcg -) 1 puff IH BID [facility] Last Admin: 02/10/18 11:19 Dose: 1 puff Cyclobenzaprine HCl (Cyclobenzaprine Hcl) 5 mg PO TID [facility] Last Admin: 02/10/18 05:58 Dose: Not Given Diazepam (Valium -) 5 mg PO HS [facility] Last Admin: 02/09/18 21:45 Dose: 5 mg Docusate Sodium (Colace -) 100 mg PO TID [facility] Last Admin: 02/10/18 05:57 Dose: 100 mg Gabapentin (Neurontin -) 600 mg PO TID [facility] Last Admin: 02/10/18 05:57 Dose: 600 mg Heparin Sodium (Porcine) (Heparin -) 5,000 unit SQ BID [facility] Last Admin: 02/10/18 11:19 Dose: 5,000 unit Insulin Aspart (Novolog Vial) 0 units SQ ACHS [facility]; Protocol Last Admin: 02/10/18 12:25 Dose: 8 units Losartan Potassium (Cozaar -) 25 mg PO DAILY [facility] Last Admin: 02/10/18 11:19 Dose: 25 mg Metoprolol Tartrate (Lopressor -) 25 mg PO BID [facility] Last Admin: 02/10/18 11:18 Dose: 25 mg Multivitamins/Minerals/Vitamin C (Tab-A-Vit -) 1 tab PO DAILY [facility] Last Admin: 02/10/18 11:19 Dose: 1 tab Ondansetron HCl (Zofran Injection) 4 mg IVPUSH Q6H PRN PRN Reason: NAUSEA AND/OR VOMITING Oxycodone HCl (Roxicodone -) 5 mg PO Q6H PRN PRN Reason: PAIN 7-10 Last Admin: 02/09/18 15:01 Dose: 5 mg Pantoprazole Sodium (Protonix -) 20 mg PO DAILY [facility] Last Admin: 02/10/18 11:19 Dose: 20 mg Ranitidine HCl (Zantac -) 150 mg PO DAILY [facility] Last Admin: 02/10/18 11:19 Dose: 150 mg - Objective Vital Signs: Vital Signs Temperature 97.8 F 02/10/18 06:41 Pulse Rate 90 02/10/18 06:41 Respiratory Rate 20 02/10/18 06:41 Blood Pressure 121/79 02/10/18 06:41 O2 Sat by Pulse Oximetry (%) 95 02/09/18 22:35 Constitutional: Yes: No Distress, Calm Neck: Yes: Supple Cardiovascular: Yes: Regular Rate and Rhythm Respiratory: Yes: Regular, CTA Bilaterally Gastrointestinal: Yes: Normal Bowel Sounds, Soft Edema: No Labs: CBC, BMP 02/07/18 06:40 02/07/18 06:40 INR, PTT INR 0.91 (0.83-1.09) 01/23/18 17:09 Problem List - Problems (1) Type 2 diabetes mellitus Code(s): E11.9 - TYPE 2 DIABETES MELLITUS WITHOUT COMPLICATIONS Qualifiers: Diabetes mellitus terminal operator insulin use: without senior living use (2) Cervical radicular pain Code(s): M54.12 - RADICULOPATHY, CERVICAL REGION (3) Hypertension Code(s): I10 - ESSENTIAL (PRIMARY) HYPERTENSION Qualifiers: Hypertension type: essential hypertension Qualified Code(s): I10 - Essential (primary) hypertension Assessment/Plan 1. POD #7 post Cristóbal jonas; Partial corpectomies C5 and C6, anterior discectomies C5-6 and C6-7; anterior interbody fusion C5-6, C6-7; interbody 7 mm lordotic implants C5-6 and C6-7; anterior instrumentation C5-6-7; microdissection 2. Chest pain syndrome atypical for CAD angina pectoris, resolved 3. Sinus tachycardia, resolved 4. HTN, controlled 5. DM PLAN: 1. Pain management as per the primary team 2. Continue Lopressor 25 bid 3. Continue Cozaar 25 qd 4. Additional cardiovascular evaluation can be performed as outpatient once fully recovered and ambulatory (advised outpatient F/U), discussed in detail with the patient 5. DVT and GI prophylaxis, d/c planning with home PT
[2018-02-10 17:00] VITALS: BP 153/88; PULSE 100; TEMP 98.4
== END 2018-02-10 13:55 | disposition home health service (06) | DRG 472 ==
LOC: JER 15:00 → JERBED 21:50 → J8W 01-24 04:56 → OBSVTOIN 01-26 15:17 → J8W 01-30 18:31
PROVIDERS: ADMIT Internal Medicine; ATTEND Internal Medicine
PROC: 0RG20A0 Fusion of 2 or more Cervical Vertebral Joints with Interbody Fusion Device, Anterior Approach, Anterior Column, Open Approach (ICD-10-PCS; 2018-02-03)
PROC: 0RT30ZZ Resection of Cervical Vertebral Disc, Open Approach (ICD-10-PCS; principal; 2018-02-03 12:00)
DX: M50.11 Cervical disc disorder with radiculopathy, high cervical region (principal); J98.11 Atelectasis; M25.512 Pain in left shoulder; E78.5 Hyperlipidemia, unspecified; E11.9 Type 2 diabetes mellitus without complications; D64.9 Anemia, unspecified; K80.20 Calculus of gallbladder without cholecystitis without obstruction; M19.90 Unspecified osteoarthritis, unspecified site; R07.89 Other chest pain; R29.898 Other symptoms and signs involving the musculoskeletal system; G62.9 Polyneuropathy, unspecified; Z87.891 Personal history of nicotine dependence; R00.0 Tachycardia, unspecified; M99.61 Osseous and subluxation stenosis of intervertebral foramina of cervical region; E66.9 Obesity, unspecified; Z68.37 Body mass index [BMI] 37.0-37.9, adult
CPT/HCPCS: 36415; 70450-TC; 71046-TC-FY; 71250-TC; 71275-TC; 72050-TC-FY; 72125-TC; 72141-TC; 76700-TC; 76856-TC; 80053; 81003; 81015; 82550; 82553; 82962; 83690; 83735; 84484; 84703; 85025; 85610; 85651; 85730; 86140; 86850; 86900; 86901; 87086; 88304-TC; 93005; 93010; 94760; 95860-TC; 97116-GP; 97162-GP; 99285-25; G0378; J0131; J1644; J7030

== ENCOUNTER 2018-07-23 15:29 | Inpatient (IN) | payer OTHER ==
[2018-07-23] MEDS ORDERED: ASPIRIN 81 MG CHEWABLE TABLETS PO ONE (15:37)
--- NOTE | 2018-07-23 15:37 | PDOC ---
Rapid Medical Evaluation Time Seen by Provider: 07/23/18 15:36 Medical Evaluation: Allergies Allergy/AdvReac Type Severity Reaction Status Date / Time No Known Allergies Allergy Verified 01/23/18 15:27 07/23/18 15:36 HPI: L sided palpatations PE: NAD ORDERS: Cardiac work up Discharge Disposition - Diagnosis Intermittent palpitations - Referrals - Patient Instructions - Post Discharge Activity
[2018-07-23] MEDS ORDERED: ASPIRIN 81 MG CHEWABLE TABLETS ONE (15:46)
[2018-07-23 16:07] LABS: BASO % 0.7 % (0-2.0); EOS % 1.2 % (0-4.5); HEMATOCRIT 38.7 % (32.4-45.2); HEMOGLOBIN 12.7 GM/dL (10.7-15.3); LYMPH % 30.9 % (8-40); MCH 27.8 pg (25.7-33.7); MCHC 32.9 g/dl (32.0-36.0); MEAN CELL VOLUME 84.6 fl (80-96); MEAN PLT VOLUME 8.9 fl (7.5-11.1); MONO % 6.9 % (3.8-10.2); NEUT % 60.3 % (42.8-82.8); PLATELET COUNT 201 K/MM3 (134-434); RBC 4.57 M/mm3 (3.60-5.2); RDW 15.3 % (11.6-15.6); WHITE BLOOD COUNT 8.5 K/mm3 (4.0-10.0)
[2018-07-23 16:40] LABS: INR 0.89 (0.83-1.09); PROTHROMBIN TIME (PATIENT) 10.5 SEC (9.7-13.0)
[2018-07-23 16:43] LABS: ALBUMIN 3.6 g/dl (3.4-5.0); ALK PHOS 113 U/L (45-117); ANION GAP 8 MMOL/L (8-16); BILIRUBIN,TOTAL 0.2 mg/dL (0.2-1); BLOOD UREA NITROGEN 11 mg/dL (7-18); CALCIUM 8.9 mg/dL (8.5-10.1); CHLORIDE 106 mmol/L (98-107); CO2 26 mmol/L (21-32); CREATININE 0.7 mg/dL (0.55-1.3); GLUCOSE,RANDOM 195 mg/dL (74-106); MAGNESIUM 1.6 mg/dL (1.8-2.4); POTASSIUM 4.1 mmol/L (3.5-5.1); SGOT/AST 20 U/L (15-37); SGPT/ALT 36 U/L (13-61); SODIUM 139 mmol/L (136-145); TOT PROT 7.2 g/dl (6.4-8.2)
--- NOTE | 2018-07-23 17:08 | PDOC ---
History of Present Illness - General Chief Complaint: Chest Pain Stated Complaint: LF SIDE CHEST PAIN Time Seen by Provider: 07/23/18 15:36 History Source: Patient Exam Limitations: No Limitations - History of Present Illness Initial Comments: 07/23/18 17:09 52 year old woman with a history of NIDDM (on metformin), HLD, arthritis ( rotator cuff surgery of L shoulder), who presents with 2 weeks of L sided chest palpitations described as sharp and sore and rated 7/10 last night and associated with shortness of breath. The patient admits to nausea but denies diaphoresis, recent fevers, abdominal pain. The patient also complains of intermittent "shockwave-like" sensations in the tongue ongoing for 2 weeks, not associated with jaw pain and not worse with chewing. The patient complains of burning like sensations in her L hsoulder and L elbow that have been ongoing for the past 2 weeks as well. She denies any recent n/v/d/c. She has no other complaints at bedside and notes resolution of symptoms admits to some cigarette use but denies recreational drug use Past History - Past Medical History Allergies/Adverse Reactions: Allergies Allergy/AdvReac Type Severity Reaction Status Date / Time No Known Allergies Allergy Verified 07/23/18 15:37 Home Medications: Ambulatory Orders metFORMIN HCL [Glucophage -] 500 mg PO BID 02/14/16 Budesonide/Formeterol Fumarate [SYMBICORT 80/4.5mcg -] 1 inh PO DAILY 10/14/17 Pantoprazole Sodium [Protonix -] 20 mg PO DAILY PRN 10/14/17 Multivitamin with Iron [Multivitamins with Iron] 1 tab PO DAILY 10/22/17 Aspirin [ASA -] 81 mg PO DAILY 01/24/18 Acetaminophen [Tylenol .Regular Strength -] 650 mg PO Q6H PRN tablet 01/29/18 Insulin (Novolog) [Novolog -] 0 units SQ ACHS units 01/29/18 oxyCODONE HCL [Roxicodone -] 5 mg PO QID PRN tablet MDD 20 01/29/18 Losartan Potassium [Cozaar -] 25 mg PO DAILY #30 tablet 02/02/18 Ranitidine [Zantac -] 150 mg PO DAILY tablet 02/02/18 Albuterol Sulfate Inhaler - [Ventolin HFA Inhaler -] 2 puff IH Q4H PRN #12 inhaler 02/09/18 Cyclobenzaprine HCl 5 mg PO TID PRN #60 tablet 02/09/18 Diazepam [Valium] 5 mg PO HS #10 tablet MDD 5 mg 02/09/18 Docusate Sodium [Colace -] 100 mg PO TID PRN #30 capsule 02/09/18 Gabapentin [Neurontin -] 600 mg PO TID #90 capsule 02/09/18 Metoprolol Tartrate [Lopressor -] 25 mg PO BID #60 tablet 02/09/18 Anemia: Yes Asthma: Yes (bronchitis) COPD: No DVT: No Diabetes: Yes (spine) GI Disorders: Yes (GALLSTONES) Hypercholesterolemia: Yes Liver Disease: Yes (fatty liver) - Surgical History Abdominal Surgery: Yes (cholesysectomy) Appendectomy: Yes Cholecystectomy: Yes Orthopedic Surgery: Yes (ROTATOR CUFF REPAIR) - Immunization History Immunization Up to Date: Yes - Suicide/Smoking/Psychosocial Hx Smoking History: Never smoked Have you smoked in the past 12 months: Yes Number of Cigarettes Smoked Daily: 8 Information on smoking cessation initiated: No 'Breaking Loose' booklet given: 02/02/17 Hx Alcohol Use: No Drug/Substance Use Hx: No Substance Use Type: None Hx Substance Use Treatment: No Review of Systems - Review of Systems Able to Perform ROS?: Yes Comments:: 07/23/18 17:30 GENERAL/CONSTITUTIONAL: No fever or chills. No weakness. HEAD, EYES, EARS, NOSE AND THROAT: No change in vision. No ear pain or discharge. No sore throat. CARDIOVASCULAR: + chest pain or shortness of breath RESPIRATORY: No cough, wheezing, or hemoptysis. GASTROINTESTINAL: No nausea, vomiting, diarrhea or constipation. GENITOURINARY: No dysuria, frequency, or change in urination. MUSCULOSKELETAL: + L shoulder and L elbow burning or muscle swelling or pain. No neck or back pain. SKIN: No rash NEUROLOGIC: No headache, vertigo, loss of consciousness, or change in strength/ sensation. ENDOCRINE: No increased thirst. No abnormal weight change HEMATOLOGIC/LYMPHATIC: No anemia, easy bleeding, or history of blood clots. ALLERGIC/IMMUNOLOGIC: No hives or skin allergy. Is the patient limited Hebrew proficient: No *Physical Exam - Vital Signs Last Vital Signs Temp Pulse Resp BP Pulse Ox 98.5 F 86 17 126/68 98 07/23/18 15:37 07/23/18 15:37 07/23/18 15:37 07/23/18 15:37 07/23/18 15:37 - Physical Exam Comments: 07/23/18 17:31 GENERAL: Awake, alert, and fully oriented, in no acute distress HEAD: No signs of trauma, normocephalic, atraumatic EYES: EOMI, sclera anicteric, conjunctiva clear ENT: oropharynx clear without exudates, dry mucus membranes NECK: Normal ROM, supple, no lymphadenopathy LUNGS: No distress, speaks full sentences, clear to auscultation bilaterally HEART: Regular rate and rhythm, normal S1 and S2, no murmurs, rubs or gallops, peripheral pulses normal and equal bilaterally. CHEST: slight reproducibility of chest pain on palpation ABDOMEN: Soft, nontender, normoactive bowel sounds. No guarding, no rebound. No masses EXTREMITIES : Normal inspection, Normal range of motion, no edema. No clubbing or cyanosis. NEUROLOGICAL: Cranial nerves II through XII grossly intact. Normal speech, no focal sensorimotor deficits SKIN: Warm, Dry, normal turgor, no rashes or lesions noted ED Treatment Course - LABORATORY CBC & Chemistry Diagram: 07/23/18 15:55 07/23/18 15:55 - ADDITIONAL ORDERS Additional order review: Laboratory Results 07/23/18 07/23/18 15:55 15:55 PT with INR 10.50 INR 0.89 Sodium 139 Potassium 4.1 Chloride 106 Carbon Dioxide 26 Anion Gap 8 BUN 11 Creatinine 0.7 Est GFR (CKD-EPI)AfAm 113.84 Est GFR (CKD-EPI)NonAf 98.23 Random Glucose 195 H Calcium 8.9 Magnesium 1.6 L Total Bilirubin 0.2 AST 20 ALT 36 Alkaline Phosphatase 113 Creatine Kinase 138 Troponin I < 0.02 Total Protein 7.2 Albumin 3.6 07/23/18 15:55 RBC 4.57 MCV 84.6 MCHC 32.9 RDW 15.3 MPV 8.9 Neutrophils % 60.3 Lymphocytes % 30.9 Monocytes % 6.9 Eosinophils % 1.2 Basophils % 0.7 - Medications Given in the ED: ED Medications Discontinued Medications Generic Name Dose Route Start Last Admin Trade Name Freq PRN Reason Stop Dose Admin Aspirin 162 mg 07/23/18 15:37 07/23/18 15:57 Asa - PO 07/23/18 15:38 162 mg ONCE ONE Administration Medical Decision Making - Medical Decision Making 07/23/18 17:47 52 year old woman with a history of NIDDM (on metformin), HLD, arthritis ( rotator cuff surgery of L shoulder), who presents with 2 weeks of L sided chest palpitations described as sharp and sore and rated 7/10 last night and associated with shortness of breath. The patient admits to nausea but denies diaphoresis, recent fevers, abdominal pain. The patient also complains of intermittent "shockwave-like" sensations in the tongue ongoing for 2 weeks, not associated with jaw pain and not worse with chewing. The patient complains of burning like sensations in her L hsoulder and L elbow that have been ongoing for the past 2 weeks as well. She denies any recent n/v/d/c. She has no other complaints at bedside. ED Course: ddx ibnlt: will r/o acs vs arrythmia consider msk vs gerd tongue pain consider 2/2 DM vs cigarette use vs 07/23/18 17:52 cbc, cmp, trop, ekg, cxr EKG: normal sinus rhythm HR 82, no interval abnormalities, narrow QRS, ST and T wave segments and morphology normal. HEART 3 unremarkable labs aside from low Mg 07/23/18 18:18 07/23/18 18:26 Discussed case with PCP, Dr. Linton who feels comfortable with plan to f/u outpatient w/ cardiology follow up if second trop and second ekg unremarkable. 07/23/18 19:06 repeat 3 hour trop negative ua- negative 07/23/18 19:19 EKG: normal sinus rhythm HR 76, no interval abnormalities, narrow QRS, ST and T wave segments and morphology normal. no changes on repeat patient with clinical nitro paste and asa given 07/23/18 20:26 *DC/Admit/Observation/Transfer Diagnosis at time of Disposition: Intermittent palpitations, Atypical chest pain - Discharge Dispostion Disposition: HOME Condition at time of disposition: Stable Decision to Admit order: Yes - Referrals Referrals: Elizabet Linton [Primary Care Provider] - - Patient Instructions Printed Discharge Instructions: DI for Atypical Chest Pain Additional Instructions: You were seen in the ED for complaints of 2 weeks of atypical chest pain. In the ED you were evaluated with labwork and imaging. Your results were unremarkable. There does not appear to be an acute need for immediate hospitalization. Your Primary Care Physician was contacted and informed of your visit. You are advised to follow up with your Primary Care Physician within 1 week with further Cardiology follow up. Return to the ED immediately if you experience worsening chest pain, shortness of breath, nausea, vomiting, sweating, fevers or loss of consciousness. - Post Discharge Activity
[2018-07-23 18:11] LABS: URINE APPEARANCE CLOUDY; URINE BILIRUBIN NEGATIVE (NEGATIVE); URINE COLOR YELLOW; URINE GLUCOSE (UA) 1+ (NEGATIVE); URINE KETONE NEGATIVE (NEGATIVE); URINE LEUK ESTERASE NEGATIVE (NEGATIVE); URINE NITRITE NEGATIVE (NEGATIVE); URINE PROTEIN NEGATIVE (NEGATIVE); URINE UROBILINOGEN 0.2 mg/dL (0.2-1.0)
--- NOTE | 2018-07-23 18:12 | PDOC ---
Documentation entered by Melody Fairchild SCRIBE, acting as scribe for John Spencer MD. John Spencer MD: This documentation has been prepared by the Devorah looney Daisy, SCRIBE, under my direction and personally reviewed by me in its entirety. I confirm that the documentation accurately reflects all work, treatment, procedures, and medical decision making performed by me. Attending Attestation - Resident Resident Name: Shyann Gutierrez - ED Attending Attestation I have performed the following: I have examined & evaluated the patient, The case was reviewed & discussed with the resident, I agree w/resident's findings & plan - HPI HPI: 07/23/18 17:56 The patient is a 52 YOF with a PMH of DM, HLD, and left rotator cuff injury who presents to the ED for evaluation of nonexertional, intermittent left sided chest palpitations and intermittent chest pain for the past two weeks. She reports the left sided chest palpitations are sharp, lasting for 2-3 minutes with soreness to the left armpit, 7/10 in severity that acutely worsened last night with shortness of breath and difficulty sleeping. She reports her last episode of chest pain was last night and lasted approximately 30 minutes. She also admits to nausea, lightheadedness, needles to the left arm and reports an "electrical sensation on the tongue." Denies any changes with chewing or associated jaw pain. Denies any chest pain at this time. Denies any vomiting, diaphoresis, numbness or weakness. Allergies: NKDA PCP: Dr. Linton - Physicial Exam PE: 07/23/18 20:04 Patient is awake and alert, hemodynamically stable, in no distress Normocephalic and atraumatic PERRLA, EOMI CTA, No JVD RRR No lower extremity edema - Medical Decision Making 07/23/18 20:04 52-year-old female with history of hypertension, diabetes, hypercholesterolemia presents with atraumatic left sided chest discomfort associated with palpitations. Differential diagnoses includes ACS versus dyspepsia versus musculoskeletal pain. Patient's heart score is noted to be 3. Serial EKGs within normal limit. Will discuss with PMD. Likely admission for cardiac evaluation. 07/23/18 20:40 Patient's symptoms are consistent with unstable angina. She has multiple CAD risk factors. We'll administer aspirin and transdermal nitroglycerin. Case discussed with Dr. Cheng. Will admit to telemetry. Heart Score/ECG Review - History History: Slightly suspicious - Electrocardiogram EKG: Normal - Age Age: 45-65 - Risk Factors Risk Factors Heart Score: Yes Hx Hypercholesterolemia, Yes Hx Hypertension, Yes Hx Diabetes, Yes Smoking History, Yes Hx Obesity Based on the list above the patient has:: >/=3 risk factors or Hx atherosclerotic disease - Troponin Troponin: </= normal limit - Score Heart Score - Total: 3
[2018-07-23 19:05] LABS: HCG,QUALITATIVE URINE Negative
[2018-07-23] MEDS ORDERED: NITROGLYCERIN 2% OINTMENT - 1GM PACKET TD ONE ×2 (20:25→20:36)
[2018-07-23] MEDS ORDERED: ALBUTEROL SO4 8 GM HFA INHALER IH PRN (20:35)
[2018-07-23] MEDS ORDERED: DOCUSATE SODIUM 100 MG CAPSULE (FP) PO PRN (20:35)
[2018-07-23] MEDS ORDERED: diazePAM 5 MG TABLET PO PRN (20:35)
[2018-07-23] MEDS ORDERED: HEPARIN NA (PORCINE) 5,000 UNITS/ML 1ML VIAL ONE (23:02)
[2018-07-23] MEDS ORDERED: INSULIN (NOVOLOG) ASPART 100 UNITS/ML 10ML VIAL ONE (23:06)
[2018-07-23] MEDS ORDERED: GABAPENTIN 100 MG CAPSULE (FP) ONE (23:14)
[2018-07-23] MEDS: HEPARIN NA (PORCINE) 5,000 UNITS/ML 1ML VIAL SQ SCH (23:15)
[2018-07-23] MEDS: INSULIN SLIDING SCALE (NOVOLOG) 1 VIAL SQ SCH (23:15)
[2018-07-23] MEDS: GABAPENTIN 300 MG CAPSULE (FP) PO SCH (23:18)
[2018-07-23] MEDS: METOPROLOL TARTRATE 25 MG TABLET (FP) PO SCH (23:18)
[2018-07-24 02:27] VITALS: BMI 39.3
[2018-07-24] MEDS: GABAPENTIN 300 MG CAPSULE (FP) PO SCH ×3 (06:21→21:09)
[2018-07-24] MEDS: INSULIN SLIDING SCALE (NOVOLOG) 1 VIAL SQ SCH ×4 (06:21→21:11)
[2018-07-24] MEDS: metFORMIN HCL 500 MG TABLET (FP) PO SCH ×2 (06:21→17:53)
[2018-07-24 07:22] LABS: CHOLESTEROL 194 mg/dL (50-200); HDL CHOLESTEROL 58 mg/dL (40-60); TRIGLYCERIDES 189 mg/dL (0-150)
--- NOTE | 2018-07-24 08:55 | HP ---
Admitting History and Physical - Primary Care Physician PCP: Elizabet Linton S - Admission Chief Complaint: L CP palpitations History of Present Illness: 52 year old woman with a history of NIDDM (on metformin), HLD, arthritis ( rotator cuff surgery of L shoulder), and C spine disc herniation s/p surgery, who presents with 2 weeks of L sided chest pain and palpitations described as sharp and sore and rated 7/10 last night and associated with shortness of breath. The patient admits to nausea but denies diaphoresis, recent fevers, abdominal pain. The patient also complains of intermittent "shockwave-like" sensations in the tongue ongoing for 2 weeks, not associated with jaw pain and not worse with chewing. The patient complains of burning like sensations in her L shoulder and L elbow that have been ongoing for the past 2 weeks as well. Describes some SOB/PND and NEFF but no dizziness or lightheadedness no LOC falls or trauma. She denies any recent n/v/d/c. She has no other complaints at bedside and notes resolution of symptoms admits to some cigarette use but denies recreational drug use History Source: Patient Limitations to Obtaining History: No Limitations - Past Medical History Cardiovascular: Yes: Hyperlipdemia Hepatobiliary: Yes: Cholelithiasis ...: No (menopausal) Heme/Onc: Yes: Anemia Musculoskeletal: Yes: Osteoarthritis Endocrine: Yes: Diabetes Mellitus - Past Surgical History Past Surgical History: Yes: Appendectomy, Hernia Repair (umbilical), Hysterectomy (partial) - Smoking History Smoking history: Current some day smoker Have you smoked in the past 12 months: Yes Aproximately how many cigarettes per day: 8 - Alcohol/Substance Use Hx Alcohol Use: No History of Substance Use: reports: None - Social History Usual Living Arrangement: Yes: Alone ADL: Independent 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 History of Recent Travel: No Home Medications - Allergies Allergies/Adverse Reactions: Allergies Allergy/AdvReac Type Severity Reaction Status Date / Time No Known Allergies Allergy Verified 07/23/18 15:37 - Home Medications Home Medications: Ambulatory Orders metFORMIN HCL [Glucophage -] 500 mg PO TID 02/14/16 Budesonide/Formeterol Fumarate [SYMBICORT 80/4.5mcg -] 1 inh PO DAILY 10/14/17 Pantoprazole Sodium [Protonix -] 20 mg PO DAILY PRN 10/14/17 Multivitamin with Iron [Multivitamins with Iron] 1 tab PO DAILY 10/22/17 Aspirin [ASA -] 81 mg PO DAILY 01/24/18 Acetaminophen [Tylenol .Regular Strength -] 650 mg PO Q6H PRN tablet 01/29/18 Losartan Potassium [Cozaar -] 25 mg PO DAILY #30 tablet 02/02/18 Albuterol Sulfate Inhaler - [Ventolin HFA Inhaler -] 2 puff IH Q4H PRN #12 inhaler 02/09/18 Cyclobenzaprine HCl 5 mg PO TID PRN #60 tablet 02/09/18 Family Disease History - Family Disease History Family Disease History: Other: Father (alive: 80: DM II), Mother (: 60: diabetes complications), Brother (2, 1 w/ DM II), Sister (1, healthy), Son (2, healthy) Review of Systems - Review of Systems Constitutional: denies: Chills, Diaphoresis, Fever Eyes: denies: Blind Spots, Blurred Vision HENT: denies: Difficult Swallowing, Ear Pain, Epistaxis Cardiovascular: reports: Chest Pain, Shortness of Breath. denies: Edema, Palpitations Respiratory: reports: Orthopnea, SOB, SOB on Exertion. denies: Cough, Hemoptysis, Wheezing Gastrointestinal: denies: Abdominal Pain, Constipation, Diarrhea, Dysphagia, Rectal Bleeding, Vomiting, Vomiting Blood Genitourinary: denies: Burning, Discharge, Dysuria, Flank Pain Musculoskeletal: reports: Extremity Pain (LUE). denies: Back Pain, Joint Swelling Neurological: denies: Change in LOC, Change in Speech, Confusion, Dizziness, Headache, Seizure, Syncope, Unsteady Gait, Weakness Endocrine: denies: Excessive Sweating, Intolerance to Cold Hematology/Lymphatic: denies: Easily Bruised, Excessive Bleeding Psychiatric: denies: Altered Sleep Pattern, Anxiety, Depression, Suicidal Physical Examination Vital Signs: Vital Signs Temperature 97.8 F 07/24/18 05:45 Pulse Rate 64 07/24/18 05:45 Respiratory Rate 20 07/24/18 05:45 Blood Pressure 152/76 07/24/18 05:45 O2 Sat by Pulse Oximetry (%) 98 07/24/18 00:20 Constitutional: Yes: No Distress, Calm Eyes: Yes: Conjunctiva Clear HENT: Yes: Atraumatic Neck: Yes: Supple Cardiovascular: Yes: Regular Rate and Rhythm Respiratory: Yes: CTA Bilaterally Gastrointestinal: Yes: Soft. No: Tenderness Renal/: No: CVA Tenderness - Left, CVA Tenderness - Right, Hematuria Musculoskeletal: No: Joint Stiffness, Joint Swelling Extremities: No: Cold, Cool, Cyanosis Edema: No Peripheral Pulses WNL: Yes Integumentary: No: Rash, Venous Stasis Changes Neurological: Yes: WNL, Alert, Oriented ...Motor Strength: WNL Psychiatric: Yes: WNL, Alert, Oriented. No: Agitated, Suicidal Ideation Labs: CBC, BMP 07/23/18 15:55 07/23/18 15:55 Imaging - Results Chest X-ray: Report Reviewed Other: Report Reviewed Assessment/Plan 52 year old woman with a history of NIDDM (on metformin), HLD, arthritis ( rotator cuff surgery of L shoulder), neck surgery for disc herniation, LUE neuropathy, who presents with L sided chest pain and palpitations and some LUE pain and occasional SOB/NEFF/PND ANJEL, CE x 3; cardiology eval telemetry echo stress test? d/w cardiology continue meds BP and GLU control stop tob d/w pt
--- NOTE | 2018-07-24 10:11 | CON.CARD ---
Consult Consult Specialty:: Cardiology Referred by:: Elizabet Linton MD Reason for Consultation:: Chest pain - History of Present Illness Chief Complaint: Chest pain History of Present Illness: 52 yo F, with PMH of NIDDM (on metformin), HLD, arthritis (rotator cuff surgery of L shoulder), presented with complaints of nonexertional, intermittent left sided chest palpitations and intermittent atypcical chest pain for the past two weeks. She characterizes the left sided chest soreness as sharp, lasting for 2- 3 minutes with soreness to the left armpit and under left breast worse with turning torso and improved lifting up breast with shortness of breath and difficulty sleeping. She reports her last episode of chest pain was last night and lasted approximately 30 minutes. She also admits to nausea, lightheadedness , needles to the left arm and reports an "electrical sensation on the tongue." Denies any changes with chewing or associated jaw pain. Denies any chest pain at this time. - History Source History Provided By: Patient Limitations to Obtaining History: No Limitations - Past Medical History Cardio/Vascular: Yes: Hyperlipdemia Hepatobiliary: Yes: Cholelithiasis ...: No (menopausal) Musculoskeletal: Yes: Osteoarthritis Endocrine: Yes: Diabetes Mellitus - Past Surgical History Past Surgical History: Yes: Appendectomy, Hernia Repair (umbilical), Hysterectomy (partial) - Alcohol/Substance Use Hx Alcohol Use: No History of Substance Use: reports: None - Smoking History Smoking history: Current some day smoker Have you smoked in the past 12 months: Yes Aproximately how many cigarettes per day: 8 - Social History Usual Living Arrangement: Alone (single never ) ADL: Independent 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 History of Recent Travel: No Home Medications - Allergies Allergies/Adverse Reactions: Allergies Allergy/AdvReac Type Severity Reaction Status Date / Time No Known Allergies Allergy Verified 07/23/18 15:37 - Home Medications Home Medications: Ambulatory Orders metFORMIN HCL [Glucophage -] 500 mg PO TID 02/14/16 Budesonide/Formeterol Fumarate [SYMBICORT 80/4.5mcg -] 1 inh PO DAILY 10/14/17 Pantoprazole Sodium [Protonix -] 20 mg PO DAILY PRN 10/14/17 Multivitamin with Iron [Multivitamins with Iron] 1 tab PO DAILY 10/22/17 Aspirin [ASA -] 81 mg PO DAILY 01/24/18 Acetaminophen [Tylenol .Regular Strength -] 650 mg PO Q6H PRN tablet 01/29/18 Losartan Potassium [Cozaar -] 25 mg PO DAILY #30 tablet 02/02/18 Albuterol Sulfate Inhaler - [Ventolin HFA Inhaler -] 2 puff IH Q4H PRN #12 inhaler 02/09/18 Cyclobenzaprine HCl 5 mg PO TID PRN #60 tablet 02/09/18 Family Disease History - Family Disease History Family Disease History: Other: Father (alive: 80: DM II), Mother (: 60: diabetes complications), Brother (2, 1 w/ DM II), Sister (1, healthy), Son (2, healthy) Review of Systems - Review of Systems Cardiovascular: reports: Chest Pain, Shortness of Breath Vital Signs: Vital Signs Temperature 97.8 F 07/24/18 05:45 Pulse Rate 64 07/24/18 05:45 Respiratory Rate 20 07/24/18 05:45 Blood Pressure 152/76 07/24/18 05:45 O2 Sat by Pulse Oximetry (%) 98 07/24/18 00:20 Constitutional: Yes: No Distress, Calm Neck: Yes: Supple Respiratory: Yes: Regular, CTA Bilaterally Gastrointestinal: Yes: Normal Bowel Sounds, Soft Cardiovascular: Yes: Regular Rate and Rhythm JVD: No Carotid Bruit: No Heart Sounds: Yes: S1, S2 Edema: No - Other Data Labs, Other Data: CBC, BMP 07/23/18 15:55 07/23/18 15:55 INR, PTT INR 0.89 (0.83-1.09) 07/23/18 15:55 Troponin, BNP 07/23/18 07/23/18 07/24/18 15:55 18:15 05:30 Troponin I < 0.02 < 0.02 < 0.02 Troponin, BNP 07/23/18 07/23/18 07/24/18 15:55 18:15 05:30 Troponin I < 0.02 < 0.02 < 0.02 Imaging - Results Chest X-ray: Report Reviewed (NAD) Problem List - Problems (1) Atypical chest pain Code(s): R07.89 - OTHER CHEST PAIN (2) Intermittent palpitations Code(s): R00.2 - PALPITATIONS (3) Hyperlipidemia Code(s): E78.5 - HYPERLIPIDEMIA, UNSPECIFIED Qualifiers: Hyperlipidemia type: pure hypercholesterolemia Qualified Code(s): E78.00 - Pure hypercholesterolemia, unspecified; E78.0 - Pure hypercholesterolemia (4) Hypertension Code(s): I10 - ESSENTIAL (PRIMARY) HYPERTENSION Qualifiers: Hypertension type: essential hypertension Qualified Code(s): I10 - Essential (primary) hypertension (5) Type 2 diabetes mellitus Code(s): E11.9 - TYPE 2 DIABETES MELLITUS WITHOUT COMPLICATIONS Qualifiers: 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 Chest pain syndrome atypical for CAD angina pectoris, suspect musculoskeletal etiology 2. Palpitations 3. HTN 4. DM not at goal control 5. Hyperlipidemia PLAN: 1. Ruled out for [place], f/u echo and teacher of the deaf/hard of hearing to exclude sustained arrhythmias, check TSH 2. Resume Lopressor 25 bid 3. Continue Cozaar 25 qd 4. ETT may be performed as outpatient, optimize glycemic control, topical analgesia as needed 5. Thank you for consultative opportunity
[2018-07-24] MEDS: ASPIRIN 81 MG CHEWABLE TABLETS PO SCH (10:29)
[2018-07-24] MEDS: RANITIDINE HCL 150 MG TABLET (FP) PO SCH (10:29)
[2018-07-24] MEDS: MULTIVITAMINS (DAILY MVI) TABLET (FP) PO SCH (10:29)
[2018-07-24] MEDS: METOPROLOL TARTRATE 25 MG TABLET (FP) PO SCH ×2 (10:30→21:09)
[2018-07-24] MEDS: LOSARTAN POTASSIUM 25 MG TABLET PO SCH (10:30)
[2018-07-24] MEDS: HEPARIN NA (PORCINE) 5,000 UNITS/ML 1ML VIAL SQ SCH ×2 (10:30→21:11)
[2018-07-24] MEDS: BUDESONIDE/FORMETEROL FUMARATE 80/4.5 mcg INHALER IH SCH (12:04)
--- NOTE | 2018-07-24 15:43 | ECHO ---
Name: ANITHA FLORES Arley Exam:Adult Echocardiogram Study Date: 07/24/2018 09:19 AM Age: 52 yrs Reason For Study: Chest pain Height: 64 in Weight: 229 lb BSA: 2.1 m2 MMode/2D Measurements & Calculations IVSd: 1.0 cm Ao root diam: 2.5 cm LVIDd: 4.0 cm LA dimension: 3.3 cm LVIDs: 2.7 cm LVPWd: 1.1 cm EDV(Teich): 71.7 ml LVOT diam: 1.9 cm ESV(Teich): 26.7 ml Doppler Measurements & Calculations MV E max jonathan: 63.7 cm/sec Ao V2 max: 120.1 cm/sec MV A max jonathan: 72.6 cm/sec Ao max P.8 mmHg MV E/A: 0.88 Ao V2 mean: 82.1 cm/sec Ao mean P.1 mmHg Ao V2 VTI: 26.6 cm RIGOBERTO(I,D): 2.2 cm2 RIGOBERTO(V,D): 2.4 cm2 LV V1 max P.3 mmHg SV(LVOT): 58.1 ml LV V1 mean P.1 mmHg LV V1 max: 103.2 cm/sec LV V1 mean: 67.7 cm/sec LV V1 VTI: 20.5 cm Med Peak E' Jonathan: 7.3 cm/sec Med E/e': 8.7 Lat Peak E' Jonathan: 12.1 cm/sec Lat E/e': 5.3 Procedure A complete two-dimensional transthoracic echocardiogram was performed (2D, M-mode, Doppler and color flow Doppler). Left Ventricle The left ventricular size, thickness and function are normal. The left ventricular ejection fraction is normal. Ejection Fraction = 60-65%. The left ventricular wall motion is normal. Right Ventricle The right ventricle is normal in size and function. Atria Normal left and right atrial size and function. Mitral Valve There is no mitral regurgitation noted. Tricuspid Valve There is trace tricuspid regurgitation. There was insufficient TR detected to calculate RV systolic p ressure. Aortic Valve No hemodynamically significant valvular aortic stenosis. No aortic regurgitation is present. Pulmonic Valve There is no pulmonic valvular regurgitation. Great Vessels The aortic root is normal size. Pericardium/Pleura There is no pericardial effusion. Interpretation Summary The left ventricular size, thickness and function are normal The right ventricle is normal in size and function. There is trace tricuspid regurgitation. MD David Mckay 07/24/2018 03:42 PM
--- NOTE | 2018-07-24 17:17 | EKG ---
Test Reason : Blood Pressure : / mmHG Vent. Rate : 076 BPM Atrial Rate : 076 BPM P-R Int : 156 ms QRS Dur : 086 ms QT Int : 392 ms P-R-T Axes : 057 -14 001 degrees QTc Int : 441 ms NORMAL SINUS RHYTHM NORMAL ECG WHEN COMPARED WITH ECG OF 23-JUL-2018 15:26, NO SIGNIFICANT CHANGE WAS FOUND Confirmed by CHAY XAVIER MD ([id number]) on 07/24/2018 5:17:04 PM Referred By: Confirmed By:CHAY XAVIER MD
--- NOTE | 2018-07-24 17:17 | EKG ---
Test Reason : Blood Pressure : / mmHG Vent. Rate : 082 BPM Atrial Rate : 082 BPM P-R Int : 148 ms QRS Dur : 086 ms QT Int : 370 ms P-R-T Axes : 061 -14 001 degrees QTc Int : 432 ms NORMAL SINUS RHYTHM NORMAL ECG WHEN COMPARED WITH ECG OF 06-FEB-2018 09:48, NO SIGNIFICANT CHANGE WAS FOUND Confirmed by CHAY XAVIER MD ([id number]) on 07/24/2018 5:17:36 PM Referred By: Confirmed By:CHAY XAVIER MD
[2018-07-24] MEDS: ACETAMINOPHEN 325 MG TABLET (FP) PO PRN (20:44)
[2018-07-24] MEDS: CYCLOBENZAPRINE HCL 5 MG TABLET PO PRN (21:52)
[2018-07-25] MEDS: GABAPENTIN 300 MG CAPSULE (FP) PO SCH ×3 (06:24→22:45)
[2018-07-25] MEDS: INSULIN SLIDING SCALE (NOVOLOG) 1 VIAL SQ SCH ×4 (06:26→22:46)
[2018-07-25] MEDS: metFORMIN HCL 500 MG TABLET (FP) PO SCH ×2 (06:26→17:30)
--- NOTE | 2018-07-25 09:33 | PN ---
Progress Note, Physician History of Present Illness: Atypical chest pain and palpitations resolved. No events on telemetry. - Current Medication List Current Medications: Active Medications Acetaminophen (Tylenol -) 650 mg PO Q6H PRN PRN Reason: PAIN Last Admin: 07/24/18 20:44 Dose: 650 mg Albuterol Sulfate (Ventolin Hfa Inhaler -) 2 puff IH Q4H PRN PRN Reason: SHORT OF BREATH/WHEEZING Aspirin (Asa -) 81 mg PO DAILY [facility] Last Admin: 07/24/18 10:29 Dose: 81 mg Budesonide/Formoterol Fumarate (Symbicort 80/4.5mcg -) 1 puff IH DAILY [facility] Last Admin: 07/24/18 12:04 Dose: Not Given Cyclobenzaprine HCl (Cyclobenzaprine Hcl) 5 mg PO TID PRN PRN Reason: MUSCLE SPASMS Last Admin: 07/24/18 21:52 Dose: 5 mg Diazepam (Valium -) 5 mg PO HS PRN PRN Reason: INSOMNIA Last Admin: 07/24/18 00:29 Dose: 5 mg Docusate Sodium (Colace -) 100 mg PO Q8H PRN PRN Reason: CONSTIPATION Gabapentin (Neurontin -) 600 mg PO TID [facility] Last Admin: 07/25/18 06:24 Dose: 600 mg Heparin Sodium (Porcine) (Heparin -) 5,000 unit SQ BID [facility] Last Admin: 07/24/18 21:11 Dose: 5,000 unit Insulin Aspart (Novolog Vial Sliding Scale -) 1 vial SQ ACHS [facility]; Protocol Last Admin: 07/25/18 06:26 Dose: 2 unit Losartan Potassium (Cozaar -) 25 mg PO DAILY [facility] Last Admin: 07/24/18 10:30 Dose: Not Given Metformin HCl (Glucophage -) 500 mg PO BIDI [facility] Last Admin: 07/25/18 06:26 Dose: 500 mg Metoprolol Tartrate (Lopressor -) 25 mg PO BID [facility] Last Admin: 07/24/18 21:09 Dose: 25 mg Multivitamins/Minerals/Vitamin C (Tab-A-Vit -) 1 tab PO DAILY [facility] Last Admin: 07/24/18 10:29 Dose: 1 tab Ranitidine HCl (Zantac -) 150 mg PO DAILY [facility] Last Admin: 07/24/18 10:29 Dose: 150 mg - Objective Vital Signs: Vital Signs Temperature 98.8 F 07/25/18 05:46 Pulse Rate 66 07/25/18 05:46 Respiratory Rate 20 07/25/18 09:00 Blood Pressure 108/57 L 07/25/18 05:46 O2 Sat by Pulse Oximetry (%) 99 07/25/18 09:00 Constitutional: Yes: No Distress, Calm Neck: Yes: Supple Cardiovascular: Yes: Regular Rate and Rhythm Respiratory: Yes: Regular, CTA Bilaterally Gastrointestinal: Yes: Normal Bowel Sounds, Soft Edema: No Labs: CBC, BMP 07/23/18 15:55 07/23/18 15:55 INR, PTT INR 0.89 (0.83-1.09) 07/23/18 15:55 Problem List - Problems (1) Atypical chest pain Code(s): R07.89 - OTHER CHEST PAIN (2) Intermittent palpitations Code(s): R00.2 - PALPITATIONS (3) Hyperlipidemia Code(s): E78.5 - HYPERLIPIDEMIA, UNSPECIFIED Qualifiers: Hyperlipidemia type: pure hypercholesterolemia Qualified Code(s): E78.00 - Pure hypercholesterolemia, unspecified; E78.0 - Pure hypercholesterolemia (4) Hypertension Code(s): I10 - ESSENTIAL (PRIMARY) HYPERTENSION Qualifiers: Hypertension type: essential hypertension Qualified Code(s): I10 - Essential (primary) hypertension (5) Type 2 diabetes mellitus Code(s): E11.9 - TYPE 2 DIABETES MELLITUS WITHOUT COMPLICATIONS Qualifiers: Diabetes mellitus half-way insulin use: without half-way use Assessment/Plan 07/24/2018 Echo: Normal LV and RV size and fxn, tr TR 1. Chest pain syndrome atypical for CAD angina pectoris, suspect musculoskeletal etiology 2. Palpitations 3. HTN 4. DM not at goal control Ha1c 8.6% 5. Hyperlipidemia PLAN: 1. Ruled out for HI 2. Continue Lopressor 25 bid and Cozaar 25 qd 3. ETT may be performed as outpatient, optimize glycemic control, topical analgesia as needed 4. May be d/alejandro with f/u in office
--- NOTE | 2018-07-25 10:04 | DS ---
Physical Examination Vital Signs: Vital Signs Temperature 98.8 F 07/25/18 05:46 Pulse Rate 66 07/25/18 05:46 Respiratory Rate 20 07/25/18 09:00 Blood Pressure 108/57 L 07/25/18 05:46 O2 Sat by Pulse Oximetry (%) 99 07/25/18 09:00 Findings/Remarks: in bed feels much better; had one time last night L sided sharp CP but no SOB no PND, better with tylenol and changing position in bed; echo NL; CE negative, no significant arrhythmia; d/w cardiology can be DC home and have stress test outpt, d/w pt; also pt advised GI f/u with dr Cartagena for pancreatic cyst, fatty liver, NS and ortho f/u for arthritis, to f/u with PCP for further management and health maintenance; diet weight loss no tobacco dw pt; pt instructed if recurrent CP or if SOB to RTER [place]. Constitutional: Yes: No Distress, Calm Eyes: Yes: Conjunctiva Clear HENT: Yes: Atraumatic Neck: Yes: Supple Cardiovascular: Yes: Regular Rate and Rhythm Respiratory: Yes: CTA Bilaterally Gastrointestinal: Yes: Soft. No: Tenderness Renal/: No: CVA Tenderness - Left, CVA Tenderness - Right Musculoskeletal: No: Joint Stiffness, Joint Swelling Extremities: No: Cold, Cool, Cyanosis Edema: No Integumentary: No: Rash, Venous Stasis Changes Neurological: Yes: WNL, Alert, Oriented ...Motor Strength: WNL Psychiatric: Yes: WNL, Alert, Oriented. No: Agitated, Suicidal Ideation Labs: CBC, BMP 07/23/18 15:55 07/23/18 15:55 Discharge Summary Reason For Visit: CHEST PAIN Current Active Problems Atypical chest pain (Acute) Intermittent palpitations (Acute) Procedures: Principal: 52 YOF HTN DM smoker, OA/DJD, cervical neuropathy, admitted with atypical CP and LUE pain in telemtry; CEX3 negative, no EKG changes noted; Other Procedures: Echo WNL; CXR negative; not hypoxic; seen by cradiology dr Tobar. Hospital Course: treated with tylenol prn, neurontin for neuropathy; improved; DC Home and f/u as advised Condition: Stable - Instructions Diet, Activity, Other Instructions: f/u with PCP and cardiology within 1 week; RTER if recurrent or worse c/o stress test outpt; Diabetes, blood pressure control no smoking; chest CT screening low dose q1 year indicated for lung CA screening for pts who smoked 1 ppd/30 years d/w pt also f/u with GI dr Cartagena for h/o pancreatyic cyst and fatty liver; Neurosurgery and ortho fu for neck, shoulder pain and arthritis; health maintenance pap [employer] mammogram colonoscopy as outpt with PCP. Referrals: Elizabet Linton [Primary Care Provider] - Jefferson Cartagena DO [Staff Physician] - Min Tobar MD [Staff Physician] - José Miguel Callahan MD [Staff Physician] - Disposition: HOME - Home Medications Comprehensive Discharge Medication List: Ambulatory Orders RX: metFORMIN HCL [Glucophage -] 500 mg PO TID 02/14/16 RX: Budesonide/Formeterol Fumarate [SYMBICORT 80/4.5mcg -] 1 inh PO DAILY RX: Pantoprazole Sodium [Protonix -] 20 mg PO DAILY PRN 10/14/17 RX: Multivitamin with Iron [Multivitamins with Iron] 1 tab PO DAILY 10/22/17 RX: Aspirin [ASA -] 81 mg PO DAILY 01/24/18 RX: Acetaminophen [Tylenol .Regular Strength -] 650 mg PO Q6H PRN tablet RX: Losartan Potassium [Cozaar -] 25 mg PO DAILY #30 tablet 02/02/18 RX: Albuterol Sulfate Inhaler - [Ventolin HFA Inhaler -] 2 puff IH Q4H PRN #12 inhaler 02/09/18 RX: Cyclobenzaprine HCl 5 mg PO TID PRN #60 tablet 02/09/18 RX: Docusate Sodium [Colace -] 100 mg PO Q8H PRN capsule 07/25/18 RX: Gabapentin [Neurontin -] 600 mg PO TID capsule 07/25/18 RX: Metoprolol Tartrate [Lopressor -] 25 mg PO BID tablet 07/25/18 RX: Ranitidine [Zantac -] 150 mg PO DAILY tablet 07/25/18
[2018-07-25] MEDS: LOSARTAN POTASSIUM 25 MG TABLET PO SCH (10:13)
[2018-07-25] MEDS: METOPROLOL TARTRATE 25 MG TABLET (FP) PO SCH ×2 (10:13→22:45)
[2018-07-25] MEDS: ASPIRIN 81 MG CHEWABLE TABLETS PO SCH (10:13)
[2018-07-25] MEDS: RANITIDINE HCL 150 MG TABLET (FP) PO SCH (10:13)
[2018-07-25] MEDS: MULTIVITAMINS (DAILY MVI) TABLET (FP) PO SCH (10:13)
[2018-07-25] MEDS: HEPARIN NA (PORCINE) 5,000 UNITS/ML 1ML VIAL SQ SCH ×2 (10:14→22:47)
[2018-07-25] MEDS: BUDESONIDE/FORMETEROL FUMARATE 80/4.5 mcg INHALER IH SCH (17:30)
[2018-07-26] MEDS: ACETAMINOPHEN 325 MG TABLET (FP) PO PRN (06:39)
[2018-07-26] MEDS: INSULIN SLIDING SCALE (NOVOLOG) 1 VIAL SQ SCH ×2 (06:40→12:04)
[2018-07-26] MEDS: metFORMIN HCL 500 MG TABLET (FP) PO SCH (06:41)
[2018-07-26] MEDS: GABAPENTIN 300 MG CAPSULE (FP) PO SCH (06:41)
[2018-07-26] MEDS: HEPARIN NA (PORCINE) 5,000 UNITS/ML 1ML VIAL SQ SCH (09:16)
[2018-07-26] MEDS: LOSARTAN POTASSIUM 25 MG TABLET PO SCH (09:16)
[2018-07-26] MEDS: ASPIRIN 81 MG CHEWABLE TABLETS PO SCH (09:17)
[2018-07-26] MEDS: MULTIVITAMINS (DAILY MVI) TABLET (FP) PO SCH (09:17)
[2018-07-26] MEDS: METOPROLOL TARTRATE 25 MG TABLET (FP) PO SCH (09:17)
[2018-07-26] MEDS: BUDESONIDE/FORMETEROL FUMARATE 80/4.5 mcg INHALER IH SCH (09:17)
[2018-07-26] MEDS: CYCLOBENZAPRINE HCL 5 MG TABLET PO PRN (09:17)
[2018-07-26] MEDS: RANITIDINE HCL 150 MG TABLET (FP) PO SCH (09:17)
[2018-07-26] MEDS ORDERED: METOPROLOL TARTRATE 25 MG TABLET (FP) PO SCH (09:41)
[2018-07-26] MEDS ORDERED: LOSARTAN POTASSIUM 25 MG TABLET PO SCH (09:41)
--- NOTE | 2018-07-26 09:41 | PN ---
Progress Note, Physician Chief Complaint: pt was supposed to go home yesterday but felt dizzy; metorpolol and losartan cut doses b/o BP 95/65 today 115/65 feels better, will go home and f/u in office closely; d/w pt to RTER [place] if worse or recurrent c/o ate and slept OK, no CP/SOB no PND/ ENFF no headaches or focal c/o no lightheadedness or blurred vision. - Current Medication List Current Medications: Active Medications Acetaminophen (Tylenol -) 650 mg PO Q6H PRN PRN Reason: PAIN Last Admin: 07/26/18 06:39 Dose: 650 mg Albuterol Sulfate (Ventolin Hfa Inhaler -) 2 puff IH Q4H PRN PRN Reason: SHORT OF BREATH/WHEEZING Aspirin (Asa -) 81 mg PO DAILY [facility] Last Admin: 07/26/18 09:17 Dose: 81 mg Budesonide/Formoterol Fumarate (Symbicort 80/4.5mcg -) 1 puff IH DAILY [facility] Last Admin: 07/26/18 09:17 Dose: 1 inh Cyclobenzaprine HCl (Cyclobenzaprine Hcl) 5 mg PO TID PRN PRN Reason: MUSCLE SPASMS Last Admin: 07/26/18 09:17 Dose: 5 mg Diazepam (Valium -) 5 mg PO HS PRN PRN Reason: INSOMNIA Last Admin: 07/24/18 00:29 Dose: 5 mg Docusate Sodium (Colace -) 100 mg PO Q8H PRN PRN Reason: CONSTIPATION Gabapentin (Neurontin -) 600 mg PO TID [facility] Last Admin: 07/26/18 06:41 Dose: 600 mg Heparin Sodium (Porcine) (Heparin -) 5,000 unit SQ BID [facility] Last Admin: 07/26/18 09:16 Dose: Not Given Insulin Aspart (Novolog Vial Sliding Scale -) 1 vial SQ ACHS [facility]; Protocol Last Admin: 07/26/18 06:40 Dose: Not Given Losartan Potassium (Cozaar -) 25 mg PO DAILY [facility] Last Admin: 07/26/18 09:16 Dose: 25 mg Metformin HCl (Glucophage -) 500 mg PO BIDI [facility] Last Admin: 07/26/18 06:41 Dose: 500 mg Metoprolol Tartrate (Lopressor -) 12.5 mg PO BID [facility] Multivitamins/Minerals/Vitamin C (Tab-A-Vit -) 1 tab PO DAILY [facility] Last Admin: 07/26/18 09:17 Dose: 1 tab Ranitidine HCl (Zantac -) 150 mg PO DAILY [facility] Last Admin: 07/26/18 09:17 Dose: 150 mg - Objective Vital Signs: Vital Signs Temperature 97.8 F 07/26/18 06:00 Pulse Rate 63 07/26/18 06:00 Respiratory Rate 20 07/26/18 06:00 Blood Pressure 113/67 07/26/18 06:00 O2 Sat by Pulse Oximetry (%) 95 07/25/18 22:00 Constitutional: Yes: No Distress, Calm Eyes: Yes: Conjunctiva Clear HENT: Yes: Atraumatic Neck: Yes: Supple Cardiovascular: Yes: Regular Rate and Rhythm Respiratory: Yes: CTA Bilaterally Gastrointestinal: Yes: Soft. No: Tenderness Genitourinary: No: CVA Tenderness - Left, CVA Tenderness - Right Musculoskeletal: No: Joint Stiffness, Joint Swelling Extremities: No: Cold, Cool, Cyanosis Edema: No Integumentary: No: Rash, Venous Stasis Changes Neurological: Yes: WNL, Alert, Oriented ...Motor Strength: WNL Psychiatric: Yes: WNL, Alert, Oriented. No: Agitated, Suicidal Ideation Labs: CBC, BMP 07/23/18 15:55 07/23/18 15:55 INR, PTT INR 0.89 (0.83-1.09) 07/23/18 15:55 - ....Imaging Other: Report Reviewed Assessment/Plan 52 year old woman with a history of NIDDM (on metformin), HLD, arthritis ( rotator cuff surgery of L shoulder), neck surgery for disc herniation, LUE neuropathy, who presents with L sided chest pain and palpitations and some LUE pain and occasional SOB/NEFF/PND dizziness and borderline hypoTA improved after decreasing the toprol dose OK to DC home and f/u closely outpt
[2018-07-26 09:47] VITALS: BP 112/58; PULSE 68; TEMP 98
== END 2018-07-26 14:01 | disposition home or self-care (01) | DRG 313 ==
LOC: JER 15:29 → JERBED 20:27 → J4W 07-24 00:17
PROVIDERS: ADMIT Internal Medicine; ATTEND Internal Medicine
DX: R07.89 Other chest pain (principal); E11.9 Type 2 diabetes mellitus without complications; E78.5 Hyperlipidemia, unspecified; Z79.4 Long term (current) use of insulin; R00.2 Palpitations; G62.9 Polyneuropathy, unspecified
CPT/HCPCS: 36415; 71046-TC-FY; 80053; 80061; 81003; 82550; 82962; 83036; 83721; 83735; 84443; 84484; 84703; 85025; 85610; 93005; 93010; 93306-TC; 99285-25; J1644

== ENCOUNTER 2018-09-29 09:12 | Emergency (ER) | payer OTHER ==
[2018-09-29 09:18] VITALS: BP 133/82; PULSE 86; TEMP 98; BMI 37.8
[2018-09-29] MEDS ORDERED: KETOROLAC TROMETHAMINE 60 MG/2 ML VIAL IM ONE (09:31)
[2018-09-29] MEDS ORDERED: KETOROLAC TROMETHAMINE 60 MG/2 ML VIAL ONE (09:36)
--- NOTE | 2018-09-29 09:36 | PDOC ---
History of Present Illness - General Chief Complaint: Pain Stated Complaint: FALL X1 WEEK Time Seen by Provider: 09/29/18 09:25 History Source: Patient - History of Present Illness Occurred: reports: other Severity: reports: moderate Pain Location: reports: other (hip) Method of Injury: Yes: fall Past History - Past Medical History Allergies/Adverse Reactions: Allergies Allergy/AdvReac Type Severity Reaction Status Date / Time No Known Allergies Allergy Verified 07/23/18 15:37 Home Medications: Ambulatory Orders metFORMIN HCL [Glucophage -] 500 mg PO TID 02/14/16 Budesonide/Formeterol Fumarate [SYMBICORT 80/4.5mcg -] 1 inh PO DAILY 10/14/17 Pantoprazole Sodium [Protonix -] 20 mg PO DAILY PRN 10/14/17 Multivitamin with Iron [Multivitamins with Iron] 1 tab PO DAILY 10/22/17 Aspirin [ASA -] 81 mg PO DAILY 01/24/18 Acetaminophen [Tylenol .Regular Strength -] 650 mg PO Q6H PRN tablet 01/29/18 Albuterol Sulfate Inhaler - [Ventolin HFA Inhaler -] 2 puff IH Q4H PRN #12 inhaler 02/09/18 Cyclobenzaprine HCl 5 mg PO TID PRN #60 tablet 02/09/18 Docusate Sodium [Colace -] 100 mg PO Q8H PRN capsule 07/25/18 Ranitidine [Zantac -] 150 mg PO DAILY tablet 07/25/18 Losartan Potassium [Cozaar -] 12.5 mg PO DAILY #30 tablet 07/26/18 Metoprolol Tartrate [Lopressor -] 12.5 mg PO BID #30 tablet 07/26/18 Cephalexin [Keflex] 500 mg PO BID #14 capsule 09/29/18 Ibuprofen [Motrin -] 800 mg PO Q6H #30 tablet 09/29/18 Anemia: Yes Asthma: Yes (bronchitis) COPD: No DVT: No Diabetes: Yes (spine) GI Disorders: Yes (GALLSTONES) HTN: Yes Hypercholesterolemia: Yes Liver Disease: Yes (fatty liver) - Surgical History Abdominal Surgery: Yes (cholesysectomy) Appendectomy: Yes Cholecystectomy: Yes Orthopedic Surgery: Yes (ROTATOR CUFF REPAIR) - Immunization History Immunization Up to Date: Yes - Suicide/Smoking/Psychosocial Hx Smoking History: Current some day smoker Have you smoked in the past 12 months: Yes Number of Cigarettes Smoked Daily: 8 Information on smoking cessation initiated: No 'Breaking Loose' booklet given: 02/02/17 Hx Alcohol Use: No Drug/Substance Use Hx: No Substance Use Type: None Hx Substance Use Treatment: No Review of Systems - Review of Systems Constitutional: No: Chills, Fever ABD/GI: No: Nausea, Vomiting, Abdominal cramping : No: Dysuria, Flank Pain, Hematuria Musculoskeletal: Yes: Back Pain, Joint Pain Neurological: No: Numbness, Tingling, Weakness *Physical Exam - Vital Signs Last Vital Signs Temp Pulse Resp BP Pulse Ox 98 F 86 18 133/82 98 09/29/18 09:16 09/29/18 09:16 09/29/18 09:16 09/29/18 09:16 09/29/18 09:16 - Physical Exam General Appearance: Yes: Appropriately Dressed HEENT: positive: Normal Voice Neck: positive: Supple Respiratory/Chest: negative: Respiratory Distress Gastrointestinal/Abdominal: positive: Soft. negative: Tender Musculoskeletal: negative: CVA Tenderness, Vertebral Tenderness Extremity: positive: Normal Inspection. negative: Tender, Swelling Integumentary: positive: Dry, Warm Neurologic: positive: Fully Oriented, Alert, Normal Mood/Affect, Motor Strength 5/5 ED Treatment Course - RADIOLOGY Radiology Studies Ordered: Category Date Time Status HIP & PELVIS-LEFT [RAD] Stat Radiology 09/29/18 09:29 Ordered SPINE-LUMBAR SACRAL [RAD] Stat Radiology 09/29/18 09:29 Ordered Medical Decision Making - Medical Decision Making 09/29/18 09:31 53-year-old, morbidly obese female with history of NIDDM, HLD, arthritis, cspine herniation s/p surgery, here with multiple complaints including persistent left hip pain, radiating to L groin that started over 1 week ago after patient states she accidentally fell out of bathtub, mostly landing on her left side. Did not go to the ER until today because pain is not getting better despite taking Tylenol and now limping. No lower extremity weakness, saddle anesthesia, bowel or bladder incontinence. Patient also complaining of foul-smelling urine 1 week. No burning on urination and no flank pain, nausea , vomiting, fever or chills. Has had UTIs in the past and states current symptoms similar see exam L hip pain s/p fall > 1 week ago Exam only remarkable for slight limp in ED -pain control -XR R/o UTI Foul smelling urine x 1 week No e/o pyelo -ua/cx pending 09/29/18 11:07 XR neg for fracture. Pt reports improvement with Toradol. Will dc with pain control. UA negative for evidence of infection, but given symptoms, will treat (prior sensitivities reviewed). Urine culture pending *DC/Admit/Observation/Transfer Diagnosis at time of Disposition: Foul smelling urine Hip sprain Qualifiers: Encounter type: initial encounter Laterality: left Qualified Code(s): S73.102A - Unspecified sprain of left hip, initial encounter - Discharge Dispostion Disposition: HOME Condition at time of disposition: Good - Prescriptions Prescriptions: Cephalexin [Keflex] 500 mg PO BID #14 capsule Ibuprofen [Motrin -] 800 mg PO Q6H #30 tablet - Referrals - Patient Instructions Printed Discharge Instructions: DI for Muscle Strain, Urinary Tract Infection Additional Instructions: Take pain mediication as prescribed for hip sprain Take antibiotics for UTI and return to ER for worsening of symptoms - Post Discharge Activity
[2018-09-29 10:32] LABS: URINE APPEARANCE CLEAR; URINE BILIRUBIN NEGATIVE (NEGATIVE); URINE COLOR YELLOW; URINE GLUCOSE (UA) 3+ (NEGATIVE); URINE KETONE NEGATIVE (NEGATIVE); URINE LEUK ESTERASE NEGATIVE (NEGATIVE); URINE NITRITE NEGATIVE (NEGATIVE); URINE PROTEIN NEGATIVE (NEGATIVE); URINE UROBILINOGEN 0.2 mg/dL (0.2-1.0)
== END 2018-09-29 11:14 | disposition home or self-care (01) ==
LOC: JERFT 09:12
PROC: 3E0233Z Introduction of Anti-inflammatory into Muscle, Percutaneous Approach (ICD-10-PCS; principal; 2018-09-29)
DX: S73.102A Unspecified sprain of left hip, initial encounter (principal); W18.2XXA Fall in (into) shower or empty bathtub, initial encounter; Y93.E1 Activity, personal bathing and showering; Y92.031 Bathroom in apartment as the place of occurrence of the external cause; Y99.8 Other external cause status; R82.90 Unspecified abnormal findings in urine; I10 Essential (primary) hypertension; E78.00 Pure hypercholesterolemia, unspecified; E11.9 Type 2 diabetes mellitus without complications; Z79.84 Long term (current) use of oral hypoglycemic drugs; K76.0 Fatty (change of) liver, not elsewhere classified; D64.9 Anemia, unspecified; J45.909 Unspecified asthma, uncomplicated
CPT/HCPCS: 72100-TC-FY; 73523-TC-FY; 81003; 87086; 87186; 96372; 99282-25

== ENCOUNTER 2019-11-04 09:30 | Emergency (ER) | payer OTHER ==
[2019-11-04 09:42] VITALS: BP 134/83; PULSE 72; TEMP 98.3; BMI 36.7
--- NOTE | 2019-11-04 10:07 | PDOC ---
History of Present Illness - General Chief Complaint: Pain Stated Complaint: FALL/LT. ARM PAIN Time Seen by Provider: 11/04/19 09:54 History Source: Patient - History of Present Illness Occurred: reports: other Severity: reports: moderate Pain Location: reports: upper extremity Method of Injury: Yes: fall Past History - Medical History Allergies/Adverse Reactions: Allergies Allergy/AdvReac Type Severity Reaction Status Date / Time No Known Allergies Allergy Verified 07/23/18 15:37 Home Medications: Ambulatory Orders metFORMIN HCL [Glucophage -] 500 mg PO TID 02/14/16 Budesonide/Formeterol Fumarate [SYMBICORT 80/4.5mcg -] 1 inh PO DAILY 10/14/17 Pantoprazole Sodium [Protonix -] 20 mg PO DAILY PRN 10/14/17 Multivitamin with Iron [Multivitamins with Iron] 1 tab PO DAILY 10/22/17 Aspirin [ASA -] 81 mg PO DAILY 01/24/18 Acetaminophen [Tylenol .Regular Strength -] 650 mg PO Q6H PRN tablet 01/29/18 Albuterol Sulfate Inhaler - [Ventolin HFA Inhaler -] 2 puff IH Q4H PRN #12 inhaler 02/09/18 Cyclobenzaprine HCl 5 mg PO TID PRN #60 tablet 02/09/18 Docusate Sodium [Colace -] 100 mg PO Q8H PRN capsule 07/25/18 Ranitidine [Zantac -] 150 mg PO DAILY tablet 07/25/18 Losartan Potassium [Cozaar -] 12.5 mg PO DAILY #30 tablet 07/26/18 Metoprolol Tartrate [Lopressor -] 12.5 mg PO BID #30 tablet 07/26/18 Cephalexin [Keflex] 500 mg PO BID #14 capsule 09/29/18 Ibuprofen [Motrin -] 800 mg PO Q6H #30 tablet 09/29/18 Anemia: Yes Asthma: Yes COPD: Yes DVT: No Diabetes: Yes GI Disorders: Yes (GALLSTONES) HTN: Yes Hypercholesterolemia: Yes Liver Disease: Yes (fatty liver) - Surgical History Abdominal Surgery: Yes (cholesysectomy) Appendectomy: Yes Cholecystectomy: Yes Orthopedic Surgery: Yes (ROTATOR CUFF REPAIR) - Immunization History Immunization Up to Date: Yes - Psycho-Social/Smoking History Smoking History: Current some day smoker Have you smoked in the past 12 months: Yes Number of Cigarettes Smoked Daily: 2 Information on smoking cessation initiated: No 'Breaking Loose' booklet given: 02/02/17 - Substance Abuse Hx (Audit-C & DAST Scrn) How often the patient has a drink containing alcohol: Monthly or less Score: In Men: 4 or > Positive; In Women: 3 or > Positive: 1 Screen Result (Pos requires Nsg. Audit-10AR): Negative In the last yr the pt used illegal drug/Rx for NonMed reason: No Score: Yes response is considered Positive: 0 Screen Result (Positive result requires Nsg. DAST-10): Negative Review of Systems - Review of Systems Musculoskeletal: Yes: Joint Pain. No: Back Pain, Joint Swelling, Neck Pain Neurological: No: Numbness, Tingling, Weakness *Physical Exam - Vital Signs Last Vital Signs Temp Pulse Resp BP Pulse Ox 98.3 F 72 20 134/83 98 11/04/19 09:36 11/04/19 09:36 11/04/19 09:36 11/04/19 09:36 11/04/19 09:36 - Physical Exam General Appearance: Yes: Appropriately Dressed. No: Apparent Distress HEENT: positive: Normal Voice Neck: positive: Supple Respiratory/Chest: negative: Respiratory Distress Extremity: positive: Other (LROM 2/2 pain). negative: Tender, Swelling Integumentary: positive: Dry, Warm Neurologic: positive: Fully Oriented, Alert, Normal Mood/Affect, Motor Strength 5/5 ED Treatment Course - RADIOLOGY Radiology Studies Ordered: Category Date Time Status SHOULDER-LEFT [RAD] Stat Radiology 11/04/19 09:57 Ordered Medical Decision Making - Medical Decision Making 11/04/19 10:01 54 yo F, HTN, DM, smoker, OA/DJD, cervical neuropathy, s/p rotator cuff surgery to L shoulder 2 years ago, here w/ persistent L shoulder pain s/p fall 2 weeks ago where patient states she fell onto her left side. States she as not having sig pain after fall so did not come to ED sooner. States pain gradually started Not taking anything for pain. see exam Persistent L shoulder sprain s/p fall 2 weeks ago Exam remarkable for LROM to joint 2/2 pain XR neg for for bony abnl Dc to take OTC meds prn Encourage ortho f/u at this point 0 Discharge - Discharge Information Problems reviewed: Yes Clinical Impression/Diagnosis: Shoulder sprain Qualifiers: Encounter type: initial encounter Shoulder sprain type: unspecified sprain Laterality: left Qualified Code(s): S43.402A - Unspecified sprain of left shoulder joint, initial encounter Condition: Good Disposition: HOME - Follow up/Referral Referrals: Elizabet Linton [Primary Care Provider] - - Patient Discharge Instructions Patient Printed Discharge Instructions: DI for Shoulder Sprain Additional Instructions: Your xray showed no fracture Please follow up with your orthopedist Take tylenol as needed for pain - Post Discharge Activity
== END 2019-11-04 11:01 | disposition home or self-care (01) ==
LOC: JERFT 09:30
DX: S43.402A Unspecified sprain of left shoulder joint, initial encounter (principal)
CPT/HCPCS: 73030-TC-LT-FY; 99283-25

== ENCOUNTER 2019-11-25 13:24 | Emergency (ER) | payer OTHER ==
--- NOTE | 2019-11-25 13:29 | PDOC ---
Rapid Medical Evaluation Time Seen by Provider: 11/25/19 13:25 Medical Evaluation: Allergies Allergy/AdvReac Type Severity Reaction Status Date / Time No Known Allergies Allergy Verified 07/23/18 15:37 11/25/19 13:25 I performed a brief in-person evaluation of this patient. Pt was seen at Dr. Cartagena's office and had BP of 169/90 so they sent her to the ED for evaluation. She also states she was having chest pain on her way to the ED which started about an hour ago. She denies radiation of the pain. She states it's sharp waves. Pt has h/o DM. Pt is not on anything for BP. Pertinent physical exam findings: speaking in full sentences, S1S2, BP 176/91 I have ordered the following: cardiac work up, ekg, cxr Patient to proceed to ED for further evaluation. Discharge Disposition - Diagnosis Elevated blood pressure reading, Chest pain - Referrals - Patient Instructions - Post Discharge Activity
[2019-11-25 13:30] VITALS: PULSE 75; BMI 35.2
--- NOTE | 2019-11-25 14:48 | PDOC ---
History of Present Illness - General Chief Complaint: Chest Pain Stated Complaint: SENT BY PCP (HYPERTENSION0 Time Seen by Provider: 11/25/19 13:25 History Source: Patient, Old Records Exam Limitations: No Limitations - History of Present Illness Initial Comments: 11/25/19 14:47 Tg Hu is a 54F with PMH NIDDM, HLD, sent from Dr. Cartagena's office for HTN with BIRD and chest pain. Patient otherwise feeling well last few days. At GI office for planning colonoscopy, but was told that she is not due for 2 more years. BP in office SBP 160s. At the time patient complaining of BIRD, office sent patient to [facility] ED for evaluation. BIRD described as mild frontal, slow onset today that came on after waking up, no N/V, no dizziness, no vision changes, tolerated PO cake for breakfast but has not eaten anything else today, gait normal not the worst BIRD she has ever felt. BIRD disappeared en route to ED without any intervention. En route had some mild chest pain to left anterior chest, brief, over left breast, unrelated to movement, no recent trauma, has had this pain before and was never evaluated but it was never concerning. Has had PMH HTN before but has not taken any anti-HTN medications in the last few years after surgery for cervical spine bone spur that was causing her significant neck and shoulder pain. Only taking oral meds for DM. Denies palpitations, N/V/C/D, urinary sx, abd pain. Good appetite. NKDA. Denies recent alcohol/drug/tobacco use. Past History - Medical History Allergies/Adverse Reactions: Allergies Allergy/AdvReac Type Severity Reaction Status Date / Time No Known Allergies Allergy Verified 11/25/19 13:30 Home Medications: Ambulatory Orders metFORMIN HCL [Glucophage -] 500 mg PO TID 02/14/16 Budesonide/Formeterol Fumarate [SYMBICORT 80/4.5mcg -] 1 inh PO DAILY 10/14/17 Pantoprazole Sodium [Protonix -] 20 mg PO DAILY PRN 10/14/17 Multivitamin with Iron [Multivitamins with Iron] 1 tab PO DAILY 10/22/17 Aspirin [ASA -] 81 mg PO DAILY 01/24/18 Acetaminophen [Tylenol .Regular Strength -] 650 mg PO Q6H PRN tablet 11/14/18 Albuterol Sulfate Inhaler - [Ventolin HFA Inhaler -] 2 puff IH Q4H PRN #12 inhaler 02/09/18 Cyclobenzaprine HCl 5 mg PO TID PRN #60 tablet 02/09/18 Docusate Sodium [Colace -] 100 mg PO Q8H PRN capsule 07/25/18 Ranitidine [Zantac -] 150 mg PO DAILY tablet 07/25/18 Losartan Potassium [Cozaar -] 12.5 mg PO DAILY #30 tablet 07/26/18 Metoprolol Tartrate [Lopressor -] 12.5 mg PO BID #30 tablet 07/26/18 Cephalexin [Keflex] 500 mg PO BID #14 capsule 09/29/18 Ibuprofen [Motrin -] 800 mg PO Q6H #30 tablet 09/29/18 Anemia: Yes Asthma: Yes COPD: Yes DVT: No Diabetes: Yes GI Disorders: Yes (GALLSTONES) HTN: Yes Hypercholesterolemia: Yes Liver Disease: Yes (fatty liver) - Surgical History Abdominal Surgery: Yes (cholesysectomy) Appendectomy: Yes Cholecystectomy: Yes Orthopedic Surgery: Yes (ROTATOR CUFF REPAIR) - Reproductive History Is Patient Now?: No - Immunization History Immunization Up to Date: Yes - Psycho-Social/Smoking History Smoking History: Never smoked Have you smoked in the past 12 months: Yes Number of Cigarettes Smoked Daily: 2 'Breaking Loose' booklet given: 02/02/17 - Substance Abuse Hx (Audit-C & DAST Scrn) How often the patient has six or more drinks on one occasion: Never Score: In Men: 4 or > Positive; In Women: 3 or > Positive: 0 Screen Result (Pos requires Nsg. Audit-10AR): Negative In the last yr the pt used illegal drug/Rx for NonMed reason: No Score: Yes response is considered Positive: 0 Screen Result (Positive result requires Nsg. DAST-10): Negative Review of Systems - Review of Systems Able to Perform ROS?: Yes Constitutional: No: Symptoms Reported HEENTM: No: Symptoms Reported Respiratory: No: Cough, Shortness of Breath, SOB with Exertion, SOB at Rest Cardiac (ROS): Yes: Chest Pain. No: Lightheadedness, Palpitations, Syncope ABD/GI: No: Constipated, Diarrhea, Nausea, Poor Appetite, Poor Fluid Intake, Vomiting : No: Symptoms Reported Musculoskeletal: No: Symptoms Reported Integumentary: No: Symptoms Reported Neurological: Yes: Headache. No: Numbness, Paresthesia, Unsteady Gait, Ataxia, Dizziness Endocrine: No: Symptoms Reported Hematologic/Lymphatic: No: Symptoms Reported All Other Systems: Reviewed and Negative *Physical Exam - Vital Signs Last Vital Signs Temp Pulse Resp BP Pulse Ox 98.1 F 75 16 139/95 98 11/25/19 13:30 11/25/19 13:30 11/25/19 13:30 11/25/19 13:30 11/25/19 13:30 - Physical Exam General Appearance: Yes: Nourished, Appropriately Dressed, Obese, Other (casually walking around in room). No: Apparent Distress HEENT: positive: EOMI, MARICRUZ, Symmetrical, Pharynx Normal, Hearing Grossly Norm al. negative: Scleral Icterus (R), Scleral Icterus (L), Pharyngeal Erythema, Tonsillar Exudate, Tonsillar Erythema Neck: positive: Trachea midline, Normal Thyroid, Supple. negative: Tender, Rigid, Decreased range of motion, Lymphadenopathy (R), Lymphadenopathy (L) Respiratory/Chest: positive: Lungs Clear, Normal Breath Sounds, Rapid RR. negative: Chest Tender, Respiratory Distress, Accessory Muscle Use, Labored Respiration, Crackles, Rales, Rhonchi, Stridor, Wheezing Cardiovascular: positive: Regular Rhythm, Regular Rate. negative: Murmur Gastrointestinal/Abdominal: positive: Normal Bowel Sounds, Flat, Soft. negative: Tender, Organomegaly, Guarding, Rebound Musculoskeletal: positive: Normal Inspection, CVA Tenderness. negative: Decreased Range of Motion, Vertebral Tenderness Extremity: positive: Normal Capillary Refill, Normal Inspection, Normal Range of Motion. negative: Tender, Pedal Edema, Swelling, Calf Tenderness Integumentary: positive: Normal Color, Dry, Warm Neurologic: positive: cottage cheese maker II-XII NML intact, Fully Oriented, Alert, Normal Mood/Affect, Normal Response, Motor Strength 5/5, Finger to Nose (normal), Other (gait normal). negative: Facial Droop, Sensory Deficit ED Treatment Course - LABORATORY CBC & Chemistry Diagram: 11/25/19 14:10 11/25/19 14:10 Medical Decision Making - Medical Decision Making 11/25/19 15:[address] Cartagena's office for HTN with BIRD and chest pain. BIRD and chest pain have resolved, BP in repeat exam is 130/85, feeling fine at this time. VSS. Exam unremarkable. Given HPI headache is unconcerning for emergent pathology, slow onset and relieved without intervention without neuro deficits. Evaluating chest pain with CBC/CMP/CP/ECG/CXR. If no concerning lab abnormalities can discharge home. Labs notable for: - CBC WNL - CK 286 - trop negative - BMP WNL CXR unremarkable. ECG low voltage in II but otherwise no PIETRO/D or TWI. 11/25/19 17:20 Patient doing well, no BIRD, hungry, no chest pain. Labs unremarkable for cardiac pathology. Repeat BP 122/78, HTN resolved without medication. Stable for discharge home with PMD f/u. Discharge - Discharge Information Problems reviewed: Yes Clinical Impression/Diagnosis: Elevated blood pressure reading Chest pain Qualifiers: Chest pain type: unspecified Qualified Code(s): R07.9 - Chest pain, unspecified Disposition: HOME - Admission No - Follow up/Referral Referrals: Elizabet Linton [Primary Care Provider] - - Patient Discharge Instructions Patient Printed Discharge Instructions: DI for Chest Pain Additional Instructions: Today you were evaluated for high blood pressure, chest pain, and a headache. Your blood pressure is now normal and your headache has resolved. Your labs do not show any emergent problems, but your alkaline phosphatase and CK are elevated, and you should see your primary doctor in the next week for follow-up. Your chest pain is not concerning for a heart attack. At home, please continue taking your medications as scheduled. Please see Dr. Elizabet Linton for further follow-up for your episode of high blood pressure and labs findings. Eat a balanced diet. If you experience worsening chest pain, sudden onset headache, dizziness, palpitations, or have any other new or concerning symptoms, please r eturn to the emergency room. - Post Discharge Activity
[2019-11-25 14:50] LABS: BASO % 1.3 % (0-2.0); EOS % 1.7 % (0-4.5); HEMATOCRIT 40.4 % (32.4-45.2); HEMOGLOBIN 13.6 GM/dL (10.7-15.3); LYMPH % 37.1 % (8-40); MCH 28.7 pg (25.7-33.7); MCHC 33.6 g/dl (32.0-36.0); MEAN CELL VOLUME 85.2 fl (80-96); MEAN PLT VOLUME 9.6 fl (7.5-11.1); MONO % 4.3 % (3.8-10.2); NEUT % 55.6 % (42.8-82.8); PLATELET COUNT 231 K/MM3 (134-434); RBC 4.74 M/mm3 (3.60-5.2); RDW 14.5 % (11.6-15.6); WHITE BLOOD COUNT 7.4 K/mm3 (4.0-10.0)
[2019-11-25 14:57] LABS: INR 0.94 (0.83-1.09); PROTHROMBIN TIME (PATIENT) 11.1 SEC (9.7-13.0)
[2019-11-25 15:00] LABS: ACTIVATED PTT 43.2 SECONDS (25.2-36.5)
[2019-11-25 15:09] LABS: ALBUMIN 3.8 g/dl (3.4-5.0); ALK PHOS 141 U/L (45-117); ANION GAP 5 MMOL/L (8-16); BILIRUBIN,TOTAL 0.3 mg/dL (0.2-1); BLOOD UREA NITROGEN 7.6 mg/dL (7-18); CHLORIDE 106 mmol/L (98-107); CO2 27 mmol/L (21-32); CREATININE 0.7 mg/dL (0.55-1.3); GLUCOSE,RANDOM 193 mg/dL (74-106); MAGNESIUM 1.9 mg/dL (1.8-2.4); POTASSIUM 4.4 mmol/L (3.5-5.1); SGOT/AST 41 U/L (15-37); SGPT/ALT 50 U/L (13-61); SODIUM 138 mmol/L (136-145); TOT PROT 7.5 g/dl (6.4-8.2)
--- NOTE | 2019-11-25 15:53 | PDOC ---
Documentation entered by Shaw Suarez SCRIBE, acting as scribe for Igor Jeffery MD. Igor Jeffery MD: This documentation has been prepared by the Daniela looney Angel, SCRIBE, under my direction and personally reviewed by me in its entirety. I confirm that the documentation accurately reflects all work, treatment, procedures, and medical decision making performed by me. Attending Attestation - Resident Resident Name: JenniferhenrikMarvin - ED Attending Attestation I have performed the following: I have examined & evaluated the patient, The case was reviewed & discussed with the resident, I agree w/resident's findings & plan, Exceptions are as noted - HPI HPI: 11/25/19 15:36 The patient is a 54 year old female with a significant past medical history of Anemia, asthma, COPD, Diabetes, HTN, Gallstones and Hypercholesterolemia who was sent into the ED from office for evaluation for elevated BP and chest pain. The patient states this morning she also had a mild frontal headache which has since then resolved. The patient notes that she has had intermittent left sided chest pain since last weekend. Had an episode earlier today but currently denies any chest pain. Denies SOB. Denies leg swelling. No recent travel/immobilization. - Physicial Exam PE: 11/25/19 15:54 "GENERAL: Awake, alert, and fully oriented, in no acute distress. HEAD: No signs of trauma EYES: PERRLA, EOMI, sclera anicteric, conjunctiva clear ENT: Auricles normal inspection, hearing grossly normal, nares patent, oropharynx clear without exudates. Moist mucosa NECK: Nontender, no stepoffs, Normal ROM, supple, no lymphadenopathy, JVD, or masses LUNGS: Breath sounds equal, clear to auscultation bilaterally. No wheezes, and no crackles HEART: Regular rate and rhythm, normal S1 and S2, no murmurs, rubs or gallops ABDOMEN: Soft, nontender, normoactive bowel sounds. No guarding, no rebound. No masses EXTREMITIES: Normal range of motion, no edema. No clubbing or cyanosis. No cord s, erythema, or tenderness NEUROLOGICAL: Cranial nerves II through XII intact. 5/5 strength and sensation in all extremities, Normal speech, normal gait, normal cerebellar function SKIN: Warm, Dry, normal turgor, no rashes or lesions noted. - Medical Decision Making 11/25/19 15:54 54 F with intermittent chest pain x several days, currently asymptomatic. EKG nonischemic. Initially hypertensive in triage, now improved without intervention. - labs, trop - CXR 11/25/19 15:55 Labs wnl CXR clear Pt is well appearing, with normal vitals. Clinically stable for DC at this time. I discussed the physical exam findings, ancillary test results and final diagnoses with the patient. I answered all of the patient's questions. The patient was satisfied with the care received and felt comfortable with the discharge plan and treatment plan. The patient agrees to follow up with the primary care physician within 24-72 hours. Discharge - Discharge Information Problems reviewed: Yes Clinical Impression/Diagnosis: Elevated blood pressure reading, Chest pain, Transaminitis Disposition: HOME - Follow up/Referral Referrals: Elizabet Linton [Primary Care Provider] - - Patient Discharge Instructions Patient Printed Discharge Instructions: DI for Chest Pain Additional Instructions: Today you were evaluated for high blood pressure, chest pain, and a headache. Your blood pressure is now normal and your headache has resolved. Your labs do not show any emergent problems, but your alkaline phosphatase and CK are elevated, and you should see your primary doctor in the next week for follow-up. Your chest pain is not concerning for a heart attack. At home, please continue taking your medications as scheduled. Please see Dr. Elizabet Linton for further follow-up for your episode of high blood pressure and labs findings. Eat a balanced diet. If you experience worsening chest pain, sudden onset headache, dizziness, palpitations, or have any other new or concerning symptoms, please return to the emergency room. - Post Discharge Activity
[2019-11-25 16:29] VITALS: BP 122/78; TEMP 97.8
--- NOTE | 2019-11-26 12:38 | EKG ---
Test Reason : Blood Pressure : / mmHG Vent. Rate : 073 BPM Atrial Rate : 073 BPM P-R Int : 144 ms QRS Dur : 084 ms QT Int : 368 ms P-R-T Axes : 147 -27 -27 degrees QTc Int : 405 ms UNUSUAL P AXIS, POSSIBLE ECTOPIC ATRIAL RHYTHM INFERIOR INFARCT , AGE UNDETERMINED ABNORMAL ECG WHEN COMPARED WITH ECG OF 23-JUL-2018 18:20, ECTOPIC ATRIAL RHYTHM HAS REPLACED SINUS RHYTHM INFERIOR INFARCT IS NOW PRESENT Confirmed by CHAY XAVIER MD ([id number]) on 11/26/2019 12:37:58 PM Referred By: Confirmed By:CHAY XAVIER MD
== END 2019-11-25 16:15 | disposition home or self-care (01) ==
LOC: JER 13:24
DX: R03.0 Elevated blood-pressure reading, without diagnosis of hypertension (principal); R07.9 Chest pain, unspecified
CPT/HCPCS: 36415; 71046-TC-FY; 80053; 82550; 82553; 83735; 84484; 85025; 85610; 85730; 93005; 93010; 99285-25

== ENCOUNTER 2020-08-04 09:37 | Day surgery (SDC) | payer OTHER ==
[2020-07-28 12:45] VITALS: BMI 36.0
[2020-08-04] MEDS ORDERED: BUPIVACAINE HCL/PF 0.25% (2.5MG/ML) 10 ML VIAL ONE (13:00)
[2020-08-04] MEDS ORDERED: LIDOCAINE HCL 1%, 10 MG/ML (20ML VIAL) ONE (13:00)
[2020-08-04] MEDS ORDERED: MIDAZOLAM HCL 2 MG/2 ML SINGLE DOSE VIAL ONE (13:13)
[2020-08-04] MEDS ORDERED: PROPOFOL 20 ML ONE (13:26)
[2020-08-04] MEDS ORDERED: SUCCINYLCHOLINE CHLORIDE 200 MG/10 ML SYRINGE ONE (13:26)
[2020-08-04] MEDS ORDERED: ceFAZolin SODIUM 1 GM VIAL ONE (13:26)
[2020-08-04] MEDS ORDERED: DEXAMETHASONE SOD PHOSPHATE 4 MG/1 ML VIAL ONE (13:26)
[2020-08-04] MEDS ORDERED: ONDANSETRON 4 MG/2 ML VIAL ONE (13:26)
[2020-08-04] MEDS ORDERED: ONDANSETRON 4 MG/2 ML VIAL IVPUSH PRN (14:31)
[2020-08-04] MEDS ORDERED: oxyCODONE HCL 5 MG TABLET PO PRN (14:31)
[2020-08-04] MEDS ORDERED: LACTATED RINGERS SOLUTION 1,000 ML IV SCH (14:45)
[2020-08-04 15:03] VITALS: TEMP 98
[2020-08-04 15:06] VITALS: BP 130/69; PULSE 62
== END 2020-08-04 14:50 | disposition home or self-care (01) ==
LOC: FASU 09:37
PROVIDERS: ATTEND Orthopaedic Surgery
PROC: 0LN70ZZ Release Right Hand Tendon, Open Approach (ICD-10-PCS; principal; 2020-08-04 13:32)
DX: M65.311 Trigger thumb, right thumb (principal)
CPT/HCPCS: 82962; 88304-TC

== ENCOUNTER 2020-10-20 09:29 | Inpatient (IN) | payer OTHER ==
[2020-10-20 09:38] VITALS: BMI 36.0
[2020-10-20] MEDS ORDERED: ACETAMINOPHEN 1000 MG/100 ML VIAL (NON FORMULARY) IVPB ONE (10:11)
[2020-10-20] MEDS ORDERED: ONDANSETRON 4 MG/2 ML VIAL IVPUSH ONE (10:11)
[2020-10-20] MEDS ORDERED: SODIUM CHLORIDE 0.9% 1000 ML INFUS.BAG IV ONE ×3 (10:11→16:03)
[2020-10-20] MEDS ORDERED: ACETAMINOPHEN INJECTION 100 ML IVPB ONE (10:13)
[2020-10-20] MEDS ORDERED: ONDANSETRON 4 MG/2 ML VIAL ONE (10:13)
[2020-10-20] MEDS ORDERED: FAMOTIDINE 20 MG/50 ML IVPB 20 MG/50 ML MG IVPB ONE ×2 (10:30→10:38)
[2020-10-20 10:47] LABS: BASO % 0.2 % (0-2.0); EOS % 0.2 % (0-4.5); HEMATOCRIT 43.1 % (32.4-45.2); HEMOGLOBIN 14.5 GM/dL (10.7-15.3); LYMPH % 4.3 % (8-40); MCHC 33.7 g/dl (32.0-36.0); MEAN CELL VOLUME 83.2 fl (80-96); MEAN PLT VOLUME 8.7 fl (7.5-11.1); MONO % 2.3 % (3.8-10.2); PLATELET COUNT 218 10^3/uL (134-434); RBC 5.18 M/mm3 (3.60-5.2); RDW 14.7 % (11.6-15.6); VENOUS BASE EXCESS 0.8 mmol/L (-2-2); VENOUS PCO2 42.3 mmHg (38-52); VENOUS PH 7.403 (7.310-7.410)
[2020-10-20 10:54] LABS: INR 1.04 (0.83-1.09); PROTHROMBIN TIME (PATIENT) 12.8 SEC (9.7-13.0)
[2020-10-20 10:57] LABS: ACTIVATED PTT 29.6 SECONDS (25.2-36.5)
[2020-10-20 11:05] LABS: CHLORIDE 105 mmol/L (98-107); SODIUM 139 mmol/L (136-145)
[2020-10-20 11:07] LABS: CALCIUM 8.8 mg/dL (8.5-10.1)
[2020-10-20 11:08] LABS: ALBUMIN 3.9 g/dl (3.4-5.0); ANION GAP 9 MMOL/L (8-16); BLOOD UREA NITROGEN 17.8 mg/dL (7-18); CO2 25 mmol/L (21-32); GLUCOSE,RANDOM 274 mg/dL (74-106); LIPASE 78 U/L (73-393)
[2020-10-20 11:09] LABS: MAGNESIUM 1.7 mg/dL (1.8-2.4)
[2020-10-20 11:11] LABS: SGOT/AST 22 U/L (15-37); SGPT/ALT 34 U/L (13-61)
[2020-10-20 11:12] LABS: BILIRUBIN,TOTAL 0.4 mg/dL (0.2-1)
[2020-10-20 11:14] LABS: ALK PHOS 136 U/L (45-117)
[2020-10-20] MEDS ORDERED: MAGNESIUM SULF 50% (8.12 MEQ/2 ML-1 GM VIAL) IVPB ONE (11:25)
[2020-10-20] MEDS ORDERED: MAGNESIUM SULF 50% (8.12 MEQ/2 ML-1 GM VIAL) ONE (11:32)
[2020-10-20 11:38] LABS: LACTIC ACID 3.7 mmol/L (0.4-2.0)
[2020-10-20 12:12] LABS: ANISOCYTOSIS 0; MACROCYTOSIS 0; PLATELET ESTIMATE NORMAL
[2020-10-20 15:31] LABS: LACTIC ACID 2.6 mmol/L (0.4-2.0)
[2020-10-20] MEDS ORDERED: METOCLOPRAMIDE HCL INJECTION 10 MG/2 ML VIAL IVPUSH ONE (16:03)
[2020-10-20] MEDS ORDERED: METOCLOPRAMIDE HCL INJECTION 10 MG/2 ML VIAL ONE (16:16)
[2020-10-20 20:36] LABS: LACTIC ACID 2.3 mmol/L (0.4-2.0)
[2020-10-20 20:52] LABS: URINE APPEARANCE CLEAR; URINE BILIRUBIN NEGATIVE (NEGATIVE); URINE COLOR YELLOW; URINE GLUCOSE (UA) 3+ (NEGATIVE); URINE KETONE NEGATIVE (NEGATIVE); URINE LEUK ESTERASE NEGATIVE (NEGATIVE); URINE NITRITE NEGATIVE (NEGATIVE); URINE PROTEIN NEGATIVE (NEGATIVE); URINE UROBILINOGEN 0.2 mg/dL (0.2-1.0)
[2020-10-20] MEDS ORDERED: ALBUTEROL SO4 HFA INHALER IH PRN (22:27)
[2020-10-20] MEDS: SODIUM CHLORIDE 1,000 ML IV SCH (23:10)
[2020-10-21] MEDS: metFORMIN HCL 500 MG TABLET (FP) PO SCH ×3 (06:05→17:39)
[2020-10-21] MEDS: ACETAMINOPHEN 325 MG TABLET (FP) PO PRN ×2 (07:58→20:47)
[2020-10-21] MEDS ORDERED: METOCLOPRAMIDE HCL INJECTION 10 MG/2 ML VIAL IVPUSH PRN (08:58)
[2020-10-21] MEDS: HEPARIN NA (PORCINE) 5,000 UNITS/ML 1ML VIAL SQ SCH ×2 (11:17→21:53)
[2020-10-21] MEDS: SODIUM CHLORIDE 1,000 ML IV SCH (11:17)
[2020-10-21] MEDS: LOSARTAN POTASSIUM 50 MG TABLET PO SCH (11:18)
[2020-10-21] MEDS: POLYETHYLENE GLYCOL (HEALTHYLAX) 3350 17 GM PACKET PO SCH ×2 (11:18→21:53)
[2020-10-21] MEDS: ASPIRIN 81 MG CHEWABLE TABLETS PO SCH (11:18)
[2020-10-21] MEDS: BUDESONIDE/FORMETEROL FUMARATE 80/4.5 mcg INHALER IH SCH (21:54)
[2020-10-22] MEDS: SODIUM CHLORIDE 1,000 ML IV SCH ×2 (00:54→06:23)
[2020-10-22] MEDS: metFORMIN HCL 500 MG TABLET (FP) PO SCH ×3 (06:38→17:55)
[2020-10-22] MEDS: BUDESONIDE/FORMETEROL FUMARATE 80/4.5 mcg INHALER IH SCH ×2 (09:51→21:46)
[2020-10-22] MEDS: ASPIRIN 81 MG CHEWABLE TABLETS PO SCH (09:56)
[2020-10-22] MEDS: LOSARTAN POTASSIUM 50 MG TABLET PO SCH (09:57)
[2020-10-22] MEDS: POLYETHYLENE GLYCOL (HEALTHYLAX) 3350 17 GM PACKET PO SCH ×3 (09:57→21:51)
[2020-10-22] MEDS: PANTOPRAZOLE SODIUM 40 MG VIAL IVPUSH SCH (09:57)
[2020-10-22] MEDS: HEPARIN NA (PORCINE) 5,000 UNITS/ML 1ML VIAL SQ SCH ×2 (09:57→21:46)
[2020-10-22 12:27] LABS: BASO % 1.3 % (0-2.0); EOS % 3.7 % (0-4.5); HEMATOCRIT 35.1 % (32.4-45.2); HEMOGLOBIN 11.5 GM/dL (10.7-15.3); LYMPH % 46.5 % (8-40); MCH 27.3 pg (25.7-33.7); MCHC 32.8 g/dl (32.0-36.0); MEAN CELL VOLUME 83.3 fl (80-96); MEAN PLT VOLUME 8.9 fl (7.5-11.1); MONO % 9.8 % (3.8-10.2); NEUT % 38.7 % (42.8-82.8); PLATELET COUNT 169 10^3/uL (134-434); RBC 4.22 M/mm3 (3.60-5.2); RDW 14.6 % (11.6-15.6); WHITE BLOOD COUNT 3.3 K/mm3 (4.0-10.0)
[2020-10-22 12:44] LABS: BLOOD UREA NITROGEN 6.8 mg/dL (7-18); CALCIUM 7.9 mg/dL (8.5-10.1)
[2020-10-22 12:47] LABS: CREATININE 0.7 mg/dL (0.55-1.3)
[2020-10-22 12:49] LABS: BILIRUBIN,TOTAL 0.2 mg/dL (0.2-1)
[2020-10-22 12:50] LABS: ALBUMIN 3.1 g/dl (3.4-5.0)
[2020-10-22] MEDS ORDERED: SODIUM CHLORIDE 1,000 ML IV SCH (18:45)
[2020-10-22] MEDS: ACETAMINOPHEN 325 MG TABLET (FP) PO PRN (20:40)
[2020-10-23] MEDS: metFORMIN HCL 500 MG TABLET (FP) PO SCH ×4 (07:27→18:18)
[2020-10-23 08:37] LABS: BASO % 1.6 % (0-2.0); EOS % 4.1 % (0-4.5); HEMATOCRIT 34.7 % (32.4-45.2); HEMOGLOBIN 11.6 GM/dL (10.7-15.3); LYMPH % 52.5 % (8-40); MCH 27.5 pg (25.7-33.7); MCHC 33.5 g/dl (32.0-36.0); MEAN CELL VOLUME 82.1 fl (80-96); MEAN PLT VOLUME 8.8 fl (7.5-11.1); MONO % 10.7 % (3.8-10.2); NEUT % 31.1 % (42.8-82.8); PLATELET COUNT 180 10^3/uL (134-434); RBC 4.22 M/mm3 (3.60-5.2); RDW 14.2 % (11.6-15.6); WHITE BLOOD COUNT 4.1 K/mm3 (4.0-10.0)
[2020-10-23 09:12] LABS: CALCIUM 8.2 mg/dL (8.5-10.1)
[2020-10-23 09:13] LABS: ALBUMIN 3.1 g/dl (3.4-5.0); BLOOD UREA NITROGEN 8.8 mg/dL (7-18)
[2020-10-23 09:16] LABS: CREATININE 0.6 mg/dL (0.55-1.3)
[2020-10-23 09:18] LABS: BILIRUBIN,TOTAL 0.2 mg/dL (0.2-1); TOT PROT 6.2 g/dl (6.4-8.2)
[2020-10-23] MEDS: ASPIRIN 81 MG CHEWABLE TABLETS PO SCH (10:18)
[2020-10-23] MEDS: LOSARTAN POTASSIUM 50 MG TABLET PO SCH (10:18)
[2020-10-23] MEDS: POLYETHYLENE GLYCOL (HEALTHYLAX) 3350 17 GM PACKET PO SCH ×3 (10:19→21:31)
[2020-10-23] MEDS: HEPARIN NA (PORCINE) 5,000 UNITS/ML 1ML VIAL SQ SCH ×2 (10:19→21:27)
[2020-10-23] MEDS: BUDESONIDE/FORMETEROL FUMARATE 80/4.5 mcg INHALER IH SCH ×2 (10:20→21:27)
[2020-10-23] MEDS: PANTOPRAZOLE 40 MG TABLET PO SCH (18:18)
[2020-10-23] MEDS: PANTOPRAZOLE SODIUM 40 MG VIAL IVPUSH SCH (18:18)
[2020-10-24] MEDS ORDERED: diphenhydrAMINE HCL 25 MG CAPSULE (FP) PO ONE (01:15)
[2020-10-24] MEDS: metFORMIN HCL 500 MG TABLET (FP) PO SCH ×3 (09:33→16:58)
[2020-10-24] MEDS: ASPIRIN 81 MG CHEWABLE TABLETS PO SCH (09:35)
[2020-10-24] MEDS: POLYETHYLENE GLYCOL (HEALTHYLAX) 3350 17 GM PACKET PO SCH ×2 (09:35→21:32)
[2020-10-24] MEDS: LOSARTAN POTASSIUM 50 MG TABLET PO SCH (09:35)
[2020-10-24] MEDS: PANTOPRAZOLE 40 MG TABLET PO SCH (09:35)
[2020-10-24] MEDS: HEPARIN NA (PORCINE) 5,000 UNITS/ML 1ML VIAL SQ SCH ×2 (09:35→21:32)
[2020-10-24] MEDS: BUDESONIDE/FORMETEROL FUMARATE 80/4.5 mcg INHALER IH SCH ×2 (09:36→21:32)
[2020-10-24 10:31] LABS: BASO % 0.7 % (0-2.0); EOS % 3.1 % (0-4.5); HEMATOCRIT 37.1 % (32.4-45.2); HEMOGLOBIN 12.4 GM/dL (10.7-15.3); LYMPH % 50.3 % (8-40); MCH 27.7 pg (25.7-33.7); MCHC 33.4 g/dl (32.0-36.0); MEAN CELL VOLUME 82.9 fl (80-96); MEAN PLT VOLUME 9.2 fl (7.5-11.1); MONO % 7.6 % (3.8-10.2); NEUT % 38.3 % (42.8-82.8); PLATELET COUNT 215 10^3/uL (134-434); RBC 4.48 M/mm3 (3.60-5.2); RDW 14.3 % (11.6-15.6); WHITE BLOOD COUNT 4.7 K/mm3 (4.0-10.0)
[2020-10-24 10:53] LABS: ALBUMIN 3.3 g/dl (3.4-5.0); BLOOD UREA NITROGEN 8.3 mg/dL (7-18); CALCIUM 8.5 mg/dL (8.5-10.1)
[2020-10-24 10:56] LABS: CREATININE 0.6 mg/dL (0.55-1.3)
[2020-10-24 10:57] LABS: BILIRUBIN,TOTAL 0.4 mg/dL (0.2-1); TOT PROT 6.7 g/dl (6.4-8.2)
[2020-10-24] MEDS: ACETAMINOPHEN 325 MG TABLET (FP) PO PRN ×2 (14:46→20:43)
[2020-10-25] MEDS: metFORMIN HCL 500 MG TABLET (FP) PO SCH ×2 (06:35→11:35)
[2020-10-25] MEDS: ASPIRIN 81 MG CHEWABLE TABLETS PO SCH (09:43)
[2020-10-25] MEDS: LOSARTAN POTASSIUM 50 MG TABLET PO SCH (09:43)
[2020-10-25] MEDS: POLYETHYLENE GLYCOL (HEALTHYLAX) 3350 17 GM PACKET PO SCH (09:43)
[2020-10-25] MEDS: PANTOPRAZOLE 40 MG TABLET PO SCH (09:43)
[2020-10-25] MEDS: BUDESONIDE/FORMETEROL FUMARATE 80/4.5 mcg INHALER IH SCH (09:43)
[2020-10-25] MEDS: HEPARIN NA (PORCINE) 5,000 UNITS/ML 1ML VIAL SQ SCH (09:43)
[2020-10-25 13:05] VITALS: BP 146/79; PULSE 71; TEMP 98
[2020-10-26] MEDS ORDERED: LOSARTAN POTASSIUM 50 MG TABLET PO SCH (10:00)
== END 2020-10-25 13:35 | disposition home or self-care (01) | DRG 74 ==
LOC: JER 09:29 → JERBED 20:19 → J5S 22:11
PROVIDERS: ADMIT Internal Medicine; ATTEND Internal Medicine
DX: E11.43 Type 2 diabetes mellitus with diabetic autonomic (poly)neuropathy (principal); K56.7 Ileus, unspecified; K56.600 Partial intestinal obstruction, unspecified as to cause; I10 Essential (primary) hypertension; E78.5 Hyperlipidemia, unspecified; K76.0 Fatty (change of) liver, not elsewhere classified; D64.9 Anemia, unspecified; M19.90 Unspecified osteoarthritis, unspecified site; K64.9 Unspecified hemorrhoids; M48.00 Spinal stenosis, site unspecified; R11.2 Nausea with vomiting, unspecified; R10.10 Upper abdominal pain, unspecified; R07.89 Other chest pain; R51.9 Headache, unspecified; R74.8 Abnormal levels of other serum enzymes
CPT/HCPCS: 36415; 71045-TC-FY; 71250-TC; 74018-TC-FY; 74019-TC-FY; 74177-TC; 76705-TC; 80053; 81003; 82550; 82553; 82803; 82962; 82977; 83036; 83605; 83690; 83735; 84484; 85025; 85610; 85730; 87077; 87086; 93005; 93010; 99285-25; C9803; J0131; J1644; Q9967; U0003; U0005

== ENCOUNTER 2021-02-12 23:52 | Emergency (ER) | payer OTHER ==
[2021-02-13 00:05] VITALS: BP 171/89; TEMP 97.7
[2021-02-13 00:23] VITALS: PULSE 65; BMI 37.3
[2021-02-13] MEDS ORDERED: ACETAMINOPHEN 500 MG TABLET (FP) PO ONE (01:18)
[2021-02-13] MEDS ORDERED: ACETAMINOPHEN 325 MG TABLET (FP) ONE (01:42)
== END 2021-02-13 04:51 | disposition home or self-care (01) ==
LOC: JER 23:52
DX: M25.561 Pain in right knee (principal)
CPT/HCPCS: 73523-TC-FY; 73562-TC-RT-FY; 99284-25

== ENCOUNTER 2021-05-30 13:43 | Emergency (ER) | payer OTHER ==
[2021-05-30 13:55] VITALS: BMI 38.4
[2021-05-30 15:45] LABS: URINE APPEARANCE CLEAR; URINE BILIRUBIN NEGATIVE (NEGATIVE); URINE COLOR YELLOW; URINE GLUCOSE (UA) 2+ (NEGATIVE); URINE KETONE NEGATIVE (NEGATIVE); URINE LEUK ESTERASE NEGATIVE (NEGATIVE); URINE NITRITE NEGATIVE (NEGATIVE); URINE PROTEIN NEGATIVE (NEGATIVE); URINE UROBILINOGEN 0.2 mg/dL (0.2-1.0)
[2021-05-30 17:50] VITALS: BP 142/86; PULSE 86; TEMP 98.3
[2021-05-31 13:07] LABS: SARS-CoV-2 NAA Not Detected (Not Detected)
== END 2021-05-30 18:00 | disposition home or self-care (01) ==
LOC: JER 13:43
DX: R10.30 Lower abdominal pain, unspecified (principal)
CPT/HCPCS: 36415; 81003; 87086; 87491; 87591; 99283-25; C9803; U0003; U0005

== ENCOUNTER 2022-07-05 04:05 | Day surgery (SDC) | payer OTHER ==
[2022-07-04 10:41] VITALS: BMI 33.3
[2022-07-05 09:06] VITALS: TEMP 98
[2022-07-05 09:50] VITALS: BP 106/49; PULSE 54; RESP 14
== END 2022-07-05 09:55 | disposition home or self-care (01) ==
LOC: JASU-ENDO 04:05
PROVIDERS: ATTEND Internal Medicine Gastroenterology
PROC: 0DJD8ZZ Inspection of Lower Intestinal Tract, Via Natural or Artificial Opening Endoscopic (ICD-10-PCS; principal; 2022-07-05 08:45)
DX: Z12.11 Encounter for screening for malignant neoplasm of colon (principal)
CPT/HCPCS: 82962

== ENCOUNTER 2022-09-13 05:26 | Day surgery (SDC) | payer OTHER ==
[2022-09-10 14:19] VITALS: BMI 33.3
[2022-09-13 12:36] VITALS: RESP 18
[2022-09-13 12:42] VITALS: BP 130/64; PULSE 65; TEMP 98
== END 2022-09-13 13:02 | disposition home or self-care (01) ==
LOC: JASU-ENDO 05:26
PROVIDERS: ATTEND Internal Medicine Gastroenterology
PROC: 0DBN8ZX Excision of Sigmoid Colon, Via Natural or Artificial Opening Endoscopic, Diagnostic (ICD-10-PCS; principal; 2022-09-13 11:15)
DX: Z12.11 Encounter for screening for malignant neoplasm of colon (principal); D12.5 Benign neoplasm of sigmoid colon; K64.8 Other hemorrhoids; K57.30 Diverticulosis of large intestine without perforation or abscess without bleeding; Z86.010 Personal history of colon polyps; I10 Essential (primary) hypertension; E11.9 Type 2 diabetes mellitus without complications; Z79.84 Long term (current) use of oral hypoglycemic drugs
CPT/HCPCS: 82962; 88305-TC